=== PATIENT | female | born 1940 | race Asian ===

== ENCOUNTER → 2018-01-30 02:56 | Outpatient (CLI) | payer MEDICARE, MEDICAID, SELFPAY ==
[2018-01-30 12:10] LABS: BUN 19 mg/dL (7-18); CREATININE 0.82 mg/dL (0.55-1.02); Calcium 8.1 mg/dL (8.5-10.1); Chloride 108 mmol/L (98-107); Cholesterol 121 mg/dL (50-200); Glucose 110 mg/dL (70-100); HDL Cholesterol 46 mg/dL (40-60); LDL CHOLESTEROL 50 mg/dL (<100); Potassium 3.7 mmol/L (3.5-5.1); Sodium 142 mmol/L (136-145); Triglyceride 146 mg/dL (30-150)
== END ==
PROVIDERS: PCP Nurse Practitioner Family; Visit Provider Nurse Practitioner Family
DX: I10 Essential (primary) hypertension (principal); E78.5 Hyperlipidemia, unspecified; R73.01 Impaired fasting glucose
CPT/HCPCS: 80048; 80061; 83721; 83036

== ENCOUNTER 2018-03-28 11:25 | Outpatient (CLI) | payer MEDICARE, MEDICAID, SELFPAY ==
[2018-03-28 12:56] LABS: Albumin 3.5 g/dL (3.4-5.0); Calcium 8.2 mg/dL (8.5-10.1)
== END 2018-03-28 11:45 ==
PROVIDERS: PCP Nurse Practitioner Family; Visit Provider Nurse Practitioner Family
DX: E83.51 Hypocalcemia (principal)
CPT/HCPCS: 36415; 82040; 82310

== ENCOUNTER → 2018-10-24 10:05 | Outpatient (BNVA) | payer MEDICARE, MEDICAID, SELFPAY | PROVIDERS: PCP Nurse Practitioner Family; Referring Provider Nurse Practitioner Family; Visit Provider Physical Therapy Assistant | DX: K22.70 Barrett's esophagus without dysplasia (principal); I10 Essential (primary) hypertension; Z79.82 Long term (current) use of aspirin | CPT/HCPCS: 99212; 99214 ==

== ENCOUNTER 2019-01-07 01:22 | Outpatient (CLI) | payer MEDICARE, MEDICAID, SELFPAY ==
--- NOTE | 2019-01-07 16:11 | DI.US_ITS ---
SYMPTOM/DIAGNOSIS: RT SIDED NECK PAIN, GOITER ON EXAM, E04.9 THYROID ULTRASOUND: The right thyroid lobe measures 4.4 by 1.8 by 1.9 cm. and in the upper pole contains a 2.4 by 1.4 by 1.8 cm., complex, mostly cystic mass containing septations. There is a 1.6 by 1.6 by 1.6 cm. heterogeneous solid nodule in the lower pole. The isthmus measures 2 mm. The left thyroid lobe measures 4 by 1.2 by 1.4 cm. and contains a 1.7 by 1.1 by 1.1 cm. complex, mid pole nodule. In the lower pole, there is a cyst measuring 1 by 0.4 by 0.7 cm. There are multiple small nodules seen bilaterally. SUMMARY: A multi nodular thyroid gland is demonstrated as described above.
== END 2019-01-07 01:42 ==
PROVIDERS: PCP Nurse Practitioner Family; Visit Provider Nurse Practitioner Family
DX: M54.2 Cervicalgia (principal); E04.2 Nontoxic multinodular goiter
CPT/HCPCS: 76536

== ENCOUNTER 2019-01-15 12:32 | Outpatient (CLI) | payer MEDICARE, SELFPAY ==
[2019-01-15 15:58] LABS: TSH (W/Ref FT4) 5.21 uIU/mL (0.36-3.74)
[2019-01-15 16:29] LABS: FREE T4 0.85 ng/dL (0.76-1.46)
[2019-01-16 11:17] LABS: Thyroglobulin Antibody <15 U/mL (<61); Thyroperoxidase Antibody <28 U/mL (<61)
== END 2019-01-15 12:52 ==
PROVIDERS: PCP Nurse Practitioner Family; Visit Provider Nurse Practitioner Family
DX: E04.9 Nontoxic goiter, unspecified (principal)
CPT/HCPCS: 36415; 86376; 84439; 84443

== ENCOUNTER 2019-03-27 14:46 | Outpatient (CLI) | payer MEDICARE, MEDICAID, SELFPAY ==
--- NOTE | 2019-03-27 14:00 | DI.RAD_ITS ---
EXAM: XR WRIST RT COMPLETE INDICATION: r/o fx or other bony abnormality, M25.531 PAIN RT WRIST. COMPARISON: No exams were available for comparison TECHNIQUE: 2D digital imaging was performed. FINDINGS: Three views were obtained. There are degenerative changes of the joints of the carpus. There is an ulnar plus variance. There is no evidence of acute fracture or dislocation. 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
== END 2019-03-27 15:06 ==
PROVIDERS: PCP Nurse Practitioner Family; Visit Provider Nurse Practitioner Family
DX: M25.531 Pain in right wrist (principal); M19.031 Primary osteoarthritis, right wrist; M18.11 Unilateral primary osteoarthritis of first carpometacarpal joint, right hand
CPT/HCPCS: 73110

== ENCOUNTER 2019-11-06 14:38 | Outpatient (REF) | payer MEDICARE, MEDICAID, SELFPAY ==
[2019-11-06 18:51] LABS: Abs Immature Grans 0.01 k/cumm (0.0-0.09); Absolute Basophil Count 0.05 k/cumm (0.0-0.2); Absolute Eosinophil Count 0.14 k/cumm (0.0-0.7); Absolute Lymphocyte Count 1.12 k/cumm (1.2-3.4); Absolute Monocyte Count 0.58 k/cumm (0.11-0.7); Absolute Neutrophil Count 3.47 k/cumm (1.2-6.7); Basophils % 0.9; Eosinophils % 2.6; HCT 33.7 % (36.0-46.0); HGB 11.2 g/dL (12.0-15.5); Immature Grans % 0.2 %; Lymphocytes % 20.9; Mean Corp. HGB Concentration 33.2 g/dL (32.0-36.0); Mean Corpuscular Hemoglobin 30.9 pg (27.0-33.0); Mean Corpuscular Volume 92.8 fL (80-95); Mean Platelet Volume 11.1 fL (8.0-11.0); Monocytes % 10.8; Neutrophils % 64.6; Platelet Count 270 x1000/uL (130-400); RBC 3.63 m/cumm (4.00-5.20); RBC Distribution Width 12.8 % (11.7-14.6); White Blood Cell Count 5.37 k/cumm (4.4-10.8)
[2019-11-06 19:20] LABS: ALT 49 U/L (14-59); AST 32 U/L (15-37); Albumin 3.7 g/dL (3.4-5.0); Alkaline Phosphatase 93 U/L (46-116); Anion Gap 8.4 mmol/L (3-11); BUN 23 mg/dL (7-18); Bilirubin, Total 0.7 mg/dL (0.2-1.0); CO2 25.6 mmol/L (21.0-32.0); CREATININE 1.28 mg/dL (0.55-1.02); Chloride 104 mmol/L (98-107); Estimated GFR 40.44 (mL/min/1.73m2); Glucose 194 mg/dL (74-106); Potassium 3.8 mmol/L (3.5-5.1); Sodium 138 mmol/L (136-145); TSH (W/Ref FT4) 1.59 uIU/mL (0.36-3.74); Total Protein 7.6 g/dL (6.4-8.2)
[2019-11-06 19:52] LABS: Hemoglobin A1C 6.6 % (3.8-5.6)
== END 2019-11-06 14:58 ==
LOC: LBN 14:38
PROVIDERS: PCP Nurse Practitioner Family; Visit Provider Nurse Practitioner Family
DX: R73.01 Impaired fasting glucose (principal); E03.9 Hypothyroidism, unspecified; D64.9 Anemia, unspecified; I10 Essential (primary) hypertension
CPT/HCPCS: 80053; 83036; 84443; 85025

== ENCOUNTER → 2019-11-26 14:35 | Outpatient (BNVA) | payer MEDICARE, MEDICAID, SELFPAY | PROVIDERS: PCP Nurse Practitioner Family; Referring Provider Nurse Practitioner Family; Visit Provider Surgery | DX: K22.70 Barrett's esophagus without dysplasia (principal); D64.9 Anemia, unspecified; N28.9 Disorder of kidney and ureter, unspecified; E11.9 Type 2 diabetes mellitus without complications; Z28.21 Immunization not carried out because of patient refusal; G47.33 Obstructive sleep apnea (adult) (pediatric); E78.5 Hyperlipidemia, unspecified; H40.9 Unspecified glaucoma; I10 Essential (primary) hypertension; D12.6 Benign neoplasm of colon, unspecified | CPT/HCPCS: 99212; 99214 ==

== ENCOUNTER 2019-12-01 08:33 | Outpatient (CLI) | payer MEDICARE, SELFPAY ==
[2019-12-02 03:02] LABS: COVID-19 RT-PCR UVMMC Result Negative (Negative)
== END 2019-12-01 08:53 ==
PROVIDERS: PCP Nurse Practitioner Family; Visit Provider Surgery
DX: Z11.59 Encounter for screening for other viral diseases (principal); Z01.818 Encounter for other preprocedural examination
CPT/HCPCS: U0003

== ENCOUNTER 2019-12-04 12:04 | Day surgery (SDC) | payer MEDICARE, MEDICAID, SELFPAY ==
[2019-12-04 12:39] VITALS: BP 135/80; PULSE 60; RESP 16; TEMP 36.9; O2SAT 97
[2019-12-04] MEDS: Lactated Ringers 1,000 ML 100 ML IV (13:06)
--- NOTE | 2019-12-04 13:22 | STOM_PTH ---
PATIENT: Mildred Ash LOC: [facility] U#:[id number] AGE/SX: 79/F ROOM: RE12/04/[address]: Beatrice Joe : 1940 BED: DIS: 12/04/2019 SPEC #: [id number] RECD: 12/04/19 14:48 STATUS: TERRELL REWade #: [id number] SANCHO: 12/04/19 13:[address]: Beatrice Joe DEPT: Surgical Specimen RECD BY: Iqra Flores ENTERED: 12/04/19 14:49 SP TYPE: STOMACH OTHR DR: Sultana Woodward APRN Tissues: 1 - BIOPSY BOWEL 2 - STOMACH BIOPSY 3 - STOMACH BIOPSY 4 - STOMACH BIOPSY 5 - ESOPHAGUS BIOPSY 6 - ESOPHAGUS BIOPSY Procedures: GROSS AND MICRO LEVEL 4 Comments: [id number]
--- NOTE | 2019-12-04 13:45 | W.PM.ENDDOP ---
Date of service: 12/04/19 Time of Service: 13:45 Endoscopy Report DATE OF PROCEDURE: 12/04/19 PRE-OP DIAGNOSIS: hx of loomis's POST-OP DIAGNOSIS: other (hiatal hernia/ polyp in cardia/ duodenitis ) PROCEDURE: egd w/ bx SURGEON: Beatrice Joe ANESTHESIA: MAC ESTIMATED BLOOD LOSS: 1 PATHOLOGY: other COMPLICATIONS: None DISPOSITION: same day PROCEDURE DESCRIPTION: After informed consent was obtained the patient was take to the procedure room and placed in a supine position. Monitors were applied and a time out was done. The patients name, date of , procedure type, allergies to medications and metal in their body was reviewed. A bite block was placed and the patient was sedated. Once sedated and comfortable the gastroscope was advanced through the oropharynx which was grossly normal into the esophagus. The proximal and mid-esophagus were nl. In the distal esophagus there was sm hiatal hernia noted. The scope was advanced into the stomach and through the pylorus into the 3rd portion of the duodenum. The duodenum was noted to be mild erthyma in the bulb. Biopsies were done. The scope was retracted back into the stomach and biopsies were done to rule out H. pylori. There were no ulcers. The scope was retroflexed. The cardia and fundus were noted to be normal. There sm a hiatal hernia noted. There is small polyp in the cardia- bx was taken. The scope was retracted back into the esophagus and biopsies were done of the GE junction to rule out Loomis's. The Z line was mild irregular. The scope was removed and the patient was woken up and taken back to [facility] in stable condition. This scope was basically nl. Pt is not on any medications. Does not require any further egd or ce.
--- NOTE | 2019-12-04 13:51 | W.PM.DSUDISC ---
Discharge Plan Disposition Patient Disposition: HOME Condition: Good Discharge Details Reason For Visit: EGD Attending Provider: Beatrice Joe Primary Care Provider: Sultana Woodward Home Meds and New Rx's Prescriptions: No Action betamethasone dipropionate 0.05 % cream 1 applic TP BID PRN (Reason: skin irritation) Qty: 15 RF: 2 bumetanide 1 mg tablet 1 mg PO DAILY Qty: 90 RF: 3 losartan 100 mg tablet 100 mg PO DAILY Qty: 90 RF: 3 atorvastatin 40 mg tablet 40 mg PO HS Qty: 90 RF: 3 amlodipine 10 mg tablet 10 mg PO DAILY Qty: 90 RF: 3 diclofenac sodium [Voltaren] 1 % gel 2 - 4 gm TP QID PRN (Reason: pain) Qty: 100 RF: 0 [facility] 750 mg-100 mg- 1.65 mg-108 mg tablet 1 tab PO DAILY RF: 0 dorzolamide-timolol 10 ML drops 1 drp Ophthalmic BID Qty: 1 RF: 1 fish oil-dha-epa 1 EACH capsule 1,200 mg PO BID Qty: 1 RF: 11 riboflavin (vitamin B2) [Vitamin B-2] 100 MG tablet 100 mg PO DAILY RF: 0 atenolol 50 mg tablet 50 mg PO DAILY Qty: 90 RF: 3 ibuprofen 600 mg tablet 600 mg PO Q8H PRN (Reason: pain) Qty: 90 RF: 0 multivitamin Tablet 1 tab PO DAILY RF: 0 [employer] [facility] Health 750 mg-100 mg- 1.65 mg-108 mg Tablet 1 tab PO DAILY RF: 0 Discharge Instructions Additional Instructions: Findings:essentially normal does not require any further stomach or colon scopes Follow up: will send a letter w/ Bx results in 2-3 wks Please call if you develop: fevers >101.5 Nausea or Vomiting Abdominal pain that is not transient DAY SURGERY UNIT POST COLONOSCOPY INSTRUCTIONS 1. Because there will be medication in your system for the next 24 hours, you may feel a little sleepy. Your coordination will be affected. Therefore: a. Do not drive or operate dangerous equipment for 24 hours. b. Do not drink alcohol beverages for 24 hours (not even beer). c. Plan to go home and rest for the day. 2. Generally there are no restrictions on your activity after a day or so has gone by, but you may feel a bit fatigued for a few days. 3 After you arrive home you may have a light meal and return to a normal diet as you can tolerate it without feeling sick to your stomach. 4. After surgery, you may feel pain or discomfort. This should be only transient, but if it persists please contact your doctor. 5. If there are any questions regarding the findings of your procedure, please feel free to contact your doctor. 6. If you are unable to contact your doctor with a problem, contact the hospital at [phone]. 7. Continue all your regular medications unless directed otherwise. I understand the above instructions and have no questions. Signature of Patient or Responsible Adult Escort Date/Time Name of Responsible Adult Escort Signature of Nurse Date/Time Activity:: No lifting over 20 pounds or strenuous activity x24 hours Diet:: Carb Counting Discharge Orders Discharge Orders: Discharge Order (Routine); Ordered 12/04/19 Ordered By: Beatrice Joe
[2019-12-04 14:01] VITALS: BP 137/82; PULSE 55; RESP 16; TEMP 36.2; O2SAT 99
[2019-12-04 14:25] VITALS: BP 104/60; PULSE 65; RESP 16; TEMP 36.5; O2SAT 100
== END 2019-12-04 14:30 | disposition home or self-care (01) ==
PROVIDERS: PCP Nurse Practitioner Family; Visit Provider Surgery
PROC: 0DJ68ZZ Inspection of Stomach, Via Natural or Artificial Opening Endoscopic (ICD-10-PCS; CPT 43235; principal; 2019-12-04 13:15)
DX: K29.80 Duodenitis without bleeding (principal); K29.00 Acute gastritis without bleeding; K31.7 Polyp of stomach and duodenum; K44.9 Diaphragmatic hernia without obstruction or gangrene
CPT/HCPCS: 43239; 88305; J2001; J2704

== ENCOUNTER 2019-12-30 13:53 | Emergency (ER) | payer MEDICARE, MEDICAID, SELFPAY ==
[2019-12-30 14:01] VITALS: BP 143/80; PULSE 58; RESP 16; TEMP 37; O2SAT 97
--- NOTE | 2019-12-30 14:15 | RT.EKG_ITS ---
APPROVED REPORT Exam: Resting ECG Patient Location: E HR:55 bpm ECG Measurements Heart Rate 55 AXIS [place] 180 P 35 QRSd 99 QRS -9 QT 426 T 67 QTc 408 <Conclusion> Sinus bradycardia...rate< 60 Left ventricular hypertrophy...multiple voltage criteria No acute ST ischemic changes.
--- NOTE | 2019-12-30 14:16 | ED.GENADUL_ITS ---
Discharge Plan Disposition Patient Disposition: HOME Condition: Improving Discharge Details Chief Complaint: GenMedical Clinical Impression: Headache, Abdominal bloating, Dehydration Primary Care Provider: Sultana Woodward ED Provider: Gracy Chaudhary Home Meds and New Rx's Prescriptions: New ondansetron 4 mg tablet,disintegrating 4 mg PO TID PRN (Reason: nausea and vomiting) Qty: 6 RF: 0 Continued betamethasone dipropionate 0.05 % cream 1 applic TP BID PRN (Reason: skin irritation) Qty: 15 RF: 2 atorvastatin 40 mg tablet 40 mg PO HS Qty: 90 RF: 3 amlodipine 10 mg tablet 10 mg PO DAILY Qty: 90 RF: 3 diclofenac sodium [Voltaren] 1 % gel 2 - 4 gm TP QID PRN (Reason: pain) Qty: 100 RF: 0 [facility] 750 mg-100 mg- 1.65 mg-108 mg tablet 1 tab PO DAILY RF: 0 dorzolamide-timolol 10 ML drops 1 drp Ophthalmic BID Qty: 1 RF: 1 fish oil-dha-epa 1 EACH capsule 1,200 mg PO BID Qty: 1 RF: 11 riboflavin (vitamin B2) [Vitamin B-2] 100 MG tablet 100 mg PO DAILY RF: 0 atenolol 50 mg tablet 50 mg PO DAILY Qty: 90 RF: 3 ibuprofen 600 mg tablet 600 mg PO Q8H PRN (Reason: pain) Qty: 90 RF: 0 fluticasone propionate 50 mcg/actuation spray,suspension 1 - 2 spray NS DAILY PRN (Reason: nasal congestion) Qty: 47.4 RF: 3 bumetanide 1 mg tablet 1 mg PO DAILY Qty: 90 RF: 3 losartan 100 mg tablet 100 mg PO DAILY Qty: 90 RF: 3 multivitamin Tablet 1 tab PO DAILY RF: 0 [facility] 750 mg-100 mg- 1.65 mg-108 mg Tablet 1 tab PO DAILY RF: 0 Discharge Instructions Instructions: Dehydration (ED), General Headache (ED) Additional Instructions: Drink plenty of fluids and get plenty of rest. Alternate tylenol and motrin as needed and directed for pain. Take the Zofran as needed and directed for nausea and vomiting. You will receive a call from radiology regarding an appointment for an outpatient gallbladder ultrasound. You will receive a call from care management regarding a follow-up appointment with your primary care doctor for reevaluation and for recheck of your lipase. Return to the emergency department if you develop any worsening or new concerning symptoms. Discharge Data Discharge Date/Time-TO BE ENTERED AT DEPARTURE: 12/30/19 17:40 Discharge Physician: Gracy Chaudhary Medical Decision Making 2755 -- 79-year-old female with history of obesity, Urbina's esophagus, hypertension, hyperlipidemia, diabetes, migraine presents for dizziness, headache, nasal congestion, abdominal bloating, constipation, decreased appetite and general fatigue over the past 6 weeks. Of note, patient had an EGD last month for her history of Urbina's esophagus and was noted to have hiatal hernia, polyp in cardia, duodenitis. She is afebrile and appears nontoxic. Normal oropharynx. Lungs clear. Abdomen soft and nontender. No focal deficits. Differential diagnosis includes dehydration, electrolyte abnormality, arrhythmia, UTI, pneumonia, sinusitis, acute intracranial process. Will place an IV, bolus IV fluids, migraine cocktail, screening labs, urinalysis as well as CT head and chest x-ray. 1510 --labs reviewed. Normal white blood cell count. Potassium 3.1. Troponin negative. Lipase elevated at 520. Urinalysis negative. Will switch to CT chest and abdomen and pelvis without contrast due to history of IV and oral contrast allergy. 1715 --CT imaging reviewed and negative. Patient was able to eat and ambulate and felt much better and is requesting to go home. Elevated lipase reviewed with surgery on-call and advised an outpatient gallbladder ultrasound and recheck lipase with PCP. There were no gallstones noted on CT abdomen and pelvis and patient denies any history of alcohol. An outpatient gallbladder ultrasound was ordered. Patient was placed on care management list to arrange for follow-up appointment with the primary care doctor in the next 1 to 2 weeks. Medical Records Medical records reviewed: Yes I reviewed the patient's medical records. Imaging Data Radiologic Study: Radiologist's impression: CT HEAD WO CLINICAL HISTORY: headache, dizziness, r/o acute disease. TECHNIQUE: Imaging Protocol: Axial computed tomography images with coronal and sagittal reformatted images were created and reviewed COMPARISON: No exams were available for comparison FINDINGS: Ventricles and Extra axial spaces: Normal in size and morphology for the patient's age. Hemorrhage: None. Cerebral parenchyma: Mild atrophy. No infarct or mass. Midline shift: None. Brainstem/Cerebellum: Normal. Calvarium: Right posterior fossa craniotomy and skull base metallic density. Right parietal veronica hole. Visualized Paranasal sinuses/Mastoids: Clear. Soft Tissues: Unremarkable. IMPRESSION: Postsurgical changes in the skull. No acute intracranial process. CT CHEST/ABD/PEL WO CLINICAL HISTORY: DIZZINESS, VOMITING, ABD BLOATING. TECHNIQUE: Imaging Protocol: Axial computed tomography images with coronal and sagittal reformatted images were created and reviewed CONTRAST MATERIAL: Intravenous: Omnipaque 350 Contrast volume:structured data in ml Oral: No COMPARISON: None FINDINGS: CHEST: Heart and great vessels: Dilated left atrium and left ventricle. Mild calcification of the coronary arteries and aorta. There are no pleural or pericardial effusions. Adenopathy: None. Lungs: Limited evaluation due to respiratory motion. No pulmonary nodules, mass or infiltrate. Bones: Degenerative disc changes. There is no evidence of spine or rib fracture. ABDOMEN/PELVIS: Liver: Normal density. No measurable mass. Gallbladder: No calcified stones, no wall thickening, no abnormal distention.No pericholecystic fluid. Biliary tract: No radiodense calculus, no dilation. Pancreas: Normal density, no abnormal calcifications or inflammatory process. Spleen: Normal. Kidneys: Normal size, contour and axis. No radiodense stones. No hydronephrosis. No masses seen. No perinephric collection. Adrenal glands: No masses seen. Abdominal Aorta: Non-dilated. Moderate atherosclerotic changes. Bowel: No obstruction or bowel wall thickening. No evidence of appendicitis or diverticulitis. Bladder: No gross wall thickening, focal mass or stones. Peritoneal cavity: No ascites, focal collection or mesenteric inflammatory response. No free air. Bones: No suspicious lesions or fractures. Degenerative disc changes. Reproductive organs: Within normal limits. Lymph nodes: No pathologically enlarged lymph nodes. Impression: Unremarkable CT scan of the chest, abdomen and pelvis. Lab Data Lab results reviewed: Yes I reviewed the patient's lab results. Labs: Laboratory Tests Range/Units 12/30/19 12/30/19 12/30/19 14:40 14:40 14:40 WBC (4.4-10.8) k/cumm 5.17 RBC (4.00-5.20) m/cumm 3.78 L Hgb (12.0-15.5) g/dL 11.8 L Hct (36.0-46.0) % 33.9 L MCV (80-95) fL 89.7 MCH (27.0-33.0) pg 31.2 MCHC (32.0-36.0) g/dL 34.8 RDW (11.7-14.6) % 12.3 Plt Count (130-400) x1000/uL 295 MPV (8.0-11.0) fL 9.7 Immature Gran % % 0.0 Neutrophils % 62.1 Lymphocytes % 23.4 Monocytes % 11.8 Eosinophils % 1.9 Basophils % 0.8 Absolute Neutrophils (1.2-6.7) k/cumm 3.21 Absolute Lymphocytes (1.2-3.4) k/cumm 1.21 Absolute Monocytes (0.11-0.7) k/cumm 0.61 Absolute Eosinophils (0.0-0.7) k/cumm 0.10 Absolute Basophils (0.0-0.2) k/cumm 0.04 Sodium (136-145) mmol/L 135 L Potassium (3.5-5.1) mmol/L 3.1 L Chloride (98-107) mmol/L 99 Carbon Dioxide (21.0-32.0) mmol/L 24.4 Anion Gap (3-11) mmol/L 11.6 H BUN (7-18) mg/dL 17 Creatinine (0.55-1.02) mg/dL 0.98 Estimated GFR/1.73 m2 (mL/min/1.73m2) 55.03 Glucose (74-106) mg/dL 144 H Calcium (8.5-10.1) mg/dL 8.6 Magnesium (1.8-2.4) mg/dL 1.8 Total Bilirubin (0.2-1.0) mg/dL 0.7 AST (15-37) U/L 28 ALT (14-59) U/L 34 Alkaline Phosphatase (46-116) U/L 91 Troponin I (<0.06) ng/mL < 0.05 Total Protein (6.4-8.2) g/dL 8.0 Albumin (3.4-5.0) g/dL 3.6 Lipase (73-393) U/L 520 H Urine Color (Yellow) Urine Clarity (Clear) Urine pH (5-8) Ur Specific [place] (1.005-1.025) Urine Protein (Negative) mg/dL Urine Ketones (Negative) mg/dL Urine Blood (Negative) Urine Nitrite (Negative) Urine Bilirubin (Negative) Urine Urobilinogen (Up TO 0.2) EU/dL Ur Leukocyte Esterase (Negative) Urine Glucose (Negative) mg/dL Range/Units 12/30/19 15:20 WBC (4.4-10.8) k/cumm RBC (4.00-5.20) m/cumm Hgb (12.0-15.5) g/dL Hct (36.0-46.0) % MCV (80-95) fL MCH (27.0-33.0) pg MCHC (32.0-36.0) g/dL RDW (11.7-14.6) % Plt Count (130-400) x1000/uL MPV (8.0-11.0) fL Immature Gran % % Neutrophils % Lymphocytes % Monocytes % Eosinophils % Basophils % Absolute Neutrophils (1.2-6.7) k/cumm Absolute Lymphocytes (1.2-3.4) k/cumm Absolute Monocytes (0.11-0.7) k/cumm Absolute Eosinophils (0.0-0.7) k/cumm Absolute Basophils (0.0-0.2) k/cumm Sodium (136-145) mmol/L Potassium (3.5-5.1) mmol/L Chloride (98-107) mmol/L Carbon Dioxide (21.0-32.0) mmol/L Anion Gap (3-11) mmol/L BUN (7-18) mg/dL Creatinine (0.55-1.02) mg/dL Estimated GFR/1.73 m2 (mL/min/1.73m2) Glucose (74-106) mg/dL Calcium (8.5-10.1) mg/dL Magnesium (1.8-2.4) mg/dL Total Bilirubin (0.2-1.0) mg/dL AST (15-37) U/L ALT (14-59) U/L Alkaline Phosphatase (46-116) U/L Troponin I (<0.06) ng/mL Total Protein (6.4-8.2) g/dL Albumin (3.4-5.0) g/dL Lipase (73-393) U/L Urine Color (Yellow) Yellow Urine Clarity (Clear) Clear Urine pH (5-8) 6.0 Ur Specific [place] (1.005-1.025) 1.010 Urine Protein (Negative) mg/dL Negative Urine Ketones (Negative) mg/dL Negative Urine Blood (Negative) Negative Urine Nitrite (Negative) Negative Urine Bilirubin (Negative) Negative Urine Urobilinogen (Up TO 0.2) EU/dL 0.2 Ur Leukocyte Esterase (Negative) Negative Urine Glucose (Negative) mg/dL Negative ECG Data Attestation: I personally reviewed and interpreted this ECG (s) as follows: Interpretation: Rate of 55, sinus, no acute ST elevation or depression. [place] 180. QRS 99. QTcB 408. HPI General Mode of arrival: ambulatory . Date/Time Provider Initiated Documentation: 12/30/19 14:06 . Limitations to Documentation: no limitations . Information obtained by: patient and family . HPI Narrative: Pt is a 79yo F w/ a h/o hypertension, diabetes, migraines, sleep apnea, Urbina's esophagus who presents with multiple complaints over the last 6 weeks. Patient admits to aching headache pain and [id number] on the top of her head for the past several weeks, currently now 5/10. She also admits to intermittent nasal congestion, postnasal drip, fatigue, dizziness, abdominal bloating, constipation and decreased appetite. Daughter states that patient does not drink much water. She has tried her own French remedies for her headache including a topical tiger balm like cream with occasional relief. Denies any fever, sore throat, chest pain, shortness of breath, abdominal pain, diarrhea, urinary symptoms, recent travel, recent known sick contacts, recent change in medications or recent antibiotics. Related Data Home Medications Medication Instructions Recorded Confirmed dorzolamide-timolol 1 drp OPHTHALMIC BID #1 drp 07/02/13 12/30/19 fish oil-dha-epa 1,200 mg PO BID #1 tab-cap 08/07/13 12/30/19 riboflavin (vitamin B2) [Vitamin 100 mg PO DAILY 06/03/15 12/30/19 B-2] betamethasone dipropionate 0.05 % 1 applic TP BID PRN #15 gm 07/04/18 12/30/19 topical cream atorvastatin 40 mg tablet 40 mg PO HS #90 tab 01/02/19 12/30/19 amlodipine 10 mg tablet 10 mg PO DAILY #90 tab-cap 04/10/19 12/30/19 atenolol 50 mg tablet 50 mg PO DAILY #90 tab-cap 04/30/19 12/30/19 diclofenac sodium 1 % topical gel 2 - 4 gm TP QID PRN #100 gm 05/08/19 12/30/19 ibuprofen 600 mg tablet 600 mg PO Q8H PRN #90 tab 06/19/19 12/30/19 glucosam 750 mg-chondroi 100 1 tab PO DAILY tab 11/06/19 12/30/19 mg-hyalur 1.65 mg-CF borate 108 mg tablet [facility] 1 tab PO DAILY 12/03/19 12/30/19 multivitamin 1 tab PO DAILY 12/03/19 12/30/19 fluticasone propionate 50 1 - 2 spray NS DAILY PRN #47.4 gm 12/18/19 12/30/19 mcg/actuation nasal spray,suspension bumetanide 1 mg tablet 1 mg PO DAILY #90 tab-cap 12/25/19 12/30/19 losartan 100 mg tablet 100 mg PO DAILY #90 tab-cap 12/25/19 12/30/19 ondansetron 4 mg PO TID PRN #6 tab 12/30/19 Previous Rx's Medication Instructions Recorded betamethasone dipropionate 0.05 % 1 applic TP BID PRN #15 gm 07/04/18 topical cream atorvastatin 40 mg tablet 40 mg PO HS #90 tab 01/02/19 amlodipine 10 mg tablet 10 mg PO DAILY #90 tab-cap 04/10/19 atenolol 50 mg tablet 50 mg PO DAILY #90 tab-cap 04/30/19 diclofenac sodium 1 % topical gel 2 - 4 gm TP QID PRN #100 gm 05/08/19 ibuprofen 600 mg tablet 600 mg PO Q8H PRN #90 tab 06/19/19 fluticasone propionate 50 1 - 2 spray NS DAILY PRN #47.4 gm 12/18/19 mcg/actuation nasal spray,suspension bumetanide 1 mg tablet 1 mg PO DAILY #90 tab-cap 12/25/19 losartan 100 mg tablet 100 mg PO DAILY #90 tab-cap 12/25/19 ondansetron 4 mg PO TID PRN #6 tab 12/30/19 Allergies Allergy/AdvReac Type Severity Reaction Status Date / Time Iodinated Contrast Media Allergy Intermediate RASH Verified 12/30/19 16:05 [Iodinated Contrast- Oral and IV Dye] shellfish derived Allergy Intermediate HIVES-RETIR Verified 12/30/19 16:05 ED hydrochlorothiazide Allergy Unknown Hives Verified 12/30/19 16:05 pantoprazole Allergy Unknown Hives Verified 12/30/19 16:05 diltiazem AdvReac Intermediate ITCHY RASH Verified 12/30/19 16:05 verapamil AdvReac Mild ITCHY RASH Verified 12/30/19 16:05 capsule Allergy Severe rash all Uncoded 12/30/19 16:05 over body General Stated Complaint: GenMedical SKIP: 3 Review of Systems All systems reviewed & are unremarkable except as noted in HPI and below Constitutional Constitutional: Reports as per HPI, Denies chills, Denies fever(s) and Reports headache(s) Eyes Eyes: Denies blurry vision ENT Ears, Nose, Mouth, and Throat: Reports dizziness, Reports headache(s), Denies sore throat and Denies throat swelling Cardiovascular Cardiovascular: Denies chest pain and Denies dyspnea Respiratory Respiratory: Denies cough and Denies dyspnea Gastrointestinal Gastrointestinal: Denies abdominal pain, Reports bloating, Denies diarrhea and Reports vomiting Genitourinary Genitourinary: Denies hematuria and Denies dysuria Musculoskeletal Musculoskeletal: Denies back pain and Denies numbness Integumentary/Breasts Skin/Breast: Denies lesions and Denies rash Neurologic Neurologic: Reports dizziness, Reports headache(s), Denies localized weakness and Denies numbness Allergic/Immunologic Allergic/Immunologic: Denies throat swelling [facility] Medical History (Updated 12/30/19 @ 17:14 by Gracy Chaudhary DO) Adenoma of large intestine (Inactive 01/15/13) tubular adenoma 07/18/[address] Hadley Anemia (Acute 07/05/11) chronic Urbina's esophagus (Acute) Dr Lim: EGD 07/12/09 frq q5y Chronic rhinitis (Acute 02/05/14) Glaucoma Gout HLD (hyperlipidemia) HTN (hypertension) IFG (impaired fasting glucose) (Resolved) Migraine without aura (Chronic 05/10/11) Obstructive sleep apnea (Chronic 12/02/15) [facility] Sleep Medicine Other and unspecified hyperlipidemia (Chronic 01/09/13) 01/2017 labwork: 10-year ASCVD risk = ~22.7% --> pt declines statins Psoriasis (Chronic) Type 2 diabetes mellitus (Acute) Surgical History (Updated 12/04/19 @ 12:29 by Eliel Hurtado) Colonoscopy - MAC (Resolved 07/18/17) egd (Resolved 07/19/09) and 01/23/08 H/O lithotripsy (Acute) History of ear surgery (Acute) Per pt. daughter pt. had a metal plate put on the side of her head r/t to inner ear issue. Pt. daughter states this was done 40 years ago. Social History Smoking/Tobacco Use Status: Never Alcohol Intake: never Drug use: Never Substance use type: does not use Caregiver/Support person: No Number of Children: 4 Communication Needs: Language Barriers current occupation: retired Pets and animals: No Current gender identity: female What is your relationship status?: Panel score (0-1 are the most socially isolated patients): 0 What type of physical activity do you participate in: other Details: ski machine Duration: 15-30 minutes/day Frequency: 3-4 times per week Seatbelt use: always Additional Social history: pt. daughter salvatore answering for pt. Language line utelized. Exam Const General: cooperative and no acute distress Orientation: alert, awake and oriented x3 HENMT Head: normal to inspection Ears: hearing grossly normal bilaterally, external ears normal and TM's normal bilaterally General nose exam: external nose normal Face and sinus: normal facial exam Mouth: oral mucosae normal Teeth and gingiva: dentition normal Throat: posterior oropharynx normal Eyes General: appearance normal, both eyes and all related structures Eyelids: eyelids normal Pupils: PERRL EOM: EOM intact bilaterally Neck Neck: normal visual inspection Lymphatic: no lymphadenopathy noted Chest Chest: normal inspection of the chest Resp Effort & Inspection: normal respiratory effort and able to speak in complete sentences Auscultation: clear to auscultation bilaterally Cardio Rate: regular rate Rhythm: regular rhythm GI Inspection: normal to inspection and obesity Palpation: soft, not firm, no guarding, no hepatosplenomegaly, no masses and nontender Auscultation: normal bowel sounds Back/Spine/Pelvis Back: no CVA tenderness Skin General skin exam: no rashes or lesions noted Neuro General: patient alert, patient awake and CN's II-XI intact bilaterally Cognition: normal cognition Speech: speech normal Gait: normal gait Motor: muscle tone normal throughout and strength 5/5 throughout Sensory Exam: no sensory deficits noted Extrem General: normal to inspection, full ROM and capillary refill normal Psych Appearance: grossly normal Mental Status: mental status grossly normal Speech and Movement: speech and movement normal Affect: normal affect Thought Process: normal Course Vital Signs Vital signs: Vital Signs Temperature 98.6 F 12/30/19 14:01 Pulse 58 L 12/30/19 14:01 Respiratory Rate 16 12/30/19 14:01 Blood Pressure 143/80 H 12/30/19 14:01 Pulse Oximetry 97 12/30/19 14:01 Temperature 98.6 F 12/30/19 14:01 Temperature Source Skin 12/30/19 14:01 Pulse 58 L 12/30/19 14:01 Respiratory Rate 16 12/30/19 14:01 Respiratory Effort Non-Labored 12/30/19 14:01 Blood Pressure 143/80 H 12/30/19 14:01 Blood Pressure Position Sitting 12/30/19 14:01 Pulse Oximetry 97 12/30/19 14:01 Oxygen Delivery Method Room Air 12/30/19 14:01 Oxygen Flow Rate 0 12/30/19 14:01 Pain Level 6 12/30/19 14:01
--- NOTE | 2019-12-30 14:45 | DI.CT_ITS ---
EXAM: CT HEAD WO CLINICAL HISTORY: headache, dizziness, r/o acute disease. TECHNIQUE: Imaging Protocol: Axial computed tomography images with coronal and sagittal reformatted images were created and reviewed COMPARISON: No exams were available for comparison FINDINGS: Ventricles and Extra axial spaces: Normal in size and morphology for the patient's age. Hemorrhage: None. Cerebral parenchyma: Mild atrophy. No infarct or mass. Midline shift: None. Brainstem/Cerebellum: Normal. Calvarium: Right posterior fossa craniotomy and skull base metallic density. Right parietal veronica hol e. Visualized Paranasal sinuses/Mastoids: Clear. Soft Tissues: Unremarkable. IMPRESSION: Postsurgical changes in the skull. No acute intracranial process. RADIATION DOSE DELIVERED: Total DLP DATA REPOSITORY: All CT scans at this facility are submitted to the National Radiology Data Registry (NRDR) Dose Index Registry (DIR) with the [employer] (ACR). RADIATION OPTIMIZATION: All CT scans at this facility use at least one of these dose optimization te chniques: automated exposure control; mA and/or kV adjustment per patient size (includes targeted exa ms where dose is matched to clinical indication); or iterative reconstruction.
[2019-12-30 14:53] LABS: Absolute Basophil Count 0.04 k/cumm (0.0-0.2); Absolute Lymphocyte Count 1.21 k/cumm (1.2-3.4); Absolute Monocyte Count 0.61 k/cumm (0.11-0.7); Absolute Neutrophil Count 3.21 k/cumm (1.2-6.7); Basophils % 0.8; Eosinophils % 1.9; HCT 33.9 % (36.0-46.0); HGB 11.8 g/dL (12.0-15.5); Lymphocytes % 23.4; Mean Corp. HGB Concentration 34.8 g/dL (32.0-36.0); Mean Corpuscular Hemoglobin 31.2 pg (27.0-33.0); Mean Corpuscular Volume 89.7 fL (80-95); Mean Platelet Volume 9.7 fL (8.0-11.0); Monocytes % 11.8; Neutrophils % 62.1; Platelet Count 295 x1000/uL (130-400); RBC 3.78 m/cumm (4.00-5.20); RBC Distribution Width 12.3 % (11.7-14.6); White Blood Cell Count 5.17 k/cumm (4.4-10.8)
[2019-12-30 15:10] LABS: Lipase 520 U/L (73-393)
[2019-12-30 15:12] LABS: ALT 34 U/L (14-59); AST 28 U/L (15-37); Albumin 3.6 g/dL (3.4-5.0); Alkaline Phosphatase 91 U/L (46-116); Anion Gap 11.6 mmol/L (3-11); BUN 17 mg/dL (7-18); Bilirubin, Total 0.7 mg/dL (0.2-1.0); CO2 24.4 mmol/L (21.0-32.0); CREATININE 0.98 mg/dL (0.55-1.02); Calcium 8.6 mg/dL (8.5-10.1); Chloride 99 mmol/L (98-107); Estimated GFR 55.03 (mL/min/1.73m2); Glucose 144 mg/dL (74-106); Magnesium 1.8 mg/dL (1.8-2.4); Potassium 3.1 mmol/L (3.5-5.1); Sodium 135 mmol/L (136-145)
[2019-12-30 15:13] LABS: Troponin I < 0.05 ng/mL (<0.06)
--- NOTE | 2019-12-30 15:19 | DI.CT_ITS ---
EXAM: CT CHEST/ABD/PEL WO CLINICAL HISTORY: DIZZINESS, VOMITING, ABD BLOATING. TECHNIQUE: Imaging Protocol: Axial computed tomography images with coronal and sagittal reformatted images were created and reviewed CONTRAST MATERIAL: Intravenous: Omnipaque 350 Contrast volume:structured data in ml Oral: No COMPARISON: None FINDINGS: CHEST: Heart and great vessels: Dilated left atrium and left ventricle. Mild calcification of the coronary arteries and aorta. There are no pleural or pericardial effusions. Adenopathy: None. Lungs: Limited evaluation due to respiratory motion. No pulmonary nodules, mass or infiltrate. Bones: Degenerative disc changes. There is no evidence of spine or rib fracture. ABDOMEN/PELVIS: Liver: Normal density. No measurable mass. Gallbladder: No calcified stones, no wall thickening, no abnormal distention.No pericholecystic fluid . Biliary tract: No radiodense calculus, no dilation. Pancreas: Normal density, no abnormal calcifications or inflammatory process. Spleen: Normal. Kidneys: Normal size, contour and axis. No radiodense stones. No hydronephrosis. No masses seen. No perinephric collection. Adrenal glands: No masses seen. Abdominal Aorta: Non-dilated. Moderate atherosclerotic changes. Bowel: No obstruction or bowel wall thickening. No evidence of appendicitis or diverticulitis. Bladder: No gross wall thickening, focal mass or stones. Peritoneal cavity: No ascites, focal collection or mesenteric inflammatory response. No free air. Bones: No suspicious lesions or fractures. Degenerative disc changes. Reproductive organs: Within normal limits. Lymph nodes: No pathologically enlarged lymph nodes. Impression: Unremarkable CT scan of the chest, abdomen and pelvis. RADIATION DOSE DELIVERED: Total DLP Total DLP DATA REPOSITORY: All CT scans at this facility are submitted to the National Radiology Data Registry (NRDR) Dose Index Registry (DIR) with the [employer] (ACR). RADIATION OPTIMIZATION: All CT scans at this facility use at least one of these dose optimization te chniques: automated exposure control; mA and/or kV adjustment per patient size (includes targeted exa ms where dose is matched to clinical indication); or iterative reconstruction.
[2019-12-30 15:30] LABS: Bilirubin Negative (Negative); Blood Negative (Negative); Clarity Clear (Clear); Glucose Negative (Negative); Ketones Negative (Negative); Leukocyte Esterase Negative (Negative); Nitrite Negative (Negative); Urobilinogen 0.2 EU/dL (Up TO 0.2)
[2019-12-30] MEDS: ACETAMINOPHEN 1,000 MG/100 ML BTL 400 MG IVPB (15:33)
[2019-12-30] MEDS: Normal Saline 1,000 ML 1000 ML IV (15:33)
[2019-12-30] MEDS: Dexamethasone 10 MG/ML VIAL IVP (15:48)
[2019-12-30] MEDS: Prochlorperazine 10 MG/2 ML VIAL IVP (15:49)
[2019-12-30] MEDS: diphenhydrAMINE 50 MG/ML VIAL 25 MG IVP (15:51)
[2019-12-30 16:43] VITALS: BP 148/71; PULSE 55; RESP 16; TEMP 36.5; O2SAT 98
[2019-12-30] MEDS: Potassium Chloride 20 MEQ TABCR 40 MEQ PO (16:47)
== END 2019-12-30 17:40 | disposition home or self-care (01) ==
PROVIDERS: Emergency Provider Physician Assistant; PCP Nurse Practitioner Family
DX: R51 Headache (principal); E86.0 Dehydration; R14.0 Abdominal distension (gaseous); R79.89 Other specified abnormal findings of blood chemistry; I10 Essential (primary) hypertension; E11.9 Type 2 diabetes mellitus without complications
CPT/HCPCS: 71250; 80053; 83690; 93005; 96361; 96374; 96375; 99285; 70450; 74176; 81003; 83735; 84484; 85025; 93010; 99284; J0131; J0780; J1100; J1200

== ENCOUNTER 2019-12-31 10:42 | Outpatient (CLI) | payer MEDICARE, MEDICAID, SELFPAY ==
--- NOTE | 2019-12-31 | DI.US_ITS ---
EXAM: US ABDOMEN CLINICAL HISTORY: ABDOMINAL BLOATING, ELEVATED LIPASE TECHNIQUE: Ultrasound abdomen performed using standard protocol. COMPARISON: CT CT CHEST/ABD/PEL WO from 12/30/2019 FINDINGS: LIVER: Normal size. Mildly increased echogenicity. No focal liver lesions are seen.. GALLBLADDER: No evidence of cholelithiasis. No evidence of wall thickening. No pericholecystic fluid identified. WEBER'S SIGN: Negative. BILIARY SYSTEM: No intrahepatic or extrahepatic biliary ductal dilation. KIDNEYS: Kidneys are symmetric in size. No evidence of renal calculi. No evidence of hydronephrosis. No renal mass identified. Small cyst left kidney. PANCREAS: Normal where visualized. SPLEEN: Not enlarged. ABDOMINAL AORTA AND IVC: Visualized portions normal caliber. ASCITES: None seen. IMPRESSION: Fatty liver. No evidence of gallstones or biliary dilatation. DATA REPOSITORY:
== END 2019-12-31 11:02 ==
PROVIDERS: PCP Nurse Practitioner Family; Visit Provider Physician Assistant
DX: R14.0 Abdominal distension (gaseous) (principal); R74.8 Abnormal levels of other serum enzymes; K76.0 Fatty (change of) liver, not elsewhere classified
CPT/HCPCS: 76700

== ENCOUNTER 2020-01-08 02:39 | Outpatient (CLI) | payer MEDICARE, SELFPAY ==
[2020-01-08 16:47] LABS: Anion Gap 10.1 mmol/L (3-11); BUN 13 mg/dL (7-18); CO2 24.9 mmol/L (21.0-32.0); CREATININE 0.94 mg/dL (0.55-1.02); Calcium 8.8 mg/dL (8.5-10.1); Chloride 98 mmol/L (98-107); Estimated GFR 57.74 (mL/min/1.73m2); Glucose 133 mg/dL (74-106); Lipase 427 U/L (73-393); Potassium 3.9 mmol/L (3.5-5.1); Sodium 133 mmol/L (136-145)
== END 2020-01-08 02:59 ==
PROVIDERS: PCP Nurse Practitioner Family; Visit Provider Internal Medicine
DX: I10 Essential (primary) hypertension (principal); E86.0 Dehydration
CPT/HCPCS: 36415; 80048; 83690

== ENCOUNTER 2020-01-23 12:23 | Outpatient (REF) | payer MEDICARE, SELFPAY ==
[2020-01-23 19:45] LABS: Sodium, Urine 22 mmol/L
[2020-01-25 17:09] LABS: Osmolality, Urine 185 mOsm/kg (150-1,150)
== END 2020-01-23 12:43 ==
LOC: LBN 12:23
PROVIDERS: PCP Nurse Practitioner Family; Visit Provider Nurse Practitioner Family
DX: E87.1 Hypo-osmolality and hyponatremia (principal)
CPT/HCPCS: 83935; 84300

== ENCOUNTER 2020-02-05 19:57 | Outpatient (REF) | payer MEDICARE, SELFPAY ==
[2020-02-05 20:45] LABS: Sodium, Urine 32 mmol/L
[2020-02-06 17:23] LABS: Osmolality, Urine 173 mOsm/kg (150-1,150)
== END 2020-02-05 20:17 ==
LOC: LBN 19:57
PROVIDERS: PCP Nurse Practitioner Family; Visit Provider Nurse Practitioner Family
DX: E87.1 Hypo-osmolality and hyponatremia (principal)
CPT/HCPCS: 83935; 84300

== ENCOUNTER 2020-02-16 03:09 | Outpatient (CLI) | payer MEDICARE, MEDICAID, SELFPAY | END 2020-02-16 03:29 | PROVIDERS: PCP Nurse Practitioner Family; Visit Provider Nurse Practitioner Family | DX: R42 Dizziness and giddiness (principal) | CPT/HCPCS: 93225 ==

== ENCOUNTER 2020-02-19 02:30 | Outpatient (CLI) | payer MEDICARE, MEDICAID, SELFPAY ==
--- NOTE | 2020-02-19 15:45 | DI.MRI_ITS ---
EXAM: MR BRAIN WO CLINICAL HISTORY: 2 mo hx intractable headaches, hx ear surg,R51,ABNL GAIT AND MOBILITY,R26.9. TECHNIQUE: Multiplanar multisequence MRI was performed. COMPARISON: MR MRI - BRAIN WO CONTRAST from 02/01/[address] HEAD WO from 12/30/2019 FINDINGS: MR examination of brain was performed according to the usual protocol. 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 There is moderate generalized cerebral atrophy. There are multiple focal areas of abnormal signal in periventricular white matter sparing the corpus callosum consistent with mild microvascular ischemic changes. Diffusion-weighted imaging shows no evidence intracranial infarction. Susceptibility weighted imaging shows no evidence of acute hemorrhage. The orbital structures appear intact. The pituitary appears intact. There is normal flow void in th e [id number] vasculature. IMPRESSION: No evidence of acute intracranial process. 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 No change in appearance from January 2015. DATA REPOSITORY:
== END 2020-02-19 02:50 ==
PROVIDERS: PCP Nurse Practitioner Family; Visit Provider Nurse Practitioner Family
DX: R51 Headache (principal); R26.89 Other abnormalities of gait and mobility
CPT/HCPCS: 70551

== ENCOUNTER 2020-02-20 09:10 | Outpatient (CLI) | payer MEDICARE, MEDICAID, SELFPAY ==
--- NOTE | 2020-02-20 09:35 | W.HOLTRPT ---
Date of service: 02/20/20 Time of Service: 09:35 Holter Monitor Report Referring Provider:: Sultana Woodward Indications:: dizziness Holter Monitor Note: This is a 48-hour Holter monitor performed for indications of dizziness. The rhythm throughout was sinus. Average heart rate was 61. Minimum heart rate was 47 and maximum 89 There were very rare atrial and ventricular ectopic beats There was no atrial fibrillation. There were no pauses Patient symptoms corresponded to sinus rhythm, rate 65 to 75 bpm
== END 2020-02-20 09:30 ==
PROVIDERS: PCP Nurse Practitioner Family; Visit Provider Nurse Practitioner Family
DX: R42 Dizziness and giddiness (principal); I49.1 Atrial premature depolarization; I49.3 Ventricular premature depolarization
CPT/HCPCS: 93227; 93226

== ENCOUNTER 2020-03-12 09:56 | Day surgery (SDC) | payer MEDICARE, MEDICAID, SELFPAY ==
[2020-03-12 09:55] VITALS: BP 144/100; PULSE 61; RESP 18; TEMP 36.1; O2SAT 97
[2020-03-12] MEDS: Tropicam./Phenyleph. (1/2.5%) 5 ML BTL OS ×3 (10:21→10:26)
[2020-03-12] MEDS: Tetracaine 0.5% 4 ML BTL OS (11:45)
[2020-03-12] MEDS: Balanced Salt Soln.-PLUS 500 ML BAG (11:46)
[2020-03-12] MEDS: Lidocaine 1% Pres-Free 5 ML VIAL (11:47)
[2020-03-12] MEDS: Lidocaine 2% Jelly 6 ML SYR (11:48)
[2020-03-12] MEDS: Moxifloxacin-PF 1 MG/ML VIAL (11:48)
[2020-03-12] MEDS: Povidone-Iodine Ophth 30 ML BTL (11:50)
[2020-03-12] MEDS: Trypan Blue 0.06% 0.5 ML SYR (11:59)
--- NOTE | 2020-03-12 12:16 | W.PM.DSUDISC ---
Discharge Plan Disposition Patient Disposition: HOME Condition: Good Discharge Details Attending Provider: Huber Muller Primary Care Provider: Sultana Woodward Home Meds and New Rx's Prescriptions: No Action betamethasone dipropionate 0.05 % cream 1 applic TP BID PRN (Reason: skin irritation) Qty: 15 RF: 2 amlodipine 10 mg tablet 10 mg PO DAILY Qty: 90 RF: 3 diclofenac sodium [Voltaren] 1 % gel 2 - 4 gm TP QID PRN (Reason: pain) Qty: 100 RF: 0 (DME) blood-glucose meter Misc See Rx Instructions .ROUTE .MEDSUPPLY Qty: 1 RF: 0 (DME) Blood Glucose Test Strip See Rx Instructions .ROUTE .MEDSUPPLY Qty: 100 RF: 3 (DME) lancets Misc See Rx Instructions .ROUTE .MEDSUPPLY Qty: 100 RF: 3 trazodone 50 mg tablet 75 mg PO HS Qty: 45 RF: 0 atorvastatin 40 mg tablet 40 mg PO HS Qty: 90 RF: 3 dorzolamide-timolol 10 ML drops 1 drp Ophthalmic BID Qty: 1 RF: 1 fish oil-dha-epa 1 EACH capsule 1,200 mg PO BID Qty: 1 RF: 11 riboflavin (vitamin B2) [Vitamin B-2] 100 MG tablet 100 mg PO DAILY RF: 0 atenolol 50 mg tablet 50 mg PO DAILY Qty: 90 RF: 3 ibuprofen 600 mg tablet 600 mg PO Q8H PRN (Reason: pain) Qty: 90 RF: 0 fluticasone propionate 50 mcg/actuation spray,suspension 1 - 2 spray NS DAILY PRN (Reason: nasal congestion) Qty: 47.4 RF: 3 losartan 100 mg tablet 100 mg PO DAILY Qty: 90 RF: 3 Discharge Instructions Stand Alone Forms: Post-op Topical Cataract, Jesús Arreguin (DSU) Discharge Orders Discharge Orders: Discharge Order (Routine); Ordered 03/12/20 Ordered By: Huber Muller DS: Diagnosis Discharge Diagnosis (1) Posterior subcapsular age-related cataract of left eye: Status: Resolved (2) Nuclear sclerotic cataract of left eye: Status: Resolved (3) Cortical cataract of left eye: Status: Resolved
--- NOTE | 2020-03-12 12:20 | ROE_ITS ---
Date of service: 03/12/20 Time of Service: 12:21 Operative Note Operative Note DATE OF PROCEDURE: 03/12/20 PRE-OP DIAGNOSIS: Nuclear/cortical/posterior subcapsular cataract, left eye Primary open-angle glaucoma, left eye, indeterminate stage POST-OP DIAGNOSIS: same PROCEDURE: Cataract extraction using phacoemulsification with intraocular lens implant, left eye, using capsular staining with Vision Blue SURGEON: Huber Muller ANESTHESIA: MAC (with local sub-tenon's anesthetic injection) COMPLICATIONS: None Patient was transported to: same day Patient's condition: stable Implants: Eb and Eb / [employer] Opt[employer] Tecnis [id number] Indications: Progressive decreased vision due to cataract, left eye, with poor red reflex Procedure Description: CATARACT SURGERY OPERATIVE REPORT PREOPERATIVE DIAGNOSIS: 1. Nuclear/cortical/posterior subcapsular cataract, left eye 2. Poor red reflex secondary to #1 3. Primary open-angle glaucoma, left eye, indeterminate stage 4. High myopia POSTOPERATIVE DIAGNOSIS: Same OPERATION: 1. Cataract extraction using phacoemulsification with posterior chamber intraocular lens implant, left eye. 2. Capsular staining with Vision Blue IOL: IOL Fitting Room Operator/Model: Eb & Eb / STEPHIE Tecnis ZCB00 IOL Power: + 6.0 diopters IOL Serial Number: [id number] Optic Diameter: 6.0 mm Haptic/Overall Diameter: 13.0 mm PHACO INFO: Rudolph mentionurion Vision System with OZil and Active Fluidics Cumulative Dispersed Energy (CDE): 8.72 seconds SURGEON: Huber Muller MD, DIANA ANESTHESIA: Monitored [facility] ([facility]), with local sub-tenon's anesthetic infiltration COMPLICATIONS: None SPECIMENS: None INDICATIONS FOR PROCEDURE: The patient is a 79-year-old lady with long history of high myopia with open angle glaucoma and advanced disc cupping of the left eye. 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 She is essentially monocular. She has developed a significant nuclear/cortical/posterior subcapsular cataract in the left eye. The option of cataract surgery was offered to the patient and she wished to proceed. In addition, consideration to a glaucoma stent procedure at the time of cataract surgery was also considered. PROCEDURE: The correct surgical eye was identified and marked as the left eye and the pupil was dilated in the preoperative area using mydriatics and cycloplegics. The dilated pupil size was 7.0 mm. Oral sedation was administered in the form of an Imprimis MKO Melt (midazolam 3mg/ketamine 25mg/ondansetron 2mg). The patient was brought to the operating room where cardiopulmonary monitoring was instituted and surgical time-out was performed, confirming the correct operative eye and IOL power. Topical anesthesia was administered and ophthalmic povidone-iodine 5% was instilled into the conjunctival fornices. Lidocaine gel was applied to the cornea and the annie-ocular area was prepped with Betadine 10% solution and draped in the usual sterile fashion for intraocular surgery, including an aperture drape. A Tegaderm transparent film dressing was cut in half and used to cover the lashes and lid margins. Care was taken to sequester the lashes and lid margins under the Tegaderm dressing. A lid speculum was placed between the lids of the operative eye and the Garrett-Fernanda operating microscope was maneuvered into position. Bethany scissors were then used to make a conjunctival buttonhole approximately 6mm posterior to the limbus in the inferonasal quadrant. Blunt dissection was carried out to expose bare sclera, and a blunt-tipped sub-tenon?s anesthesia cannula was introduced and passed posteriorly along the globe where non- preserved plain lidocaine was injected into posterior sub-Tenon?s space. A sideport knife was used to make a paracentesis port superiorly/superiortemporally. Intraocular phenylephrine/lidocaine was injected int the anterior chamber.. Air was then injected into the anterior chamber, followed by Vision Blue, which was painted over the anterior capsule and then irrigated out using BSS. The anterior chamber was filled with Healon Pro. A 2.4mm keratome knife was used to create a half-thickness groove at the limbus and then to construct a three-plane near-clear corneal tunnel extending 2.0mm into clear cornea at the 3:00 position. A flap was raised on the anterior capsule and capsulorhexis forceps were used to complete a continuous curvilinear capsulorhexis of 5.0 mm. The capsule was noted to be extremely thin with loose zonules. The anterior chamber was very deep. Low scleral rigidity was noted. Balanced salt solution was then used to perform cortical cleaving hydrodissection and nuclear hydrodelineation until the lens could be freely rotated within the capsular bag. The lens nucleus was then disassembled and removed within the capsular bag and iris plane using phacoemulsification. Residual cortical material was removed using the 45-degree angled silicone I/A tip with 0.3mm port. The posterior capsule was carefully polished to remove as much residual lens epithelial cells as safely possible. The capsular bag was then inflated and the anterior chamber deepened with viscoelastic. The lens implant described above was inserted into the capsular bag using the STEPHIE [place] Injector. A Kuglen hook was used to dial the IOL into position. Additional viscoelastic was injected into the anterior chamber and the patient's head was tilted to the right, and the microscope was angled for viewing of the anterior chamber structures. Viscoelastic was then placed on the cornea followed by a surgical goniolens. Due to the deep anterior chamber and high myopia a clear view of the trabecular meshwork was not possible. Additional viscoelastic was injected into the anterior chamber, but the trabecular meshwork could not be easily identified, in addition, corneal folds made visualization difficult despite extra viscoelastic and the anterior chamber. The decision was made not to inject the stent. The patient's head and microscope were then returned to the normal coaxial position. Residual viscoelastic was then removed first from posterior to the IOL, then from the anterior chamber using the I/A handpiece. The lens implant was noted to center nicely within the capsular bag. The incisions were stromally hydrated, and the anterior chamber was reformed using BSS. Then 0.5cc of moxifloxacin 1.0mg/ml were injected into the capsular bag and anterior chamber. The incisions were checked with a Weck spear and found to be secure. Several drops of ophthalmic povidone-iodine 5% were then applied to the eye followed by two drops of Imprimis combination prednisolone/moxifloxacin/nepafenac solution. The drapes were removed and a clear plastic protective eye shield was placed over the eye. The patient was then returned to Same Day Surgery in stable condition.
[2020-03-12 12:38] VITALS: BP 134/71; PULSE 63; RESP 16; TEMP 36.5; O2SAT 97
== END 2020-03-12 12:50 | disposition home or self-care (01) ==
PROVIDERS: PCP Nurse Practitioner Family; Visit Provider Ophthalmology
PROC: (CPT 0191T; principal; 2020-03-12 12:30)
DX: H25.042 Posterior subcapsular polar age-related cataract, left eye (principal); H40.1124 Primary open-angle glaucoma, left eye, indeterminate stage
CPT/HCPCS: 0191T; 66984; C1783; V2632

== ENCOUNTER → 2020-04-22 12:35 | Outpatient (BNVA) | payer MEDICARE, MEDICAID, SELFPAY | PROVIDERS: PCP Nurse Practitioner Family; Referring Provider Nurse Practitioner Family; Visit Provider Nurse Practitioner Adult Health | DX: R51.9 Headache, unspecified (principal); I10 Essential (primary) hypertension; E11.9 Type 2 diabetes mellitus without complications | CPT/HCPCS: 99204; 99215 ==

== ENCOUNTER 2020-04-22 16:12 | Outpatient (REF) | payer MEDICARE, SELFPAY ==
[2020-04-22 20:48] LABS: COMMENT (LAB VIEW ONLY) < 13.00 mg/dL
== END 2020-04-22 16:32 ==
LOC: LBN 16:12
PROVIDERS: PCP Nurse Practitioner Family; Visit Provider Nurse Practitioner Family
DX: E11.9 Type 2 diabetes mellitus without complications (principal)
CPT/HCPCS: 82043; 82570

== ENCOUNTER 2020-04-30 10:01 | Day surgery (SDC) | payer MEDICARE, MEDICAID, SELFPAY ==
--- NOTE | 2020-04-29 21:59 | HPE_ITS ---
Date of service: 04/30/20 Assessment and Plan Assessment and plan (1) Cortical cataract of right eye: Status: Acute Assessment and plan: Visually significant cataract of the right eye. Plan is for cataract extraction with lens implantation of the right eye. (2) Nuclear sclerotic cataract of right eye: Status: Acute Assessment and plan: Visually significant cataract of the right eye. Plan is for cataract extraction with lens implantation, right eye (3) Primary open-angle glaucoma, right eye, indeterminate stage: Status: Chronic Assessment and plan: Stable. Continue current topical glaucoma medicatio ns. (4) Posterior subcapsular age-related cataract, right eye: Status: Acute Assessment and plan: Visually significant cataract of the right eye. Plan is for cataract extraction with lens implantation, right eye. (5) Anisometropia and aniseikonia: Status: Acute Assessment and plan: Anisometropia. Patient has high myopia and has recently undergone cataract surgery of the left eye and is no longer significantly myopic. She now has anisometropia symptoms. She has poor central visual acuity in the right eye secondary to macular scarring, but desires cataract surgery to balance out her prescription between the 2 eyes. History of Present Illness History of Present Illness Chief Complaint: Decreased vision right eye, anisometropia symptoms Narrative: The patient is a 79-year-old lady with a long history of high myopia and open-angle glaucoma with advanced disc cupping of the left eye. 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 She recently developed a significant nuclear/cortical/posterior subcapsular cataract in the left eye and underwent cataract surgery on 03/12/2020. She is doing well postoperatively. But now has symptoms of anisometropia due to the significant imbalance between the 2 eyes. She requested cataract surgery in the right eye to balance out her refractive error, although she knows her macular scarring will prevent good central visual acuity right eye. REPLACED BY [facility] Medical History Adenoma of large intestine (01/15/13) tubular adenoma 07/18/[address] Hadley Anemia (07/05/11) chronic Urbina's esophagus Dr Lim: EGD 07/12/09 frq q5y Chronic rhinitis (02/05/14) Frequent headaches Gastroesophageal reflux disease Glaucoma Gout HLD (hyperlipidemia) HTN (hypertension) IFG (impaired fasting glucose) Migraine without aura (05/10/11) Obstructive sleep apnea (12/02/15) [facility] Other and unspecified hyperlipidemia (01/09/13) 01/2017 labwork: 10-year ASCVD risk = ~22.7% --> pt declines statins Psoriasis Type 2 diabetes mellitus controlled by diet, does not test BS daily Surgical History Colonoscopy - MAC (07/18/17) egd (07/19/09) and 01/23/08 H/O lithotripsy History of cataract surgery History of ear surgery Per pt. daughter pt. had a metal plate put on the side of her head r/t to inner ear issue. Pt. daughter states this was done 40 years ago. Family History Mother , kidney disease at age 59. No problems noted. Father , Complications of HTN at age 77. No problems noted. Social History Smoking/Tobacco Use Status: Never Smoking risk assessment performed?: Yes Alcohol Intake: never Drug use: Never Substance use type: does not use Caregiver/Support person: No Number of Children: 4 Communication Needs: Language Barriers current occupation: retired Pets and animals: No Current gender identity: female What is your relationship status?: Panel score (0-1 are the most socially isolated patients): 0 What type of physical activity do you participate in: other Details: ski machine Duration: 15-30 minutes/day Frequency: 3-4 times per week Seatbelt use: always Additional Social history: pt. daughter salvatore answering for pt. Meds Home Medications and Allergies Home Medications Medication Instructions Recorded Confirmed Type dorzolamide-timolol 1 drp OPHTHALMIC BID #1 drp 07/02/13 04/30/20 History fish oil-dha-epa 1,200 mg PO BID #1 tab-cap 08/07/13 04/30/20 History riboflavin (vitamin B2) [Vitamin 100 mg PO DAILY 06/03/15 04/30/20 History B-2] betamethasone dipropionate 0.05 % 1 applic TP BID PRN #15 gm 01/10/19 11/04/20 Rx topical cream diclofenac sodium 1 % topical gel 2 - 4 gm TP QID PRN #100 gm 05/08/19 04/28/20 Rx ibuprofen 600 mg tablet 600 mg PO Q8H PRN #90 tab 06/19/19 04/28/20 Rx fluticasone propionate 50 1 - 2 spray NS DAILY PRN #47.4 gm 12/18/19 04/28/20 Rx mcg/actuation nasal spray,suspension losartan 100 mg tablet 100 mg PO DAILY #90 tab-cap 12/25/19 04/30/20 Rx atorvastatin 40 mg tablet 40 mg PO HS #90 tab 01/07/20 04/30/20 Rx blood sugar diagnostic #100 each 02/05/20 04/28/20 Rx blood-glucose meter #1 each 02/05/20 04/28/20 Rx lancets #100 each 02/05/20 04/28/20 Rx amlodipine 10 mg tablet 10 mg PO DAILY #90 tab-cap 04/10/20 04/30/20 Rx smemoclu-xmd-xgrpw ac 400 1 tab PO DAILY tab 04/22/20 04/30/20 History mcg-calcium carb 500 mg-vit K1 20 mcg tablet trazodone 50 mg tablet 50 mg PO HS PRN #90 tab-cap 04/22/20 04/30/20 Rx atenolol 50 mg tablet 50 mg PO DAILY #90 tab-cap 04/29/20 04/30/20 Rx Allergies Allergy/AdvReac Type Severity Reaction Status Date / Time Iodinated Contrast Media Allergy Intermediate RASH Verified 04/30/20 10:01 [Iodinated Contrast- Oral and IV Dye] shellfish derived Allergy Intermediate HIVES-RETIR Verified 04/30/20 10:01 ED hydrochlorothiazide Allergy Unknown Hives Verified 04/30/20 10:01 pantoprazole Allergy Unknown Hives Verified 04/30/20 10:01 diltiazem AdvReac Intermediate ITCHY RASH Verified 04/30/20 10:01 verapamil AdvReac Mild ITCHY RASH Verified 04/30/20 10:01 capsule Allergy Severe rash all Uncoded 04/30/20 10:01 over body Exam Const General: cooperative, healthy appearing and no acute distress [facility] Head: normal to inspection Eyes Periorbital: periorbital findings normal Eyelids: eyelids normal Conjunctivae: conjunctivae normal Sclera: sclerae normal Cornea: corneas normal EOM: EOM intact bilaterally Direct ophthalmoscopy: anterior chamber normal Other: Nuclear/cortical/posterior subcapsular cataract, right eye. Well- positioned PCIOL, left eye disc cupping of 0.4 OD with peripapillary atrophy. Disc cupping of 0.8 OS with peripapillary atrophy. In the right macula there is diffuse scarring. The left macula shows some pigmentary changes. Neck Neck: normal visual inspection Resp Effort & Inspection: normal respiratory effort Auscultation: clear to auscultation bilaterally Cardio Rate: regular rate Rhythm: regular rhythm Psych Mental Status: mental status grossly normal
[2020-04-30 10:15] VITALS: BP 151/77; PULSE 58; RESP 16; TEMP 36; O2SAT 98
[2020-04-30] MEDS: Tropicam./Phenyleph. (1/2.5%) 5 ML BTL OD ×3 (10:15→10:29)
[2020-04-30] MEDS: Tetracaine 0.5% 4 ML BTL OD (11:02)
[2020-04-30] MEDS: Balanced Salt Soln.-PLUS 500 ML BAG (11:03)
[2020-04-30] MEDS: Lidocaine 1% Pres-Free 5 ML VIAL (11:04)
[2020-04-30] MEDS: Lidocaine 2% Jelly 6 ML SYR (11:04)
[2020-04-30] MEDS: Moxifloxacin-PF 1 MG/ML VIAL (11:05)
[2020-04-30] MEDS: Povidone-Iodine Ophth 30 ML BTL (11:06)
--- NOTE | 2020-04-30 11:33 | W.PM.DSUDISC ---
Discharge Plan Disposition Patient Disposition: HOME Condition: Good Discharge Details Attending Provider: Huber Muller Primary Care Provider: Sultana Woodward Home Meds and New Rx's Prescriptions: No Action betamethasone dipropionate 0.05 % cream 1 applic TP BID PRN (Reason: skin irritation) Qty: 15 RF: 2 diclofenac sodium [Voltaren] 1 % gel 2 - 4 gm TP QID PRN (Reason: pain) Qty: 100 RF: 0 (DME) blood-glucose meter Misc See Rx Instructions .ROUTE .MEDSUPPLY Qty: 1 RF: 0 (DME) Blood Glucose Test Strip See Rx Instructions .ROUTE .MEDSUPPLY Qty: 100 RF: 3 (DME) lancets Misc See Rx Instructions .ROUTE .MEDSUPPLY Qty: 100 RF: 3 Women's 50 Plus Multivitamin 400 mcg-500 mg calcium-20 mcg tablet 1 tab PO DAILY RF: 0 atorvastatin 40 mg tablet 40 mg PO HS Qty: 90 RF: 3 trazodone 50 mg tablet 50 mg PO HS PRN (Reason: insomnia) Qty: 90 RF: 0 dorzolamide-timolol 10 ML drops 1 drp Ophthalmic BID Qty: 1 RF: 1 fish oil-dha-epa 1 EACH capsule 1,200 mg PO BID Qty: 1 RF: 11 riboflavin (vitamin B2) [Vitamin B-2] 100 MG tablet 100 mg PO DAILY RF: 0 ibuprofen 600 mg tablet 600 mg PO Q8H PRN (Reason: pain) Qty: 90 RF: 0 fluticasone propionate 50 mcg/actuation spray,suspension 1 - 2 spray NS DAILY PRN (Reason: nasal congestion) Qty: 47.4 RF: 3 losartan 100 mg tablet 100 mg PO DAILY Qty: 90 RF: 3 amlodipine 10 mg tablet 10 mg PO DAILY Qty: 90 RF: 3 atenolol 50 mg tablet 50 mg PO DAILY Qty: 90 RF: 3 Discharge Instructions Stand Alone Forms: Post-op Topical Cataract, Jesús Arreguin (DSU) Discharge Orders Discharge Orders: Discharge Order (Routine); Ordered 04/30/20 Ordered By: Huber Muller DS: Diagnosis Discharge Diagnosis (1) Cortical cataract of right eye: Status: Resolved (2) Nuclear sclerotic cataract of right eye: Status: Resolved (3) Primary open-angle glaucoma, right eye, indeterminate stage: Status: Chronic (4) Posterior subcapsular age-related cataract, right eye: Status: Resolved (5) Anisometropia and aniseikonia: Status: Acute
--- NOTE | 2020-04-30 11:34 | ROE_ITS ---
Date of service: 04/30/20 Time of Service: 11:35 Operative Note Operative Note DATE OF PROCEDURE: 04/30/20 PRE-OP DIAGNOSIS: Nuclear/cortical/posterior subcapsular cataract, right eye High myopia Primary open-angle glaucoma POST-OP DIAGNOSIS: same PROCEDURE: Cataract extraction using phacoemulsification with intraocular lens implant, right eye SURGEON: Huber Muller ANESTHESIA: MAC and local (sub-tenon's anesthetic infiltration) ESTIMATED BLOOD LOSS: 0 PATHOLOGY: none sent COMPLICATIONS: None Patient was transported to: same day Patient's condition: stable Implants: Eb and Eb Vision / [employer] Opt[employer] Tecnis ZCB00 intraocular lens Indications: Progressive decreased vision due to cataract, right eye Procedure Description: CATARACT SURGERY OPERATIVE REPORT PREOPERATIVE DIAGNOSIS: Nuclear/cortical/posterior subcapsular cataract, right eye High myopia Primary open-angle glaucoma, right eye Macular scar, right eye POSTOPERATIVE DIAGNOSIS: Same OPERATION: Cataract extraction using phacoemulsification with posterior chamber intraocular lens implant, right eye. IOL: IOL Ocean Lifeguard/Model: J&RightScale / STEPHIE Tecnis ZCB00 IOL Power: + 5.0 diopters IOL Serial Number: [id number] Optic Diameter: 6.0mm Haptic/Overall Diameter: 13.0mm PHACO INFO: Rudolph Fazlandurion Vision System with OZil and Active Fluidics Cumulative Dispersed Energy (CDE): 18.20 seconds SURGEON: Huber Muller MD, DIANA ANESTHESIA: Monitored Anesthesia Care (MAC), with local sub-tenon's anesthetic infiltration COMPLICATIONS: None SPECIMENS: None INDICATIONS FOR PROCEDURE: The patient is a 79-year-old lady with history of high myopia with open angle glaucoma and macular scar of the right eye. She has developed significant bilateral nuclear/cortical/posterior subcapsular cataract OU. She has already undergone cataract surgery in the left eye. Postoperative. She now presents for cataract surgery in the right eye. She understands her postoperative acuity will be limited by the presence of her pre-existing glaucoma and macular scarring. PROCEDURE: The correct surgical eye was identified and marked as the right eye and the pupil was dilated in the preoperative area using mydriatics and cycloplegics. The dilated pupil size was 8.0 mm. Oral sedation was administered in the form of an Imprimis MKO Melt (midazolam 3mg/ketamine 25mg/ondansetron 2mg). The patient was brought to the operating room where cardiopulmonary monitoring was instituted and surgical time-out was performed, confirming the correct operative eye and IOL power. Topical anesthesia was administered and ophthalmic povidone-iodine 5% was in stilled into the conjunctival fornices. Lidocaine gel was applied to the cornea and the annie-ocular area was prepped with Betadine 10% solution and draped in the usual sterile fashion for intraocular surgery, including an aperture drape. A Tegaderm transparent film dressing was cut in half and used to cover the lashes and lid margins. Care was taken to sequester the lashes and lid margins under the Tegaderm dressing. A lid speculum was placed between the lids of the operative eye and the Garrett-Fernanda operating microscope was maneuvered into position. Bethany scissors were then used to make a conjunctival buttonhole approximately 6mm posterior to the limbus in the inferonasal quadrant. Blunt dissection was carried out to expose bare sclera, and a blunt-tipped sub-tenon?s anesthesia ca nnula was introduced and passed posteriorly along the globe where non-preserved plain lidocaine was injected into posterior sub-Tenon?s space. A sideport knife was used to make a paracentesis port inferiortemporally. Intraocular phenylephrine/lidocaine was injected into the anterior chamber. The anterior chamber was then filled with Healon Pro. A 2.4mm keratome knife was used to create a half-thickness groove at the limbus and then to construct a three-plane near-clear corneal tunnel extending 2.0mm into clear cornea in the superiortemporal position. . A flap was raised on the anterior capsule and capsulorhexis forceps were used to complete a continuous curvilinear capsulorhexis of 4.5 mm. B., With very thin anterior capsule. Constipation eye movement made capsulorhexis challenging in the capsulorrhexis was smaller than normal. Balanced salt solution was then used to perform cortical cleaving hydrodissection and nuclear hydrodelineation until the lens could be freely rotated within the capsular bag. The lens nucleus was then disassembled and removed within the capsular bag and iris plane using phacoemulsification. Residual cortical material was removed using the I/A handpiece. The posterior capsule was carefully polished to remove as much residual lens epithelial cells as safely possible. The capsular bag was then inflated and the anterior chamber deepened with viscoelastic. The lens implant described above was inserted into the capsular bag using the STEPHIE [place] Injector. A Kuglen hook was used to dial the IOL into position. Residual viscoelastic was then removed first from posterior to the IOL, then from the anterior chamber using the I/A handpiece. The lens implant was noted to center nicely within the capsular bag. The incisions were stromally hydrated, and the anterior chamber was reformed using BSS. Then 0.5cc of moxifloxacin 1.0mg/ml were injected into the capsular bag and anterior chamber. The incisions were checked with a Weck spear and found to be secure. Several drops of ophthalmic povidone-iodine 5% were then applied to the eye followed by two drops of Imprimis combination prednisolone/moxifloxacin/nepafenac solution. The drapes were removed and a clear plastic protective eye shield was placed over the eye. The patient was then returned to Same Day Surgery in stable condition.
[2020-04-30 11:53] VITALS: BP 125/67; PULSE 53; RESP 16; TEMP 36.5; O2SAT 99
== END 2020-04-30 11:56 | disposition home or self-care (01) ==
PROVIDERS: PCP Nurse Practitioner Family; Visit Provider Ophthalmology
PROC: (CPT 66984; principal; 2020-04-30 13:30)
DX: H25.11 Age-related nuclear cataract, right eye (principal); H40.1114 Primary open-angle glaucoma, right eye, indeterminate stage; H52.31 Anisometropia; H44.21 Degenerative myopia, right eye; I10 Essential (primary) hypertension; E78.5 Hyperlipidemia, unspecified; G47.33 Obstructive sleep apnea (adult) (pediatric); E11.9 Type 2 diabetes mellitus without complications
CPT/HCPCS: 66984; NC

== ENCOUNTER 2020-07-15 14:46 | Outpatient (REF) | payer MEDICARE, MEDICAID, SELFPAY ==
[2020-07-15 19:37] LABS: COMMENT (LAB VIEW ONLY) 18.22 mg/dL
[2020-07-15 19:45] LABS: Microalb ug/mg Crea 1011.5 ug/mg Cr
== END 2020-07-15 15:06 ==
LOC: LBN 14:46
PROVIDERS: PCP Nurse Practitioner Family; Visit Provider Nurse Practitioner Family
DX: E11.9 Type 2 diabetes mellitus without complications (principal); R80.9 Proteinuria, unspecified
CPT/HCPCS: 82043; 82570

== ENCOUNTER → 2020-07-21 13:54 | Outpatient (BNVA) | payer MEDICARE, MEDICAID, SELFPAY | PROVIDERS: PCP Nurse Practitioner Family; Referring Provider Nurse Practitioner Family; Visit Provider Nurse Practitioner Adult Health | DX: G43.009 Migraine without aura, not intractable, without status migrainosus (principal); G47.33 Obstructive sleep apnea (adult) (pediatric) | CPT/HCPCS: 99213; 99214 ==

== ENCOUNTER 2020-10-06 02:26 | Outpatient (CLI) | payer MEDICARE, MEDICAID, SELFPAY ==
--- NOTE | 2020-10-06 | DI.US_ITS ---
EXAM: US RENAL CLINICAL HISTORY: CHRONIC KIDNEY DISEASE,N18.30 TECHNIQUE: Ultrasound of both kidneys performed using standard protocol. COMPARISON: CT CT CHEST/ABD/PEL WO from 12/30/2019 US US ABDOMEN from 12/31/[address] scan performed December 2019 was reviewed. FINDINGS: RIGHT KIDNEY: Measures 11.6 cm in length. No cysts evident. Normal cortical thickness and corticomedullary differen tiation .No solid masses No intrarenal calculi nor hydronephrosis. LEFT KIDNEY: Measures 11.2 cm in length. No cysts evident. Normal cortical thickness and corticomedullary differe ntiaion. No solids masses. No intrarenal calculi nor hydonephrosis. Again noted is a small exophyti c cyst off the superior pole area measuring approximately 1.4 x 1.1 cm, previously present. URINARY BLADDER: Prevoid volume is 154 cc Postvoid volume is not assessed. Patient declined needing to void. Cc Both ureterovesical jets were identified. No obvious bladder wall mass is seen on these images. Ureterovesical jets: Both identified and appear symmetrical IMPRESSION: 1. No new significant ultrasound findings in the kidneys. Again noted is a solitary benign-appearin g cyst towards the superior pole of the left kidney, unchanged. There are no solid renal masses. No hydronephrosis. 2. No obvious mass in the somewhat less than optimally visualized urinary bladder. DATA REPOSITORY: There are no new solid lesions. No calculi nor hydronephrosis.
== END 2020-10-06 02:46 ==
PROVIDERS: PCP Nurse Practitioner Family; Visit Provider Internal Medicine Nephrology
DX: N18.30 Chronic kidney disease, stage 3 unspecified (principal)
CPT/HCPCS: 76770

== ENCOUNTER → 2020-10-20 13:08 | Outpatient (BNVA) | payer MEDICARE, MEDICAID, SELFPAY | PROVIDERS: PCP Nurse Practitioner Family; Referring Provider Nurse Practitioner Family; Visit Provider Nurse Practitioner Adult Health | DX: G43.009 Migraine without aura, not intractable, without status migrainosus (principal); G47.30 Sleep apnea, unspecified | CPT/HCPCS: 99212; 99213 ==

== ENCOUNTER 2021-02-16 01:50 | Outpatient (CLI) | payer MEDICARE, MEDICAID, SELFPAY ==
--- NOTE | 2021-02-16 09:30 | DI.DEXA_ITS ---
Exam(s) XR DEXA BONE DENSITY W/WO SYLWIA EXAM: XR DEXA BONE DENSITY W/WO SYLWIA CLINICAL HISTORY: screening for osteoporosis, POSTMENOPAUSAL, Z78.0, Z13.820 TECHNIQUE: Routine DEXA evaluation of the lumbar spine, hip, or forearm. COMPARISON: No exams were available for comparison FINDINGS: Performed on a Hologic unit. Lateral image: No compression fracture evident. Lumbar Spine total T-score: 0.0 Hip total T-score:-0.9 Independent reading at femoral neck yields a T-score of -1 3 Forearm total T-score: -0.5 IMPRESSION: Bone mineral density measures in the osteopenia range. Fracture risk is moderate. Note: Any spine fracture indicates 5x risk for subsequent spine fracture and 2x risk for subsequent h ip fracture. World Health Organization criteria for BMD interpretation classify patients: Normal...... T- Score at or above -1.0 Osteopenic... T- Score between -1.0 and -2.5 Osteoporosis... T-Score at or below -2.5
== END 2021-02-16 02:10 ==
PROVIDERS: PCP Nurse Practitioner Family; Visit Provider Nurse Practitioner Family
DX: Z13.820 Encounter for screening for osteoporosis (principal); Z78.0 Asymptomatic menopausal state; M85.859 Other specified disorders of bone density and structure, unspecified thigh
CPT/HCPCS: 77080

== ENCOUNTER 2021-07-14 15:45 | Outpatient (REF) | payer MEDICARE, MEDICAID, SELFPAY ==
[2021-07-14 18:56] LABS: COMMENT (LAB VIEW ONLY) 16.75 mg/dL
== END 2021-07-14 15:46 | disposition home or self-care (01) ==
LOC: LBN 15:45
PROVIDERS: PCP Nurse Practitioner Family; Visit Provider Nurse Practitioner Family
DX: E11.9 Type 2 diabetes mellitus without complications (principal)
CPT/HCPCS: 82043; 82570

== ENCOUNTER 2021-07-27 03:21 | Outpatient (CLI) | payer MEDICARE, MEDICAID, SELFPAY ==
[2021-07-27 13:37] LABS: Abs Immature Grans 0.01 10^3/uL (0.0-0.06); Absolute Basophil Count 0.07 10^3/uL (0.0-0.2); Absolute Eosinophil Count 0.16 10^3/uL (0.0-0.7); Absolute Lymphocyte Count 1.39 10^3/uL (1.2-3.4); Absolute Monocyte Count 0.45 10^3/uL (0.1-0.8); Absolute Neutrophil Count 3.35 10^3/uL (1.2-6.7); Basophils % 1.3; Eosinophils % 2.9; HGB 11.7 g/dL (11.2-15.7); Immature Grans % 0.2; Lymphocytes % 25.6; MCH 30.8 pg (27.0-33.0); MCHC 33.4 % (32.0-36.0); MCV 92.1 fL (80-95); MPV 10.3 fL (8.0-11.0); Monocytes % 8.3; Neutrophils % 61.7; Nucleated RBC 0 %; Platelet Count 228 10^3/uL (130-400); RDW 12.4 % (11.7-14.6); RDW-SD 42.1 fL; WBC 5.43 10^3/uL (4.4-10.8)
[2021-07-27 15:23] LABS: ALT 55 U/L (14-59); AST 41 U/L (15-37); Albumin 3.6 g/dL (3.4-5.0); Alkaline Phosphatase 80 U/L (46-116); BUN 24 mg/dL (7-18); Bilirubin, Total 0.7 mg/dL (0.2-1.0); Calcium 8.6 mg/dL (8.5-10.1); Calculated LDL 51 mg/dL (<100); Chloride 103 mmol/L (98-107); Cholesterol 144 mg/dL (<200); Estimated GFR 53.62 (mL/min/1.73m2); Glucose 107 mg/dL (74-106); HDL Cholesterol 50 mg/dL (40-60); Sodium 137 mmol/L (136-145); Total Protein 7.8 g/dL (6.4-8.2); Triglyceride 218 mg/dL (<150)
== END 2021-07-27 03:22 | disposition home or self-care (01) ==
LOC: LBO 03:21
PROVIDERS: PCP Nurse Practitioner Family; Visit Provider Nurse Practitioner Family
DX: E11.9 Type 2 diabetes mellitus without complications (principal); D64.9 Anemia, unspecified; E78.5 Hyperlipidemia, unspecified
CPT/HCPCS: 36415; 80053; 80061; 85025

== ENCOUNTER 2022-03-08 01:41 | Outpatient (CLI) | payer MEDICARE, MEDICAID, SELFPAY ==
[2022-03-08 16:19] LABS: ALT 59 U/L (14-59); AST 43 U/L (15-37); Albumin 3.4 g/dL (3.4-5.0); Alkaline Phosphatase 83 U/L (46-116); Bilirubin, Direct 0.1 mg/dL (0.0-0.2); Bilirubin, Total 0.7 mg/dL (0.2-1.0); Total Protein 8.2 g/dL (6.4-8.2)
== END 2022-03-08 01:42 | disposition home or self-care (01) ==
LOC: LBO 01:41
PROVIDERS: PCP Nurse Practitioner Family; Visit Provider Nurse Practitioner Family
DX: R79.89 Other specified abnormal findings of blood chemistry
CPT/HCPCS: 36415; 80053; 80076; 82043; 82570; 83036; 85025

== ENCOUNTER 2022-04-13 14:53 | Outpatient (CLI) | payer MEDICARE, MEDICAID, SELFPAY ==
[2022-04-13 14:35] LABS: Abs Immature Grans 0.03 10^3/uL (0.0-0.06); Absolute Basophil Count 0.08 10^3/uL (0.0-0.2); Absolute Eosinophil Count 0.17 10^3/uL (0.0-0.7); Absolute Lymphocyte Count 1.79 10^3/uL (1.2-3.4); Absolute Neutrophil Count 2.67 10^3/uL (1.2-6.7); Basophils % 1.5; Eosinophils % 3.2; HCT 33.2 % (36.0-46.0); HGB 11.3 g/dL (11.2-15.7); Immature Grans % 0.6; Lymphocytes % 34.2; MCH 31.4 pg (27.0-33.0); MCV 92 fL (80-95); MPV 10.6 fL (8.0-11.0); Monocytes % 9.5; Platelet Count 222 10^3/uL (130-400); RDW-SD 40.4 fL; WBC 5.24 10^3/uL (4.4-10.8)
[2022-04-13 15:28] LABS: ALT 49 U/L (14-59); AST 37 U/L (15-37); Albumin 3.4 g/dL (3.4-5.0); Alkaline Phosphatase 98 U/L (46-116); Anion Gap 8.4 mmol/L (3-11); BUN 29 mg/dL (7-18); Bilirubin, Total 0.6 mg/dL (0.2-1.0); CO2 26.6 mmol/L (21.0-32.0); CREATININE 1.1 mg/dL (0.55-1.02); Calcium 9.1 mg/dL (8.5-10.1); Chloride 105 mmol/L (98-107); Estimated GFR 51.11 (mL/min/1.73m2); Glucose 123 mg/dL (74-106); Potassium 4.1 mmol/L (3.5-5.1); Sodium 140 mmol/L (136-145); Total Protein 8.2 g/dL (6.4-8.2)
[2022-04-13 15:40] LABS: COMMENT (LAB VIEW ONLY) < 13.00 mg/dL
== END 2022-04-13 14:54 | disposition home or self-care (01) ==
LOC: LBO 14:54
PROVIDERS: PCP Nurse Practitioner Family; Visit Provider Nurse Practitioner Family
DX: D64.9 Anemia, unspecified (principal); E11.9 Type 2 diabetes mellitus without complications; I10 Essential (primary) hypertension
CPT/HCPCS: 36415; 80053; 82043; 82570; 85025

== ENCOUNTER 2022-08-09 01:59 | Outpatient (CLI) | payer MEDICARE, MEDICAID, SELFPAY ==
[2022-08-09 13:39] LABS: Hemoglobin A1C 6.6 % (<5.7)
[2022-08-09 14:24] LABS: COMMENT (LAB VIEW ONLY) 22.27 mg/dL
== END 2022-08-09 02:00 | disposition home or self-care (01) ==
LOC: LBO 01:59
PROVIDERS: PCP Nurse Practitioner Family; Visit Provider Nurse Practitioner Family
DX: E11.9 Type 2 diabetes mellitus without complications (principal)
CPT/HCPCS: 36415; 82043; 82570; 83036

== ENCOUNTER 2023-02-21 02:00 | Outpatient (CLI) | payer MEDICARE, MEDICAID, SELFPAY ==
[2023-02-21 13:29] LABS: Abs Immature Grans 0.01 10^3/uL (0.0-0.06); Absolute Basophil Count 0.08 10^3/uL (0.0-0.2); Absolute Eosinophil Count 0.16 10^3/uL (0.0-0.7); Absolute Lymphocyte Count 1.71 10^3/uL (1.2-3.4); Absolute Monocyte Count 0.57 10^3/uL (0.1-0.8); Absolute Neutrophil Count 3.71 10^3/uL (1.2-6.7); Basophils % 1.3; Eosinophils % 2.6; HCT 32.7 % (36.0-46.0); HGB 11.3 g/dL (11.2-15.7); Immature Grans % 0.2; Lymphocytes % 27.4; MCH 31.2 pg (27.0-33.0); MCHC 34.6 % (32.0-36.0); MCV 90 fL (80-95); MPV 10.4 fL (8.0-11.0); Monocytes % 9.1; Neutrophils % 59.4; Platelet Count 243 10^3/uL (130-400); RBC 3.62 10^6/uL (3.93-5.22); RDW 12.3 % (11.7-14.6); RDW-SD 40.5 fL; WBC 6.24 10^3/uL (4.4-10.8)
[2023-02-21 13:33] LABS: Hemoglobin A1C 6.4 % (<5.7)
[2023-02-21 13:45] LABS: ALT 44 U/L (14-59); AST 34 U/L (15-37); Albumin 3.3 g/dL (3.4-5.0); Alkaline Phosphatase 93 U/L (46-116); Anion Gap 8.6 mmol/L (3-11); BUN 23 mg/dL (7-18); Bilirubin, Total 0.8 mg/dL (0.2-1.0); CO2 25.4 mmol/L (21.0-32.0); CREATININE 1.3 mg/dL (0.55-1.02); Calcium 8.9 mg/dL (8.5-10.1); Calculated LDL 52 mg/dL (<100); Chloride 104 mmol/L (98-107); Cholesterol 162 mg/dL (<200); Estimated GFR 41.57 (mL/min/1.73m2); Glucose 112 mg/dL (74-106); HDL Cholesterol 50 mg/dL (40-60); Potassium 4.4 mmol/L (3.5-5.1); Sodium 138 mmol/L (136-145); Total Protein 8.1 g/dL (6.4-8.2); Triglyceride 303 mg/dL (<150)
== END 2023-02-21 02:01 | disposition home or self-care (01) ==
LOC: LBO 02:00
PROVIDERS: PCP Nurse Practitioner Family; Referring Provider Nurse Practitioner Family; Visit Provider Nurse Practitioner Family
DX: I10 Essential (primary) hypertension (principal); E11.9 Type 2 diabetes mellitus without complications; E78.5 Hyperlipidemia, unspecified; N18.30 Chronic kidney disease, stage 3 unspecified
CPT/HCPCS: 36415; 80053; 80061; 82043; 82570; 83036; 85025

== ENCOUNTER 2024-08-04 02:49 | Outpatient (CLI) | payer MEDICARE, MEDICAID, SELFPAY ==
[2024-08-04 14:18] LABS: Anion Gap 6.9 mmol/L (3-11); BUN 32 mg/dL (7-18); CO2 26.1 mmol/L (21.0-32.0); CREATININE 2.2 mg/dL (0.55-1.02); Calcium 8.7 mg/dL (8.5-10.1); Chloride 109 mmol/L (98-107); Estimated GFR 21.97 (mL/min/1.73m2); Glucose 94 mg/dL (74-106); Potassium 3.9 mmol/L (3.5-5.1); Sodium 142 mmol/L (136-145)
[2024-08-04 14:25] LABS: Hemoglobin A1C 6.1 % (<5.7)
[2024-08-05 10:09] LABS: Lyme Ab w Rflx to Lyme Confirm Negative (Negative)
[2024-08-07 16:57] LABS: Anaplasma phagocytophilum Negative (Negative); B. miyamotoi PCR Negative (Negative); Babesia divergens/MO-1 Negative (Negative); Babesia duncani Negative (Negative); Babesia microti Negative (Negative); Ehrlichia chaffeensis Negative (Negative); Ehrlichia ewingii/canis Negative (Negative); Ehrlichia muris eauclairensis Negative (Negative)
== END 2024-08-04 02:50 | disposition home or self-care (01) ==
PROVIDERS: PCP Family Medicine; Referring Provider Family Medicine; Visit Provider Family Medicine
DX: E11.9 Type 2 diabetes mellitus without complications (principal); M13.0 Polyarthritis, unspecified; I10 Essential (primary) hypertension
CPT/HCPCS: 36415; 80048; 87798; 83036; 86618

== ENCOUNTER 2025-03-16 19:36 | Outpatient (CLI) | payer MEDICARE, MEDICAID, SELFPAY ==
--- NOTE | 2025-03-16 15:54 | DI.RAD_ITS ---
Exam(s) XR CHEST 2V PA LATERAL EXAM: XR CHEST 2V PA LATERAL CLINICAL HISTORY: Evaluate for an infiltrate, COUGH R05.9 TECHNIQUE: 2D digital imaging was performed of the chest. Two images were obtained. PA and lateral views were obtained. COMPARISON: CT CT CHEST/ABD/PEL WO from 12/30/2019 FINDINGS: MEDIASTINUM: Normal. HEART: The heart is enlarged. PULMONARY VASCULATURE: Normal. LUNGS: There are bilateral pulmonary opacities. The findings are most marked on the left. PLEURAL SPACE: There is a small right pleural effusion. No left pleural effusion. There is no pneumothorax. BONE:Within normal limits for the patient's age. OTHER FINDINGS:Normal. IMPRESSION: 1. Bilateral pulmonary opacities. Pneumonia should be considered. The opacities have a somewhat nodular appearance and infectious/inflammatory nodules or metastatic disease should also be considered in this patient. A CT scan of the chest should be considered for further characterization. 2. Cardiomegaly. 3. Small right pleural effusion. Unexpected findings DATA REPOSITORY: RADIATION DOSE DELIVERED:
== END 2025-03-16 19:56 ==
LOC: DI 19:36
PROVIDERS: PCP Family Medicine; Visit Provider Family Medicine
DX: I51.7 Cardiomegaly (principal); R91.8 Other nonspecific abnormal finding of lung field; R05.9 Cough, unspecified
CPT/HCPCS: 71046

== ENCOUNTER 2025-03-16 20:10 | Outpatient (CLI) | payer MEDICARE, MEDICAID, SELFPAY ==
[2025-03-16 16:25] LABS: Abs Immature Grans 0.03 10^3/uL (0.0-0.06); HCT 24.7 % (36.0-46.0); HGB 8.2 g/dL (11.2-15.7); Immature Grans % 0.4 %; MCH 31.4 pg (27.0-33.0); MCHC 33.2 % (32.0-36.0); MCV 95 fL (80-95); MPV 11.3 fL (8.0-11.0); Platelet Count 203 10^3/uL (130-400); RBC 2.61 10^6/uL (3.93-5.22); RDW 13.2 % (11.7-14.6); RDW-SD 46.1 fL; WBC 8.05 10^3/uL (4.4-10.8)
[2025-03-16 16:49] LABS: D-Dimer 1404 ng/mlFEU (<500)
== END 2025-03-16 20:11 | disposition home or self-care (01) ==
LOC: LBO 20:10
PROVIDERS: PCP Family Medicine; Visit Provider Family Medicine
DX: R05.9 Cough, unspecified (principal)
CPT/HCPCS: 36415; 71046; 85025; 85379

== ENCOUNTER 2025-04-03 03:19 | Outpatient (CLI) | payer MEDICARE, MEDICAID, SELFPAY ==
--- NOTE | 2025-04-03 06:45 | DI.CT_ITS ---
Exam(s) CT CHEST WO EXAM: CT CHEST WO CLINICAL HISTORY: Atypical pneumonia on CXR, contrast allergy,j18.9. TECHNIQUE: Multi planar reconstructions were performed. CONTRAST MATERIAL: None COMPARISON: CT CT CHEST/ABD/PEL WO from 12/30/2019 CR XR CHEST 2V PA LATERAL from 03/16/2025 FINDINGS: CHEST: LUNGS: There are patchy infiltrates in both lungs, most prominent in the upper lobes but also involving other lobes. There is a moderate size right pleural effusion and there is a small left pleural effusion. No focal findings in trachea and mainstem bronchi. MEDIASTINUM: There is no obvious hilar nor mediastinal adenopathy. The partially visualized thyroid gland is abnormal.Right lobe is enlarged and contains nodules. Left lobe exhibits normal size. CARDIAC: There is cardiomegaly. No significant pericardial effusion. Mild coronary artery calcification noted.The diameter of the ascending thoracic aorta is upper normal. Diameter of the aortic arch and descending thoracic aorta are also upper normal. VISUALIZED UPPER ABDOMEN:There is abnormal thickening of both limbs of the left adrenal gland, unchanged from 2020.. There is a small hypodense nodule in the lateral limb of the right adrenal gland, this nodule measuring 8 x 9 mm. It appears unchanged from 2020. Visualized spleen size normal. Partially included kidneys reveal cyst off the anterior cortex of the upper pole left kidney and a nonobstructive 3 mm calculus in left kidney. Please note only a small part of the kidneys are included in the field of view of this chest study OSSEOUS: No significant osseous lesions.No fractures.. IMPRESSION: 1. Patchy infiltrates in both lung garcia, most prominent in both upper lobes. 2. Moderate size right pleural effusion. Smaller left pleural effusion. 3. Cardiomegaly. RADIATION DOSE DELIVERED: 474.06mGy.cm Total DLP DATA REPOSITORY: All CT scans at this facility are submitted to the National Radiology Data Registry (NRDR) Dose Index Registry (DIR) with the [employer] (ACR). RADIATION OPTIMIZATION: All CT scans at this facility use at least one of these dose optimization techniques: automated exposure control; mA and/or kV adjustment per patient size (includes targeted exams where dose is matched to clinical indication); or iterative reconstruction.
== END 2025-04-03 03:39 ==
LOC: DI 03:20
PROVIDERS: PCP Family Medicine; Visit Provider Family Medicine
DX: J18.9 Pneumonia, unspecified organism (principal)
CPT/HCPCS: 71250

== ENCOUNTER 2025-05-07 14:32 | Inpatient (IN) | payer MEDICARE, MEDICAID, SELFPAY ==
[2025-05-07] VITALS (55 sets, daily range): BP systolic 164–195; BP diastolic 55–85; PULSE 50–68; RESP 16–32; TEMP 35.7–36.6; O2SAT 90–98
--- NOTE | 2025-05-07 14:30 | RT.EKG_ITS ---
APPROVED REPORT Exam: Resting ECG Reason for Exam: dyspnea Patient Location: E HR:57 bpm ECG Measurements Heart Rate 57 AXIS WV 188 P 24 QRSd 99 QRS 2 QT 487 T 35 QTc 474 Conclusion Sinus bradycardia...rate< 60
--- NOTE | 2025-05-07 15:01 | ED.GENADUL_ITS ---
Discharge Plan Disposition Patient Disposition: [facility] to [facility] Condition: Stable Discharge Details Clinical Impression: Acute kidney injury, Pulmonary infiltrate, Pleural effusion Primary Care Provider: Trevor Matute ED Provider: Alli Roman Home Meds and New Rx's Prescriptions: No Action betamethasone dipropionate 0.05 % cream 1 applic TP BID PRN (Reason: skin irritation) Qty: 15 2RF Rx Instructions: Affected area: ankles diclofenac sodium [Voltaren] 1 % gel 2 - 4 gm TP QID PRN (Reason: pain) Qty: 100 0RF Rx Instructions: 2G for upper extremity joints; 4G for lower extremity joints Women's 50 Plus Multivitamin 400 mcg-500 mg calcium-20 mcg tablet 1 tab PO DAILY atenolol 100 mg tablet 100 mg PO DAILY Qty: 90 3RF losartan 100 mg tablet 150 mg PO DAILY Qty: 135 3RF albuterol sulfate [Ventolin HFA] 90 mcg/actuation HFA aerosol inhaler 2 puff inhalation Q6H PRN (Reason: shortness of breath or wheezing) Qty: 8.5 1RF furosemide 20 mg tablet 20 mg PO BID Qty: 180 3RF dorzolamide-timolol 10 ML drops 1 drp Ophthalmic BID Qty: 1 riboflavin (vitamin B2) [Vitamin B-2] 100 MG tablet 100 mg PO DAILY ibuprofen 600 mg tablet 600 mg PO Q8H PRN (Reason: pain) Qty: 90 0RF fluticasone propionate 50 mcg/actuation spray,suspension 1 - 2 spray NS DAILY PRN (Reason: nasal congestion) Qty: 47.4 3RF Rx Instructions: fish oil-dha-epa 1,200-144-216 mg capsule 1 cap PO .QD Qty: 1 Rx Instructions: OTC atorvastatin 40 mg tablet 40 mg PO DAILY Qty: 90 3RF amlodipine 10 mg tablet See Rx Instructions .ROUTE .COMPLEX Qty: 90 3RF Dose Instruction: TAKE ONE TABLET BY MOUTH EVERY DAY Rx Instructions: TAKE ONE TABLET BY MOUTH EVERY DAY HPI General Mode of arrival: ambulatory . Date/Time Provider Initiated Documentation: 05/07/25 14:34 . Information obtained by: patient and family . History of Present Illness 84 year old F presents to the emergency department with the chief complaint of dyspne, legs swelling, described as moderate, Patient started experiencing this week(s) (2) and it has been constant. Rest improves symptom(s), Movement worsens symptoms . Patient notes shortness of breath; denies fever/chills. Related Data Home Medications Medication Instructions Recorded Confirmed dorzolamide 22.3 mg-timolol 6.8 1 drp ophthalmic (eye) BID #1 drp 07/02/13 05/07/25 mg/mL eye drops riboflavin (vitamin B2) 100 mg 100 mg PO DAILY 5 05/07/25 tablet (Vitamin B-2) betamethasone dipropionate 0.05 % 1 applic topical BID PRN skin 07/04/18 05/07/25 topical cream irritation #15 grams diclofenac sodium 1 % topical gel 2 - 4 gm topical QID PRN pain #100 05/08/19 05/07/25 (Voltaren) grams ibuprofen 600 mg tablet 600 mg PO Q8H PRN pain #90 t abs 06/19/19 05/07/25 fluticasone propionate 50 1 - 2 spray NS DAILY PRN jose al 12/18/19 05/07/25 mcg/actuation nasal congestion #47.4 grams spray,suspension dhzcdgqi-jju-lwnfb ac 400 1 tab PO DAILY 04/22/2004/25 mcg-calcium carb 500 mg-vit K1 20 mcg tablet (Women's 50 Plus Multivitamin) fish oil-dha-epa 1,200 mg-144 1 cap PO .QD #1 tab-cap 02/22/22 05/07/25 mg-216 mg capsule atorvastatin 40 mg tablet 40 mg PO DAILY #90 tabs 02/0 12/1705/07/25 atenolol 100 mg tablet 100 mg PO DAILY #90 tabs 12/1705/07/25 losartan 100 mg tablet 150 mg (1.5 x 100 mg) PO ALEKS LY 08/28/24 05/07/25 #135 tabs amlodipine 10 mg tablet See Rx Instructions .Route 0 09/22/24 05/07/25 .COMPLEX #90 tabs albuterol sulfate 90 mcg/actuation 2 puff inhalation Q 6H PRN 04/30/25 05/07/25 aerosol inhaler (Ventolin HFA) shortness of breath or wheezing #8.5 grams furosemide 20 mg tablet 20 mg PO BID Reduce swelling in 05/07/25 05/07/25 legs #180 tabs Previous Rx's Medication Instructions Recorded betamethasone dipropionate 0.05 % 1 applic topical BID PRN skin 07/04/18 topical cream irritation #15 grams diclofenac sodium 1 % topical gel 2 - 4 gm topical QID PRN pain #100 05/08/19 (Voltaren) grams ibuprofen 600 mg tablet 600 mg PO Q8H PRN pain #90 t abs 06/19/19 fluticasone propionate 50 1 - 2 spray NS DAILY PRN jose al 12/17/20 mcg/actuation nasal congestion #47.4 grams spray,suspension atorvastatin 40 mg tablet 40 mg PO DAILY #90 tabs 12/17 atenolol 100 mg tablet 100 mg PO DAILY #90 tabs 12/17 losartan 100 mg tablet 150 mg (1.5 x 100 mg) PO ALEKS LY 08/28/24 #135 tabs amlodipine 10 mg tablet See Rx Instructions .Route 0 09/22/24 .COMPLEX #90 tabs albuterol sulfate 90 mcg/actuation 2 puff inhalation Q 6H PRN 04/30/25 aerosol inhaler (Ventolin HFA) shortness of breath or wheezing #8.5 grams furosemide 20 mg tablet 20 mg PO BID Reduce swelling in 05/07/25 legs #180 tabs Allergies Allergy/AdvReac Type Severity Reaction Status Date / Time Iodinated Contrast Media Allergy Intermediate RASH Verified 05/07/25 17:32 (Iodinated Contrast- Oral and IV Dye) shellfish derived Allergy Intermediate HIVES-RETIR Verified 05/07/25 17:32 ED hydrochlorothiazide Allergy Unknown Hives Verified 05/07/25 17:32 pantoprazole Allergy Unknown Hives Verified 05/07/25 17:32 diltiazem AdvReac Intermediate ITCHY RASH Verified 05/07/25 17:32 verapamil AdvReac Mild ITCHY RASH Verified 05/07/25 17:32 capsule Allergy Severe rash all Uncoded 05/07/25 17:32 over body General Stated Complaint: SOB SKIP: 3 Review of Systems All systems reviewed & are unremarkable except as noted in HPI and below Constitutional Constitutional: Denies chills, Denies fever(s) and Denies weakness Cardiovascular Cardiovascular: Denies chest pain and Reports dyspnea Respiratory Respiratory: Denies cough and Reports dyspnea Gastrointestinal Gastrointestinal: Denies nausea and Denies vomiting Neurologic Neurologic: Denies weakness Exam Const General: no acute distress Orientation: alert [facility] Head: normal to inspection Ears: external ears normal General nose exam: external nose normal Mouth: moist mucous membranes Eyes General: appearance normal, both eyes and all related structures Neck Neck: normal visual inspection Resp Auscultation: diminished lung sounds Cardio Rate: bradycardic GI Palpation: soft, not firm and no guarding Skin General skin exam: no rashes or lesions noted Neuro General: patient alert and patient oriented x3 Extrem General: edema Psych Mental Status: mental status grossly normal Course Vital Signs Vital signs: Vital Signs Temperature 35.7 C L 05/07/25 14:35 Pulse 57 L 05/07/25 14:35 Respiratory Rate 22 05/07/25 14:35 Blood Pressure 185/75 H 05/07/25 14:35 Pulse Oximetry 98 05/07/25 14:35 Temperature 35.7 C L 05/07/25 14:35 Temperature Source Oral 05/07/25 14:35 Pulse 57 L 05/07/25 14:35 Respiratory Rate 22 05/07/25 14:35 Blood Pressure 185/75 H 05/07/25 14:35 Pulse Oximetry 98 05/07/25 14:35 Oxygen Delivery Method Room Air 05/07/25 14:35 Oxygen Flow Rate 0 05/07/25 14:35 Pain Level 4 05/07/25 14:35 Medical Decision Making 84-year-old female with a history of migraines, hyperlipidemia, hypertension, no prior known heart disease comes in from PCPs office with shortness of breath and leg swelling for 2 weeks. He was treated with antibiotics and also Lasix without significant improvement. PCP was concerned for possible PE so was sent here to potentially get a VQ scan since her last renal function was decreased. She denies any chest pressure, vomiting, fevers. Is stable on arrival but does become dyspneic when she moves minimally in the bed but when she is at rest she seems comfortable. She has pitting edema up to both knees, no calf tenderness, diminished breath sounds at the bases bilaterally. Abdomen is soft with minimal tenderness with deep palpation of the left upper and left lower quadrants. I suspect chf or anasarca as the cause for her symptoms, Will check CBC, CMP, proBNP, troponins and a chest x-ray and give a dose of IV Lasix and reassess. 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 Patient with a hemoglobin of 7.3 when it was last checked it was 8 and looks like it has been slowly dropping which could be from her chronic kidney disease or anemia of chronic disease. Her creatinine is over 4 which indicates acute on chronic renal failure. I had nursing place a Perez and she had over 600 cc of urine, so suspect she could have been having some urinary retention contributing to her kidney injury. Will obtain a noncontrast CT chest abdomen pelvis to evaluate for pulmonary edema, pleural effusions, pneumonia, other evidence of urinary obstruction. CT shows pleural effusions and infiltrates in the lungs, no acute findings in the abdomen, I ordered ceftriaxone and azithromycin. She is still making urine. I will discuss with hospitalist about admission for diuresis and monitoring her renal function. Differential Diagnosis Differential Diagnosis: chf, anemia, nstemi Medical Records Medical records reviewed: Yes I reviewed the patient's medical records. Lab Data Lab results reviewed: Yes I reviewed the patient's lab results. 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 - [place] - Toxoplasmosis retinopathy of right eye Diabetic nephropathy (Chronic 04/20/22) Osteoarthritis of hands, bilateral (Chronic) COVID-19 vaccination refused (Acute) Osteopenia (Chronic) 02/16/21 DEXA: femoral neck T-score = -1.3; WHO FRAX: major osteoporotic fx 6.6% & hip fx 1.3% --> Ca & vit D supplementation Proteinuria, unspecified (Acute) Chronic kidney disease, stage 3 unspecified (Acute) Anisometropia and aniseikonia (Acute) Essential hypertension (Chronic 01/09/13) Immunization not carried out because of patient refusal (Chronic) Thyroid nodule (Chronic 01/29/19) [facility] Endo Anxiety (Chronic) Insomnia (Acute) Dizziness (Acute) Primary open-angle glaucoma, right eye, indeterminate stage (Chronic) Primary open-angle glaucoma, left eye, indeterminate stage (Chronic) Gastroesophageal reflux disease (Chronic) Urbina's esophagus (Acute) Dr Lim: EGD 07/12/09 frq q5y Type 2 diabetes mellitus (Chronic) controlled by diet, does not test BS daily Chronic rhinitis (Acute 02/05/14) Anemia (Acute 07/05/11) chronic Migraine without aura (Chronic 05/10/11) Psoriasis (Chronic) Other and unspecified hyperlipidemia (Chronic 01/09/13) 01/2017 labwork: 10-year ASCVD risk = ~22.7% --> pt declines statins Obstructive sleep apnea (Chronic 12/02/15) [facility] Sleep Medicine cpap. Medical History (Updated 05/07/25 @ 18:59 by Alli Roman MD) Enlarged lymph node in neck (09/09/20) [facility] Endo: benign bx Posterior subcapsular age-related cataract, right eye Nuclear sclerotic cataract of right eye Posterior subcapsular age-related cataract of left eye Complicated bereavement Adenoma of large intestine (01/15/13) tubular adenoma 07/18/[address] Leonie Frank Surgical History (Updated 11/10/22 @ 12:05 by Sultana Woodward NP) History of cataract surgery Nuclear sclerotic cataract of left eye Cortical cataract of left eye H/O lithotripsy History of ear surgery Per pt. daughter pt. had a metal plate put on the side of her head r/t to inner ear issue. Pt. daughter states this was done 40 years ago. egd (07/19/09) and 01/23/08 Colonoscopy - MAC (07/18/17) Family History Mother , kidney disease at age 59. No problems noted. Father , Complications of HTN at age 77. No problems noted. Social History (Updated 05/25/23 @ 13:53 by Hillary Tidwell CMA) Smoking/Tobacco Use Status: Never Second Hand Exposure: No Smoking risk assessment performed?: Yes Alcohol Intake: never Drug use: Never Substance use type: does not use Adopted: No Caregiver/Support person: No Foster care: No Household members: none Housing: house Number of Children: 4 number of grandchildren: 6 Communication Needs: None and Language Barriers Education Level: middle school Do you need help understanding health information?: Always current occupation: retired Pets and animals: No Sexually active: No Do you think of yourself as: straight/heterosexual Current gender identity: female What is your relationship status?: How often do you talk on the phone with friends or family?: three or more times per week How often do you get together with friends or relatives?: three or more times per week Do you belong to any clubs or organized social groups?: no Panel score (0-1 are the most socially isolated patients): 1 What type of physical activity do you participate in: other Details: ski machine Duration: 15-30 minutes/day Frequency: 5-6 times per week Yesi/Alevism: Tenriism Special yesi needs: No Seatbelt use: always Helmet use: No (N/A) Drive intox or ride w/intox lifter driver: No Additional Social history: pt. daughter salvatore answering for pt.
[2025-05-07] MEDS: Furosemide 100 MG/10 ML VIAL 80 MG IVP (15:30)
[2025-05-07 15:32] LABS: BE (Venous) -10 mmol/L (-2-3); HCO3 (Venous) 16 mmol/L (23-28); O2 Sat (Venous) 95 %; TCO2 (Venous) 16 mmol/L (24-29); pCO2 (Venous) 32 mmHg (41-51); pO2 (Venous) 69 mmHg
[2025-05-07 15:35] LABS: Abs Immature Grans 0.02 10^3/uL (0.0-0.06); HCT 22.5 % (36.0-46.0); HGB 7.3 g/dL (11.2-15.7); Immature Grans % 0.3 %; MCH 30.2 pg (27.0-33.0); MCHC 32.4 % (32.0-36.0); MCV 93 fL (80-95); MPV 10.1 fL (8.0-11.0); Platelet Count 211 10^3/uL (130-400); RBC 2.42 10^6/uL (3.93-5.22); RDW 13.6 % (11.7-14.6); RDW-SD 46.4 fL; WBC 6.58 10^3/uL (4.4-10.8)
[2025-05-07 15:49] LABS: INR 1.0 (0.9-1.1); PTT Activated 25.9 sec (20.6-30.2); Prothrombin Time 9.9 sec (9.1-11.1)
[2025-05-07 15:56] LABS: Magnesium 2.0 mg/dL (1.6-2.6)
[2025-05-07 15:57] LABS: Troponin I 15 ng/L (<35)
[2025-05-07 16:01] LABS: TSH (W/Ref FT4) 6.78 uIU/mL (0.55-4.78)
[2025-05-07 16:46] LABS: ALT 14 U/L (10-49); AST 35 U/L (<34); Albumin 3.3 g/dL (3.4-5.0); Alkaline Phosphatase 96 U/L (46-116); Anion Gap 12 mmol/L (3-11); BUN 62 mg/dL (9-23); Bilirubin, Total 0.20 mg/dL (0.2-1.2); CO2 16.0 mmol/L (20.0-31.0); Calcium 8.0 mg/dL (8.3-10.6); Chloride 113 mmol/L (98-107); Glucose 79 mg/dL (74-106); Potassium 4.6 mmol/L (3.5-5.1); Sodium 141 mmol/L (136-145); Total Protein 6.8 g/dL (5.7-8.2)
[2025-05-07 16:47] LABS: Troponin I 15 ng/L (<35)
--- NOTE | 2025-05-07 16:47 | DI.CT_ITS ---
Exam(s) CT CHEST/ABD/PEL WO EXAM: CT CHEST/ABD/PEL WO CLINICAL HISTORY: acute renal failure, shortness of breath. TECHNIQUE: Imaging Protocol: Axial computed tomography images with coronal and sagittal reformatted images were created and reviewed. Computer aided detection (CAD) was utilized. CONTRAST MATERIAL: Noncontrast COMPARISON: CR XR CHEST 2V PA LATERAL from 03/16/[address] CHEST WO from 04/03/2025 FINDINGS: CHEST: Exam is limited by respiratory motion. Pulmonary parenchyma: There has been interval worsening of previously noted upper lobe infiltrates with increasing size and density. There is increased atelectasis versus infiltrate at the left lower lobe. Tracheobronchial tree: No bronchiectasis. No mucous plugging.No bronchial wall thickening. Pleura: There are stable bilateral pleural effusions, moderate right and small left. No pneumothorax. Mediastinum: Within normal limits. Pulmonary arteries: No visible emboli. Cardiovascular: The heart is moderately to severely enlarged. Coronary artery calcifications are present. No pericardial effusion. Thoracic aorta non- dilated. Bones: Unremarkable for age. No lytic or blastic lesions. No compression fractures. Soft tissues: Unremarkable. ABDOMEN and PELVIS: Liver: Normal density. No suspicious mass. Gallbladder and biliary tract: No evidence of stones or wall thickening. No biliary dilatation. Pancreas: Normal density, no abnormal calcifications or inflammatory process. Spleen: Normal. Kidneys: Normal size, contour and axis. No radiodense stones. No obstructive uropathy. Stable cyst upper pole left kidney. No suspicious masses seen. Adrenal glands: Stable appearance of bilateral adrenal thickening. Aorta: Abdominal portion non-dilated. Atherosclerotic calcifications. Lymph nodes: Within normal limits. Soft tissues: Body wall edema. Edema Bladder: Decompressed by Perez catheter. Bowel: No obstruction or bowel wall thickening. Large quantity of stool in the rectum. Otherwise the colon shows a small quantity of fecal material. The appendix is normal. Peritoneal cavity: No ascites. No focal collection. No mesenteric inflammatory response. No free air. Bones: Unremarkable for age. Reproductive organs: Unremarkable for age. IMPRESSION: Interval worsening of bilateral upper lobe infiltrates. Stable appearance of bilateral pleural effusions. No evidence hydronephrosis. No visible urinary tract calculi. Body wall edema noted in the abdomen and pelvic region. No ascites. Large quantity of stool in the rectum. Findings called to ER provider. DATA REPOSITORY: All CT scans at this facility are submitted to the National Radiology Data Registry (NRDR) Dose Index Registry (DIR) with the [employer] (ACR). RADIATION OPTIMIZATION: All CT scans at this facility use at least one of these dose optimization techniques: automated exposure control; mA and/or kV adjustment per patient size (includes targeted exams where dose is matched to clinical indication); or iterative reconstruction.
[2025-05-07 17:29] LABS: Glucose Negative (Negative)
[2025-05-07 17:38] LABS: C & S Indicated? No; RBC 0-2 HPF (0-2); WBC Negative HPF (0-5)
[2025-05-07 18:09] LABS: COVID-19 PCR Negative (Negative); RSV PCR Negative (Negative)
[2025-05-07 19:20] LABS: Troponin I 17 ng/L (<35)
--- NOTE | 2025-05-07 19:44 | W.PM.HP.N ---
Date of service: 05/07/25 Time of Service: 19:44 Assessment and Plan Assessment and plan (1) Pleural effusion: Start date: 05/07/25 Status: Acute Assessment and plan: This is an 84-year-old lady with a sudden onset of edema and shortness of breath and appears to have progressive renal failure. She does have a history of CKD with some chronic sequela such as anemia and is also worsening. She did receive 80 mg Lasix in the ED and is making urine but has low output. Her labs reveal at least doubling of her creatinine over the last weeks and worsening of sequela of renal failure. Echocardiogram will be performed in the morning and if needed nephrology consultation by telephone at least. If she is not responding to diuresis and appears to need hydration, with concerns of urine output and her edema she may require transfer to an institution that can get renal replacement. She is a full code. (2) Pneumonia: Start date: 05/07/25 Status: Acute Assessment and plan: Patient will be treated for community acquired pneumonia with Rocephin and Zithromax IV. This appears to be in the upper lobe bilaterally. She has no elevated WBC or fever. She does have some respiratory symptoms with this. Be mostly from her pleural effusion. (3) Acute kidney injury: Start date: 05/07/25 Status: Acute Assessment and plan: Patient has a history of CKD stage III but now has DENISE which appears to be worsening. She appears to need to be diuresed but also may be intravascularly dry with low albumin. Patient will be diuresed for pleural effusion and if renal function does not improve her renal output is not adequate, consider nephrology consultation to adjust treatment in this institution versus discussion of transfer for renal replacement. Trend labs. (4) Chronic kidney disease, stage 3 unspecified: Status: Chronic Assessment and plan: This is associated with diabetes and now exacerbated by acute process. (5) Type 2 diabetes mellitus: Status: Chronic Assessment and plan: Not on outpatient medical therapy we will monitor while hospitalized with parameters before meals and at bedtime and sensitive sliding scale coverage if needed. Presently she is not hypoglycemic. With DENISE she may not need insulin coverage. (6) Atrial fibrillation and flutter: Start date: 05/07/25 Status: Acute Assessment and plan: This appears to be a paroxysmal dysrhythmia the patient on rate control medicine but not anticoagulation. She will be on Lovenox 30 mg subcu daily with her renal failure. Cardiac monitoring the patient made a full code. (7) Essential hypertension: Status: Chronic Assessment and plan: Continue outpatient medical therapy and adjust as needed. (8) Obstructive sleep apnea: Status: Chronic Assessment and plan: Continue home CPAP with home settings. History of Present Illness History of Present Illness Chief Complaint: Gradual onset of peripheral edema and dyspnea upon exertion over 3 weeks. Narrative: This is a 84-year-old female patient who has had a progressive course of peripheral edema with at 1 point was treated for possible cellulitis and dyspnea upon exertion but no PND and less dyspnea at rest. We treated as outpatient with Lasix and a course of oral antibiotics but is not improving. She is attended by her daughter who helps interpret her Cantonese dialogue. In the ED the daughter was present but I did not have the luxury of her interpretation. The patient was given IV Lasix 80 mg in the ED and had some response having already had 600 cc in her bladder and some urine output after that dose. She has a Perez catheter in place to measure her urine output. She offers no other complaints with inability to do a full review of systems with her daughter not present. Did not have fever, cough and does state that there has been some slight chest pressure with her shortness of breath. In the ED her troponins were negative and her BNP was elevated at 14,000, rest of her labs were consistent with acute renal failure with a history of CKD stage III now with creatinine closer to 2 mg/dL. He had metabolic acidosis with increased phosphorus and anemia which appear to be with chronic disease. He is not diabetic. CT scan imaging did not reveal any obstruction of her urinary tract. She did not appear to have a UTI. She did have possible pneumonia with pleural effusions on CT of the chest. The patient appeared much more comfortable than her lab and imaging revealed. She will be admitted for diuresis but may require transfer for acute renal failure with a picture of an uncomplicated pneumonia with pleural effusions and peripheral edema and progressive renal failure. She may need renal replacement therapy not available at this institution. If worsening with diuresis and not having adequate urine output transfer would be appropriate but at least nephrology consultation by phone would be the first step. This can be done in the morning. Patient is a full code. Review of Systems Narrative: 13 point review of systems otherwise unrevealing or stable per daughter. 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 - [place] - Toxoplasmosis retinopathy of right eye Diabetic nephropathy (Chronic 04/20/22) Osteoarthritis of hands, bilateral (Chronic) COVID-19 vaccination refused (Acute) Osteopenia (Chronic) 02/16/21 DEXA: femoral neck T-score = -1.3; WHO FRAX: major osteoporotic fx 6.6% & hip fx 1.3% --> Ca & vit D supplementation Proteinuria, unspecified (Acute) Chronic kidney disease, stage 3 unspecified (Chronic) Anisometropia and aniseikonia (Acute) Essential hypertension (Chronic 01/09/13) Immunization not carried out because of patient refusal (Chronic) Thyroid nodule (Chronic 01/29/19) [facility] [place] Anxiety (Chronic) Insomnia (Acute) Dizziness (Acute) Primary open-angle glaucoma, right eye, indeterminate stage (Chronic) Primary open-angle glaucoma, left eye, indeterminate stage (Chronic) Gastroesophageal reflux disease (Chronic) U[place]ina's esophagus (Acute) Dr Lim: EGD 07/12/09 frq q5y Type 2 diabetes mellitus (Chronic) controlled by diet, does not test BS daily Chronic rhinitis (Acute 02/05/14) Anemia (Acute 07/05/11) chronic Migraine without aura (Chronic 05/10/11) Psoriasis (Chronic) Other and unspecified hyperlipidemia (Chronic 01/09/13) 01/2017 labwork: 10-year ASCVD risk = ~22.7% --> pt declines statins Obstructive sleep apnea (Chronic 12/02/15) [facility] Sleep Medicine cpap. Medical History (Updated 05/08/25 @ 08:45 by Hans Bhandari) Enlarged lymph node in neck (09/09/20) [facility] [place] Endo: benign bx Posterior subcapsular age-related cataract, right eye Nuclear sclerotic cataract of right eye Posterior subcapsular age-related cataract of left eye Complicated bereavement Adenoma of large intestine (01/15/13) tubular adenoma 07/18/[address] Hadley Gout Surgical History History of cataract surgery Nuclear sclerotic cataract of left eye Cortical cataract of left eye H/O lithotripsy History of ear surgery Per pt. daughter pt. had a metal plate put on the side of her head r/t to inner ear issue. Pt. daughter states this was done 40 years ago. egd (07/19/09) and 01/23/08 Colonoscopy - MAC (07/18/17) Family History Mother , kidney disease at age 59. No problems noted. Father , Complications of HTN at age 77. No problems noted. Social History Smoking/Tobacco Use Status: Never Second Hand Exposure: No Smoking risk assessment performed?: Yes Alcohol Intake: never Drug use: Never Substance use type: does not use Adopted: No Caregiver/Support person: No Foster care: No Household members: none Housing: house Number of Children: 4 number of grandchildren: 6 Communication Needs: None and Language Barriers Education Level: middle school Do you need help understanding health information?: Always current occupation: retired Pets and animals: No Sexually active: No Do you think of yourself as: straight/heterosexual Current gender identity: female What is your relationship status?: How often do you talk on the phone with friends or family?: three or more times per week How often do you get together with friends or relatives?: three or more times per week Do you belong to any clubs or organized social groups?: no Panel score (0-1 are the most socially isolated patients): 1 What type of physical activity do you participate in: other Details: ski machine Duration: 15-30 minutes/day Frequency: 5-6 times per week Yesi/Hinduism: Denominational Special yesi needs: No Seatbelt use: always Helmet use: No (N/A) Drive intox or ride w/intox trailer tank truck driver: No Additional Social history: pt. daughter salvatore answering for pt. Meds Allergies and Home Medications Allergies Allergy/AdvReac Type Severity Reaction Status Date / Time Iodinated Contrast Media Allergy Intermediate RASH Verified 11/13/25 17:32 (Iodinated Contrast- Oral and IV Dye) shellfish derived Allergy Intermediate HIVES-RETIR Verified 05/07/25 17:32 ED hydrochlorothiazide Allergy Unknown Hives Verified 05/07/25 17:32 pantoprazole Allergy Unknown Hives Verified 05/07/25 17:32 diltiazem AdvReac Intermediate ITCHY RASH Verified 05/07/25 17:32 verapamil AdvReac Mild ITCHY RASH Verified 05/07/25 17:32 capsule Allergy Severe rash all Uncoded 05/07/25 17:32 over body Home Medications Medication Instructions Recorded Confirmed Type dorzolamide 22.3 mg-timolol 6.8 1 drp ophthalmic (eye) BID #1 drp 07/02/13 05/07/25 History mg/mL eye drops riboflavin (vitamin B2) 100 mg 100 mg PO DAILY 06/03/15 05/07/25 History tablet (Vitamin B-2) betamethasone dipropionate 0.05 % 1 applic topical BID PRN skin 07/04/18 05/07/25 Rx topical cream irritation #15 grams diclofenac sodium 1 % topical gel 2 - 4 gm topical QID PRN pain #100 05/08/19 05/07/25 Rx (Voltaren) grams ibuprofen 600 mg tablet 600 mg PO Q8H PRN pain #90 tabs 06/19/19 05/07/25 Rx fluticasone propionate 50 1 - 2 spray NS DAILY PRN nasal 12/18/19 05/07/25 Rx mcg/actuation nasal congestion #47.4 grams spray,suspension wkdijlps-[id number] ac 400 1 tab PO DAILY 04/22/20 05/07/25 History mcg-calcium carb 500 mg-vit K1 20 mcg tablet (Women's 50 Plus Multivitamin) fish oil-dha-epa 1,200 mg-144 1 cap PO .QD #1 tab-cap 02/22/22 05/07/25 History mg-216 mg capsule atorvastatin 40 mg tablet 40 mg PO DAILY #90 tabs 07/31/24 05/07/25 Rx atenolol 100 mg tablet 100 mg PO DAILY #90 tabs 08/28/24 05/07/25 Rx losartan 100 mg tablet 150 mg (1.5 x 100 mg) PO DAILY 08/28/24 05/07/25 Rx #135 tabs amlodipine 10 mg tablet See Rx Instructions .Route 09/22/24 05/07/25 Rx .COMPLEX #90 tabs albuterol sulfate 90 mcg/actuation 2 puff inhalation Q6H PRN 04/30/25 05/07/25 Rx aerosol inhaler (Ventolin HFA) shortness of breath or wheezing #8.5 grams furosemide 20 mg tablet 20 mg PO BID Reduce swelling in 05/07/25 05/07/25 Rx legs #180 tabs Exam Narrative Exam Narrative: General: Patient appears younger than stated age, moderately obese, alert and oriented x 3 and in no acute distress. There is limited conversation because of language barrier but she preferred to speak Trinid[place] and has better understanding than ability to communicate back. HEENT: Normocephalic, eyes with pupils equal and electrolyte symmetrically, extraocular movement intact and sclera anicteric. Oropharynx with moist mucosa and fair dentition. Neck: Supple without JVD. Back: Stooped posture without CVA tenderness. Lungs: Decreased aeration of both the bases, no focalizing rales or rhonchi. Normal aeration over upper lung garcia. No expiratory wheeze. Breast: Exam deferred. Heart: Rate rate and rhythm with no appreciable murmur. Intermittent gallop. No rubs Abdomen: Obese contour, soft and nontender to palpation with palpable hepatosplenomegaly. No focalizing guarding or rebound. Bowel sounds positive all quadrants. Genitalia/rectal: Exam deferred. Patient does have Perez catheter in place draining clear urine. Extremities: 3+ pitting edema both lower extremities with sequential stockings in place. No clubbing or cyanosis. Good range of motion all joints. Skin: Pale, warm and dry. Neuro: Cranial nerves II through XII intact, no focal motor deficits or tremor. Psych: Normal affect and mood. No abnormal thought processes manifested. Remote and recent memory appear to be intact. There is a language barrier. Results Imaging Imaging Studies: EXAM: CT CHEST/ABD/PEL WO Data of exam: 05/07/2025 CLINICAL HISTORY: acute renal failure, shortness of breath. TECHNIQUE: Imaging Protocol: Axial computed tomography images with coronal and sagittal reformatted images were created and reviewed. Computer aided detection (CAD) was utilized. CONTRAST MATERIAL: Noncontrast COMPARISON: CR XR CHEST 2V PA LATERAL from 03/16/[address] CHEST WO from 04/03/2025 FINDINGS: CHEST: Exam is limited by respiratory motion. Pulmonary parenchyma: There has been interval worsening of previously noted upper lobe infiltrates with increasing size and density. There is increased atelectasis versus infiltrate at the left lower lobe. Tracheobronchial tree: No bronchiectasis. No mucous plugging.No bronchial wall thickening. Pleura: There are stable bilateral pleural effusions, moderate right and small left. No pneumothorax. Mediastinum: Within normal limits. Pulmonary arteries: No visible emboli. Cardiovascular: The heart is moderately to severely enlarged. Coronary artery calcifications are present. No pericardial effusion. Thoracic aorta non-dilated. Bones: Unremarkable for age. No lytic or blastic lesions. No compression fractures. Soft tissues: Unremarkable. ABDOMEN and PELVIS: Liver: Normal density. No suspicious mass. Gallbladder and biliary tract: No evidence of stones or wall thickening. No biliary dilatation. Pancreas: Normal density, no abnormal calcifications or inflammatory process. Spleen: Normal. Kidneys: Normal size, contour and axis. No radiodense stones. No obstructive uropathy. Stable cyst upper pole left kidney. No suspicious masses seen. Adrenal glands: Stable appearance of bilateral adrenal thickening. Aorta: Abdominal portion non-dilated. Atherosclerotic calcifications. Lymph nodes: Within normal limits. Soft tissues: Body wall edema. Edema Bladder: Decompressed by Perez catheter. Bowel: No obstruction or bowel wall thickening. Large quantity of stool in the rectum. Otherwise the colon shows a small quantity of fecal material. The appendix is normal. Peritoneal cavity: No ascites. No focal collection. No mesenteric inflammatory response. No free air. Bones: Unremarkable for age. Reproductive organs: Unremarkable for age. IMPRESSION: Interval worsening of bilateral upper lobe infiltrates. Stable appearance of bilateral pleural effusions. No evidence hydronephrosis. No visible urinary tract calculi. Body wall edema noted in the abdomen and pelvic region. No ascites. Large quantity of stool in the rectum. Labs 05/08/25 04:45 05/08/25 04:45 Labs: Laboratory Results - last 24 hr 05/07/25 05/07/25 05/07/25 15:20 16:12 16:18 WBC 6.58 RBC 2.42 L Hgb 7.3 L Hct 22.5 L MCV 93 MCH 30.2 MCHC 32.4 RDW 13.6 Plt Count 211 MPV 10.1 Immature Gran % 0.3 Neutrophils % 62.0 Lymphocytes % 24.3 Monocytes % 7.8 Eosinophils % 4.7 Basophils % 0.9 Nucleated RBC % 0.0 Absolute Neutrophils 4.08 Absolute Lymphocytes 1.60 Absolute Monocytes 0.51 Absolute Eosinophils 0.31 Absolute Basophils 0.06 PT 9.9 INR 1.0 APTT 25.9 VBG pH 7.32 VBG pCO2 32 L VBG pO2 69 VBG HCO3 16 L VBG Total CO2 16 L VBG O2 Saturation 95 VBG Base Excess -10 L Sodium 141 Potassium 4.6 Chloride 113 H Carbon Dioxide 16.0 L Anion Gap 12 H BUN 62 H Creatinine 4.8 H* Est GFR (CKD-EPI 2020) 8.78 Glucose 79 Calcium 8.0 L Magnesium 2.0 Total Bilirubin 0.20 AST 35 ALT 14 Alkaline Phosphatase 96 Troponin I 15 15 NT-Pro-B Natriuret Pep 48897 H Total Protein 6.8 Albumin 3.3 L TSH 6.78 H Free T4 0.99 Urine Color Urine Clarity Urine pH Ur Specific [place] Urine Protein Urine Ketones Urine Blood Urine Nitrite Urine Bilirubin Urine Urobilinogen Ur Leukocyte Esterase Urine RBC Urine WBC Ur Epithelial Cells Urine Crystals Urine Bacteria Urine Mucus Ur Culture Indicated? Urine Glucose COVID-19 Source SARS-CoV-2 (PCR) Influenza Type A (PCR) Influenza Type B (PCR) RSV (PCR) ABO/Rh B Positive Antibody Screen NEGATIVE 05/07/25 05/07/25 05/07/25 17:18 17:28 18:45 WBC RBC Hgb Hct MCV MCH MCHC RDW Plt Count MPV Immature Gran % Neutrophils % Lymphocytes % Monocytes % Eosinophils % Basophils % Nucleated RBC % Absolute Neutrophils Absolute Lymphocytes Absolute Monocytes Absolute Eosinophils Absolute Basophils PT INR APTT VBG pH VBG pCO2 VBG pO2 VBG HCO3 VBG Total CO2 VBG O2 Saturation VBG Base Excess Sodium Potassium Chloride Carbon Dioxide Anion Gap BUN Creatinine Est GFR (CKD-EPI 2020) Glucose Calcium Magnesium Total Bilirubin AST ALT Alkaline Phosphatase Troponin I 17 NT-Pro-B Natriuret Pep Total Protein Albumin TSH Free T4 Urine Color Yellow Urine Clarity Clear Urine pH 6.0 Ur Specific [place] 1.015 Urine Protein >=300 H Urine Ketones Negative Urine Blood Trace-intact H Urine Nitrite Negative Urine Bilirubin Negative Urine Urobilinogen 0.2 Ur Leukocyte Esterase Negative Urine RBC 0-2 Urine WBC Negative Ur Epithelial Cells Rare Urine Crystals Negative Urine Bacteria Negative Urine Mucus Trace Ur Culture Indicated? No Urine Glucose Negative COVID-19 Source Nasopharynx SARS-CoV-2 (PCR) Negative Influenza Type A (PCR) Negative Influenza Type B (PCR) Negative RSV (PCR) Negative ABO/Rh Antibody Screen Last Vital Signs Temp 35.7 C L 05/07/25 15:27 Pulse 54 L 05/07/25 19:20 Resp 22 05/07/25 19:10 BP 180/61 H 05/07/25 17:01 Pulse Ox 94 05/07/25 19:20 Time Spent Time spent with Patient: >75 minutes Time was spent: preparing to see the patient(eg.review tests), obtaining and/or reviewing separately otained hiistory, ordering medications,tests, procedures, indepentently interpreting results and care coordination
[2025-05-07] MEDS: cefTRIAXone 2 GM/50 ML BAG IVPB (20:27)
[2025-05-07] MEDS: AZITHROMYCIN 500 MG in Normal Saline 250 ML 250 MG IVPB (21:06)
--- NOTE | 2025-05-07 22:40 | W.PC.ACHO ---
Registration Status: ADM IN Primary Language: Preferred Language: Luxembourgish ED Information & Data Chief Complaint SOB 05/07/25 15:37 Chief Complaint SOB 05/07/25 15:07 Triage Note SOB and chest pain x2 weeks. 05/07/25 14:35 sent by pcp office. has not taken any otc meds for relief. denies fever. hx pneumonia 2 weeks ago. bilateral leg swelling - furosemide increased. may have fluid in her abdomen. echo scheduled for tomorrow. Medical / Surgical History (Last Reviewed 05/07/25 @ 19:44 by Hans Bhandari) Enlarged lymph node in neck (09/09/20) Posterior subcapsular age-related cataract, right eye Nuclear sclerotic cataract of right eye Posterior subcapsular age-related cataract of left eye Complicated bereavement Adenoma of large intestine (01/15/13) Gout (Last Reviewed 05/07/25 @ 19:44 by Hans Bhandari) History of cataract surgery Nuclear sclerotic cataract of left eye Cortical cataract of left eye H/O lithotripsy History of ear surgery egd (07/19/09) Colonoscopy - MAC (07/18/17) Most Recent Vital Signs Temperature 36.2 C L 05/07/25 22:16 Temperature Source Temporal Artery Scan 05/07/25 22:14 Pulse 54 L 05/07/25 22:16 Pulse Rhythm Regular 05/07/25 22:16 Pulse 52 L 05/07/25 20:20 Respiratory Rate 18 05/07/25 22:16 Respiratory Effort Labored 05/07/25 22:16 Respiratory Depth Normal 05/07/25 22:16 Respiratory Pattern Normal 05/07/25 22:16 Blood Pressure 164/85 H 05/07/25 22:16 Blood Pressure Mean 111 05/07/25 22:14 Pulse Oximetry 94 05/07/25 22:16 Oxygen Delivery Method Nasal Cannula 05/07/25 22:16 Oxygen Flow Rate 2 05/07/25 22:16 Pain Level 1 05/07/25 22:16 Allergies Iodinated Contrast Media (Iodinated Contrast- Oral and IV Dye) Allergy (Intermediate, Verified 05/07/25 17:32) RASH shellfish derived Allergy (Intermediate, Verified 05/07/25 17:32) HIVES-RETIRED hydrochlorothiazide Allergy (Unknown, Verified 05/07/25 17:32) Hives pantoprazole Allergy (Unknown, Verified 05/07/25 17:32) Hives FROM PROTONIX diltiazem Adverse Reaction (Intermediate, Verified 05/07/25 17:32) ITCHY RASH verapamil Adverse Reaction (Mild, Verified 05/07/25 17:32) ITCHY RASH capsule Allergy (Severe, Uncoded 05/07/25 17:32) rash all over body any medication in a capsule. per pt. daughter IV IV Catheter Type [Right Saline Lock Antecubital] IV Catheter Gauge [Right 18 Antecubital] Diet Orders Category Date Time Status Diabetes Consistent CHO/Heart Healthy [DIET] Nutrition 05/08/25 Breakfast Ordered Diagnostics 05/07/25 05/07/25 05/07/25 Range/Units 18:45 17:28 17:18 WBC (4.4-10.8) 10^3/uL RBC (3.93-5.22) 10^6/uL Hgb (11.2-15.7) g/dL Hct (36.0-46.0) % MCV (80-95) fL MCH (27.0-33.0) pg MCHC (32.0-36.0) % RDW (11.7-14.6) % Plt Count (130-400) 10^3/uL MPV (8.0-11.0) fL Immature Gran % % Neutrophils % % Lymphocytes % % Monocytes % % Eosinophils % % Basophils % % Nucleated RBC % (0.0-0.3) % Absolute Neutrophils (1.2-6.7) 10^3/uL Absolute Lymphocytes (1.2-3.4) 10^3/uL Absolute Monocytes (0.1-0.8) 10^3/uL Absolute Eosinophils (0.0-0.7) 10^3/uL Absolute Basophils (0.0-0.2) 10^3/uL PT (9.1-11.1) sec INR (0.9-1.1) APTT (20.6-30.2) sec VBG pH (7.31-7.41) VBG pCO2 (41-51) mmHg VBG pO2 mmHg VBG HCO3 (23-28) mmol/L VBG Total CO2 (24-29) mmol/L VBG O2 Saturation % VBG Base Excess (-2-3) mmol/L Sodium (136-145) mmol/L Potassium (3.5-5.1) mmol/L Chloride (98-107) mmol/L Carbon Dioxide (20.0-31.0) mmol/L Anion Gap (3-11) mmol/L BUN (9-23) mg/dL Creatinine (0.55-1.02) mg/dL Est GFR (CKD-EPI 2020) (mL/min/1.73m2) Glucose (74-106) mg/dL Calcium (8.3-10.6) mg/dL Magnesium (1.6-2.6) mg/dL Total Bilirubin (0.2-1.2) mg/dL AST (<34) U/L ALT (10-49) U/L Alkaline Phosphatase (46-116) U/L Troponin I 17 (<35) ng/L NT-Pro-B Natriuret Pep (<300) pg/mL Total Protein (5.7-8.2) g/dL Albumin (3.4-5.0) g/dL TSH (0.55-4.78) uIU/mL Free T4 (0.89-1.76) ng/mL Urine Color Yellow (Yellow) Urine Clarity Clear (Clear) Urine pH 6.0 (5-8) Ur Specific [place] 1.015 (1.005-1.025) Urine Protein >=300 H (Neg-Trace) mg/dL Urine Ketones Negative (Negative) mg/dL Urine Blood Trace-intact H (Negative) Urine Nitrite Negative (Negative) Urine Bilirubin Negative (Negative) Urine Urobilinogen 0.2 (Up to 0.2) mg/dL Ur Leukocyte Esterase Negative (Negative) Urine RBC 0-2 (0-2) HPF Urine WBC Negative (0-5) HPF Ur Epithelial Cells Rare (Negative) HPF Urine Crystals Negative (Negative) HPF Urine Bacteria Negative (Negative) HPF Urine Mucus Trace (Negative) Ur Culture Indicated? No Urine Glucose Negative (Negative) mg/dL COVID-19 Source Nasopharynx SARS-CoV-2 (PCR) Negative (Negative) Influenza Type A (PCR) Negative (Negative) Influenza Type B (PCR) Negative (Negative) RSV (PCR) Negative (Negative) ABO/Rh Antibody Screen 05/07/25 05/07/25 05/07/25 Range/Units 16:18 16:12 15:20 WBC 6.58 (4.4-10.8) 10^3/uL RBC 2.42 L (3.93-5.22) 10^6/uL Hgb 7.3 L (11.2-15.7) g/dL Hct 22.5 L (36.0-46.0) % MCV 93 (80-95) fL MCH 30.2 (27.0-33.0) pg MCHC 32.4 (32.0-36.0) % RDW 13.6 (11.7-14.6) % Plt Count 211 (130-400) 10^3/uL MPV 10.1 (8.0-11.0) fL Immature Gran % 0.3 % Neutrophils % 62.0 % Lymphocytes % 24.3 % Monocytes % 7.8 % Eosinophils % 4.7 % Basophils % 0.9 % Nucleated RBC % 0.0 (0.0-0.3) % Absolute Neutrophils 4.08 (1.2-6.7) 10^3/uL Absolute Lymphocytes 1.60 (1.2-3.4) 10^3/uL Absolute Monocytes 0.51 (0.1-0.8) 10^3/uL Absolute Eosinophils 0.31 (0.0-0.7) 10^3/uL Absolute Basophils 0.06 (0.0-0.2) 10^3/uL PT 9.9 (9.1-11.1) sec INR 1.0 (0.9-1.1) APTT 25.9 (20.6-30.2) sec VBG pH 7.32 (7.31-7.41) VBG pCO2 32 L (41-51) mmHg VBG pO2 69 mmHg VBG HCO3 16 L (23-28) mmol/L VBG Total CO2 16 L (24-29) mmol/L VBG O2 Saturation 95 % VBG Base Excess -10 L (-2-3) mmol/L Sodium 141 (136-145) mmol/L Potassium 4.6 (3.5-5.1) mmol/L Chloride 113 H (98-107) mmol/L Carbon Dioxide 16.0 L (20.0-31.0) mmol/L Anion Gap 12 H (3-11) mmol/L BUN 62 H (9-23) mg/dL Creatinine 4.8 H* (0.55-1.02) mg/dL Est GFR (CKD-EPI 2020) 8.78 (mL/min/1.73m2) Glucose 79 (74-106) mg/dL Calcium 8.0 L (8.3-10.6) mg/dL Magnesium 2.0 (1.6-2.6) mg/dL Total Bilirubin 0.20 (0.2-1.2) mg/dL AST 35 (<34) U/L ALT 14 (10-49) U/L Alkaline Phosphatase 96 (46-116) U/L Troponin I 15 15 (<35) ng/L NT-Pro-B Natriuret Pep 95114 H (<300) pg/mL Total Protein 6.8 (5.7-8.2) g/dL Albumin 3.3 L (3.4-5.0) g/dL TSH 6.78 H (0.55-4.78) uIU/mL Free T4 0.99 (0.89-1.76) ng/mL Urine Color (Yellow) Urine Clarity (Clear) Urine pH (5-8) Ur Specific [place] (1.005-1.025) Urine Protein (Neg-Trace) mg/dL Urine Ketones (Negative) mg/dL Urine Blood (Negative) Urine Nitrite (Negative) Urine Bilirubin (Negative) Urine Urobilinogen (Up to 0.2) mg/dL Ur Leukocyte Esterase (Negative) Urine RBC (0-2) HPF Urine WBC (0-5) HPF Ur Epithelial Cells (Negative) HPF Urine Crystals (Negative) HPF Urine Bacteria (Negative) HPF Urine Mucus (Negative) Ur Culture Indicated? Urine Glucose (Negative) mg/dL COVID-19 Source SARS-CoV-2 (PCR) (Negative) Influenza Type A (PCR) (Negative) Influenza Type B (PCR) (Negative) RSV (PCR) (Negative) ABO/Rh B Positive Antibody Screen NEGATIVE 05/07/25 19:47 Blood Culture - Pending Blood 05/07/25 19:40 Blood Culture - Pending Blood Intake and Output - 24 Hour Total 05/07/25 14:32 thru 05/07/25 22:16 Intake Total 70 Output Total 675 Balance -605 Weight 86.29 kg Intake: IV 70 Output: Urine 675 Other: Urine Color Yellow Urine Appearance Clear Urinary Catheter Urinary Catheter Date of 05/07/25 Insertion [Urethral (Dukes)] Time of insertion [Urethral ( 17:25 Dukes)] Falls Risk Assessment History of Falls No History 05/07/25 22:16 Contributing Factors No Factors 05/07/25 22:16 Ambulatory Aids Independent 05/07/25 22:16 Tubes/Lines None 05/07/25 22:16 Gait Evaluation No gait disturbance 05/07/25 22:16 Cognition No cognitive impairment 05/07/25 22:16 Fall Total Score 0 05/07/25 22:16 Level of Risk Standard/Low Risk 05/07/25 22:16 Problems (Last Reviewed 05/07/25 @ 19:44 by Hans Bhandari) Pneumonia (Acute) Atrial fibrillation and flutter (Acute) Pleural effusion (Acute) Pulmonary infiltrate (Acute) Acute kidney injury (Acute) Chronic kidney disease, stage 3 unspecified (Chronic) Essential hypertension (Chronic 01/09/13) Type 2 diabetes mellitus (Chronic) Obstructive sleep apnea (Chronic 12/02/15) Attestation Statement: By documenting the first initial, last name, and credentials of the reporting nurse below, both parties acknowledge that all relevant information regarding the patient handoff has been communicated, and that all questions have been addressed to ensure continuity and safety of care. Additional Patient Information/Comments: Received pt per ed bed around 2200 accompanied by rodrigue braden ed nurse.Pt ambulated to her med [facility] bed upon arrival.Has an IV line on her right AC 18 gauge with abx running.Assisted pt to bsc and defecated.situated pt. back to bed comfortably. carried out doctor's order.vs taken and recorded.pt has dukes,patent and draining well.labored breathing during and after exertion,o2 supplement hooked at 2lpm. Report Received From: RODRIGUE ED RN around 2126
[2025-05-07] MEDS: Normal Saline Flush 10 ML SYR IVP (22:54)
--- NOTE | 2025-05-07 23:00 | RESPIRATORY ---
Pt's has brought own CPAP machine called [employer]Med. It's appeares to be in good condition. It has auto CPAP 11-16, no O2 bleed in at baseline. DME is [facility].
[2025-05-07 23:39] LABS: BE (Venous) -11 mmol/L (-2-3); HCO3 (Venous) 16 mmol/L (23-28); TCO2 (Venous) 16 mmol/L (24-29); pCO2 (Venous) 35 mmHg (41-51); pO2 (Venous) 155 mmHg
[2025-05-08] VITALS (73 sets, daily range): BP systolic 158–188; BP diastolic 58–96; PULSE 51–65; RESP 16–35; TEMP 36.4–37.2; O2SAT 90–97
--- NOTE | 2025-05-08 | DI.NM_ITS ---
Exam(s) NM LUNG SCAN VENT PERF AEROS EXAM: NM LUNG SCAN VENT PERF AEROS CLINICAL HISTORY: query PE, renal failure. TECHNIQUE: Injected Dose: Ventilation: 30 mCi Tc-99m DTPA via inhalation Perfusion: 4 mCi Tc-99m MAA via IV COMPARISON: CT CT CHEST/ABD/PEL WO from 05/07/2025 CR XR CHEST 2V PA LATERAL from 05/08/2025 FINDINGS: Chest X-Ray: Suboptimal quality chest x-ray with limited inspiration. Small bilateral pleural effusions and cardiomegaly as well as bilateral pulmonary infiltrates are noted. Perfusion: No mismatched defects. Perfusion images are more homogeneous than the ventilation images. This is consistent with low probability for pulmonary embolism. Ventilation:Normal Mild clumping of the radiopharmaceutical in the trachea and jackie. Patchy ventilation roughly corresponding to chest x-ray defects. IMPRESSION: 1. Low probability VQ examination. . . . Modified PIOPED II criteria Probability Criteria High Two or more segments of V/Q mismatch Low Normal Perfusion, Non segmental perfusion abnormalities, pleural effusion in at least 1/3 of pleural cavity with no other defect Radiograph/perfusion matched defect in mid to upper lung confined to segment, one to three small segmental perfusion defects (<25% of segment) Perfusion defect smaller than corresponding radiographic lesion. Intermediate All other findings DATA REPOSITORY:
[2025-05-08 00:18] LABS: Albumin 3.2 g/dL (3.4-5.0); Anion Gap 13.1 mmol/L (3-11); BUN 63 mg/dL (9-23); CO2 16.9 mmol/L (20.0-31.0); Calcium 8.1 mg/dL (8.3-10.6); Chloride 113 mmol/L (98-107); Glucose 106 mg/dL (74-106); Potassium 3.8 mmol/L (3.5-5.1); Sodium 143 mmol/L (136-145)
[2025-05-08 06:01] LABS: MCH 30.9 pg (27.0-33.0); MCHC 33.5 % (32.0-36.0); MCV 92 fL (80-95); MPV 10.5 fL (8.0-11.0); Platelet Count 210 10^3/uL (130-400); RBC 2.23 10^6/uL (3.93-5.22); RDW 13.3 % (11.7-14.6); RDW-SD 44.9 fL; WBC 5.66 10^3/uL (4.4-10.8)
[2025-05-08 06:03] LABS: Magnesium 2.0 mg/dL (1.6-2.6)
[2025-05-08 06:05] LABS: HCT 20.6 % (36.0-46.0)
[2025-05-08 06:17] LABS: ALT 13 U/L (10-49); AST 22 U/L (<34); Albumin 2.9 g/dL (3.4-5.0); Alkaline Phosphatase 88 U/L (46-116); Anion Gap 16.3 mmol/L (3-11); BUN 63 mg/dL (9-23); Bilirubin, Total 0.20 mg/dL (0.2-1.2); CO2 15.7 mmol/L (20.0-31.0); Calcium 8.3 mg/dL (8.3-10.6); Chloride 114 mmol/L (98-107); Glucose 77 mg/dL (74-106); Potassium 3.7 mmol/L (3.5-5.1); Sodium 146 mmol/L (136-145); Total Protein 6.0 g/dL (5.7-8.2)
[2025-05-08 06:21] LABS: HGB 6.9 g/dL (11.2-15.7)
--- NOTE | 2025-05-08 08:50 | PDOC.CMIN ---
Date of service: 05/08/25 Time of Service: 08:50 Care Management Initial Assmt Initial Assessment Reason for Hospitalization: pneumonia Functional Status/Living Situation Patient Presentation: Mildred was sitting up in bed when CM met with her. She was pleasant in interaction and agreeable to conversation. While [place] is her second language, Mildred is able to communicate very well in [place]. Mildred lives in a single family home in [facility]. She has 4 children who all live in [place]. Her daughter Ange lives in [place], [place] with her brother Yaya and her other 2 sons live close by (one is next door). Mildred is independent with ADLs and IADLs except she no longer drives. She uses a can for ambulation and does not receive any community services. Mildred was admitted with pneumonia, heart failure and DENISE on CKD. Her baseline creatinine is 2.2 and it was 4.8 on admission. Since then it has risen to 4.9 , 5.0 and now 5.1. Mildred is very concerned about her kidney disease. She informed CM that her mother of kidney disease as did her older sister at the age of 60. Both had been on dialysis and Mildred said it was very difficult for them having to travel to the dialysis center several times a week. Her younger sister also has CKD and has been on dialysis for about 10 years. In addition, Mildred is anemic (Hgb 6.9) and she was given a unit of blood. Mildred reported that she has been gaining weight for the past couple of weeks. She has visible edema in all of her extremities and she stated that she feels full in her abdomen as well. Mildred was transferred to the ICU this afternoon where she can be more closely monitored. 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 [facility] and [place].) Instrumental Activities of Daily Living (ADLs): Independent Medications Medication Management: No Issues/Barriers identified Physical Functioning/Mobility Assistive Device: cane Advance Directives Advance Directives: Do you have an Advance Directive: N 01/09/13, 10:42 AD On File at [facility]: N 01/09/13, 10:42 Date Asked 05/07/25 05/07/25, 14:56 AD Date Reviewed COLST On File at [facility] COLST Date Scanned Code Status Resuscitation Status Full Code Portal Pt does not currently have a portal and education provided: Yes Insurance Coverage/Financial Issues Insurance: Medicare Medicaid Care Team Visit Care Team Role Provider Type Trevor Matute DO Primary Care Provider OSTEOPATHIC DOCTOR Miriam Mcmillan RDN, CDCES Other Providers PROFESSOR OF PHYSICS Jose Garcia RDN Other Providers PROFESSOR OF PHYSICS Alli Roman MD Emergency Provider [facility] STAFF PHYSICIAN Hans Bhanadri Admit Provider NON-[facility] STAFF PHYSICIAN Attending Provider Discharge Potential Discharge Needs: PCP F/U Appt Anticipated Barriers to Discharge: None Identified Patient/Family Education Needs: Review discharge instructions, discuss Ask Me Three Transportation: Private vehicle Plan: Anticipate Mildred will be discharged home, possibly with new home health services, when medically cleared. As she has been transferred to the ICU, it is possible she may need to transfer to a tertiary care facility if her renal function declines to the point where she needs dialysis. Transportation will be determined by disposition. CM will follow and continue to support discharge planning concerns. Social Determinants of Health Screening Will the Patient Participate in the Screening?: Unable to obtain Do you worry about having a steady place to live?: choose not to answer In the past 12 months, have you had to go without electric, gas, oil or water in your home?: no Has lack of transportation kept you from medical appointments or from doing things needed for daily living?: no Has anyone in your life made you feel unsafe or unsupported?: no How hard is it for you to pay for the very basics like food, housing, medical care, and heating? Would you say it is:: Not hard at all If for any reason you need help with day-to-day activities such as bathing, preparing meals, shopping, managing finances, etc., do you get the help you need?: I could use a little more help How often do you feel lonely or isolated from those around you?: Never Do you speak a language other than [place] at home?: Yes Does the patient want assistance with any of the above?: Yes Health Related Social Needs Health related social needs: problems with daily activities (Z73.9) and education (Z55.6) Health related social needs details: sob on exertion and need more health teachings PFSH All Active Problems (Updated 11/14/25 @ 08:45 by Hans Bhandari) Pneumonia (Acute) Atrial fibrillation and flutter (Acute) Pleural effusion (Acute) Acute kidney injury (Acute) Pulmonary edema (Acute) Polyarthritis (Acute) Myopic macular degeneration of left eye (Chronic) 11/23/2022 - [place] - 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 - [place] - Toxoplasmosis retinopathy of right eye Diabetic nephropathy (Chronic 04/20/22) Osteoarthritis of hands, bilateral (Chronic) COVID-19 vaccination refused (Acute) Osteopenia (Chronic) 02/16/21 DEXA: femoral neck T-score = -1.3; WHO FRAX: major osteoporotic fx 6.6% & hip fx 1.3% --> Ca & vit D supplementation Proteinuria, unspecified (Acute) Chronic kidney disease, stage 3 unspecified (Chronic) Anisometropia and aniseikonia (Acute) Essential hypertension (Chronic 01/09/13) Immunization not carried out because of patient refusal (Chronic) Thyroid nodule (Chronic 01/29/19) [facility] Endo Anxiety (Chronic) Insomnia (Acute) Dizziness (Acute) Primary open-angle glaucoma, right eye, indeterminate stage (Chronic) Primary open-angle glaucoma, left eye, indeterminate stage (Chronic) Gastroesophageal reflux disease (Chronic) U[place]ina's esophagus (Acute) Dr Lim: EGD 07/12/09 frq q5y Type 2 diabetes mellitus (Chronic) controlled by diet, does not test BS daily Chronic rhinitis (Acute 02/05/14) Anemia (Acute 07/05/11) chronic Migraine without aura (Chronic 05/10/11) Psoriasis (Chronic) Other and unspecified hyperlipidemia (Chronic 01/09/13) 01/2017 labwork: 10-year ASCVD risk = ~22.7% --> pt declines statins Obstructive sleep apnea (Chronic 12/02/15) [facility] Sleep Medicine cpap. Medical History (Updated 05/08/25 @ 08:45 by Hans Bhandari) Enlarged lymph node in neck (09/09/20) [facility] Endo: benign bx Posterior subcapsular age-related cataract, right eye Nuclear sclerotic cataract of right eye Posterior subcapsular age-related cataract of left eye Complicated bereavement Adenoma of large intestine (01/15/13) tubular adenoma 07/18/[address] Hadley Gout Surgical History History of cataract surgery Nuclear sclerotic cataract of left eye Cortical cataract of left eye H/O lithotripsy History of ear surgery Per pt. daughter pt. had a metal plate put on the side of her head r/t to inner ear issue. Pt. daughter states this was done 40 years ago. egd (07/19/09) and 01/23/08 Colonoscopy - MAC (07/18/17) Family History Mother , kidney disease at age 59. No problems noted. Father , Complications of HTN at age 77. No problems noted. Social History Smoking/Tobacco Use Status: Never Second Hand Exposure: No Smoking risk assessment performed?: Yes Alcohol Intake: never Drug use: Never Substance use type: does not use Adopted: No Caregiver/Support person: No Foster care: No Household members: none Housing: house Number of Children: 4 number of grandchildren: 6 Communication Needs: None and Language Barriers Education Level: middle school Do you need help understanding health information?: Always current occupation: retired Pets and animals: No Sexually active: No Do you think of yourself as: straight/heterosexual Current gender identity: female What is your relationship status?: How often do you talk on the phone with friends or family?: three or more times per week How often do you get together with friends or relatives?: three or more times per week Do you belong to any clubs or organized social groups?: no Panel score (0-1 are the most socially isolated patients): 1 What type of physical activity do you participate in: other Details: ski machine Duration: 15-30 minutes/day Frequency: 5-6 times per week Yesi/Taoism: Episcopalian Special yesi needs: No Seatbelt use: always Helmet use: No (N/A) Drive intox or ride w/intox tractor sweeper driver: No Additional Social history: pt. daughter salvatore answering for pt.
[2025-05-08] MEDS: Losartan 50 MG TAB 150 MG PO (10:04)
[2025-05-08] MEDS: Atorvastatin 40 MG TAB PO (10:04)
[2025-05-08] MEDS: amLODIPine 10 MG TAB PO (10:04)
[2025-05-08] MEDS: Furosemide 40 MG/4 ML VIAL IVP ×2 (10:05→19:43)
[2025-05-08] MEDS: Atenolol 50 MG TAB 100 MG PO (10:05)
[2025-05-08] MEDS: Normal Saline Flush 10 ML SYR IVP ×4 (10:07→19:44)
[2025-05-08] MEDS: Dorzolamide 2% 10 ML BTL OP ×2 (10:07→19:45)
[2025-05-08] MEDS: Timolol 0.5% 5 ML BTL 1 ML OP ×2 (10:37→19:44)
--- NOTE | 2025-05-08 12:05 | NUR.NOTE ---
nursing Note: upon am rounds pt using bypap pt taken off bypap to eat pt is alert and oriented x 3 pt offered no compliants pt remains on RA 96% no complaints of SOB fine crackles lt base otherwise diminished pt tolerated 50% of breakfast tolerated meds with water pt has 3-4+ pitting edama bilateral UE and LE aware of all findings pt to be to transfered to ICU report to be given
--- NOTE | 2025-05-08 12:42 | W.PC.ACHO ---
Registration Status: ADM IN Primary Language: Preferred Language: Persian ED Information & Data Chief Complaint SOB 05/07/25 15:37 Chief Complaint SOB 05/07/25 15:07 Triage Note SOB and chest pain x2 weeks. 05/07/25 14:35 sent by pcp office. has not taken any otc meds for relief. denies fever. hx pneumonia 2 weeks ago. bilateral leg swelling - furosemide increased. may have fluid in her abdomen. echo scheduled for tomorrow. 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) Gout (Last Reviewed 05/07/25 @ 19:44 by Hans Bhandari) History of cataract surgery Nuclear sclerotic cataract of left eye Cortical cataract of left eye H/O lithotripsy History of ear surgery egd (07/19/09) Colonoscopy - MAC (07/18/17) Most Recent Vital Signs Temperature 36.9 C 05/08/25 11:25 Temperature Source Temporal Artery Scan 05/08/25 11:25 Pulse 58 L 05/08/25 11:25 Pulse Rhythm Regular 05/07/25 22:16 Pulse 52 L 05/07/25 20:20 Respiratory Rate 16 05/08/25 11:25 Respiratory Effort Labored 05/07/25 22:16 Respiratory Depth Normal 05/07/25 22:16 Respiratory Pattern Normal 05/07/25 22:16 Blood Pressure 174/96 H 05/08/25 11:25 Blood Pressure Mean 122 05/08/25 11:25 Pulse Oximetry 96 05/08/25 11:25 Oxygen Delivery Method Room Air 05/08/25 11:25 Oxygen Flow Rate 0 05/08/25 11:25 Fraction of Inspired Oxygen (FIO2) 21 05/07/25 23:15 Pain Level 0 05/07/25 23:56 Allergies Iodinated Contrast Media (Iodinated Contrast- Oral and IV Dye) Allergy (Intermediate, Verified 05/07/25 17:32) RASH shellfish derived Allergy (Intermediate, Verified 05/07/25 17:32) HIVES-RETIRED hydrochlorothiazide Allergy (Unknown, Verified 05/07/25 17:32) Hives pantoprazole Allergy (Unknown, Verified 05/07/25 17:32) Hives FROM PROTONIX diltiazem Adverse Reaction (Intermediate, Verified 05/07/25 17:32) ITCHY RASH verapamil Adverse Reaction (Mild, Verified 05/07/25 17:32) ITCHY RASH capsule Allergy (Severe, Uncoded 05/07/25 17:32) rash all over body any medication in a capsule. per pt. daughter Active Medications Generic Name Dose Route Start Last Admin Trade Name Freq PRN Reason Stop Dose Admin Amlodipine Besylate 10 mg 05/08/25 08:30 05/08/25 10:04 Amlodipine 10 Mg Tab PO 10 mg DAILY RACH Administration Atenolol 100 mg 05/08/25 08:30 05/08/25 10:05 Atenolol 50 Mg Tab PO 100 mg DAILY RACH Administration Atorvastatin Calcium 40 mg 05/08/25 08:30 05/08/25 10:04 Atorvastatin 40 Mg Tab PO 40 mg DAILY RACH Administration Dorzolamide HCl 1 ml 05/08/25 08:30 05/08/25 10:07 Dorzolamide 2% 10 Ml Btl OP 10 ophth ins BID RACH Administration Furosemide 40 mg 05/08/25 08:00 05/08/25 10:05 Furosemide 40 Mg/4 Ml Vial IVP 40 mg BID@0800,1600 RACH Administration Insulin Aspart 0 units 05/07/25 22:00 05/08/25 11:52 Insulin Aspart 300 Units/3 Ml Pen SC Not Given AC & HS RACH Protocol Losartan Potassium 150 mg 05/08/25 08:30 05/08/25 10:04 Losartan 50 Mg Tab PO 150 mg DAILY RACH Administration Sodium Chloride 0 ml 05/07/25 14:37 05/08/25 10:07 Normal Saline Flush 10 Ml Syr IVP 10 ml PRN PRN Administration Sodium Chloride 0 ml 05/07/25 20:00 05/08/25 10:07 Normal Saline Flush 10 Ml Syr IVP 10 ml BID RACH Administration Timolol Maleate 1 ml 05/08/25 08:30 05/08/25 10:37 Timolol 0.5% 5 Ml Btl OP 1 drp BID RACH Administration IV IV Catheter Type [Right Saline Lock Antecubital] IV Catheter Gauge [Right 18 Antecubital] Diet Orders Category Date Time Status Diabetes Consistent CHO/Heart Healthy [DIET] Nutrition 05/08/25 Breakfast Active Diagnostics 05/08/25 05/07/25 05/07/25 Range/Units 04:45 23:29 18:45 WBC 5.66 (4.4-10.8) 10^3/uL RBC 2.23 L (3.93-5.22) 10^6/uL Hgb 6.9 L* (11.2-15.7) g/dL Hct 20.6 L* (36.0-46.0) % MCV 92 (80-95) fL MCH 30.9 (27.0-33.0) pg MCHC 33.5 (32.0-36.0) % RDW 13.3 (11.7-14.6) % Plt Count 210 (130-400) 10^3/uL MPV 10.5 (8.0-11.0) fL Immature Gran % % Neutrophils % % Lymphocytes % % Monocytes % % Eosinophils % % Basophils % % Nucleated RBC % (0.0-0.3) % Absolute Neutrophils (1.2-6.7) 10^3/uL Absolute Lymphocytes (1.2-3.4) 10^3/uL Absolute Monocytes (0.1-0.8) 10^3/uL Absolute Eosinophils (0.0-0.7) 10^3/uL Absolute Basophils (0.0-0.2) 10^3/uL PT (9.1-11.1) sec INR (0.9-1.1) APTT (20.6-30.2) sec VBG pH 7.27 L (7.31-7.41) VBG pCO2 35 L (41-51) mmHg VBG pO2 155 mmHg VBG HCO3 16 L (23-28) mmol/L VBG Total CO2 16 L (24-29) mmol/L VBG O2 Saturation % VBG Base Excess -11 L (-2-3) mmol/L VBG Lactate 0.5 (<or=2.0) mmol/L Sodium 146 H 143 (136-145) mmol/L Potassium 3.7 3.8 (3.5-5.1) mmol/L Chloride 114 H 113 H (98-107) mmol/L Carbon Dioxide 15.7 L 16.9 L (20.0-31.0) mmol/L Anion Gap 16.3 H 13.1 H (3-11) mmol/L BUN 63 H 63 H (9-23) mg/dL Creatinine 5.0 H* 4.9 H* (0.55-1.02) mg/dL Est GFR (CKD-EPI 2020) 8.37 8.53 (mL/min/1.73m2) Glucose 77 106 (74-106) mg/dL Calcium 8.3 8.1 L (8.3-10.6) mg/dL Phosphorus 6.5 H (2.4-5.1) mg/dL Magnesium 2.0 (1.6-2.6) mg/dL Total Bilirubin 0.20 (0.2-1.2) mg/dL AST 22 (<34) U/L ALT 13 (10-49) U/L Alkaline Phosphatase 88 (46-116) U/L Troponin I 17 (<35) ng/L NT-Pro-B Natriuret Pep (<300) pg/mL Total Protein 6.0 (5.7-8.2) g/dL Albumin 2.9 L 3.2 L (3.4-5.0) g/dL TSH (0.55-4.78) uIU/mL Free T4 (0.89-1.76) ng/mL Urine Color (Yellow) Urine Clarity (Clear) Urine pH (5-8) Ur Specific [place] (1.005-1.025) Urine Protein (Neg-Trace) mg/dL Urine Ketones (Negative) mg/dL Urine Blood (Negative) Urine Nitrite (Negative) Urine Bilirubin (Negative) Urine Urobilinogen (Up to 0.2) mg/dL Ur Leukocyte Esterase (Negative) Urine RBC (0-2) HPF Urine WBC (0-5) HPF Ur Epithelial Cells (Negative) HPF Urine Crystals (Negative) HPF Urine Bacteria (Negative) HPF Urine Mucus (Negative) Ur Culture Indicated? Urine Glucose (Negative) mg/dL COVID-19 Source SARS-CoV-2 (PCR) (Negative) Influenza Type A (PCR) (Negative) Influenza Type B (PCR) (Negative) RSV (PCR) (Negative) ABO/Rh Antibody Screen Crossmatch 05/07/25 05/07/25 05/07/25 Range/Units 17:28 17:18 16:18 WBC (4.4-10.8) 10^3/uL RBC (3.93-5.22) 10^6/uL Hgb (11.2-15.7) g/dL Hct (36.0-46.0) % MCV (80-95) fL MCH (27.0-33.0) pg MCHC (32.0-36.0) % RDW (11.7-14.6) % Plt Count (130-400) 10^3/uL MPV (8.0-11.0) fL Immature Gran % % Neutrophils % % Lymphocytes % % Monocytes % % Eosinophils % % Basophils % % Nucleated RBC % (0.0-0.3) % Absolute Neutrophils (1.2-6.7) 10^3/uL Absolute Lymphocytes (1.2-3.4) 10^3/uL Absolute Monocytes (0.1-0.8) 10^3/uL Absolute Eosinophils (0.0-0.7) 10^3/uL Absolute Basophils (0.0-0.2) 10^3/uL PT (9.1-11.1) sec INR (0.9-1.1) APTT (20.6-30.2) sec VBG pH (7.31-7.41) VBG pCO2 (41-51) mmHg VBG pO2 mmHg VBG HCO3 (23-28) mmol/L VBG Total CO2 (24-29) mmol/L VBG O2 Saturation % VBG Base Excess (-2-3) mmol/L VBG Lactate (<or=2.0) mmol/L Sodium (136-145) mmol/L Potassium (3.5-5.1) mmol/L Chloride (98-107) mmol/L Carbon Dioxide (20.0-31.0) mmol/L Anion Gap (3-11) mmol/L BUN (9-23) mg/dL Creatinine (0.55-1.02) mg/dL Est GFR (CKD-EPI 2020) (mL/min/1.73m2) Glucose (74-106) mg/dL Calcium (8.3-10.6) mg/dL Phosphorus (2.4-5.1) mg/dL Magnesium (1.6-2.6) mg/dL Total Bilirubin (0.2-1.2) mg/dL AST (<34) U/L ALT (10-49) U/L Alkaline Phosphatase (46-116) U/L Troponin I 15 (<35) ng/L NT-Pro-B Natriuret Pep (<300) pg/mL Total Protein (5.7-8.2) g/dL Albumin (3.4-5.0) g/dL TSH (0.55-4.78) uIU/mL Free T4 (0.89-1.76) ng/mL Urine Color Yellow (Yellow) Urine Clarity Clear (Clear) Urine pH 6.0 (5-8) Ur Specific [place] 1.015 (1.005-1.025) Urine Protein >=300 H (Neg-Trace) mg/dL Urine Ketones Negative (Negative) mg/dL Urine Blood Trace-intact H (Negative) Urine Nitrite Negative (Negative) Urine Bilirubin Negative (Negative) Urine Urobilinogen 0.2 (Up to 0.2) mg/dL Ur Leukocyte Esterase Negative (Negative) Urine RBC 0-2 (0-2) HPF Urine WBC Negative (0-5) HPF Ur Epithelial Cells Rare (Negative) HPF Urine Crystals Negative (Negative) HPF Urine Bacteria Negative (Negative) HPF Urine Mucus Trace (Negative) Ur Culture Indicated? No Urine Glucose Negative (Negative) mg/dL COVID-19 Source Nasopharynx SARS-CoV-2 (PCR) Negative (Negative) Influenza Type A (PCR) Negative (Negative) Influenza Type B (PCR) Negative (Negative) RSV (PCR) Negative (Negative) ABO/Rh Antibody Screen Crossmatch 05/07/25 05/07/25 Range/Units 16:12 15:20 WBC 6.58 (4.4-10.8) 10^3/uL RBC 2.42 L (3.93-5.22) 10^6/uL Hgb 7.3 L (11.2-15.7) g/dL Hct 22.5 L (36.0-46.0) % MCV 93 (80-95) fL MCH 30.2 (27.0-33.0) pg MCHC 32.4 (32.0-36.0) % RDW 13.6 (11.7-14.6) % Plt Count 211 (130-400) 10^3/uL MPV 10.1 (8.0-11.0) fL Immature Gran % 0.3 % Neutrophils % 62.0 % Lymphocytes % 24.3 % Monocytes % 7.8 % Eosinophils % 4.7 % Basophils % 0.9 % Nucleated RBC % 0.0 (0.0-0.3) % Absolute Neutrophils 4.08 (1.2-6.7) 10^3/uL Absolute Lymphocytes 1.60 (1.2-3.4) 10^3/uL Absolute Monocytes 0.51 (0.1-0.8) 10^3/uL Absolute Eosinophils 0.31 (0.0-0.7) 10^3/uL Absolute Basophils 0.06 (0.0-0.2) 10^3/uL PT 9.9 (9.1-11.1) sec INR 1.0 (0.9-1.1) APTT 25.9 (20.6-30.2) sec VBG pH 7.32 (7.31-7.41) VBG pCO2 32 L (41-51) mmHg VBG pO2 69 mmHg VBG HCO3 16 L (23-28) mmol/L VBG Total CO2 16 L (24-29) mmol/L VBG O2 Saturation 95 % VBG Base Excess -10 L (-2-3) mmol/L VBG Lactate (<or=2.0) mmol/L Sodium 141 (136-145) mmol/L Potassium 4.6 (3.5-5.1) mmol/L Chloride 113 H (98-107) mmol/L Carbon Dioxide 16.0 L (20.0-31.0) mmol/L Anion Gap 12 H (3-11) mmol/L BUN 62 H (9-23) mg/dL Creatinine 4.8 H* (0.55-1.02) mg/dL Est GFR (CKD-EPI 2020) 8.78 (mL/min/1.73m2) Glucose 79 (74-106) mg/dL Calcium 8.0 L (8.3-10.6) mg/dL Phosphorus (2.4-5.1) mg/dL Magnesium 2.0 (1.6-2.6) mg/dL Total Bilirubin 0.20 (0.2-1.2) mg/dL AST 35 (<34) U/L ALT 14 (10-49) U/L Alkaline Phosphatase 96 (46-116) U/L Troponin I 15 (<35) ng/L NT-Pro-B Natriuret Pep 19159 H (<300) pg/mL Total Protein 6.8 (5.7-8.2) g/dL Albumin 3.3 L (3.4-5.0) g/dL TSH 6.78 H (0.55-4.78) uIU/mL Free T4 0.99 (0.89-1.76) ng/mL Urine Color (Yellow) Urine Clarity (Clear) Urine pH (5-8) Ur Specific [place] (1.005-1.025) Urine Protein (Neg-Trace) mg/dL Urine Ketones (Negative) mg/dL Urine Blood (Negative) Urine Nitrite (Negative) Urine Bilirubin (Negative) Urine Urobilinogen (Up to 0.2) mg/dL Ur Leukocyte Esterase (Negative) Urine RBC (0-2) HPF Urine WBC (0-5) HPF Ur Epithelial Cells (Negative) HPF Urine Crystals (Negative) HPF Urine Bacteria (Negative) HPF Urine Mucus (Negative) Ur Culture Indicated? Urine Glucose (Negative) mg/dL COVID-19 Source SARS-CoV-2 (PCR) (Negative) Influenza Type A (PCR) (Negative) Influenza Type B (PCR) (Negative) RSV (PCR) (Negative) ABO/Rh B Positive Antibody Screen NEGATIVE Crossmatch See Detail 05/07/25 19:47 Blood Culture - Pending Blood 05/07/25 19:40 Blood Culture - Pending Blood [id number] Documentation Fingerstick Glucose Start: 05/07/25 21:59 Freq: AC & HS Status: Active Protocol: Activity Type Activity Date Activity User E-sign Co-sign Detail Recorded Client Recorded Date Recorded By Document 05/08/25 11:34 BKG DAEMON [id number] 05/08/25 11:36 BKG DAEMON(2) Intake and Output - 24 Hour Total 05/07/25 14:32 thru 05/08/25 10:47 Intake Total 710 Output Total 2790 Balance -2079 Weight 81.7 kg Intake: IV 320 Oral 390 Output: Urine 2790 Other: Urine Color Pale Yellow Urine Appearance Clear Stool Size Large Stool Characteristics Soft Formed Brown Urinary Catheter Urinary Catheter Date of 05/07/25 Insertion [Urethral (Perez)] Time of insertion [Urethral ( 17:25 Perez)] Falls Risk Assessment History of Falls No History 05/07/25 22:16 Contributing Factors No Factors 05/07/25 22:16 Ambulatory Aids Independent 05/07/25 22:16 Tubes/Lines None 05/07/25 22:16 Gait Evaluation No gait disturbance 05/07/25 22:16 Cognition No cognitive impairment 05/07/25 22:16 Fall Total Score 0 05/07/25 22:16 Level of Risk Standard/Low Risk 05/07/25 22:16 Problems (Last Updated 05/08/25 @ 08:45 by Hans Bhandari) Pneumonia (Acute) Atrial fibrillation and flutter (Acute) Pleural effusion (Acute) Acute kidney injury (Acute) Chronic kidney disease, stage 3 unspecified (Chronic) Essential hypertension (Chronic 01/09/13) Type 2 diabetes mellitus (Chronic) Obstructive sleep apnea (Chronic 12/02/15) Notes 05/08/25 12:05 Nursing Notes by Syeda Escobedo nursing Note: upon am rounds pt using bypap pt taken off bypap to eat pt is alert and oriented x 3 pt offered no compliants pt remains on RA 96% no complaints of SOB fine crackles lt base otherwise diminished pt tolerated 50% of breakfast tolerated meds with water pt has 3-4+ pitting edama bilateral UE and KENYATTA DING aware of all findings pt to be to transfered to ICU report given to Dorothy CERVANTES Initialized on 05/08/25 12:05 - END OF NOTE 05/07/25 23:00 Respiratory by Arvind Alfredo Pt's has brought own CPAP machine called [employer]. It's appeares to be in good condition. It has auto CPAP 11-, no O2 bleed in at baseline. DME is [employer]. Initialized on 05/07/25 23:00 - END OF NOTE Attestation Statement: By documenting the first initial, last name, and credentials of the reporting nurse below, both parties acknowledge that all relevant information regarding the patient handoff has been communicated, and that all questions have been addressed to ensure continuity and safety of care. Additional Patient Information/Comments: Report Received From:
[2025-05-08] MEDS: SODIUM CHLORIDE 0.45% 500 ML 75 ML IV (14:29)
--- NOTE | 2025-05-08 14:30 | DI.RAD_ITS ---
Exam(s) XR CHEST 2V PA LATERAL EXAM: XR CHEST 2V PA LATERAL CLINICAL HISTORY: Prep for VQ scan TECHNIQUE: 2D digital imaging was performed. Two views. AP and lateral views performed in a stretcher COMPARISON: CR XR CHEST 2V PA LATERAL from 03/16/[address] CHEST/ABD/PEL WO from 05/07/2025 FINDINGS: The exam is limited by being performed in a stretcher as well as suboptimal pulmonary inflation. HEART: Enlarged, unchanged Aorta: Not dilated. PULMONARY VASCULATURE: Normal. MEDIASTINUM: Unremarkable. LUNGS: There are bilateral patchy upper lobe infiltrates, roughly unchanged compared with yesterday's CT examination. PLEURAL SPACE: There is small right pleural effusion. There is minimal blunting at the left costophrenic angle. No pneumothorax. BONE:Unremarkable for age. SOFT TISSUES: Unremarkable. IMPRESSION: Roughly stable appearance of bilateral pleural effusions and bilateral pulmonary infiltrates. DATA REPOSITORY: RADIATION DOSE DELIVERED:
--- NOTE | 2025-05-08 16:06 | PGE_ITS ---
Date of Service Date of service: 05/08/25 Time of Service: 08:00 Assessment and Plan Assessment and plan (1) Cardiorenal syndrome with renal failure: Status: Acute Assessment and plan: Presumptive diagnosis pending echo Discussed with [facility] nephrology; combination of HTN with acute Cr elevation to the 5's and acidosis with response to diuresis Awaiting echocardiogram read; recommend [facility] cardiology consult to coordinate response Discontinuing abx started out of concern for CAP Midline in place She had previously been seen at [facility] nephrology for CKD stage 3, baseline crea tinine 1.7 (2) New onset of congestive heart failure: Status: Acute Assessment and plan: Presumptive diagnosis, awaiting echocardiogram Continue diuresis, furosemide 40 IV BID Continue home amlodipine, atenolol (3) Acute on chronic anemia: Status: Acute Assessment and plan: Morning hemoglobin 6.9, repeat hemoglobin 7.7, normocytic Anemia worsening since February 2025 Likely secondary to renal disease Likely will see improvement if renal function stabilizes Restarting VTE chemoprophylaxis, enoxaparin 40 daily (4) Chronic dyspnea: Status: Acute Assessment and plan: PCP concerned about PE given persistent dyspnea BL upper lobe infiltrates on CT VQ scan performed afternoon of hospital day 2, negative for PE She was on bipap overnight, on room air in the morning (5) Anasarca associated with disorder of kidney: Status: Acute Assessment and plan: Extensive anasarca with active renal failure and possible new heart failure Monitor for improvement with treatment Subjective Subjective Interval history since last seen: Ms. Ash is comfortable in bed. She is able to communicate some basics in Latvian. She denies pain. Exam Narrative Exam Narrative: General: This is a pleasant, elderly woman in no distress, Cantonese-speaking HEENT: Normocephalic, atraumatic CV: RRR. Anasarca to upper chest. BLE 3+ pitting edema. Resp: CTAB Abd: soft, NTND MSK: voluntary motion x4 Neuro: awake, alert, no focal deficits Objective Last Vital Signs Temp 36.9 C 05/08/25 13:33 Pulse 55 L 05/08/25 14:01 Resp 24 05/08/25 14:50 BP 164/59 H 05/08/25 14:01 Pulse Ox 96 05/08/25 14:40 Laboratory Results - last 24 hr 05/07/25 05/07/25 05/07/25 15:20 16:12 16:18 WBC RBC Hgb Hct MCV MCH MCHC RDW Plt Count MPV VBG pH VBG pCO2 VBG pO2 VBG HCO3 VBG Total CO2 VBG O2 Saturation VBG Base Excess VBG Lactate Sodium 141 Potassium 4.6 Chloride 113 H Carbon Dioxide 16.0 L Anion Gap 12 H BUN 62 H Creatinine 4.8 H* Est GFR (CKD-EPI 2020) 8.78 Glucose 79 Calcium 8.0 L Phosphorus Magnesium Total Bilirubin 0.20 AST 35 ALT 14 Alkaline Phosphatase 96 Troponin I 15 Total Protein 6.8 Albumin 3.3 L Free T4 0.99 Urine Color Urine Clarity Urine pH Ur Specific [place] Urine Protein Urine Ketones Urine Blood Urine Nitrite Urine Bilirubin Urine Urobilinogen Ur Leukocyte Esterase Urine RBC Urine WBC Ur Epithelial Cells Urine Crystals Urine Bacteria Urine Mucus Ur Culture Indicated? Urine Glucose COVID-19 Source SARS-CoV-2 (PCR) Influenza Type A (PCR) Influenza Type B (PCR) RSV (PCR) ABO/Rh B Positive Antibody Screen NEGATIVE Crossmatch See Detail 05/07/25 05/07/25 05/07/25 17:18 17:28 18:45 WBC RBC Hgb Hct MCV MCH MCHC RDW Plt Count MPV VBG pH VBG pCO2 VBG pO2 VBG HCO3 VBG Total CO2 VBG O2 Saturation VBG Base Excess VBG Lactate Sodium Potassium Chloride Carbon Dioxide Anion Gap BUN Creatinine Est GFR (CKD-EPI 2020) Glucose Calcium Phosphorus Magnesium Total Bilirubin AST ALT Alkaline Phosphatase Troponin I 17 Total Protein Albumin Free T4 Urine Color Yellow Urine Clarity Clear Urine pH 6.0 Ur Specific [place] 1.015 Urine Protein >=300 H Urine Ketones Negative Urine Blood Trace-intact H Urine Nitrite Negative Urine Bilirubin Negative Urine Urobilinogen 0.2 Ur Leukocyte Esterase Negative Urine RBC 0-2 Urine WBC Negative Ur Epithelial Cells Rare Urine Crystals Negative Urine Bacteria Negative Urine Mucus Trace Ur Culture Indicated? No Urine Glucose Negative COVID-19 Source Nasopharynx SARS-CoV-2 (PCR) Negative Influenza Type A (PCR) Negative Influenza Type B (PCR) Negative RSV (PCR) Negative ABO/Rh Antibody Screen Crossmatch 05/07/25 05/08/25 23:29 04:45 WBC 5.66 RBC 2.23 L Hgb 6.9 L* Hct 20.6 L* MCV 92 MCH 30.9 MCHC 33.5 RDW 13.3 Plt Count 210 MPV 10.5 VBG pH 7.27 L VBG pCO2 35 L VBG pO2 155 VBG HCO3 16 L VBG Total CO2 16 L VBG O2 Saturation VBG Base Excess -11 L VBG Lactate 0.5 Sodium 143 146 H Potassium 3.8 3.7 Chloride 113 H 114 H Carbon Dioxide 16.9 L 15.7 L Anion Gap 13.1 H 16.3 H BUN 63 H 63 H Creatinine 4.9 H* 5.0 H* Est GFR (CKD-EPI 2020) 8.53 8.37 Glucose 106 77 Calcium 8.1 L 8.3 Phosphorus 6.5 H Magnesium 2.0 Total Bilirubin 0.20 AST 22 ALT 13 Alkaline Phosphatase 88 Troponin I Total Protein 6.0 Albumin 3.2 L 2.9 L Free T4 Urine Color Urine Clarity Urine pH Ur Specific [place] Urine Protein Urine Ketones Urine Blood Urine Nitrite Urine Bilirubin Urine Urobilinogen Ur Leukocyte Esterase Urine RBC Urine WBC Ur Epithelial Cells Urine Crystals Urine Bacteria Urine Mucus Ur Culture Indicated? Urine Glucose COVID-19 Source SARS-CoV-2 (PCR) Influenza Type A (PCR) Influenza Type B (PCR) RSV (PCR) ABO/Rh Antibody Screen Crossmatch Time Spent with Patient Time Spent with Patient: >50 minutes Time was spent: preparing to see the patient(eg.review tests), obtaining and/or reviewing separately otained hiistory, ordering medications,tests, procedures, referring, communicating with other health wound care technician, indepentently interpreting results, counseling the patient and care coordination
[2025-05-08 16:23] LABS: HCT 23.1 % (36.0-46.0); HGB 7.7 g/dL (11.2-15.7)
[2025-05-08 16:44] LABS: Anion Gap 14.5 mmol/L (3-11); BUN 63 mg/dL (9-23); CO2 17.5 mmol/L (20.0-31.0); Calcium 8.2 mg/dL (8.3-10.6); Chloride 112 mmol/L (98-107); Glucose 107 mg/dL (74-106); Potassium 3.8 mmol/L (3.5-5.1); Sodium 144 mmol/L (136-145)
[2025-05-08] MEDS: Enoxaparin 30 MG/0.3 ML SYR SC (20:26)
[2025-05-08] MEDS: Insulin Aspart 300 UNITS/3 ML PEN SC (22:40)
[2025-05-09] VITALS (87 sets, daily range): BP systolic 142–190; BP diastolic 62–95; PULSE 50–67; RESP 17–33; TEMP 36.8–37.7; O2SAT 86–97
[2025-05-09] MEDS: Normal Saline Flush 10 ML SYR IVP ×3 (00:59→21:06)
[2025-05-09 06:55] LABS: HCT 21.4 % (36.0-46.0); HGB 7.2 g/dL (11.2-15.7); MCH 31.0 pg (27.0-33.0); MCHC 33.6 % (32.0-36.0); MCV 92 fL (80-95); MPV 10.5 fL (8.0-11.0); Platelet Count 220 10^3/uL (130-400); RBC 2.32 10^6/uL (3.93-5.22); RDW 13.5 % (11.7-14.6); RDW-SD 45.1 fL; WBC 7.36 10^3/uL (4.4-10.8)
[2025-05-09 07:22] LABS: Lab Add On Test DONE
[2025-05-09 07:23] LABS: Magnesium 2.0 mg/dL (1.6-2.6)
[2025-05-09 07:36] LABS: ALT 11 U/L (10-49); AST 22 U/L (<34); Albumin 2.8 g/dL (3.4-5.0); Alkaline Phosphatase 86 U/L (46-116); Anion Gap 13.3 mmol/L (3-11); BUN 59 mg/dL (9-23); Bilirubin, Total 0.30 mg/dL (0.2-1.2); CO2 16.7 mmol/L (20.0-31.0); Calcium 8.2 mg/dL (8.3-10.6); Chloride 114 mmol/L (98-107); Glucose 84 mg/dL (74-106); Potassium 3.6 mmol/L (3.5-5.1); Sodium 144 mmol/L (136-145); Total Protein 6.0 g/dL (5.7-8.2)
[2025-05-09 07:52] LABS: Iron 27 ug/dL (50-170); Total Iron Binding Capacity 189 ug/dL (250-425); Transferrin Sat 14 % (15-50)
[2025-05-09] MEDS: amLODIPine 10 MG TAB PO (08:57)
[2025-05-09] MEDS: Atorvastatin 40 MG TAB PO (08:57)
[2025-05-09] MEDS: Losartan 50 MG TAB 150 MG PO (08:57)
[2025-05-09] MEDS: Furosemide 40 MG/4 ML VIAL IVP ×2 (09:05→09:28)
[2025-05-09 09:19] LABS: BE (Venous) -8 mmol/L (-2-3); HCO3 (Venous) 18 mmol/L (23-28); O2 Sat (Venous) 82 %; TCO2 (Venous) 17 mmol/L (24-29); pCO2 (Venous) 31 mmHg (41-51); pO2 (Venous) 45 mmHg
[2025-05-09] MEDS: Enoxaparin 30 MG/0.3 ML SYR SC (09:28)
[2025-05-09] MEDS: Timolol 0.5% 5 ML BTL 1 ML OP ×2 (09:29→20:21)
[2025-05-09] MEDS: FERRIC DERISOMALTOSE 1,000 MG in Normal Saline 250 ML 500 MG IVPB (10:03)
[2025-05-09] MEDS: Calcium Carbonate *TUMS* 500 MG CHEW PO ×2 (12:54→17:16)
--- NOTE | 2025-05-09 14:49 | PGE_ITS ---
Date of Service Date of service: 05/09/25 Time of Service: 14:49 Assessment and Plan Assessment and plan (1) Cardiorenal syndrome with renal failure: Status: Acute Assessment and plan: Presumptive diagnosis. Echo still officially pending but ventricles do appear dilated and with low LVEF. She had previously been seen [place] [facility] for CKD stage 3, baseline creatinine 1.[address] [facility] 05/08, combination of HTN with acute Cr elevation to the 5's and acidosis with response to diuresis Importantly, she continues to make urine, pH normalized on VBG 05/09. Still waiting echocardiogram read, see below; Discontinued antiobiotics on 05/08. Discontinued ibuprofen 05/[address] Given Ca low, starting calcium carbonate as phosphate binder. Get PTH and Vitamin D with labs. (2) New onset of congestive heart failure: Status: Acute Assessment and plan: Presumptive diagnosis, awaiting echocardiogram as above, looks like HFrEF Continue diuresis, increase to furosemide 80 IV BID Continue home amlodipine but consider cutting dose if we can get her on more GDMT and BP coming down. For now, BP high, transition atenolol to carvedilol. GFR too low for SGLT2i. She is on ARB full dose. Consider MRA after discussing with renal. (3) Acute on chronic anemia: Status: Acute Assessment and plan: Morning hemoglobin 6.9, repeat hemoglobin 7.7, normocytic Anemia worsening since February 2025 Likely secondary to renal disease Iron low 05/09, given IV repletion. She may benefit from EPO after this. VTE chemoprophylaxis appropriate, enoxaparin 30 daily (4) Chronic dyspnea: Status: Acute Assessment and plan: BL upper lobe infiltrates on CT - unclear significance. She isn't coughing or having symptoms of TB reactivation. Review with pulmonology when available. VQ scan performed afternoon of hospital day 2, negative for PE I think hypoxia secondary to heart failure. She was on bipap overnight the first night, on room air since but O2 sat drops after sitting up on my exam. (5) Anasarca associated with disorder of kidney: Status: Acute Assessment and plan: Extensive anasarca with active renal failure and possible new heart failure Monitor for improvement with treatment Has had severe proteinuria for years, quantify if nephrotic range with prot/cr (6) Type 2 diabetes mellitus: Status: Chronic Assessment and plan: Recent A1c 5.3% c/w remission, though anemia may make this less reliable. FS glucose is okay. Subjective Subjective Patient reports: bowel movement; denies diarrhea, vomiting or fever Interval history since last seen: Events: V/Q done, low probability for PE Echocardiogram done but not read Patient seen with her son. She still feels swollen in her whole body. Eating very little, only part of a shake. She is tired but not dizzy when sitting up. No chest pain or palpitations. Exam Narrative Exam Narrative: General: This is a pleasant, elderly woman in no distress, lying in bed. Cantonese-speaking CV: RRR. Anasarca to upper chest. BLE 2-3+ pitting edema more in arms. Resp: slight wheeze bilaterally, left basilar rales clear with deep inspiration. RR in 20s Abd: soft, NTND, no masses/HSM. Neuro: awake, alert, no focal deficits, no tremor Objective Last Vital Signs Temp 37.2 C 05/09/25 12:20 Pulse 63 05/09/25 13:02 Resp 31 H 05/09/25 13:02 BP 162/72 H 05/09/25 13:02 Pulse Ox 88 L 05/09/25 13:49 Laboratory Results - last 24 hr 05/08/25 05/09/25 05/09/25 16:00 05:55 09:10 WBC 7.36 RBC 2.32 L Hgb 7.7 L 7.2 L Hct 23.1 L 21.4 L MCV 92 MCH 31.0 MCHC 33.6 RDW 13.5 Plt Count 220 MPV 10.5 VBG pH 7.37 VBG pCO2 31 L VBG pO2 45 VBG HCO3 18 L VBG Total CO2 17 L VBG O2 Saturation 82 VBG Base Excess -8 L Sodium 144 144 Potassium 3.8 3.6 Chloride 112 H 114 H Carbon Dioxide 17.5 L 16.7 L Anion Gap 14.5 H 13.3 H BUN 63 H 59 H Creatinine 5.1 H* 5.1 H* Est GFR (CKD-EPI 2020) 8.05 8.12 Glucose 107 H 84 Calcium 8.2 L 8.2 L Magnesium 2.0 Iron 27 L TIBC 189 L Transferrin % Sat 14 L Total Bilirubin 0.30 AST 22 ALT 11 Alkaline Phosphatase 86 Total Protein 6.0 Albumin 2.8 L Add-On Test Request DONE Time Spent with Patient Time Spent with Patient: >50 minutes Time was spent: preparing to see the patient(eg.review tests), obtaining and/or reviewing separately otained hiistory, ordering medications,tests, procedures, referring, communicating with other health wound care specialist, indepentently interpreting results, counseling the patient and care coordination
--- NOTE | 2025-05-09 15:52 | NUR.NOTE ---
Day RN reports daughter waiting for call w/update. Daughter calls during report, told we would call back. Day RN reports she had been very busy and hadn't been able to speak w/daughter today. Daughter called at 1550, voicemail left asking her to call w/# left for her. Nursing Note:
[2025-05-09 16:45] LABS: Prot/Crea Ur Ratio 16.69 mg/mg Cr
[2025-05-09] MEDS: Furosemide 40 MG/4 ML VIAL 80 MG IVP (17:16)
[2025-05-09] MEDS: Dorzolamide 2% 10 ML BTL OP (20:21)
[2025-05-09 20:36] LABS: Magnesium 1.9 mg/dL (1.6-2.6)
[2025-05-09 20:55] LABS: ALT 11 U/L (10-49); AST 24 U/L (<34); Albumin 2.9 g/dL (3.4-5.0); Alkaline Phosphatase 89 U/L (46-116); Anion Gap 12.4 mmol/L (3-11); BUN 59 mg/dL (9-23); Bilirubin, Total 0.40 mg/dL (0.2-1.2); CO2 18.6 mmol/L (20.0-31.0); Calcium 8.4 mg/dL (8.3-10.6); Chloride 113 mmol/L (98-107); Glucose 105 mg/dL (74-106); Potassium 3.7 mmol/L (3.5-5.1); Sodium 144 mmol/L (136-145); Total Protein 6.1 g/dL (5.7-8.2)
--- NOTE | 2025-05-09 21:04 | NUR.NOTE ---
Language line ipad brought to ICU, pt doesn't need this time but it was placed on a blade boner:
[2025-05-10] VITALS (52 sets, daily range): BP systolic 114–181; BP diastolic 52–100; PULSE 48–143; RESP 13–38; TEMP 36.7–37.5; O2SAT 91–98
[2025-05-10 06:30] LABS: HCT 21.8 % (36.0-46.0); HGB 7.1 g/dL (11.2-15.7); MCH 30.1 pg (27.0-33.0); MCHC 32.6 % (32.0-36.0); MCV 92 fL (80-95); MPV 10.4 fL (8.0-11.0); Platelet Count 217 10^3/uL (130-400); RBC 2.36 10^6/uL (3.93-5.22); RDW 13.5 % (11.7-14.6); RDW-SD 45.2 fL; WBC 7.15 10^3/uL (4.4-10.8)
--- NOTE | 2025-05-10 06:30 | RT.EKG_ITS ---
APPROVED REPORT Exam: Resting ECG Reason for Exam: Rhythm change Patient Location: I HR:104 bpm ECG Measurements Heart Rate 104 AXIS TN 78 P 27 QRSd 132 QRS 43 QT 403 T 47 QTc 531 Conclusion Sinus rhythm Ventricular bigeminy...bigeminy string>4 w/ V complexes Excessive artifact Late transition
[2025-05-10 07:00] LABS: Magnesium 1.8 mg/dL (1.6-2.6)
[2025-05-10 07:02] LABS: Vitamin D 25 Total 14 ng/mL (30-100)
[2025-05-10 07:14] LABS: ALT 9 U/L (10-49); AST 21 U/L (<34); Albumin 2.8 g/dL (3.4-5.0); Alkaline Phosphatase 84 U/L (46-116); Anion Gap 13.8 mmol/L (3-11); BUN 57 mg/dL (9-23); Bilirubin, Total 0.40 mg/dL (0.2-1.2); CO2 18.2 mmol/L (20.0-31.0); Calcium 8.3 mg/dL (8.3-10.6); Chloride 113 mmol/L (98-107); Glucose 83 mg/dL (74-106); Potassium 3.4 mmol/L (3.5-5.1); Sodium 145 mmol/L (136-145); Total Protein 5.8 g/dL (5.7-8.2)
[2025-05-10 07:19] LABS: Lab Add On Test DONE
[2025-05-10] MEDS: Normal Saline Flush 10 ML SYR IVP ×2 (08:34→16:09)
[2025-05-10] MEDS: Furosemide 40 MG/4 ML VIAL 80 MG IVP ×2 (08:34→16:08)
[2025-05-10] MEDS: Potassium Chloride Liquid 20 MEQ PKT 10 MEQ PO (08:37)
[2025-05-10] MEDS: Calcium Carbonate *TUMS* 500 MG CHEW PO ×3 (08:37→16:09)
[2025-05-10] MEDS: Carvedilol 25 MG TAB PO (08:37)
[2025-05-10] MEDS: Losartan 50 MG TAB 150 MG PO (08:38)
[2025-05-10] MEDS: Enoxaparin 30 MG/0.3 ML SYR SC (08:38)
[2025-05-10] MEDS: amLODIPine 10 MG TAB PO (08:38)
[2025-05-10] MEDS: Atorvastatin 40 MG TAB PO (08:38)
[2025-05-10] MEDS: POTASSIUM CHLORIDE 20 MEQ/100 ML BAG 50 MEQ IV_INF (08:47)
[2025-05-10] MEDS: Timolol 0.5% 5 ML BTL OP ×2 (08:48→22:08)
--- NOTE | 2025-05-10 13:30 | PGE_ITS ---
Date of Service Date of service: 05/10/25 Time of Service: 13:30 Assessment and Plan Assessment and plan (1) Cardiorenal syndrome with renal failure: Status: Acute Assessment and plan: Presumptive diagnosis. Echo still officially pending but ventricles do appear dilated and with low LVEF. She had previously been seen at [facility] nephrology for CKD stage 3, baseline creatinine 1.7 Discussed with [facility] nephrology 05/08, combination of HTN with acute Cr elevation to the 5's and acidosis with response to diuresis No anatomical abnormality or hydronephrosis on CT Importantly, she continues to make urine, pH normalized on VBG 05/09. Still waiting echocardiogram read, see below; Discontinued antiobiotics on 05/08. Discontinued ibuprofen 05/[address] Given Ca low, starting calcium carbonate as phosphate binder. PTH pending, vitamin D low, supplement. Nephrotic level proteinuria with prot/Cr 16.6 Case reviewed 05/[address] Daniels from nephrology, agreed with current management, recommended sending Hep B/C panel, SPEP/UPEP, mebrenous nephropathy panel. Once fluid status reasonable, plan d/c and follow up at nephrology (2) New onset of congestive heart failure: Status: Acute Assessment and plan: Presumptive diagnosis, awaiting echocardiogram as above, looks like HFrEF Diuresing well on furosemide 80 IV BID Continue home amlodipine but consider cutting dose if we can get her on more GDMT and BP coming down. Changed atenolol to carvedilol, but BP and pulse lower, so will back down on dose to 12.5mg BID. GFR too low for SGLT2i. She is on ARB full dose. Consider MRA once stable but not if BP running low per neprhology. (3) Acute on chronic anemia: Status: Acute Assessment and plan: Morning hemoglobin 6.9, repeat hemoglobin 7.7, normocytic Anemia worsening since February 2025 Likely secondary to renal disease Iron low 05/09, given IV repletion. Reasonable to start EPO per nephrology, brodie today VTE chemoprophylaxis appropriate, enoxaparin 30 daily (4) Chronic dyspnea: Status: Acute Assessment and plan: BL upper lobe infiltrates on CT - unclear significance. She isn't coughing or having symptoms of TB reactivation. Review with pulmonology when available. VQ scan performed afternoon of hospital day 2, negative for PE I think hypoxia secondary to heart failure, has resolved today. (5) Type 2 diabetes mellitus: Status: Chronic Assessment and plan: Recent A1c 5.3% c/w remission, though anemia may make this less reliable. FS glucose is okay. continue ISS if needed. (6) Nephrotic syndrome: Status: Acute Assessment and plan: As above, protein in nephrotic range, albumin low but not severe. Labs as above to evaluate. Also add lipids (7) Hypokalemia: Status: Acute Assessment and plan: replace cautiously. Follow (8) Atrial fibrillation and flutter: Status: Acute Assessment and plan: Has been in Afib before. Hemodynamically stable, rate not high. Monitor Mg/K Subjective Subjective Patient reports: no new complaints; denies nausea, vomiting or fever Interval history since last seen: Events: Furosemide to 80mg IV BID, diuresed ~100ml/hr overnight Back into afib this morning with PVCs Seen with senior corporate recruiter. She is feeling a little less SOB. Still feels swollen. Appetite not good, but no abdominal pain. no chest pain or dizziness. Some low back pain when sitting up. 2 loose stools yesterday with incontinence, does not appear infectious. Exam Narrative Exam Narrative: General: This is a pleasant, elderly woman in no distress, lying in bed. Cantonese-speaking CV: RRR. BLE 1-2+ pitting edema arms/legs. Resp: Clear bilaterally. RR around 20 Abd: soft, NTND, no masses/HSM. Neuro: awake, alert, no focal deficits, no tremor Objective Last Vital Signs Temp 37.5 C 05/10/25 08:30 Pulse 48 L 05/10/25 11:01 Resp 26 H 05/10/25 11:01 BP 114/52 L 05/10/25 11:01 Pulse Ox 94 05/10/25 11:01 Laboratory Results - last 24 hr 05/09/25 05/09/25 05/10/25 16:00 20:05 05:20 WBC 7.15 RBC 2.36 L Hgb 7.1 L Hct 21.8 L MCV 92 MCH 30.1 MCHC 32.6 RDW 13.5 Plt Count 217 MPV 10.4 Sodium 144 145 Potassium 3.7 3.4 L Chloride 113 H 113 H Carbon Dioxide 18.6 L 18.2 L Anion Gap 12.4 H 13.8 H BUN 59 H 57 H Creatinine 4.9 H* 5.0 H* Est GFR (CKD-EPI 2020) 8.47 8.31 Glucose 105 83 Calcium 8.4 8.3 Phosphorus 6.1 H Magnesium 1.9 1.8 Total Bilirubin 0.40 0.40 AST 24 21 ALT 11 9 L Alkaline Phosphatase 89 84 Total Protein 6.1 5.8 Albumin 2.9 L 2.8 L 25-OH Vitamin D Total 14 L Ur Random Creatinine 26.70 U Random Total Protein 445.8 H U [place] Prot/Creat Ratio 16.69 Add-On Test Request DONE Time Spent with Patient Time Spent with Patient: >50 minutes Time was spent: preparing to see the patient(eg.review tests), obtaining and/or reviewing separately otained hiistory, ordering medications,tests, procedures, referring, communicating with other health pediatric critical care nurse, indepentently interpreting results, counseling the patient and care coordination
[2025-05-10] MEDS: Ergocalciferol 50000 UNITS CAP PO (14:36)
[2025-05-10] MEDS: Darbepoetin 40 MCG SYR SC (14:36)
[2025-05-10] MEDS: Benzocaine/Menthol LOZG 15/BOX 1 EACH SUC (22:07)
[2025-05-10] MEDS: Acetaminophen 325 MG TAB 650 MG PO (22:07)
[2025-05-10] MEDS: Dorzolamide 2% 10 ML BTL OP (22:08)
[2025-05-10] MEDS: Carvedilol 25 MG TAB 12.5 MG PO (22:24)
[2025-05-11] VITALS (49 sets, daily range): BP systolic 149–184; BP diastolic 54–72; PULSE 53–82; RESP 17–34; TEMP 36.9–37.2; O2SAT 92–98
[2025-05-11] MEDS: Normal Saline Flush 10 ML SYR IVP ×3 (05:48→19:53)
[2025-05-11 07:02] LABS: MCH 30.7 pg (27.0-33.0); MCHC 33.3 % (32.0-36.0); MCV 92 fL (80-95); MPV 10.7 fL (8.0-11.0); Platelet Count 182 10^3/uL (130-400); RBC 2.28 10^6/uL (3.93-5.22); RDW 13.2 % (11.7-14.6); RDW-SD 43.9 fL; WBC 6.33 10^3/uL (4.4-10.8)
[2025-05-11 07:05] LABS: HGB 7.0 g/dL (11.2-15.7)
[2025-05-11 07:06] LABS: HCT 21.0 % (36.0-46.0)
[2025-05-11 07:15] LABS: BUN 65 mg/dL (9-23); Calcium 8.2 mg/dL (8.3-10.6); Glucose 75 mg/dL (74-106); Potassium 3.6 mmol/L (3.5-5.1)
--- NOTE | 2025-05-11 08:05 | PDOC.CMPRO ---
Date of service: 05/11/25 Time of Service: 08:05 Care Management Progress Note Progress Note Text Progress Note Text: Mildred was lying in bed when CM met with her. She stated that she is still not feeling well. Her Hgb was 7.0 today and another unit of blood has been ordered. Her provider reached out to [facility] to discuss Mildred's case and no new recommendations were made. Mildred continues to be diuresed and has lost about 8 kg according to documrentation in her chart. Discharge Potential Discharge Needs: PCP F/U Appt Anticipated Barriers to Discharge: None Identified Patient/Family Education Needs: Review discharge instructions, discuss Ask Me Three and Other Transportation: Private vehicle Plan: Anticipate Mildred will be discharged home, possibly with new home health services, when medically cleared. As she has been transferred to the ICU, it is possible she may need to transfer to a tertiary care facility if her renal function declines to the point where she needs dialysis. Transportation will be determined by disposition. CM will follow and continue to support discharge planning concerns. Social Determinants of Health Screening Will the Patient Participate in the Screening?: Unable to obtain Do you worry about having a steady place to live?: choose not to answer In the past 12 months, have you had to go without electric, gas, oil or water in your home?: no Has lack of transportation kept you from medical appointments or from doing things needed for daily living?: no Has anyone in your life made you feel unsafe or unsupported?: no How hard is it for you to pay for the very basics like food, housing, medical care, and heating? Would you say it is:: Not hard at all If for any reason you need help with day-to-day activities such as bathing, preparing meals, shopping, managing finances, etc., do you get the help you need?: I could use a little more help How often do you feel lonely or isolated from those around you?: Never Do you speak a language other than Hebrew at home?: Yes Does the patient want assistance with any of the above?: Yes Health Related Social Needs Health related social needs: problems with daily activities (Z73.9) and education (Z55.6) Health related social needs details: sob on exertion and need more health teachings
[2025-05-11] MEDS: Timolol 0.5% 5 ML BTL OP ×2 (08:47→19:51)
[2025-05-11] MEDS: Furosemide 40 MG/4 ML VIAL 80 MG IVP ×2 (08:48→16:53)
[2025-05-11] MEDS: Losartan 50 MG TAB 150 MG PO (08:49)
[2025-05-11] MEDS: Calcium Carbonate *TUMS* 500 MG CHEW PO ×3 (08:49→16:53)
[2025-05-11] MEDS: Enoxaparin 30 MG/0.3 ML SYR SC (08:49)
[2025-05-11] MEDS: Carvedilol 25 MG TAB 12.5 MG PO ×2 (08:49→19:51)
[2025-05-11] MEDS: Benzocaine/Menthol LOZG 15/BOX 1 EACH SUC (08:50)
[2025-05-11] MEDS: amLODIPine 10 MG TAB PO (08:50)
[2025-05-11] MEDS: Atorvastatin 40 MG TAB PO (08:50)
--- NOTE | 2025-05-11 09:03 | W.NUTRFU ---
Date of service: 05/11/25 Time of Service: 09:24 Nutrition Note NOTE: Received request for nutrition consult re: diabetes mgt/education. Mildred is 84yo female with new onset CHF and cardiorenal syndrome with renal failure. She had hypokalemia which looks good today at 3.6 after repletion. Hx of diabetes with recent A1c of 5.3% - historically in the low to mid 6's and highest was 7.0 back in 2018 after revieweing chart. Hgb low which can influence. Can consider fructosamine for better accuracy. Fingersticks 76-144 the last few days. GFR <10 Was started on Ergocalciferol with low vitamin d lab yesterday - may want to consider calcitriol with low GFR. Calcium 8.2 and phos 6.1 today - calcium carb ordered Sensitive sliding scale at meals and HS for glucose corrections. Patient presents with language barrier - did offer card to daughter and outpatient nutrition education if desired. will monitor intake, weight, nutrition-related labs. Time Spent in Nutritional Counseling and Treatment: 10 min
[2025-05-11 09:57] LABS: Anion Gap 13.3 mmol/L (3-11); CO2 17.7 mmol/L (20.0-31.0); Chloride 113 mmol/L (98-107); Cholesterol 102 mg/dL (<200); HDL Cholesterol 39 mg/dL (>40); Sodium 144 mmol/L (136-145)
--- NOTE | 2025-05-11 15:20 | IN_ITS ---
PT Notes Visit Reasons: PAF, CHF Exacerbation, Pneumonia Physical Therapy Inpatient Initial Evaluation Date: 05/11/2025 Referring Doctor: Timothy Brewer MD PT Orders: PT CONSULT: renal failure/CHF, anemia, weakness Precautions: Fall. Standard. Activity as tolerated. Primary language is Cantonese but able to speak and understand Kinyarwanda. Patient Profile/Admitting Diagnosis: Mildred is an 84-year-old female who presented to the ED on 05/11/2025 from her primary care physician's office due to worsening shortness of breath with leg swelling of 2 weeks duration. Patient is admitted for further monitoring and management of presumptive cardiorenal syndrome with renal failure and new onset CHF, pleural effusion, pneumonia, acute on chronic anemia with most recent hemoglobin at 7.7 mg/dL, nephrotic syndrome, hypokalemia, CKD stage III, and HTN atrial fibrillation and flutter. 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 - [place] - Toxoplasmosis retinopathy of right eye Diabetic nephropathy (Chronic 04/20/22) Osteoarthritis of hands, bilateral (Chronic) COVID-19 vaccination refused (Acute) Osteopenia (Chronic) 02/16/21 DEXA: femoral neck T-score = -1.3; WHO FRAX: major osteoporotic fx 6.6% & hip fx 1.3% --> Ca & vit D supplementation Proteinuria, unspecified (Acute) Chronic kidney disease, stage 3 unspecified (Chronic) Anisometropia and aniseikonia (Acute) Essential hypertension (Chronic 01/09/13) Immunization not carried out because of patient refusal (Chronic) Thyroid nodule (Chronic 01/29/19) [facility] Endo Anxiety (Chronic) Insomnia (Acute) Dizziness (Acute) Primary open-angle glaucoma, right eye, indeterminate stage (Chronic) Primary open-angle glaucoma, left eye, indeterminate stage (Chronic) Gastroesophageal reflux disease (Chronic) Urbina's esophagus (Acute) Dr Lim: EGD 07/12/09 frq [id number] 2 diabetes mellitus (Chronic) controlled by diet, does not test BS daily Chronic rhinitis (Acute 02/05/14) Anemia (Acute 07/05/11) chronic Migraine without aura (Chronic 05/10/11) Psoriasis (Chronic) Other and unspecified hyperlipidemia (Chronic 01/09/13) 01/2017 labwork: 10-year ASCVD risk = ~22.7% --> pt declines statins Obstructive sleep apnea (Chronic 12/02/15) [facility] Sleep Medicine cpap. Medical History (Updated 05/08/25 @ 08:45 by Hans Bhandari) Enlarged lymph node in neck (09/09/20) [facility] Endo: benign bx Posterior subcapsular age-related cataract, right eye Nuclear sclerotic cataract of right eye Posterior subcapsular age-related cataract of left eye Complicated bereavement Adenoma of large intestine (01/15/13) tubular adenoma 07/18/[address] Leonie Frank Surgical History History of cataract surgery Nuclear sclerotic cataract of left eye Cortical cataract of left eye H/O lithotripsy History of ear surgery Per pt. daughter pt. had a metal plate put on the side of her head r/t to inner ear issue. Pt. daughter states this was done 40 years ago.egd (07/19/09) and 01/23/08 Colonoscopy - MAC (07/18/17) Social History/Home Situation: Lives alone in a private home with 3 steps to enter and a rail on one side. Son and his family lives within half an hour from patient and have been able to check on patient occasionally. Brenda dn daughter in law works during the day. Patient had been independent with all mobility ADLs using her SPC. Equipment Owned/DME: SPC, FWW Subjective: Fatigued but willing to work with PT. Needed to be transferred to the commode due to an episode of soft bowel movement that may have started immediately before PT session. Complained of mild lightheadedness with upright positioning needing support from PT. Objective: General Observation: Resting in bed. telemetry monitoring in place. Swelling to B legs and R hadn as well as forearm. Mental Status: Alert and oriented as to person, place, time, and purpose. Able to pay attention, focus, and respond appropriately. Able to understand and speak Kinyarwanda. Pain: None reported Vital Signs: VS WNlL via tele trhoughout session ROM: Right Upper Extremity: Shoulder Flexion limited to about 80 degrees actively. Shoulder abduction imited to about 80 degrees actively. Elbow flexion WFL. Wrist flexion WFL. Functional opening and closing of hand WFL. Left Upper Extremity: Shoulder Flexion limited to about 80 degrees actively. Shoulder abduction imited to about 80 degrees actively. Elbow flexion WFL. Wrist flexion WFL. Functional opening and closing of hand WFL. Right Lower Extremity: Hip flexion WFL. Hip abduction WFL. Knee flexion WFL. Ankle dorsiflexion to neutral only. Ankle plantarflexion WFL. Left Lower Extremity: Hip flexion WFL. Hip abduction WFL. Knee flexion WFL. Ankle dorsiflexion to neutral only. Ankle plantarflexion WFL. Strength: Right Upper Extremity: Shoulder flexors 3-/5. Shoulder abductors 3-/5. Elbow flexors 4-/5. Elbow extensors 4-/5. Customer Assistance Associate strong. Left Upper Extremity: Shoulder flexors 3-/5. Shoulder abductors 3-/5. Elbow flexors 4-/5. Elbow extensors 4-/5. Customer Assistance Associate strong. Right Lower Extremity: Hip flexors 3+/5. Hip abductors 3+/5. Knee flexors 3+/5. Knee extensors 3+/5. Ankle dorsiflexors 3-/5. Ankle plantarflexors 4-/5. Left Lower Extremity: Hip flexors 3+/5. Hip abductors 3+/5. Knee flexors 3+/5. Knee extensors 3+/5. Ankle dorsiflexors 3-/5. Ankle plantarflexors 4-/5. Bed Mobility/Transfers: Minimal cueing provided for use of B hands as needed for support, movement sequence, AD management, and posture to reduce fall risk and minimize pain report. Supine to sit minimal assist with HOB at 30 degrees Sit to stand minimal assist with FWW Stand to sit minimal assist with FWW Bed to bedside commode minimal assist with FWW Bedside commode to bed minimal assist with FWW Bed to reclining chair minimal assist with FWW Gait: 5 steps from bed to bedside commode with FWW 6 steps from bedside commode to bedside chair with FWW. Minimally short of breath but resolved with rest. Denied headache and chest pain but did report mild lightheadedness that resolved with rest. Complained of fatigue. Vital signs on tele remained WNL throughout session. Balance: Static Sitting: Good Dynamic Sitting: Good Static Standing: Fair Dynamic Standing: Fair Special Tests: Mobility Limitations Standardized Measure [facility] AM-PAC 6 clicks Basic Mobility Inpatient Short Form: Raw Score: 18 CMS Score: 47% deficit THERA EX: Guided patient with safe and correct performance of seated level exercises as follows-- B shoulder flexion up to 90 degrees x 5 with deep breathing exercises Seated marches x 10 Deep breathing x 5 Unilateral LAQs x 10 Deep breathing x 5 Informed Consent/Education: Patient was instructed in purpose of PT consult and plan of care. Agreeable to proceed with established PT POC to achieve personal goals. Assessment: Patient limited by report of dizziness with sitting up and standing up but was able to get OOB, transfer and walk from edge of bed to bedsid commode and from commode to bedside chair using a front-wheeled walker with minimal assist of PT. She was provided with pericare assistance, along with help of ROBERT Levy as we ll. Patient presented with clinical signs and symptoms consistent with current/admitting diagnoses that have resulted to mobility limitations, gait instability, generalized weakness, and overall ADL decline as demonstrated by the following impairment level findings: 1. Decreased strength to B LE major muscle groups 2. Impaired sitting/standing balance 3. Impaired activity tolerance 4. Limitation of joint range of motion in B shoulders (chronic) 5. Shortness of breath 6. Swelling in R forearm and hand as well as B legs (B leg swelling significantly diminished per Nurse Danyell) Impairments are contributing to the following functional limitations: 1. Decline in bed mobility skills 2. Decline in transfer skills 3. Difficulty with ambulation without assistive device and physical assistance 4. Increased completion time for mobility ADL performance 5. Increased risk for falls 6. Difficulty with managing steps alone safely Patient is assessed as a [id number] moderate complexity based on the following: History: 84-year-old female with past medical history as indicated above Examination: Demonstrable impairment in strength, balance, and mobility level with underlying impairments and functional limitations as exhibited above as well as deficit score of 47% utilizing the [facility] Mobility Inpatient Short Form Presentation: Evolving Decision Makin moderate complexity Goals: Goals X1 week 1. Supine-Sit independent 2. Sit-Supine independent 3. Sit-Stand independent 4. Stand-Sit independent with SPC 5. Bed-Chair independent with SPC 6. Chair-Bed independent with SPC 7. Independent gait on level surface with use of SPC for at least 150 feet without report of pain nor dyspnea 8. Independent stair negotiation while holding onto 1 rail for at least 3 steps without report of pain nor dyspnea 9. Independent with home exercise program 10. Good static and dynamic standing balance/tolerance Plan of Care/Treatment Plan: 1-2x/day, 7 days/week x 1 week. Plan of care has been reviewed with the GAMMA OPERATOR providing the service under Physical Therapy direction. Initiate Physical Therapy intervention for pain management as needed, strengthening, bed mobility, transfers, gait, stairs, balance training, and use of assistive device. DISCHARGE RECOMMENDATIONS: PT TREATMENT CODE/TIME: 23481 x 20 minutes for 1 unit, 39475 x 25 minutes for 1 unit (14:35-15:20). Thank you for the opportunity to participate in the care of this patient. Soraya Muhammad PT, DPT, CLT [facility] [place], [place]
--- NOTE | 2025-05-11 16:40 | PGE_ITS ---
Date of Service Date of service: 05/11/25 Time of Service: 16:40 Assessment and Plan Assessment and plan (1) Cardiorenal syndrome with renal failure: Status: Acute Assessment and plan: Presumptive diagnosis. Echo still officially pending but ventricles do appear dilated and with low LVEF. She had previously been seen at [facility] nephrology for CKD stage 3, baseline creatinine 1.7 Discussed with [facility] nephrology 05/08, combination of HTN with acute Cr elevation to the 5's and acidosis with response to diuresis No anatomical abnormality or hydronephrosis on CT Importantly, she continues to make urine, pH normalized on VBG 05/09. Still waiting echocardiogram read, see below; Discontinued antiobiotics on 05/08. Discontinued ibuprofen 05/[address] Given Ca low, starting calcium carbonate as phosphate binder. PTH pending, vitamin D low, supplement. Nephrotic level proteinuria with prot/Cr 16.6 Case reviewed 05/[address] Daniels from nephrology, agreed with current management, recommended sending Hep B/C panel, SPEP/UPEP, mebrenous nephropathy panel. Once fluid status reasonable, plan d/c and follow up at nephrology No change in IV furosemide today, transition to oral torsemide 05/12 80mg (2) New onset of congestive heart failure: Status: Acute Assessment and plan: Presumptive diagnosis, concern for HFrEF, but echo read finally on 05/11 shows normal LVEF May have been HFpEF, IVC still dilated but does collapse >50% Changed atenolol to carvedilol, but BP and pulse lower, so 05/10 lowered dosel back down to 12.5mg BID. GFR too low for SGLT2i. (3) Acute on chronic anemia: Status: Acute Assessment and plan: 05/07 hemoglobin 6.9, repeat hemoglobin 7.7 s/p 1 unit RBC. normocytic Anemia worsening since February 2025 Likely secondary to renal disease Iron low 05/09, given IV repletion. Aranesp 40mg 05/10. Trend still down to 7.0 05/11, given second unit RBC. VTE chemoprophylaxis appropriate, enoxaparin 30 daily (4) Chronic dyspnea: Status: Acute Assessment and plan: BL upper lobe infiltrates on CT - unclear significance. She isn't coughing or having symptoms of TB reactivation. Plan to review with pulmonology when available. VQ scan performed afternoon of hospital day 2, negative for PE I think hypoxia secondary to heart failure, has been off oxygen (5) Type 2 diabetes mellitus: Status: Chronic Assessment and plan: Recent A1c 5.3% c/w remission, though anemia may make this less reliable. FS glucose is okay. continue ISS if needed. (6) Nephrotic syndrome: Status: Acute Assessment and plan: As above, protein in nephrotic range, albumin low but not severe. Labs per Nephrology 05/10 to evaluate. Lipids not high (7) Hypokalemia: Status: Acute Assessment and plan: replaced cautiously 05/10. Follow (8) Atrial fibrillation and flutter: Status: Acute Assessment and plan: Has been in Afib before. Converted back 05/10. Consider anticoagulation prior to discharge if anemia stable. Subjective Subjective Patient reports: denies diarrhea (stool still soft), nausea, vomiting or fever Interval history since last seen: Events: case reviewed with nephrology, additional evaluation for nephrotic syndrome sent. Seen with tele-neurology manager. She feels like breathing and swelling getting nawaf r. No pain. Not eating much because she can't chew well with bad teeth. Exam Narrative Exam Narrative: General: This is a pleasant, elderly woman in no distress, lying in bed. Cantonese-speaking CV: RRR. BLE 1+ pitting edema arms/legs. Resp: Clear bilaterally. normal effort, RR now in teens Abd: soft, NTND, no masses/HSM. Neuro: awake, alert, no focal deficits, no tremor Objective Last Vital Signs Temp 37.2 C 05/11/25 14:12 Pulse 58 L 05/11/25 14:12 Resp 23 05/11/25 14:12 BP 160/64 H 05/11/25 14:12 Pulse Ox 96 05/11/25 14:12 Laboratory Results - last 24 hr 05/07/25 05/10/25 05/11/25 16:12 05:20 06:10 WBC 6.33 RBC 2.28 L Hgb 7.0 L* Hct 21.0 L MCV 92 MCH 30.7 MCHC 33.3 RDW 13.2 Plt Count 182 MPV 10.7 Sodium 144 Potassium 3.6 Chloride 113 H Carbon Dioxide 17.7 L Anion Gap 13.3 H BUN 65 H Creatinine 5.1 H* Est GFR (CKD-EPI 2020) 8.14 Glucose 75 Calcium 8.2 L Triglycerides 131 Total Cholesterol 102 LDL Cholesterol, Calc 36.9 HDL Cholesterol 39 L PTH Intact 227 H ABO/Rh Antibody Screen Crossmatch See Detail 05/11/25 09:16 WBC RBC Hgb Hct MCV MCH MCHC RDW Plt Count MPV Sodium Potassium Chloride Carbon Dioxide Anion Gap BUN Creatinine Est GFR (CKD-EPI 2020) Glucose Calcium Triglycerides Total Cholesterol LDL Cholesterol, Calc HDL Cholesterol PTH Intact ABO/Rh B Positive Antibody Screen NEGATIVE Crossmatch See Detail Time Spent with Patient Time Spent with Patient: >50 minutes Time was spent: preparing to see the patient(eg.review tests), obtaining and/or reviewing separately otained hiistory, ordering medications,tests, procedures, referring, communicating with other health medical care evaluation specialist, indepentently interpreting results, counseling the patient and care coordination
[2025-05-11] MEDS: Spironolactone 25 MG TAB 12.5 MG PO (16:53)
[2025-05-11] MEDS: Insulin Aspart 300 UNITS/3 ML PEN SC ×2 (17:54→19:49)
[2025-05-11 19:43] LABS: Hepatitis C Ab w Rflx HCV PCR Negative (Negative)
[2025-05-11 19:44] LABS: HBs Antibody, Quant 34.8 mIU/mL (See Note); Hepatitis B Surface Antigen Negative (Negative)
[2025-05-11] MEDS: Dorzolamide 2% 10 ML BTL OP (19:50)
[2025-05-12] VITALS (24 sets, daily range): BP systolic 137–176; BP diastolic 59–90; PULSE 54–74; RESP 10–35; TEMP 36.6–36.7; O2SAT 90–97
[2025-05-12] MEDS: Normal Saline Flush 10 ML SYR IVP ×3 (05:22→20:58)
[2025-05-12 06:04] LABS: HCT 23.4 % (36.0-46.0); HGB 7.8 g/dL (11.2-15.7)
[2025-05-12 06:52] LABS: Anion Gap 12 mmol/L (3-11); BUN 76 mg/dL (9-23); CO2 21.0 mmol/L (20.0-31.0); Calcium 7.9 mg/dL (8.3-10.6); Chloride 111 mmol/L (98-107); Glucose 89 mg/dL (74-106); Potassium 3.9 mmol/L (3.5-5.1); Sodium 144 mmol/L (136-145)
--- NOTE | 2025-05-12 09:00 | PT.INTREAT ---
PT Notes Visit Reasons: PAF, CHF Exacerbation, Pneumonia Physical Therapy Inpatient Treatment Note Date: 05/12/2025 Precautions: Fall. Standard. Activity as tolerated. Primary language is Cantonese but able to speak and understand Nigerian. Subjective: Just woke up when PT came in. Has not had breakfast yet. Agreeable to moving out of bed for breakfast. Objective: General Observation: Resting in bed. Telemetry monitoring in place. Swelling to B legs and R hand as well as forearm. CPA machine in place. Mental Status: Alert and oriented as to person, place, time, and purpose. Able to pay attention, focus, and respond appropriately. Able to understand and speak Nigerian. Pain: None reported Vital Signs: VS WNL via tele trhoughout session Bed Mobility/Transfers: Minimal cueing provided for use of B hands as needed for support, movement sequence, AD management, and posture to reduce fall risk and minimize pain report. Supine to sit minimal assist with HOB at 30 degrees Sit to stand minimal assist with FWW Stand to sit minimal assist with FWW Bed to bedside commode minimal assist with FWW Bedside commode to bed minimal assist with FWW Bed to reclining chair minimal assist with FWW Gait: 5 steps from bed to bedside commode with FWW Minimally short of breath but resolved with rest. Denied headache and chest pain but did report mild lightheadedness that resolved with rest. Complained of fatigue. Vital signs on tele remained WNL throughout session. Balance: Static Sitting: Good Dynamic Sitting: Good Static Standing: Fair Dynamic Standing: Fair THERA EX: Guided patient with safe and correct performance of seated level exercises as follows-- B shoulder flexion up to 90 degrees x 5 with deep breathing exercises Seated marches x 10 Assessment: Patient was seen for a short time early today as she has not had breakfast yet. She will be seen later today for her second visit as planned. Plan of Care/Treatment Plan: 1-2x/day, 7 days/week x 1 week. Plan of care has been reviewed with the OFFICE SERVICES ASSOCIATE providing the service under Physical Therapy direction. Initiate Physical Therapy intervention for pain management as needed, strengthening, bed mobility, transfers, gait, stairs, balance training, and use of assistive device. DISCHARGE RECOMMENDATIONS: PT TREATMENT CODE/TIME: 26132 x 20 minutes for 1 unit (9:00-09:20).
[2025-05-12] MEDS: Carvedilol 25 MG TAB 12.5 MG PO ×2 (09:22→20:56)
[2025-05-12] MEDS: Losartan 50 MG TAB 150 MG PO (09:22)
[2025-05-12] MEDS: Torsemide 20 MG TAB 60 MG PO (09:22)
[2025-05-12] MEDS: Atorvastatin 40 MG TAB PO (09:22)
[2025-05-12] MEDS: Enoxaparin 30 MG/0.3 ML SYR SC (09:23)
[2025-05-12] MEDS: amLODIPine 10 MG TAB PO (09:23)
[2025-05-12] MEDS: Timolol 0.5% 5 ML BTL OP ×2 (09:27→22:16)
[2025-05-12] MEDS: Spironolactone 25 MG TAB 12.5 MG PO (09:27)
--- NOTE | 2025-05-12 09:30 | PDOC.CMPRO ---
Date of service: 05/12/25 Time of Service: 09:30 Care Management Progress Note Progress Note Text Progress Note Text: Mildred was transferred out of the ICU onto Med-Surg today. She continues to show slow improvement and admitted that she is feeling a little bit better. Mildred was placed on airborne precautions by Dr. Gómez today until TB can be ruled out. She has been found to have bilateral upper lobe infiltrates in her lungs that have gotten worse over time. 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 Mildred's son was visiting when CM met with her and has a good command of [place]ian. He was able to help explain the need for the isolation to her in a way that she understands. CM will follow. Discharge Potential Discharge Needs: PCP F/U Appt and Other (nephrology) Anticipated Barriers to Discharge: Medical Status Patient/Family Education Needs: Review discharge instructions, discuss Ask Me Three Transportation: Private vehicle Plan: Anticipate Mildred will be discharged home, possibly with new home health services, when medically cleared. As she has been transferred to the ICU, it is possible she may need to transfer to a tertiary care facility if her renal function declines to the point where she needs dialysis. Transportation will be determined by disposition. CM will continue to support discharge planning concerns. Social Determinants of Health Screening Will the Patient Participate in the Screening?: Unable to obtain Do you worry about having a steady place to live?: choose not to answer In the past 12 months, have you had to go without electric, gas, oil or water in your home?: no Has lack of transportation kept you from medical appointments or from doing things needed for daily living?: no Has anyone in your life made you feel unsafe or unsupported?: no How hard is it for you to pay for the very basics like food, housing, medical care, and heating? Would you say it is:: Not hard at all If for any reason you need help with day-to-day activities such as bathing, preparing meals, shopping, managing finances, etc., do you get the help you need?: I could use a little more help How often do you feel lonely or isolated from those around you?: Never Do you speak a language other than Gambian at home?: Yes Does the patient want assistance with any of the above?: Yes Health Related Social Needs Health related social needs: problems with daily activities (Z73.9) and education (Z55.6) Health related social needs details: sob on exertion and need more health teachings
[2025-05-12] MEDS: Calcium Carbonate *TUMS* 500 MG CHEW PO ×2 (10:19→18:18)
[2025-05-12 10:39] LABS: Kappa Free Light Chain 16.96 mg/dL (0.33-1.94); Lambda Free Light Chain 15.14 mg/dL (0.57-2.63)
--- NOTE | 2025-05-12 12:09 | W.PM.PROGNOT ---
Date of Service Date of service: 05/12/25 Time of Service: 09:19 Assessment and Plan Assessment and plan (1) Cardiorenal syndrome with renal failure: Status: Acute Assessment and plan: Presumptive diagnosis. Echo still officially pending but ventricles do appear dilated and with low LVEF. She had previously been seen at [facility] nephrology for CKD stage 3, baseline creatinine 1.7 Discussed with [facility] nephrology 05/08, combination of HTN with acute Cr elevation to the 5's and acidosis with response to diuresis No anatomical abnormality or hydronephrosis on CT Importantly, she continues to make urine, pH normalized on VBG 05/09. Still waiting echocardiogram read, see below; Discontinued antiobiotics on 05/08. Discontinued ibuprofen 05/[address] Given Ca low, starting calcium carbonate as phosphate binder. PTH pending, vitamin D low, supplement. Nephrotic level proteinuria with prot/Cr 16.6 Case reviewed 05/[address] Daniels from nephrology, agreed with current management, recommended sending Hep B/C panel, SPEP/UPEP, mebrenous nephropathy panel. No change in IV furosemide today, transitioned to oral torsemide 05/12 60mg just once daily Okay to pull dukes, downgrade to floor status If stable, plan d/c and follow up at nephrology (2) New onset of congestive heart failure: Status: Acute Assessment and plan: Presumptive diagnosis, concern for HFrEF, but echo read finally on 05/11 shows normal LVEF. May have been HFpEF, IVC still dilated but does collapse >50% Changed atenolol to carvedilol, dose at 12.5mg BID with pulses in 50s-60s GFR too low for SGLT2i. (3) Acute on chronic anemia: Status: Acute Assessment and plan: 05/07 hemoglobin 6.9, repeat hemoglobin 7.7 s/p 1 unit RBC. normocytic Anemia worsening since February 2025 Likely secondary to renal disease Iron low 05/09, given IV repletion. Aranesp 40mg 05/10. Trend still down to 7.0 05/11, given second unit RBC, 7.8 05/12. Continue to follow. VTE chemoprophylaxis appropriate, enoxaparin 30 daily (4) Type 2 diabetes mellitus: Status: Chronic Assessment and plan: Recent A1c 5.3% c/w remission, though anemia may make this less reliable. FS glucose is okay. continue ISS if needed. (5) Nephrotic syndrome: Status: Acute Assessment and plan: As above, protein in nephrotic range, albumin low but not severe. Labs per Nephrology 05/10 to evaluate. Lipids not high (6) Atrial fibrillation and flutter: Status: Acute Assessment and plan: Has been in Afib before. Converted back 05/10. Consider anticoagulation prior to discharge if anemia stable. (7) Essential hypertension: Status: Chronic Assessment and plan: BPs remain high on amlodipine, losartan, and carvedilol at full doses. Started spironolactone, monitor K/Cr closely (8) Pulmonary infiltrates: Status: Acute Assessment and plan: BL upper lobe infiltrates on CT, were present in March. A/w effusions. Unclear diagnosis. She isn't coughing or having symptoms of TB reactivation, but she is at risk coming from [place]. D/w pulmonology, consult for evaluation. VQ scan performed afternoon of hospital day 2, negative for PE She did have some hypoxia secondary to fluid overload that has resovled. Subjective Subjective Patient reports: no new complaints, feels better and tolerating a regular diet; denies diarrhea, nausea, vomiting or fever Interval history since last seen: Events: Walking with PT. Started 12.5mg spironolactone, loop diuretic to oral this morning. She feels better. Swelling is much better. On her feet. Right ankle hurts. Exam Narrative Exam Narrative: General: This is a pleasant, elderly woman in no distress, lying in bed. Cantonese-speaking CV: RRR. BLE trace to 1+ pitting edema arms/legs. Resp: Clear bilaterally. normal effort Abd: soft, NTND, no masses/HSM. Neuro: awake, alert, no focal deficits, no tremor Objective Last Vital Signs Temp 36.7 C 05/12/25 04:00 Pulse 55 L 05/12/25 12:01 Resp 21 05/12/25 12:01 BP 137/60 05/12/25 12:01 Pulse Ox 97 05/12/25 12:01 Laboratory Results - last 24 hr 05/10/25 05/11/25 05/11/25 05:20 06:10 09:16 Hgb Hct Sodium Potassium Chloride Carbon Dioxide Anion Gap BUN Creatinine Est GFR (CKD-EPI 2020) Glucose Calcium PTH Intact 227 H Hep Bs Antigen Negative Hep Bs Antibody Positive Hep Bs Antibody, Quant 34.8 Hep B Core Total Ab Positive A Hepatitis C Antibody Negative Crossmatch See Detail 05/12/25 05:30 Hgb 7.8 L Hct 23.4 L Sodium 144 Potassium 3.9 Chloride 111 H Carbon Dioxide 21.0 Anion Gap 12 H BUN 76 H Creatinine 5.1 H* Est GFR (CKD-EPI 2020) 8.03 Glucose 89 Calcium 7.9 L PTH Intact Hep Bs Antigen Hep Bs Antibody Hep Bs Antibody, Quant Hep B Core Total Ab Hepatitis C Antibody Crossmatch Time Spent with Patient Time Spent with Patient: >50 minutes Time was spent: preparing to see the patient(eg.review tests), obtaining and/or reviewing separately otained hiistory, ordering medications,tests, procedures, referring, communicating with other health care information associate, indepentently interpreting results, counseling the patient and care coordination
[2025-05-12] MEDS: Lidocaine 5% Patch 1 PATCH TP ×2 (12:25→18:30)
--- NOTE | 2025-05-12 14:11 | PT.INTREAT ---
PT Notes Visit Reasons: PAF, CHF Exacerbation, Pneumonia Date: 05/12/2025 PRECAUTIONS: Fall, standard, Activity as tolerated. SUBJECTIVE: pt in recliner when approached for therapy this afternoon, pt reports her ankle is very painful, agreed to participate with seated activity. OBJECTIVE: Perez catheter PAIN: 8/10 right ankle pain VITALS: Closely monitored by nursing Manual therapy 52567: Hands-on techniques to Modulate pain Increase joint range of motion Reduce or eliminate soft tissue swelling, inflammation, or restriction Facilitate relaxation and improve contractile and non-contractile tissue extensibility. Treatment: STM on right ankle, effleurage on gastroc soleous, Seated A-P talocrural mobilization Therapeutic Exercises 96322: Direct one-on-one instruction in therapeutic exercises to develop strength, endurance, range of motion and flexibility. Exercises: Seated SLR [id number] Seated knee to chest [id number] Seated hip abduction [id number] Seated heel slide [id number] Seated march [id number] Hooklying trunk rotation [id number] Seated heel raises [id number] Seated toe raises [id number] Provided skilled instruction in proper exercise performance Provided skilled manual cues to facilitate proper muscle recruitment and/or form: Therapeutic Activities 97386: Direct one-on-one instruction in dynamic activities to improve functional performance. Sit-stand: CGA Stand-sit: CGA Bed-Chair: CGA Chair-bed: CGA Provided skilled cues and instruction on performance and technique throughout. Gait Training 36406: Direct one-on-one instruction and skilled instruction in: Employing an assistive device Modified weight-bearing status Movement sequencing Turning and movement with proper form Provided verbal cues for equipment management and technique Provided instruction in gait pattern Patient education regarding pacing and breathing techniques to maximize activity tolerance GAIT Assistive Device: FWW Weight bearing: FWB Assist: CGA Distance: 30'x2 Deviation: Antalgic gait, slow melchor, heavy reliance on BUE ASSESSMENT: Pt reports her ankle pain has improved post manual therapy and was able to participate with standing activity after doing seated exercises. PLAN: Continue with balance training, global strengthening and general conditioning for improved safety, mobility and activity tolerance until pt is ready for DC. TREATMENT CODE/TIME: [id number], [id number] 30mins (1:50-2:20pm)
[2025-05-12 15:24] LABS: Albumin, Urine % 48.5 %; Albumin, Urine mg/dL 152 mg/dL; Globulins, Urine % 51.5 %; Globulins, Urine mg/dL 161 mg/dL; Monoclonal Spike, Urine 3.5 %; Monoclonal Spike, Urine mg/dL 11 mg/dL
[2025-05-12 15:37] LABS: Albumin 35.0 % (55.8-66.1); Albumin g/dL 1.9 g/dL (3.6-5.2); Alpha 1 g/dL 0.50 g/dL (0.15-0.40); Alpha 2 g/dL 1.10 g/dL (0.50-1.00); Beta g/dL 0.80 g/dL (0.60-1.20); Gamma g/dL 1.10 g/dL (0.60-1.60); Total Protein 5.3 g/dL (6.3-8.2)
--- NOTE | 2025-05-12 15:45 | PUCON_ITS ---
General Date Of Service Date of service: 05/12/25 Time of Service: 14:00 Requesting physician: Timothy Brewer Reason for Consult: Pulmonary infiltrates, pleural effusions Recommendations: Assessment: 1. Pulmonary infiltrates - suspect infectious etiology. She immigrated from [place] in the . Speaking with her son, she came from a region that had a high prevalence of tuberculosis. TB seems less likely, however, given her infiltrates, cannot rule out. 2. Pleural effusions - moderate bilateral pleural effusion on POCUS exam today 3. Acute on chronic renal failure - Cr 5.1 and unchanged for 3 days 4. Anemia - no obvious bleeding. Hb 7.8 today Recommendations: - place in negative pressure isolation until active Tb is ruled out - obtain 3 sputum AFB samples - obtain bacterial sputum culture - plan for thoracentesis in the AM to evaluate her pleural effusion - given infiltrates and productive cough, I am in favor of continuing antibiotics at this time. Can continue with ceftriaxone and azithromycin Discussed with Dr. Brewer Assessment and Plan Assessment and plan (1) Pleural effusion: Status: Acute (2) Pneumonia: Status: Acute (3) Pulmonary infiltrates: Status: Acute (4) Obstructive sleep apnea: Status: Chronic History of Present Illness Narrative: Patient is an 84 yo with a history of CKD and DM II who was admitted on 05/07 for pulmonary infiltrates, acute on chronic renal failure and LE swelling. CT chest on admission showed bilateral infiltrates and bilateral pleural effusions. She had significant hypervolemia, so has been diuresed and had a good response. Her Cr has remained unchanged. She has had a productive cough with yellowish sputum. Denies any hemotpysis. Denied chest pain. Denied fevers. She denies any known Tb contacts. She has some dyspnea with exertion that is overall improved. She immigrated to the from [place] in the . Family history reviewed Social history reviewed. Denied smoking history ROS: 10 pt ROS negative except as in HPI PFSH All Active Problems (Updated 05/12/25 @ 13:17 by Timothy Brewer) Pulmonary infiltrates (Acute) Hypokalemia (Acute) Nephrotic syndrome (Acute) Anasarca associated with disorder of kidney (Acute) Chronic dyspnea (Acute) Acute on chronic anemia (Acute) New onset of congestive heart failure (Acute) Cardiorenal syndrome with renal failure (Acute) Pneumonia (Acute) Atrial fibrillation and flutter (Acute) Pleural effusion (Acute) Acute kidney injury (Acute) Pulmonary edema (Acute) Polyarthritis (Acute) Myopic macular degeneration of left eye (Chronic) 11/23/2022 - [place] - 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 - [place] - Toxoplasmosis retinopathy of right eye Diabetic nephropathy (Chronic 04/20/22) Osteoarthritis of hands, bilateral (Chronic) COVID-19 vaccination refused (Acute) Osteopenia (Chronic) 02/16/21 DEXA: femoral neck T-score = -1.3; WHO FRAX: major osteoporotic fx 6.6% & hip fx 1.3% --> Ca & vit D supplementation Proteinuria, unspecified (Acute) Chronic kidney disease, stage 3 unspecified (Chronic) Anisometropia and aniseikonia (Acute) Essential hypertension (Chronic 01/09/13) Immunization not carried out because of patient refusal (Chronic) Thyroid nodule (Chronic 01/29/19) [facility] Endo Anxiety (Chronic) Insomnia (Acute) Dizziness (Acute) Primary open-angle glaucoma, right eye, indeterminate stage (Chronic) Primary open-angle glaucoma, left eye, indeterminate stage (Chronic) Gastroesophageal reflux disease (Chronic) [place]'s esophagus (Acute) Dr Lim: EGD 07/12/09 frq q5y Type 2 diabetes mellitus (Chronic) controlled by diet, does not test BS daily Chronic rhinitis (Acute 02/05/14) Anemia (Acute 07/05/11) chronic Migraine without aura (Chronic 05/10/11) Psoriasis (Chronic) Other and unspecified hyperlipidemia (Chronic 01/09/13) 01/2017 labwork: 10-year ASCVD risk = ~22.7% --> pt declines statins Obstructive sleep apnea (Chronic 12/02/15) [facility] Sleep Medicine cpap. Medical History (Updated 05/12/25 @ 13:17 by Timothy Brewer) Enlarged lymph node in neck (09/09/20) [facility] Endo: benign bx Posterior subcapsular age-related cataract, right eye Nuclear sclerotic cataract of right eye Posterior subcapsular age-related cataract of left eye Complicated bereavement Adenoma of large intestine (01/15/13) tubular adenoma 07/18/[address] Leonie Frank Surgical History History of cataract surgery Nuclear sclerotic cataract of left eye Cortical cataract of left eye H/O lithotripsy History of ear surgery Per pt. daughter pt. had a metal plate put on the side of her head r/t to inner ear issue. Pt. daughter states this was done 40 years ago. egd (07/19/09) and 01/23/08 Colonoscopy - MAC (07/18/17) Family History Mother , kidney disease at age 59. No problems noted. Father , Complications of HTN at age 77. No problems noted. Social History Smoking/Tobacco Use Status: Never Second Hand Exposure: No Smoking risk assessment performed?: Yes Alcohol Intake: never Drug use: Never Substance use type: does not use Adopted: No Caregiver/Support person: No Foster care: No Household members: none Housing: house Number of Children: 4 number of grandchildren: 6 Communication Needs: None and Language Barriers Education Level: middle school Do you need help understanding health information?: Always current occupation: retired Pets and animals: No Sexually active: No Do you think of yourself as: straight/heterosexual Current gender identity: female What is your relationship status?: How often do you talk on the phone with friends or family?: three or more times per week How often do you get together with friends or relatives?: three or more times per week Do you belong to any clubs or organized social groups?: no Panel score (0-1 are the most socially isolated patients): 1 What type of physical activity do you participate in: other Details: ski machine Duration: 15-30 minutes/day Frequency: 5-6 times per week Yesi/Religious: Anabaptist Special yesi needs: No Seatbelt use: always Helmet use: No (N/A) Drive intox or ride w/intox cdl flatbed truck driver: No Additional Social history: pt. daughter salvatore answering for pt. Visit Medication and Allergies Active Medications Generic Name Dose Route Start Last Admin Trade Name Freq PRN Reason Stop Dose Admin Acetaminophen 650 mg 05/07/25 21:59 05/10/25 22:07 Acetaminophen 325 Mg Tab PO 650 mg Q4H PRN PRN Administration Al Hydrox/Mg Hydrox/Simethicone 30 ml 05/07/25 21:59 Mylanta Suspension 30 Ml Cup PO Q2H PRN PRN Albuterol Sulfate 2 puff 05/08/25 07:32 Albuterol Hfa 8 Gm 60 Puff Inh IH Q6H PRN PRN shortness of breath or wheezing Amlodipine Besylate 10 mg 05/08/25 08:30 05/12/25 09:23 Amlodipine 10 Mg Tab PO 10 mg DAILY RACH Administration Atorvastatin Calcium 40 mg 05/08/25 08:30 05/12/25 09:22 Atorvastatin 40 Mg Tab PO 40 mg DAILY RACH Administration Benzocaine/Menthol 1 each 05/10/25 21:18 05/11/25 08:50 Benzocaine/Menthol Lozg 15/Box SUC 1 each Q6H PRN PRN Administration Betamethasone Dipropionate 0 gm 05/08/25 07:29 Betamethasone Dip. 0.05% Cr 15 Gm Tube TP BID PRN PRN skin irritation Calcium Carbonate 500 mg 05/09/25 11:30 05/12/25 10:19 Calcium Carbonate *Tums* 500 Mg Chew PO 500 mg AC RACH Administration Carvedilol 12.5 mg 05/10/25 20:00 05/12/25 09:22 Carvedilol 25 Mg Tab PO 12.5 mg BID RACH Administration Dextrose 0 gm 05/07/25 21:59 Glucose Oral Gel 15 Gm/37.5 Gm Tube PO DIRECTED PRN Dextrose/Water 0 gm 05/07/25 21:59 Dextrose 50%-Water 25 Gm/50 Ml Syr IVP DIRECTED PRN Diclofenac Sodium 2 - 4 gm 05/08/25 07:31 Diclofenac 1% Gel 100 Gm Tube TP QID PRN PRN pain Docusate Sodium 100 mg 05/07/25 21:59 Docusate Sodium 100 Mg Cap PO TID PRN PRN Dorzolamide HCl 0 ml 05/10/25 08:30 05/12/25 09:38 Dorzolamide 2% 10 Ml Btl OP Not Given BID [facility] Enoxaparin Sodium 30 mg 05/09/25 08:30 05/12/25 09:23 Enoxaparin 30 Mg/0.3 Ml Syr SC 30 mg DAILY RACH Administration Ergocalciferol 50,000 units 05/10/25 14:00 05/10/25 14:36 Ergocalciferol 02503 Units Cap PO 50,000 units Frankel RACH Administration IV Miscellaneous Supplies 1 each 05/07/25 14:45 Iv Access IV DIRECTED [facility] Insulin Aspart 0 units 05/07/25 22:00 05/12/25 11:57 Insulin Aspart 300 Units/3 Ml Pen SC Not Given AC & HS RACH Protocol Lidocaine 1 patch 05/12/25 12:00 05/12/25 12:25 Lidocaine 5% Patch TP 1 patch Q24H RACH Administration Losartan Potassium 150 mg 05/08/25 08:30 05/12/25 09:22 Losartan 50 Mg Tab PO 150 mg DAILY RACH Administration Magnesium Hydroxide 30 ml 05/07/25 21:59 Milk Of Magnesia 30 Ml Cup PO DAILY PRN PRN Miscellaneous 1 each 05/13/25 00:00 Patch Removal TP Q24H RACH Polyethylene Glycol 17 gm 05/07/25 21:59 Polyethylene Glycol 3350 17 Gm Packet PO DAILY PRN PRN Constipation Sodium Chloride 0 ml 05/07/25 14:37 05/12/25 05:22 Normal Saline Flush 10 Ml Syr IVP 30 ml PRN PRN Administration Sodium Chloride 0 ml 05/07/25 20:00 05/12/25 09:28 Normal Saline Flush 10 Ml Syr IVP 40 ml BID RACH Administration Sodium Chloride 0 ml 05/07/25 14:37 Normal Saline 10 Ml Vial IJ DIRECTED PRN Spironolactone 25 mg 05/13/25 08:30 Spironolactone 25 Mg Tab PO DAILY [facility] Timolol Maleate 0 ml 05/10/25 08:30 05/12/25 09:27 Timolol 0.5% 5 Ml Btl OP 1 drp BID RACH Administration Torsemide 60 mg 05/12/25 08:30 05/12/25 09:22 Torsemide 20 Mg Tab PO 60 mg DAILY RACH Administration Allergies Iodinated Contrast Media (Iodinated Contrast- Oral and IV Dye) Allergy (Intermediate, Verified 05/07/25 17:32) RASH shellfish derived Allergy (Intermediate, Verified 05/07/25 17:32) HIVES-RETIRED hydrochlorothiazide Allergy (Unknown, Verified 05/07/25 17:32) Hives pantoprazole Allergy (Unknown, Verified 05/07/25 17:32) Hives diltiazem Adverse Reaction (Intermediate, Verified 05/07/25 17:32) ITCHY RASH verapamil Adverse Reaction (Mild, Verified 05/07/25 17:32) ITCHY RASH capsule Allergy (Severe, Uncoded 05/07/25 17:32) rash all over body Exam Narrative Exam Narrative: General: alert, no acute distress Head: normocephalic ENT: no stridor, trachea midline CV: normal rate, regular rhythm Respiratory: no wheezing, no crackles, no rhonchi, no prolonged expiration GI: abd soft, non-tender, non-distended Skin: no rashes Extremities:+1 edema, no digital clubbing Psych: normal affect Results Last Vital Signs Temp 36.7 C 05/12/25 04:00 Pulse 55 L 05/12/25 12:01 Resp 21 05/12/25 12:01 BP 137/60 05/12/25 12:01 Pulse Ox 97 05/12/25 12:01 Labs 05/12/25 05:30 05/12/25 05:30 Labs: Laboratory Results - last 24 hr 05/11/25 05/12/25 06:10 05:30 Hgb 7.8 L Hct 23.4 L Sodium 144 Potassium 3.9 Chloride 111 H Carbon Dioxide 21.0 Anion Gap 12 H BUN 76 H Creatinine 5.1 H* Est GFR (CKD-EPI 2020) 8.03 Glucose 89 Calcium 7.9 L Free [place] LC, Quant 16.96 H Free Lambda LC, Quant 15.14 H Free [place]/Lambda Ratio 1.12 Hep Bs Antigen Negative Hep Bs Antibody Positive Hep Bs Antibody, Quant 34.8 Hep B Core Total Ab Positive A Hepatitis C Antibody Negative Imaging CT scan - chest: report reviewed and image reviewed POCUS Pulmonology Limited thoracic lung Exam DATE OF EXAM: 05/12/25 TIME OF EXAM: 14:00 PROVIDER THAT PERFORMED THE STUDY: mari IS THIS A REPEAT STUDY: No REASON FOR EXAM: Pleural Effusion Visualized structures: right lateral, left lateral, right posterior and left posterior PERTINENT FINDINGS/IMPRESSION: Present Left pleural effusion and Right pleural effusion Exam complete
[2025-05-12] MEDS: cefTRIAXone 2 GM/50 ML BAG IVPB (20:57)
[2025-05-12] MEDS: Dorzolamide 2% 10 ML BTL OP (22:17)
[2025-05-12] MEDS: Insulin Aspart 300 UNITS/3 ML PEN SC (22:38)
[2025-05-12] MEDS: AZITHROMYCIN 500 MG in Normal Saline 500 ML 166.6 MG IVPB (22:39)
[2025-05-12] MEDS: Acetaminophen 325 MG TAB 650 MG PO (23:00)
[2025-05-13 04:55] VITALS: BP 183/67; PULSE 63; RESP 15; TEMP 36.4; O2SAT 98
--- NOTE | 2025-05-13 06:02 | W.PULMPROG ---
Assessment and Plan Assessment and plan (1) Pleural effusion: Status: Acute (2) Pneumonia: Status: Acute Qualifiers: Laterality: bilateral Lung location: upper lobe of lung Pneumonia type: due to unspecified organism Qualified Code(s): J18.9 - Pneumonia, unspecified organism (3) Pulmonary infiltrates: Status: Acute General Date Of Service Date of service: 05/13/25 Time of Service: 07:30 Requesting physician: Timothy Brewer Reason for Consult: Pulmonary infiltrates, pleural effusions Recommendations: Assessment: 1. Pulmonary infiltrates - suspect infectious etiology. She immigrated from [place] in the . Speaking with her son, she came from a region that had a high prevalence of tuberculosis. TB seems less likely, however, given her infiltrates, cannot rule out. 2. Pleural effusions - moderate bilateral pleural effusion on POCUS exam. S/P thoracentesis on 05/13 3. Acute on chronic renal failure - Cr 5.1 and stable 4. Anemia - no obvious bleeding. Recommendations: - follow up on sputum AFB smears/cultures. If smears are negative, can d/c isolation (requires 3) - follow up on pleural fluid analysis - continue ceftriaxone and azithromycin, pending culture results from sputum and pleural fluid Discussed with Dr. Brewer Subjective Note Note: Patient is an 84 yo with a history of CKD and DM II who was admitted on 05/07 for pulmonary infiltrates, acute on chronic renal failure and LE swelling. CT chest on admission showed bilateral infiltrates and bilateral pleural effusions. She had significant hypervolemia, so has been diuresed and had a good response. Her Cr has remained unchanged. She has had a productive cough with yellowish sputum. Denies any hemotpysis. Denied chest pain. Denied fevers. She denies any known Tb contacts. She has some dyspnea with exertion that is overall improved. She immigrated to the from [place] in the . She is currently on room air. She denies signifcant dyspnea at rest. Denies chest pain. Has had intermittent mucous production. Social history reviewed. Denied smoking history ROS: 6 pt ROS negative except as in HPI Exam Narrative Exam Narrative: General: alert, no acute distress Head: normocephalic ENT: no stridor, trachea midline CV: normal rate, regular rhythm Respiratory: no wheezing, no crackles, no rhonchi, no prolonged expiration GI: abd soft, non-tender, non-distended Skin: no rashes Extremities: +1 edema, no digital clubbing Psych: normal affect Objective Last Vital Signs Temp 36.4 C L 05/13/25 04:55 Pulse 63 05/13/25 04:55 Resp 15 05/13/25 04:55 BP 183/67 H 05/13/25 04:55 Pulse Ox 98 05/13/25 04:55 Laboratory Results - last 24 hr 05/11/25 05/12/25 06:10 05:30 Hgb 7.8 L Hct 23.4 L Sodium 144 Potassium 3.9 Chloride 111 H Carbon Dioxide 21.0 Anion Gap 12 H BUN 76 H Creatinine 5.1 H* Est GFR (CKD-EPI 2020) 8.03 Glucose 89 Calcium 7.9 L Free [place] LC, Quant 16.96 H Free [place]ambda LC, Quant 15.14 H Free [place]/Lambda Ratio 1.12 Hep Bs Antigen Negative Hep Bs Antibody Positive Hep Bs Antibody, Quant 34.8 Hep B Core Total Ab Positive A Hepatitis C Antibody Negative Results Medications Medications: Active Medications Generic Name Dose Route Start Last Admin Trade Name Freq PRN Reason Stop Dose Admin Acetaminophen 650 mg 05/07/25 21:59 05/12/25 23:00 Acetaminophen 325 Mg Tab PO 650 mg Q4H PRN PRN Administration Al Hydrox/Mg Hydrox/Simethicone 30 ml 05/07/25 21:59 Mylanta Suspension 30 Ml Cup PO Q2H PRN PRN Albuterol Sulfate 2 puff 05/08/25 07:32 Albuterol Hfa 8 Gm 60 Puff Inh IH Q6H PRN PRN shortness of breath or wheezing Amlodipine Besylate 10 mg 05/08/25 08:30 05/12/25 09:23 Amlodipine 10 Mg Tab PO 10 mg DAILY RACH Administration Atorvastatin Calcium 40 mg 05/08/25 08:30 05/12/25 09:22 Atorvastatin 40 Mg Tab PO 40 mg DAILY RACH Administration Benzocaine/Menthol 1 each 05/10/25 21:18 05/11/25 08:50 Benzocaine/Menthol Lozg 15/Box SUC 1 each Q6H PRN PRN Administration Betamethasone Dipropionate 0 gm 05/08/25 07:29 Betamethasone Dip. 0.05% Cr 15 Gm Tube TP BID PRN PRN skin irritation Calcium Carbonate 500 mg 05/09/25 11:30 05/12/25 18:18 Calcium Carbonate *Tums* 500 Mg Chew PO 500 mg AC [facility] Administration Carvedilol 12.5 mg 05/10/25 20:00 05/12/25 20:56 Carvedilol 25 Mg Tab PO 12.5 mg BID RACH Administration Dextrose 0 gm 05/07/25 21:59 Glucose Oral Gel 15 Gm/37.5 Gm Tube PO DIRECTED PRN Dextrose/Water 0 gm 05/07/25 21:59 Dextrose 50%-Water 25 Gm/50 Ml Syr IVP DIRECTED PRN Diclofenac Sodium 2 - 4 gm 05/08/25 07:31 Diclofenac 1% Gel 100 Gm Tube TP QID PRN PRN pain Docusate Sodium 100 mg 05/07/25 21:59 Docusate Sodium 100 Mg Cap PO TID PRN PRN Dorzolamide HCl 0 ml 05/10/25 08:30 05/12/25 22:17 Dorzolamide 2% 10 Ml Btl OP 1 ml BID [facility] Administration Enoxaparin Sodium 30 mg 05/09/25 08:30 05/12/25 09:23 Enoxaparin 30 Mg/0.3 Ml Syr SC 30 mg DAILY [facility] Administration Ergocalciferol 50,000 units 05/10/25 14:00 05/10/25 14:36 Ergocalciferol 43309 Units Cap PO 50,000 units [place] [facility] Administration Ceftriaxone Sodium/Dextrose 2 gm in 50 mls @ 100 mls/hr 05/12/25 20:00 05/13/25 00:20 Rocephin IVPB Infused Q24H [facility] Infusion Azithromycin 500 mg/ Sodium 500 mls @ 166.6 mls/hr 05/12/25 22:00 05/12/25 22:39 Chloride IVPB 166.6 mls/hr Q24H [facility] Administration IV Miscellaneous Supplies 1 each 05/07/25 14:45 Iv Access IV DIRECTED [facility] Insulin Aspart 0 units 05/07/25 22:00 05/12/25 22:38 Insulin Aspart 300 Units/3 Ml Pen SC 1 unit AC & HS RACH Administration Protocol Lidocaine 1 patch 05/12/25 12:00 05/12/25 18:30 Lidocaine 5% Patch TP 1 patch Q24H [facility] Administration Losartan Potassium 150 mg 05/08/25 08:30 05/12/25 09:22 Losartan 50 Mg Tab PO 150 mg DAILY RACH Administration Magnesium Hydroxide 30 ml 05/07/25 21:59 Milk Of Magnesia 30 Ml Cup PO DAILY PRN PRN Miscellaneous 1 each 05/13/25 00:00 05/13/25 01:08 Patch Removal TP Not Given Q24H RACH Polyethylene Glycol 17 gm 05/07/25 21:59 Polyethylene Glycol 3350 17 Gm Packet PO DAILY PRN PRN Constipation Sodium Chloride 0 ml 05/07/25 14:37 05/12/25 05:22 Normal Saline Flush 10 Ml Syr IVP 30 ml PRN PRN Administration Sodium Chloride 0 ml 05/07/25 20:00 05/12/25 20:58 Normal Saline Flush 10 Ml Syr IVP 10 ml BID RACH Administration Sodium Chloride 0 ml 05/07/25 14:37 Normal Saline 10 Ml Vial IJ DIRECTED PRN Spironolactone 25 mg 05/13/25 08:30 Spironolactone 25 Mg Tab PO DAILY RACH Timolol Maleate 0 ml 05/10/25 08:30 05/12/25 22:16 Timolol 0.5% 5 Ml Btl OP 1 drp BID RACH Administration Torsemide 60 mg 05/12/25 08:30 05/12/25 09:22 Torsemide 20 Mg Tab PO 60 mg DAILY RACH Administration Allergies Iodinated Contrast Media (Iodinated Contrast- Oral and IV Dye) Allergy (Intermediate, Verified 05/07/25 17:32) RASH shellfish derived Allergy (Intermediate, Verified 05/07/25 17:32) HIVES-RETIRED hydrochlorothiazide Allergy (Unknown, Verified 05/07/25 17:32) Hives pantoprazole Allergy (Unknown, Verified 05/07/25 17:32) Hives diltiazem Adverse Reaction (Intermediate, Verified 05/07/25 17:32) ITCHY RASH verapamil Adverse Reaction (Mild, Verified 05/07/25 17:32) ITCHY RASH capsule Allergy (Severe, Uncoded 05/07/25 17:32) rash all over body Labs 05/12/25 05:30 05/12/25 05:30 Labs: 05/07/25 19:47 Blood Blood Culture - Final NO GROWTH 120 HOURS 05/07/25 19:40 Blood Blood Culture - Final NO GROWTH 120 HOURS 05/10/25 16:00 Sputum Sputum Culture - Pending 05/10/25 16:00 Sputum Gram Stain - Final Laboratory Tests Range/Units 05/07/25 05/07/25 05/07/25 15:20 16:12 16:18 WBC (4.4-10.8) 10^3/uL 6.58 RBC (3.93-5.22) 10^6/uL 2.42 L Hgb (11.2-15.7) g/dL 7.3 L Hct (36.0-46.0) % 22.5 L MCV (80-95) fL 93 MCH (27.0-33.0) pg 30.2 MCHC (32.0-36.0) % 32.4 RDW (11.7-14.6) % 13.6 Plt Count (130-400) 10^3/uL 211 MPV (8.0-11.0) fL 10.1 Immature Gran % % 0.3 Neutrophils % % 62.0 Lymphocytes % % 24.3 Monocytes % % 7.8 Eosinophils % % 4.7 Basophils % % 0.9 Nucleated RBC % (0.0-0.3) % 0.0 Absolute Neutrophils (1.2-6.7) 10^3/uL 4.08 Absolute Lymphocytes (1.2-3.4) 10^3/uL 1.60 Absolute Monocytes (0.1-0.8) 10^3/uL 0.51 Absolute Eosinophils (0.0-0.7) 10^3/uL 0.31 Absolute Basophils (0.0-0.2) 10^3/uL 0.06 PT (9.1-11.1) sec 9.9 INR (0.9-1.1) 1.0 APTT (20.6-30.2) sec 25.9 VBG pH (7.31-7.41) 7.32 VBG pCO2 (41-51) mmHg 32 L VBG pO2 mmHg 69 VBG HCO3 (23-28) mmol/L 16 L VBG Total CO2 (24-29) mmol/L 16 L VBG O2 Saturation % 95 VBG Base Excess (-2-3) mmol/L -10 L VBG Lactate (<or=2.0) mmol/L Sodium (136-145) mmol/L 141 Potassium (3.5-5.1) mmol/L 4.6 Chloride (98-107) mmol/L 113 H Carbon Dioxide (20.0-31.0) mmol/L 16.0 L Anion Gap (3-11) mmol/L 12 H BUN (9-23) mg/dL 62 H Creatinine (0.55-1.02) mg/dL 4.8 H* Est GFR (CKD-EPI 2020) (mL/min/1.73m2) 8.78 Glucose (74-106) mg/dL 79 Calcium (8.3-10.6) mg/dL 8.0 L Phosphorus (2.4-5.1) mg/dL Magnesium (1.6-2.6) mg/dL 2.0 Iron (50-170) ug/dL TIBC (250-425) ug/dL Transferrin % Sat (15-50) % Total Bilirubin (0.2-1.2) mg/dL 0.20 AST (<34) U/L 35 ALT (10-49) U/L 14 Alkaline Phosphatase (46-116) U/L 96 Troponin I (<35) ng/L 15 15 NT-Pro-B Natriuret Pep (<300) pg/mL 37684 H Total Protein (5.7-8.2) g/dL 6.8 Albumin (3.4-5.0) g/dL 3.3 L Triglycerides (<150) mg/dL Total Cholesterol (<200) mg/dL LDL Cholesterol, Calc (<100) mg/dL HDL Cholesterol (>40) mg/dL 25-OH Vitamin D Total (30-100) ng/mL TSH (0.55-4.78) uIU/mL 6.78 H Free T4 (0.89-1.76) ng/mL 0.99 PTH Intact (19-88) pg/mL Urine Color (Yellow) Urine Clarity (Clear) Urine pH (5-8) Ur Specific [place] (1.005-1.025) Urine Protein (Neg-Trace) mg/dL Urine Ketones (Negative) mg/dL Urine Blood (Negative) Urine Nitrite (Negative) Urine Bilirubin (Negative) Urine Urobilinogen (Up to 0.2) mg/dL Ur Leukocyte Esterase (Negative) Urine RBC (0-2) HPF Urine WBC (0-5) HPF Ur Epithelial Cells (Negative) HPF Urine Crystals (Negative) HPF Urine Bacteria (Negative) HPF Urine Mucus (Negative) Ur Culture Indicated? Ur Random Creatinine mg/dL U Random Total Protein (1.0-14.0) mg/dL U [place] Prot/Creat Ratio mg/mg Cr Urine Glucose (Negative) mg/dL Free [place] LC, Quant (0.33-1.94) mg/dL Free Lambda LC, Quant (0.57-2.63) mg/dL Free [place]/Lambda Ratio (0.26-1.65) COVID-19 Source SARS-CoV-2 (PCR) (Negative) Hep Bs Antigen (Negative) Hep Bs Antibody (See Note) Hep Bs Antibody, Quant (See Note) mIU/mL Hep B Core Total Ab (Negative) Hepatitis C Antibody (Negative) Influenza Type A (PCR) (Negative) Influenza Type B (PCR) (Negative) RSV (PCR) (Negative) Add-On Test Request ABO/Rh B Positive Antibody Screen NEGATIVE Crossmatch See Detail Range/Units 05/07/25 05/07/25 05/07/25 17:18 17:28 18:45 WBC (4.4-10.8) 10^3/uL RBC (3.93-5.22) 10^6/uL Hgb (11.2-15.7) g/dL Hct (36.0-46.0) % MCV (80-95) fL MCH (27.0-33.0) pg MCHC (32.0-36.0) % RDW (11.7-14.6) % Plt Count (130-400) 10^3/uL MPV (8.0-11.0) fL Immature Gran % % Neutrophils % % Lymphocytes % % Monocytes % % Eosinophils % % Basophils % % Nucleated RBC % (0.0-0.3) % Absolute Neutrophils (1.2-6.7) 10^3/uL Absolute Lymphocytes (1.2-3.4) 10^3/uL Absolute Monocytes (0.1-0.8) 10^3/uL Absolute Eosinophils (0.0-0.7) 10^3/uL Absolute Basophils (0.0-0.2) 10^3/uL PT (9.1-11.1) sec INR (0.9-1.1) APTT (20.6-30.2) sec VBG pH (7.31-7.41) VBG pCO2 (41-51) mmHg VBG pO2 mmHg VBG HCO3 (23-28) mmol/L VBG Total CO2 (24-29) mmol/L VBG O2 Saturation % VBG Base Excess (-2-3) mmol/L VBG Lactate (<or=2.0) mmol/L Sodium (136-145) mmol/L Potassium (3.5-5.1) mmol/L Chloride (98-107) mmol/L Carbon Dioxide (20.0-31.0) mmol/L Anion Gap (3-11) mmol/L BUN (9-23) mg/dL Creatinine (0.55-1.02) mg/dL Est GFR (CKD-EPI 2020) (mL/min/1.73m2) Glucose (74-106) mg/dL Calcium (8.3-10.6) mg/dL Phosphorus (2.4-5.1) mg/dL Magnesium (1.6-2.6) mg/dL Iron (50-170) ug/dL TIBC (250-425) ug/dL Transferrin % Sat (15-50) % Total Bilirubin (0.2-1.2) mg/dL AST (<34) U/L ALT (10-49) U/L Alkaline Phosphatase (46-116) U/L Troponin I (<35) ng/L 17 NT-Pro-B Natriuret Pep (<300) pg/mL Total Protein (5.7-8.2) g/dL Albumin (3.4-5.0) g/dL Triglycerides (<150) mg/dL Total Cholesterol (<200) mg/dL LDL Cholesterol, Calc (<100) mg/dL HDL Cholesterol (>40) mg/dL 25-OH Vitamin D Total (30-100) ng/mL TSH (0.55-4.78) uIU/mL Free T4 (0.89-1.76) ng/mL PTH Intact (19-88) pg/mL Urine Color (Yellow) Yellow Urine Clarity (Clear) Clear Urine pH (5-8) 6.0 Ur Specific [place] (1.005-1.025) 1.015 Urine Protein (Neg-Trace) mg/dL >=300 H Urine Ketones (Negative) mg/dL Negative Urine Blood (Negative) Trace-intact H Urine Nitrite (Negative) Negative Urine Bilirubin (Negative) Negative Urine Urobilinogen (Up to 0.2) mg/dL 0.2 Ur Leukocyte Esterase (Negative) Negative Urine RBC (0-2) HPF 0-2 Urine WBC (0-5) HPF Negative Ur Epithelial Cells (Negative) HPF Rare Urine Crystals (Negative) HPF Negative Urine Bacteria (Negative) HPF Negative Urine Mucus (Negative) Trace Ur Culture Indicated? No Ur Random Creatinine mg/dL U Random Total Protein (1.0-14.0) mg/dL U [place] Prot/Creat Ratio mg/mg Cr Urine Glucose (Negative) mg/dL Negative Free [place] LC, Quant (0.33-1.94) mg/dL Free Lambda LC, Quant (0.57-2.63) mg/dL Free [place]/Lambda Ratio (0.26-1.65) COVID-19 Source Nasopharynx SARS-CoV-2 (PCR) (Negative) Negative Hep Bs Antigen (Negative) Hep Bs Antibody (See Note) Hep Bs Antibody, Quant (See Note) mIU/mL Hep B Core Total Ab (Negative) Hepatitis C Antibody (Negative) Influenza Type A (PCR) (Negative) Negative Influenza Type B (PCR) (Negative) Negative RSV (PCR) (Negative) Negative Add-On Test Request ABO/Rh Antibody Screen Crossmatch Range/Units 05/07/25 05/08/25 05/08/25 23:29 04:45 16:00 WBC (4.4-10.8) 10^3/uL 5.66 RBC (3.93-5.22) 10^6/uL 2.23 L Hgb (11.2-15.7) g/dL 6.9 L* 7.7 L Hct (36.0-46.0) % 20.6 L* 23.1 L MCV (80-95) fL 92 MCH (27.0-33.0) pg 30.9 MCHC (32.0-36.0) % 33.5 RDW (11.7-14.6) % 13.3 Plt Count (130-400) 10^3/uL 210 MPV (8.0-11.0) fL 10.5 Immature Gran % % Neutrophils % % Lymphocytes % % Monocytes % % Eosinophils % % Basophils % % Nucleated RBC % (0.0-0.3) % Absolute Neutrophils (1.2-6.7) 10^3/uL Absolute Lymphocytes (1.2-3.4) 10^3/uL Absolute Monocytes (0.1-0.8) 10^3/uL Absolute Eosinophils (0.0-0.7) 10^3/uL Absolute Basophils (0.0-0.2) 10^3/uL PT (9.1-11.1) sec INR (0.9-1.1) APTT (20.6-30.2) sec VBG pH (7.31-7.41) 7.27 L VBG pCO2 (41-51) mmHg 35 L VBG pO2 mmHg 155 VBG HCO3 (23-28) mmol/L 16 L VBG Total CO2 (24-29) mmol/L 16 L VBG O2 Saturation % VBG Base Excess (-2-3) mmol/L -11 L VBG Lactate (<or=2.0) mmol/L 0.5 Sodium (136-145) mmol/L 143 146 H 144 Potassium (3.5-5.1) mmol/L 3.8 3.7 3.8 Chloride (98-107) mmol/L 113 H 114 H 112 H Carbon Dioxide (20.0-31.0) mmol/L 16.9 L 15.7 L 17.5 L Anion Gap (3-11) mmol/L 13.1 H 16.3 H 14.5 H BUN (9-23) mg/dL 63 H 63 H 63 H Creatinine (0.55-1.02) mg/dL 4.9 H* 5.0 H* 5.1 H* Est GFR (CKD-EPI 2020) (mL/min/1.73m2) 8.53 8.37 8.05 Glucose (74-106) mg/dL 106 77 107 H Calcium (8.3-10.6) mg/dL 8.1 L 8.3 8.2 L Phosphorus (2.4-5.1) mg/dL 6.5 H Magnesium (1.6-2.6) mg/dL 2.0 Iron (50-170) ug/dL TIBC (250-425) ug/dL Transferrin % Sat (15-50) % Total Bilirubin (0.2-1.2) mg/dL 0.20 AST (<34) U/L 22 ALT (10-49) U/L 13 Alkaline Phosphatase (46-116) U/L 88 Troponin I (<35) ng/L NT-Pro-B Natriuret Pep (<300) pg/mL Total Protein (5.7-8.2) g/dL 6.0 Albumin (3.4-5.0) g/dL 3.2 L 2.9 L Triglycerides (<150) mg/dL Total Cholesterol (<200) mg/dL LDL Cholesterol, Calc (<100) mg/dL HDL Cholesterol (>40) mg/dL 25-OH Vitamin D Total (30-100) ng/mL TSH (0.55-4.78) uIU/mL Free T4 (0.89-1.76) ng/mL PTH Intact (19-88) pg/mL Urine Color (Yellow) Urine Clarity (Clear) Urine pH (5-8) Ur Specific [place] (1.005-1.025) Urine Protein (Neg-Trace) mg/dL Urine Ketones (Negative) mg/dL Urine Blood (Negative) Urine Nitrite (Negative) Urine Bilirubin (Negative) Urine Urobilinogen (Up to 0.2) mg/dL Ur Leukocyte Esterase (Negative) Urine RBC (0-2) HPF Urine WBC (0-5) HPF Ur Epithelial Cells (Negative) HPF Urine Crystals (Negative) HPF Urine Bacteria (Negative) HPF Urine Mucus (Negative) Ur Culture Indicated? Ur Random Creatinine mg/dL U Random Total Protein (1.0-14.0) mg/dL U [place] Prot/Creat Ratio mg/mg Cr Urine Glucose (Negative) mg/dL Free [place] LC, Quant (0.33-1.94) mg/dL Free Lambda LC, Quant (0.57-2.63) mg/dL Free [place]/Lambda Ratio (0.26-1.65) COVID-19 Source SARS-CoV-2 (PCR) (Negative) Hep Bs Antigen (Negative) Hep Bs Antibody (See Note) Hep Bs Antibody, Quant (See Note) mIU/mL Hep B Core Total Ab (Negative) Hepatitis C Antibody (Negative) Influenza Type A (PCR) (Negative) Influenza Type B (PCR) (Negative) RSV (PCR) (Negative) Add-On Test Request ABO/Rh Antibody Screen Crossmatch Range/Units 05/09/25 05/09/25 05/09/25 05:55 09:10 16:00 WBC (4.4-10.8) 10^3/uL 7.36 RBC (3.93-5.22) 10^6/uL 2.32 L Hgb (11.2-15.7) g/dL 7.2 L Hct (36.0-46.0) % 21.4 L MCV (80-95) fL 92 MCH (27.0-33.0) pg 31.0 MCHC (32.0-36.0) % 33.6 RDW (11.7-14.6) % 13.5 Plt Count (130-400) 10^3/uL 220 MPV (8.0-11.0) fL 10.5 Immature Gran % % Neutrophils % % Lymphocytes % % Monocytes % % Eosinophils % % Basophils % % Nucleated RBC % (0.0-0.3) % Absolute Neutrophils (1.2-6.7) 10^3/uL Absolute Lymphocytes (1.2-3.4) 10^3/uL Absolute Monocytes (0.1-0.8) 10^3/uL Absolute Eosinophils (0.0-0.7) 10^3/uL Absolute Basophils (0.0-0.2) 10^3/uL PT (9.1-11.1) sec INR (0.9-1.1) APTT (20.6-30.2) sec VBG pH (7.31-7.41) 7.37 VBG pCO2 (41-51) mmHg 31 L VBG pO2 mmHg 45 VBG HCO3 (23-28) mmol/L 18 L VBG Total CO2 (24-29) mmol/L 17 L VBG O2 Saturation % 82 VBG Base Excess (-2-3) mmol/L -8 L VBG Lactate (<or=2.0) mmol/L Sodium (136-145) mmol/L 144 Potassium (3.5-5.1) mmol/L 3.6 Chloride (98-107) mmol/L 114 H Carbon Dioxide (20.0-31.0) mmol/L 16.7 L Anion Gap (3-11) mmol/L 13.3 H BUN (9-23) mg/dL 59 H Creatinine (0.55-1.02) mg/dL 5.1 H* Est GFR (CKD-EPI 2020) (mL/min/1.73m2) 8.12 Glucose (74-106) mg/dL 84 Calcium (8.3-10.6) mg/dL 8.2 L Phosphorus (2.4-5.1) mg/dL Magnesium (1.6-2.6) mg/dL 2.0 Iron (50-170) ug/dL 27 L TIBC (250-425) ug/dL 189 L Transferrin % Sat (15-50) % 14 L Total Bilirubin (0.2-1.2) mg/dL 0.30 AST (<34) U/L 22 ALT (10-49) U/L 11 Alkaline Phosphatase (46-116) U/L 86 Troponin I (<35) ng/L NT-Pro-B Natriuret Pep (<300) pg/mL Total Protein (5.7-8.2) g/dL 6.0 Albumin (3.4-5.0) g/dL 2.8 L Triglycerides (<150) mg/dL Total Cholesterol (<200) mg/dL LDL Cholesterol, Calc (<100) mg/dL HDL Cholesterol (>40) mg/dL 25-OH Vitamin D Total (30-100) ng/mL TSH (0.55-4.78) uIU/mL Free T4 (0.89-1.76) ng/mL PTH Intact (19-88) pg/mL Urine Color (Yellow) Urine Clarity (Clear) Urine pH (5-8) Ur Specific [place] (1.005-1.025) Urine Protein (Neg-Trace) mg/dL Urine Ketones (Negative) mg/dL Urine Blood (Negative) Urine Nitrite (Negative) Urine Bilirubin (Negative) Urine Urobilinogen (Up to 0.2) mg/dL Ur Leukocyte Esterase (Negative) Urine RBC (0-2) HPF Urine WBC (0-5) HPF Ur Epithelial Cells (Negative) HPF Urine Crystals (Negative) HPF Urine Bacteria (Negative) HPF Urine Mucus (Negative) Ur Culture Indicated? Ur Random Creatinine mg/dL 26.70 U Random Total Protein (1.0-14.0) mg/dL 445.8 H U [place] Prot/Creat Ratio mg/mg Cr 16.69 Urine Glucose (Negative) mg/dL Free [place] LC, Quant (0.33-1.94) mg/dL Free [place]ambda LC, Quant (0.57-2.63) mg/dL Free [place]/Lambda Ratio (0.26-1.65) COVID-19 Source SARS-CoV-2 (PCR) (Negative) Hep Bs Antigen (Negative) Hep Bs Antibody (See Note) Hep Bs Antibody, Quant (See Note) mIU/mL Hep B Core Total Ab (Negative) Hepatitis C Antibody (Negative) Influenza Type A (PCR) (Negative) Influenza Type B (PCR) (Negative) RSV (PCR) (Negative) Add-On Test Request DONE ABO/Rh Antibody Screen Crossmatch Range/Units 05/09/25 05/10/25 05/11/25 20:05 05:20 06:10 WBC (4.4-10.8) 10^3/uL 7.15 6.33 RBC (3.93-5.22) 10^6/uL 2.36 L 2.28 L Hgb (11.2-15.7) g/dL 7.1 L 7.0 L* Hct (36.0-46.0) % 21.8 L 21.0 L MCV (80-95) fL 92 92 MCH (27.0-33.0) pg 30.1 30.7 MCHC (32.0-36.0) % 32.6 33.3 RDW (11.7-14.6) % 13.5 13.2 Plt Count (130-400) 10^3/uL 217 182 MPV (8.0-11.0) fL 10.4 10.7 Immature Gran % % Neutrophils % % Lymphocytes % % Monocytes % % Eosinophils % % Basophils % % Nucleated RBC % (0.0-0.3) % Absolute Neutrophils (1.2-6.7) 10^3/uL Absolute Lymphocytes (1.2-3.4) 10^3/uL Absolute Monocytes (0.1-0.8) 10^3/uL Absolute Eosinophils (0.0-0.7) 10^3/uL Absolute Basophils (0.0-0.2) 10^3/uL PT (9.1-11.1) sec INR (0.9-1.1) APTT (20.6-30.2) sec VBG pH (7.31-7.41) VBG pCO2 (41-51) mmHg VBG pO2 mmHg VBG HCO3 (23-28) mmol/L VBG Total CO2 (24-29) mmol/L VBG O2 Saturation % VBG Base Excess (-2-3) mmol/L VBG Lactate (<or=2.0) mmol/L Sodium (136-145) mmol/L 144 145 144 Potassium (3.5-5.1) mmol/L 3.7 3.4 L 3.6 Chloride (98-107) mmol/L 113 H 113 H 113 H Carbon Dioxide (20.0-31.0) mmol/L 18.6 L 18.2 L 17.7 L Anion Gap (3-11) mmol/L 12.4 H 13.8 H 13.3 H BUN (9-23) mg/dL 59 H 57 H 65 H Creatinine (0.55-1.02) mg/dL 4.9 H* 5.0 H* 5.1 H* Est GFR (CKD-EPI 2020) (mL/min/1.73m2) 8.47 8.31 8.14 Glucose (74-106) mg/dL 105 83 75 Calcium (8.3-10.6) mg/dL 8.4 8.3 8.2 L Phosphorus (2.4-5.1) mg/dL 6.1 H Magnesium (1.6-2.6) mg/dL 1.9 1.8 Iron (50-170) ug/dL TIBC (250-425) ug/dL Transferrin % Sat (15-50) % Total Bilirubin (0.2-1.2) mg/dL 0.40 0.40 AST (<34) U/L 24 21 ALT (10-49) U/L 11 9 L Alkaline Phosphatase (46-116) U/L 89 84 Troponin I (<35) ng/L NT-Pro-B Natriuret Pep (<300) pg/mL Total Protein (5.7-8.2) g/dL 6.1 5.8 Albumin (3.4-5.0) g/dL 2.9 L 2.8 L Triglycerides (<150) mg/dL 131 Total Cholesterol (<200) mg/dL 102 LDL Cholesterol, Calc (<100) mg/dL 36.9 HDL Cholesterol (>40) mg/dL 39 L 25-OH Vitamin D Total (30-100) ng/mL 14 L TSH (0.55-4.78) uIU/mL Free T4 (0.89-1.76) ng/mL PTH Intact (19-88) pg/mL 227 H Urine Color (Yellow) Urine Clarity (Clear) Urine pH (5-8) Ur Specific [place] (1.005-1.025) Urine Protein (Neg-Trace) mg/dL Urine Ketones (Negative) mg/dL Urine Blood (Negative) Urine Nitrite (Negative) Urine Bilirubin (Negative) Urine Urobilinogen (Up to 0.2) mg/dL Ur Leukocyte Esterase (Negative) Urine RBC (0-2) HPF Urine WBC (0-5) HPF Ur Epithelial Cells (Negative) HPF Urine Crystals (Negative) HPF Urine Bacteria (Negative) HPF Urine Mucus (Negative) Ur Culture Indicated? Ur Random Creatinine mg/dL U Random Total Protein (1.0-14.0) mg/dL U [place] Prot/Creat Ratio mg/mg Cr Urine Glucose (Negative) mg/dL Free [place] LC, Quant (0.33-1.94) mg/dL 16.96 H Free [place] LC, Quant (0.57-2.63) mg/dL 15.14 H Free [place]/Lambda Ratio (0.26-1.65) 1.12 COVID-19 Source SARS-CoV-2 (PCR) (Negative) Hep Bs Antigen (Negative) Negative Hep Bs Antibody (See Note) Positive Hep Bs Antibody, Quant (See Note) mIU/mL 34.8 Hep B Core Total Ab (Negative) Positive A Hepatitis C Antibody (Negative) Negative Influenza Type A (PCR) (Negative) Influenza Type B (PCR) (Negative) RSV (PCR) (Negative) Add-On Test Request DONE ABO/Rh Antibody Screen Crossmatch Range/Units 05/11/25 05/12/25 09:16 05:30 WBC (4.4-10.8) 10^3/uL RBC (3.93-5.22) 10^6/uL Hgb (11.2-15.7) g/dL 7.8 L Hct (36.0-46.0) % 23.4 L MCV (80-95) fL MCH (27.0-33.0) pg MCHC (32.0-36.0) % RDW (11.7-14.6) % Plt Count (130-400) 10^3/uL MPV (8.0-11.0) fL Immature Gran % % Neutrophils % % Lymphocytes % % Monocytes % % Eosinophils % % Basophils % % Nucleated RBC % (0.0-0.3) % Absolute Neutrophils (1.2-6.7) 10^3/uL Absolute Lymphocytes (1.2-3.4) 10^3/uL Absolute Monocytes (0.1-0.8) 10^3/uL Absolute Eosinophils (0.0-0.7) 10^3/uL Absolute Basophils (0.0-0.2) 10^3/uL PT (9.1-11.1) sec INR (0.9-1.1) APTT (20.6-30.2) sec VBG pH (7.31-7.41) VBG pCO2 (41-51) mmHg VBG pO2 mmHg VBG HCO3 (23-28) mmol/L VBG Total CO2 (24-29) mmol/L VBG O2 Saturation % VBG Base Excess (-2-3) mmol/L VBG Lactate (<or=2.0) mmol/L Sodium (136-145) mmol/L 144 Potassium (3.5-5.1) mmol/L 3.9 Chloride (98-107) mmol/L 111 H Carbon Dioxide (20.0-31.0) mmol/L 21.0 Anion Gap (3-11) mmol/L 12 H BUN (9-23) mg/dL 76 H Creatinine (0.55-1.02) mg/dL 5.1 H* Est GFR (CKD-EPI 2020) (mL/min/1.73m2) 8.03 Glucose (74-106) mg/dL 89 Calcium (8.3-10.6) mg/dL 7.9 L Phosphorus (2.4-5.1) mg/dL Magnesium (1.6-2.6) mg/dL Iron (50-170) ug/dL TIBC (250-425) ug/dL Transferrin % Sat (15-50) % Total Bilirubin (0.2-1.2) mg/dL AST (<34) U/L ALT (10-49) U/L Alkaline Phosphatase (46-116) U/L Troponin I (<35) ng/L NT-Pro-B Natriuret Pep (<300) pg/mL Total Protein (5.7-8.2) g/dL Albumin (3.4-5.0) g/dL Triglycerides (<150) mg/dL Total Cholesterol (<200) mg/dL LDL Cholesterol, Calc (<100) mg/dL HDL Cholesterol (>40) mg/dL 25-OH Vitamin D Total (30-100) ng/mL TSH (0.55-4.78) uIU/mL Free T4 (0.89-1.76) ng/mL PTH Intact (19-88) pg/mL Urine Color (Yellow) Urine Clarity (Clear) Urine pH (5-8) Ur Specific [place] (1.005-1.025) Urine Protein (Neg-Trace) mg/dL Urine Ketones (Negative) mg/dL Urine Blood (Negative) Urine Nitrite (Negative) Urine Bilirubin (Negative) Urine Urobilinogen (Up to 0.2) mg/dL Ur Leukocyte Esterase (Negative) Urine RBC (0-2) HPF Urine WBC (0-5) HPF Ur Epithelial Cells (Negative) HPF Urine Crystals (Negative) HPF Urine Bacteria (Negative) HPF Urine Mucus (Negative) Ur Culture Indicated? Ur Random Creatinine mg/dL U Random Total Protein (1.0-14.0) mg/dL U [place] Prot/Creat Ratio mg/mg Cr Urine Glucose (Negative) mg/dL Free [place] LC, Quant (0.33-1.94) mg/dL Free Lambda LC, Quant (0.57-2.63) mg/dL Free [place]/Lambda Ratio (0.26-1.65) COVID-19 Source SARS-CoV-2 (PCR) (Negative) Hep Bs Antigen (Negative) Hep Bs Antibody (See Note) Hep Bs Antibody, Quant (See Note) mIU/mL Hep B Core Total Ab (Negative) Hepatitis C Antibody (Negative) Influenza Type A (PCR) (Negative) Influenza Type B (PCR) (Negative) RSV (PCR) (Negative) Add-On Test Request ABO/Rh B Positive Antibody Screen NEGATIVE Crossmatch See Detail Imaging CT scan - chest: report reviewed and image reviewed
[2025-05-13 07:40] VITALS: BP 172/76; PULSE 54; RESP 15; TEMP 36.2; O2SAT 98
[2025-05-13 07:48] VITALS: BP 168/75; PULSE 54; RESP 16; TEMP 36.2; O2SAT 100
--- NOTE | 2025-05-13 07:50 | PAPNONF_PTH ---
PATIENT: Mildred Ash LOC: U#:[id number] AGE/SX: 84/F ROOM: RE05/07/[address]: Hans Bhandari : 1940 BED: A DIS: 05/15/2025 SPEC #: [id number] RECD: 05/13/25 12:59 STATUS: TERRELL REQ #: [id number] SANCHO: 05/13/25 07:[address]: Hans Bhandari DEPT: [facility] Cytology RECD BY: Iqra Flores ENTERED: 05/13/25 13:00 SP TYPE: PAPMITCHELLF DORIS DR: Miriam Mcmillan, Jose Matute, DO [facility] Brandin Garcia Tissues: 1 - BODY FLUID CYTO(NOT S/U/N/EM)[facility] Procedures: BODY FLUID CYTO(NOT SPU/UR/NIP/ENDOM)[facility] Comments: [id number] (TV= 400 cc, SENT FRESH) (REFRIGERATED)
[2025-05-13] MEDS: amLODIPine 10 MG TAB PO (08:15)
[2025-05-13] MEDS: Enoxaparin 30 MG/0.3 ML SYR SC (08:15)
[2025-05-13] MEDS: Carvedilol 25 MG TAB 12.5 MG PO ×2 (08:16→20:58)
[2025-05-13] MEDS: Torsemide 20 MG TAB 60 MG PO (08:16)
[2025-05-13] MEDS: Calcium Carbonate *TUMS* 500 MG CHEW PO ×3 (08:16→17:04)
[2025-05-13] MEDS: Losartan 50 MG TAB 150 MG PO (08:16)
--- NOTE | 2025-05-13 08:17 | W.PM.OP ---
Operative Note Operative Note PRE-OP DIAGNOSIS: Pleural effusions, pneumonia POST-OP DIAGNOSIS: same PROCEDURE: Right thoracentesis SURGEON: Amilcar Gómez ANESTHESIA TYPE: Local By Surgeon ESTIMATED BLOOD LOSS: 1 (ml) Procedure Description: The procedure risks, benefits, and alternatives were discussed with the patient and her son, Adama, who understood and informed consent was obtained. Laboratory studies and radiographs were reviewed. A time-out was performed. Bedside ultrasound was used to identify an appropriate site for thoracentesis. The site was marked on the right posterolateral chest wall. Sterile technique was used throughout the procedure. The site was cleaned and draped in a sterile fashion. Using a 10 cc syringe and 22 Ga needle, the skin and tract to the pleural cavity were anesthetized with 10 mL of 1% lidocaine. Pleural fluid was obtained in the 10 cc syringe without difficulty. A small 2-3 mm skin incision was made at the marked site. An 8 Fr catheter over a needle was advanced until positive fluid return. The catheter was then advanced into the pleural space and the needle was removed. Pleural fluid was drained without difficulty. Post-procedure bedside ultrasound demonstrated good lung sliding. There was minimal residual fluid remaining. 400 mL of clear, yellow pleural fluid were removed. Samples were sent for chemistries, cell count, bacterial/fungal/afb cultures, adenosine deaminase level and cytopathology. Follow-up: A chest radiograph was ordered and is pending Follow-up on pleural fluid analysis Date of Procedure: 05/13/25 POCUS Pulmonology Limited thoracic lung Exam DATE OF EXAM: 05/13/25 TIME OF EXAM: 07:30 PROVIDER THAT PERFORMED THE STUDY: Amilcar Gómez IS THIS A REPEAT STUDY: Yes Same provider REASON FOR EXAM: Pleural Effusion (Guidance for thoracentesis) Visualized structures: right lateral, left lateral, right posterior and left posterior PERTINENT FINDINGS/IMPRESSION: Present Left pleural effusion and Right pleural effusion Exam complete
--- NOTE | 2025-05-13 08:26 | DI.RAD_ITS ---
Exam(s) XR PORTABLE CHEST AP EXAM: XR PORTABLE CHEST AP CLINICAL HISTORY: right throacentesis. TECHNIQUE: 2D digital imaging was performed. COMPARISON: CT CT CHEST/ABD/PEL WO from 05/07/2025 CR XR CHEST 2V PA LATERAL from 05/08/2025 FINDINGS: Single AP portable view. There is cardiomegaly again noted. The mediastinum is not widened. There is a right-sided PICC line with its distal tip in the axillary vein. In the left lung there is infiltrate in the superior lingular segment/left upper lobe region although this appears somewhat improved when compared to CT scan of 05/07/2025. There is a small-moderate sized left pleural effusion. This has appearance of possibly being loculated. There is no infiltrate seen in the opposite-right lung and no obvious right pleural effusion. There is no pneumothorax. IMPRESSION: No evidence of significant pneumothorax in this patient who apparently underwent recent right thoracentesis. There is no obvious right pleural effusion at this time evident on this single portable AP view. The right lung infiltrate which was evident on CT scan of 05/07/2025 appears to have improved, realizing limitations of plain films versus CT scan.. Left lung infiltrate also appears to have somewhat improved when compared to the recent CT scan of 05/07/2025 Distal tip of PICC line is in the right axillary vein DATA REPOSITORY: RADIATION DOSE DELIVERED:
[2025-05-13] MEDS: Spironolactone 25 MG TAB PO (08:36)
[2025-05-13] MEDS: Timolol 0.5% 5 ML BTL OP ×2 (08:36→20:59)
[2025-05-13] MEDS: Dorzolamide 2% 10 ML BTL OP ×2 (08:37→20:59)
[2025-05-13] MEDS: Normal Saline Flush 10 ML SYR IVP ×3 (08:37→21:27)
[2025-05-13 08:58] LABS: HCT 26.2 % (36.0-46.0); HGB 8.7 g/dL (11.2-15.7); MCH 30.1 pg (27.0-33.0); MCHC 33.2 % (32.0-36.0); MCV 91 fL (80-95); MPV 10.3 fL (8.0-11.0); Platelet Count 250 10^3/uL (130-400); RBC 2.89 10^6/uL (3.93-5.22); RDW 14.6 % (11.7-14.6); RDW-SD 47.9 fL; WBC 6.98 10^3/uL (4.4-10.8)
[2025-05-13 09:43] LABS: Anion Gap 11.9 mmol/L (3-11); BUN 75 mg/dL (9-23); CO2 21.1 mmol/L (20.0-31.0); Calcium 8.0 mg/dL (8.3-10.6); Chloride 112 mmol/L (98-107); Glucose 88 mg/dL (74-106); Potassium 4.2 mmol/L (3.5-5.1); Sodium 145 mmol/L (136-145)
[2025-05-13 09:56] LABS: Polynuclear Cells 9 %
--- NOTE | 2025-05-13 10:08 | PDOC.CMPRO ---
Date of service: 05/13/25 Time of Service: 10:08 Care Management Progress Note Progress Note Text Progress Note Text: Mildred was sitting up in a chair talking with her visitor when CM met with her. She stated that she is definitely feeling better. Her Hgb has stabilized and is 8.7 and her creatinine remains at 5.2. Mildred will remain on TB precautions until all 3 sputum AFB specimens have been sent and resulted. She had a thoracentesis this morning and specimens were sent for analysis. CM will follow. Discharge Potential Discharge Needs: PCP F/U Appt Anticipated Barriers to Discharge: Medical Status Patient/Family Education Needs: Review discharge instructions, discuss Ask Me Three Transportation: Private vehicle Plan: Anticipate Mildred will be discharged home, possibly with new home health services, when medically cleared. She will follow up with her PCP and plan of care and transport via private vehicle with family. CM will continue to address discharge planning concerns. Social Determinants of Health Screening Will the Patient Participate in the Screening?: Unable to obtain Do you worry about having a steady place to live?: choose not to answer In the past 12 months, have you had to go without electric, gas, oil or water in your home?: no Has lack of transportation kept you from medical appointments or from doing things needed for daily living?: no Has anyone in your life made you feel unsafe or unsupported?: no How hard is it for you to pay for the very basics like food, housing, medical care, and heating? Would you say it is:: Not hard at all If for any reason you need help with day-to-day activities such as bathing, preparing meals, shopping, managing finances, etc., do you get the help you need?: I could use a little more help How often do you feel lonely or isolated from those around you?: Never Do you speak a language other than Occitan at home?: Yes Does the patient want assistance with any of the above?: Yes Health Related Social Needs Health related social needs: problems with daily activities (Z73.9) and education (Z55.6) Health related social needs details: sob on exertion and need more health teachings
--- NOTE | 2025-05-13 10:43 | PT.INTREAT ---
PT Notes Visit Reasons: PAF, CHF Exacerbation, Pneumonia Physical Therapy Inpatient Treatment Note Date:05/13/2025 Precautions: Fall. Airborne precautions in place for presumptive TB, AFB result pending. Activity as tolerated. Primary language is Cantonese but able to speak and understand Cymro. Subjective: Did not have a good night's sleep but was willing to work with PT for this session. Happy with how much she was able to do without undue fatigue compared to how she did the previous days. Objective: General Observation: Resting in bed, just woke up. Mental Status: Alert and oriented as to person, place, time, and purpose. Able to pay attention, focus, and respond appropriately. Able to understand and speak Cymro. Pain: None reported Vital Signs: Bed Mobility/Transfers: Minimal cueing provided for use of B hands as needed for support, movement sequence, AD management, and posture to reduce fall risk and minimize pain report. Supine to sit stand by assist with HOB flat Sit to stand stand by assist Stand to sit stand by assist with FWW Bed to toilet seat stand by assist with FWW Toilet seat to bed stand by assist with FWW Gait: 60 feet inside room with FWW with stand by assist. No SOB. Denied headache, chest pain, and lightheadedness. Slowed directional change. SaO2 stayed above 90% throughout activity. Balance: Static Sitting: Good Dynamic Sitting: Good Static Standing: Fair Dynamic Standing: Fair THERA EX: Guided patient with safe and correct performance of seated level exercises as follows-- Standing bilateral heel raises x 10 Partial knee bends x 10 Assessment: Mildred demonstrated improved ability, increased independence, and tolerance of today's activities with no shortness of breath nor increased report of fatigue. Oxygen saturation stayed above 90% on room air throughout. She will require PT service to facilitate return to independent ambulation using the single-point cane. She currently requires the use of FWW and will be assessed in the next session with use of SPC in observance of initially established goals. Plan of Care/Treatment Plan: 1-2x/day, 7 days/week x 1 week. Plan of care has been reviewed with the [employer] providing the service under Physical Therapy direction. Initiate Physical Therapy intervention for pain management as needed, strengthening, bed mobility, transfers, gait, stairs, balance training, and use of assistive device. DISCHARGE RECOMMENDATIONS: PT TREATMENT CODE/TIME: 81278 x 20 minutes for 1 unit, 92697 x 14 minutes for 1 unit (10:43-11:07).
[2025-05-13] MEDS: Atorvastatin 40 MG TAB PO (11:02)
[2025-05-13] MEDS: Lidocaine 5% Patch 1 PATCH TP (11:03)
[2025-05-13 12:00] VITALS: BP 140/65; PULSE 56; RESP 16; TEMP 36.1; O2SAT 98
[2025-05-13 16:20] VITALS: BP 155/68; PULSE 58; RESP 15; TEMP 36.2; O2SAT 98
[2025-05-13] MEDS: Acetaminophen 325 MG TAB 650 MG PO ×2 (17:07→20:57)
--- NOTE | 2025-05-13 17:22 | W.PM.PROGNOT ---
Date of Service Date of service: 05/13/25 Time of Service: 17:22 Assessment and Plan Assessment and plan (1) Cardiorenal syndrome with renal failure: Status: Acute Assessment and plan: Presumptive diagnosis. Echo still officially pending but ventricles do appear dilated and with low LVEF. She had previously been seen at [facility] nephrology for CKD stage 3, baseline creatinine 1.7 Discussed with [facility] nephrology 05/08, combination of HTN with acute Cr elevation to the 5's and acidosis with response to diuresis No anatomical abnormality or hydronephrosis on CT Importantly, she continues to make urine, pH normalized on VBG 05/09. Still waiting echocardiogram read, see below; Discontinued antiobiotics on 05/08. Discontinued ibuprofen 05/[address] Given Ca low, starting calcium carbonate as phosphate binder. PTH pending, vitamin D low, supplement. Nephrotic level proteinuria with prot/Cr 16.6 Case reviewed 05/[address] Daniels from nephrology, agreed with current management, recommended sending Hep B/C panel, SPEP/UPEP, mebrenous nephropathy panel. Transitioned to oral torsemide 05/12 60mg just once daily Perez out and floor status 05/12, but we still need accurate urine output. D/w nursing. Her weight is up but her edema has continued to improve. If stable, plan d/c and follow up at nephrology (2) New onset of congestive heart failure: Status: Acute Assessment and plan: Presumptive diagnosis, concern for HFrEF, but echo read finally on 05/11 shows normal LVEF. May have been HFpEF, IVC still dilated but does collapse >50% Changed atenolol to carvedilol, dose at 12.5mg BID with pulses in 50s-60s GFR too low for SGLT2i. (3) Acute on chronic anemia: Status: Acute Assessment and plan: 05/07 hemoglobin 6.9, repeat hemoglobin 7.7 s/p 1 unit RBC. normocytic Anemia worsening since February 2025 Likely secondary to renal disease Iron low 05/09, given IV repletion. Aranesp 40mg 05/10. Trend still down to 7.0 05/11, given second unit RBC, 7.8 05/12. Improved 05/13 to 8.7, which is reassuring. VTE chemoprophylaxis appropriate, enoxaparin 30 daily (4) Type 2 diabetes mellitus: Status: Chronic Assessment and plan: Recent A1c 5.3% c/w remission, though anemia may make this less reliable. FS glucose have been mostly good. continue ISS if needed. (5) Nephrotic syndrome: Status: Acute Assessment and plan: As above, protein in nephrotic range, albumin low but not severe. Labs per Nephrology 05/10 to evaluate. Some abnormal gammopathy labs, plan to f/u renal. Lipids not high (6) Atrial fibrillation and flutter: Status: Acute Assessment and plan: Has been in Afib before. Converted back 05/10. Consider anticoagulation prior to discharge if anemia stable. (7) Essential hypertension: Status: Chronic Assessment and plan: BPs remain high on amlodipine, losartan, and carvedilol at full doses. Started spironolactone, monitor K/Cr closely (8) Pulmonary infiltrates: Status: Acute Assessment and plan: BL upper lobe infiltrates on CT, were present in March. A/w effusions. Unclear diagnosis. She isn't coughing or having symptoms of TB reactivation, but she is at risk coming from [place]. VQ scan performed afternoon of hospital day 2, negative for PE She did have some hypoxia secondary to fluid overload that has resovled. D/w pulmonology, consult for evaluation 05/12. Back on ceftriaxone and azithro 05/12 and plan to rule out acitve TB with AFP x 3 before discharge Pleaural fluid also sampled 05/13, appears transudative, send for analysis Subjective Subjective Patient reports: no new complaints, feels better, tolerating a regular diet and voiding w/o difficulty; denies diarrhea, nausea, vomiting, shortness of breath or fever Interval history since last seen: Events: thoracentesis by Dr. Gómez 05/13 am She is feeling better. walking to toilet on her own. Urinating well still (though not documented since on MS), swelling has improved. Exam Narrative Exam Narrative: General: This is a pleasant, elderly woman in no distress, sitting up in chair CV: RRR. BLE trace to 1+ pitting edema arms/legs (has not worsened off IV furosemide). Resp: Clear bilaterally. normal effort Abd: soft, NTND, no masses/HSM. Neuro: awake, alert, no focal deficits, no tremor Objective Last Vital Signs Temp 36.2 C L 05/13/25 07:48 Pulse 54 L 05/13/25 07:48 Resp 16 05/13/25 07:48 BP 168/75 H 05/13/25 07:48 Pulse Ox 100 05/13/25 07:48 Laboratory Results - last 24 hr 05/10/25 05/11/25 05/12/25 21:33 06:10 22:00 WBC RBC Hgb Hct MCV MCH MCHC RDW Plt Count MPV Sodium Potassium Chloride Carbon Dioxide Anion Gap BUN Creatinine Est GFR (CKD-EPI 2020) Glucose Calcium Total Protein (PEP) 5.3 L Albumin % (PEP) 35.0 L Albumin (PEP) 1.9 L Coque-0-Slqwjthcw 0.50 H Ecpyp-7-Eeierbvnx (%) 8.7 H Vuvmb-2-Tiewcfync 1.10 H Zofff-3-Axdgfmxea (%) 20.3 H Beta Globulins (%) 15.1 H Beta Gamma Globulin 0.80 Gamma Globulins 1.10 Gamma Globulins (%) 20.9 H M-Anthony Not Applicable M-Anthony % Not Applicable PEP Comment (See Note) U Total Protein mg/dL 313 Urine Albumin (PEP) 152 Urine Albumin (%) 48.5 Urine Globulin EP 161 Urine Globulin 51.5 U PEP M-Anthony 11 U PEP M-Anthony % 3.5 Fluid Source Fluid Color Fluid Clarity Fluid WBC Fld Polynuclear WBCs % Fluid Mononuclear Cell Serum Immunofixation (See Note) Urine Immunofixation (See Note) Urine GENARO Comments See Comment AFB Smear Cancelled AFB Culture Final Res Cancelled 05/13/25 05/13/25 07:50 08:00 WBC 6.98 RBC 2.89 L Hgb 8.7 L Hct 26.2 L MCV 91 MCH 30.1 MCHC 33.2 RDW 14.6 Plt Count 250 MPV 10.3 Sodium 145 Potassium 4.2 Chloride 112 H Carbon Dioxide 21.1 Anion Gap 11.9 H BUN 75 H Creatinine 5.2 H* Est GFR (CKD-EPI 2020) 7.98 Glucose 88 Calcium 8.0 L Total Protein (PEP) Albumin % (PEP) Albumin (PEP) Qskrn-0-Grmgghhtd Tfgbr-1-Inivvlzpi (%) Xatsu-3-Eoaohcthd Jsrjh-1-Cxpxlyvxg (%) Beta Globulins (%) Beta Gamma Globulin Gamma Globulins Gamma Globulins (%) M-Anthony M-Anthony % PEP Comment U Total Protein mg/dL Urine Albumin (PEP) Urine Albumin (%) Urine Globulin EP Urine Globulin U PEP M-Anthony U PEP M-Anthony % Fluid Source Pleural Fluid Color Yellow Fluid Clarity Fluid WBC 645 Fld Polynuclear WBCs % 9 Fluid Mononuclear Cell 91 Serum Immunofixation Urine Immunofixation Urine GENARO Comments AFB Smear AFB Culture Final Res Time Spent with Patient Time Spent with Patient: 35-49 minutes Time was spent: preparing to see the patient(eg.review tests), obtaining and/or reviewing separately otained hiistory, ordering medications,tests, procedures, referring, communicating with other health cardiac care unit nurse, indepentently interpreting results, counseling the patient and care coordination
[2025-05-13 19:55] VITALS: BP 166/68; PULSE 56; RESP 18; TEMP 36.6; O2SAT 98
[2025-05-13] MEDS: cefTRIAXone 2 GM/50 ML BAG IVPB (20:57)
[2025-05-13] MEDS: AZITHROMYCIN 500 MG in Normal Saline 250 ML 83.302 MG IVPB (21:26)
[2025-05-13] MEDS: Insulin Aspart 300 UNITS/3 ML PEN SC (21:53)
[2025-05-14] MEDS: Patch Removal 1 EACH TP (01:08)
--- NOTE | 2025-05-14 06:25 | PGE_ITS ---
Assessment and Plan Assessment and plan (1) Pleural effusion: Status: Acute (2) Pulmonary infiltrates: Status: Acute (3) Pneumonia: Status: Acute Qualifiers: Laterality: bilateral Lung location: upper lobe of lung Pneumonia type: due to unspecified organism Qualified Code(s): J18.9 - Pneumonia, unspecified organism General Date Of Service Date of service: 05/14/25 Time of Service: 07:30 Requesting physician: Timothy Brewer Reason for Consult: Pulmonary infiltrates, pleural effusions Recommendations: Assessment: 1. Pulmonary infiltrates - suspect infectious etiology. She immigrated from [place] in the . She came from a region that had a high prevalence of tuberculosis. TB seems less likely, however, given her infiltrates, cannot rule out. Sputum AFB x 3 collected, results are pending 2. Pleural effusions - moderate bilateral pleural effusion on POCUS exam. S/P thoracentesis on 05/13. Pleural fluid analysis pending 3. Acute on chronic renal failure - Cr was 5.2. Todays labs still pending 4. Anemia - no obvious bleeding. 5. BARBARA - on CPAP Recommendations: - follow up on sputum AFB smears/cultures. If smears are negative, can d/c isolation - follow up on pleural fluid analysis. She still has a left pleural effusion. If her right pleural fluid analysis comes back as an exudate / parapneumoic effusion, may require drainage. Otherwise, if transudative can monitor - continue ceftriaxone and azithromycin. Plan for a 7 day course of antibiotics - continue CPAP with sleep - will need a repeat CT chest in 2-3 months to re-evaluate her infiltrates. We will arrange clinic follow up in the next few weeks Discussed with Dr. Harmon Subjective Note Note: Patient is an 84 yo with a history of CKD and DM II who was admitted on 05/07 for pulmonary infiltrates, acute on chronic renal failure and LE swelling. CT chest on admission showed bilateral infiltrates and bilateral pleural effusions. She had significant hypervolemia, so has been diuresed and had a good response. Her Cr has remained unchanged. She has had a productive cough with yellowish sputum. Denies any hemotpysis. Denied chest pain. Denied fevers. She denies any known Tb contacts. She has some dyspnea with exertion that is overall improved. She immigrated to the from [place] in the . She is currently on her CPAP. Denied dyspnea, chest pain, or significant cough this AM. ROS: 6 pt ROS negative except as in HPI Exam Narrative Exam Narrative: General: alert, no acute distress Head: normocephalic ENT: no stridor, trachea midline CV: normal rate, regular rhythm Respiratory: no wheezing, no crackles, no rhonchi, no prolonged expiration GI: abd soft, non-tender, non-distended Skin: no rashes Extremities: trace LE edema, no digital clubbing Psych: normal affect Objective Last Vital Signs Temp 36.6 C 05/13/25 19:55 Pulse 56 L 05/13/25 19:55 Resp 18 05/13/25 19:55 BP 166/68 H 05/13/25 19:55 Pulse Ox 98 05/13/25 19:55 Laboratory Results - last 24 hr 05/10/25 05/11/25 05/12/25 21:33 06:10 22:00 WBC RBC Hgb Hct MCV MCH MCHC RDW Plt Count MPV Sodium Potassium Chloride Carbon Dioxide Anion Gap BUN Creatinine Est GFR (CKD-EPI 2020) Glucose Calcium Total Protein (PEP) 5.3 L Albumin % (PEP) 35.0 L Albumin (PEP) 1.9 L Sgbff-2-Yvnwkxtyb 0.50 H Ffrmo-7-Vethhojkl (%) 8.7 H Csbnv-3-Lrielpkln 1.10 H Frlmn-5-Ekpsxsmnf (%) 20.3 H Beta Globulins (%) 15.1 H Beta Gamma Globulin 0.80 Gamma Globulins 1.10 Gamma Globulins (%) 20.9 H M-Anthony Not Applicable M-Anthony % Not Applicable PEP Comment (See Note) U Total Protein mg/dL 313 Urine Albumin (PEP) 152 Urine Albumin (%) 48.5 Urine Globulin EP 161 Urine Globulin 51.5 U PEP M-Anthony 11 U PEP M-Anthony % 3.5 Fluid Source Fluid Color Fluid Clarity Fluid WBC Fld Polynuclear WBCs % Fluid Mononuclear Cell Serum Immunofixation (See Note) Urine Immunofixation (See Note) Urine GENARO Comments See Comment AFB Smear Cancelled AFB Culture Final Res Cancelled 05/13/25 05/13/25 07:50 08:00 WBC 6.98 RBC 2.89 L Hgb 8.7 L Hct 26.2 L MCV 91 MCH 30.1 MCHC 33.2 RDW 14.6 Plt Count 250 MPV 10.3 Sodium 145 Potassium 4.2 Chloride 112 H Carbon Dioxide 21.1 Anion Gap 11.9 H BUN 75 H Creatinine 5.2 H* Est GFR (CKD-EPI 2020) 7.98 Glucose 88 Calcium 8.0 L Total Protein (PEP) Albumin % (PEP) Albumin (PEP) Baxug-9-Kwpndkqoy Oxfjo-2-Qgzcbsamm (%) Mkolh-9-Clhohosjw Hxcvt-2-Clqoijlal (%) Beta Globulins (%) Beta Gamma Globulin Gamma Globulins Gamma Globulins (%) M-Anthony M-Anthony % PEP Comment U Total Protein mg/dL Urine Albumin (PEP) Urine Albumin (%) Urine Globulin EP Urine Globulin U PEP M-Anthony U PEP M-Anthony % Fluid Source Pleural Fluid Color Yellow Fluid Clarity Fluid WBC 645 Fld Polynuclear WBCs % 9 Fluid Mononuclear Cell 91 Serum Immunofixation Urine Immunofixation Urine GENARO Comments AFB Smear AFB Culture Final Res Results Medications Medications: Active Medications Generic Name Dose Route Start Last Admin Trade Name Freq PRN Reason Stop Dose Admin Acetaminophen 650 mg 05/07/25 21:59 05/13/25 20:57 Acetaminophen 325 Mg Tab PO 650 mg Q4H PRN PRN Administration Al Hydrox/Mg Hydrox/Simethicone 30 ml 05/07/25 21:59 Mylanta Suspension 30 Ml Cup PO Q2H PRN PRN Albuterol Sulfate 2 puff 05/08/25 07:32 Albuterol Hfa 8 Gm 60 Puff Inh IH Q6H PRN PRN shortness of breath or wheezing Amlodipine Besylate 10 mg 05/08/25 08:30 05/13/25 08:15 Amlodipine 10 Mg Tab PO 10 mg DAILY RACH Administration Atorvastatin Calcium 40 mg 05/08/25 08:30 05/13/25 11:02 Atorvastatin 40 Mg Tab PO 40 mg DAILY RACH Administration Benzocaine/Menthol 1 each 05/10/25 21:18 05/11/25 08:50 Benzocaine/Menthol Lozg 15/Box SUC 1 each Q6H PRN PRN Administration Betamethasone Dipropionate 0 gm 05/08/25 07:29 Betamethasone Dip. 0.05% Cr 15 Gm Tube TP BID PRN PRN skin irritation Calcitriol 0.25 mcg 05/14/25 08:30 Calcitriol 0.25 Mcg Cap PO DAILY RACH Calcium Carbonate 500 mg 05/09/25 11:30 05/13/25 17:04 Calcium Carbonate *Tums* 500 Mg Chew PO 500 mg AC RACH Administration Carvedilol 12.5 mg 05/10/25 20:00 05/13/25 20:58 Carvedilol 25 Mg Tab PO 12.5 mg BID RACH Administration Dextrose 0 gm 05/07/25 21:59 Glucose Oral Gel 15 Gm/37.5 Gm Tube PO DIRECTED PRN Dextrose/Water 0 gm 05/07/25 21:59 Dextrose 50%-Water 25 Gm/50 Ml Syr IVP DIRECTED PRN Diclofenac Sodium 2 - 4 gm 05/08/25 07:31 Diclofenac 1% Gel 100 Gm Tube TP QID PRN PRN pain Docusate Sodium 100 mg 05/07/25 21:59 Docusate Sodium 100 Mg Cap PO TID PRN PRN Dorzolamide HCl 0 ml 05/10/25 08:30 05/13/25 20:59 Dorzolamide 2% 10 Ml Btl OP 1 drp BID RACH Administration Enoxaparin Sodium 30 mg 05/09/25 08:30 05/13/25 08:15 Enoxaparin 30 Mg/0.3 Ml Syr SC 30 mg DAILY RACH Administration Ergocalciferol 50,000 units 05/10/25 14:00 05/10/25 14:36 Ergocalciferol 39378 Units Cap PO 50,000 units Frankel RACH Administration Ceftriaxone Sodium/Dextrose 2 gm in 50 mls @ 100 mls/hr 05/12/25 20:00 05/13/25 21:29 Rocephin IVPB Infused Q24H RACH Infusion Azithromycin 500 mg/ Sodium 250 mls @ 83.302 mls/hr 05/13/25 22:00 05/14/25 01:07 Chloride IVPB Infused Q24H [facility] Infusion IV Miscellaneous Supplies 1 each 05/07/25 14:45 Iv Access IV DIRECTED [facility] Insulin Aspart 0 units 05/07/25 22:00 05/13/25 21:53 Insulin Aspart 300 Units/3 Ml Pen SC 1 unit AC & HS RACH Administration Protocol Lidocaine 1 patch 05/12/25 12:00 05/13/25 11:03 Lidocaine 5% Patch TP 1 patch Q24H RACH Administration Losartan Potassium 150 mg 05/08/25 08:30 05/13/25 08:16 Losartan 50 Mg Tab PO 150 mg DAILY RACH Administration Magnesium Hydroxide 30 ml 05/07/25 21:59 Milk Of Magnesia 30 Ml Cup PO DAILY PRN PRN Miscellaneous 1 each 05/13/25 00:00 05/14/25 01:08 Patch Removal TP 1 each Q24H RACH Administration Polyethylene Glycol 17 gm 05/07/25 21:59 Polyethylene Glycol 3350 17 Gm Packet PO DAILY PRN PRN Constipation Sodium Chloride 0 ml 05/07/25 14:37 05/13/25 21:27 Normal Saline Flush 10 Ml Syr IVP 10 ml PRN PRN Administration Sodium Chloride 0 ml 05/07/25 20:00 05/13/25 20:59 Normal Saline Flush 10 Ml Syr IVP 10 ml BID RACH Administration Sodium Chloride 0 ml 05/07/25 14:37 Normal Saline 10 Ml Vial IJ DIRECTED PRN Spironolactone 25 mg 05/13/25 08:30 05/13/25 08:36 Spironolactone 25 Mg Tab PO 25 mg DAILY RACH Administration Timolol Maleate 0 ml 05/10/25 08:30 05/13/25 20:59 Timolol 0.5% 5 Ml Btl OP 1 drp BID RACH Administration Torsemide 60 mg 05/12/25 08:30 05/13/25 08:16 Torsemide 20 Mg Tab PO 60 mg DAILY RACH Administration Allergies Iodinated Contrast Media (Iodinated Contrast- Oral and IV Dye) Allergy (Intermediate, Verified 05/07/25 17:32) RASH shellfish derived Allergy (Intermediate, Verified 05/07/25 17:32) HIVES-RETIRED hydrochlorothiazide Allergy (Unknown, Verified 05/07/25 17:32) Hives pantoprazole Allergy (Unknown, Verified 05/07/25 17:32) Hives diltiazem Adverse Reaction (Intermediate, Verified 05/07/25 17:32) ITCHY RASH verapamil Adverse Reaction (Mild, Verified 05/07/25 17:32) ITCHY RASH capsule Allergy (Severe, Uncoded 05/07/25 17:32) rash all over body Labs 05/13/25 08:00 05/13/25 08:00 Labs: 05/10/25 16:00 Sputum Sputum Culture - Preliminary Normal Danae 05/10/25 16:00 Sputum Gram Stain - Final 05/13/25 07:50 Pleural - Right Body Fluid Culture - Pending 05/13/25 07:50 Pleural - Right Gram Stain - Final 05/13/25 07:50 Pleural - Right Anaerobic Culture - Pending 05/07/25 19:47 Blood Blood Culture - Final NO GROWTH 120 HOURS 05/07/25 19:40 Blood Blood Culture - Final NO GROWTH 120 HOURS Laboratory Tests Range/Units 05/07/25 05/07/25 05/07/25 15:20 16:12 16:18 WBC (4.4-10.8) 10^3/uL 6.58 RBC (3.93-5.22) 10^6/uL 2.42 L Hgb (11.2-15.7) g/dL 7.3 L Hct (36.0-46.0) % 22.5 L MCV (80-95) fL 93 MCH (27.0-33.0) pg 30.2 MCHC (32.0-36.0) % 32.4 RDW (11.7-14.6) % 13.6 Plt Count (130-400) 10^3/uL 211 MPV (8.0-11.0) fL 10.1 Immature Gran % % 0.3 Neutrophils % % 62.0 Lymphocytes % % 24.3 Monocytes % % 7.8 Eosinophils % % 4.7 Basophils % % 0.9 Nucleated RBC % (0.0-0.3) % 0.0 Absolute Neutrophils (1.2-6.7) 10^3/uL 4.08 Absolute Lymphocytes (1.2-3.4) 10^3/uL 1.60 Absolute Monocytes (0.1-0.8) 10^3/uL 0.51 Absolute Eosinophils (0.0-0.7) 10^3/uL 0.31 Absolute Basophils (0.0-0.2) 10^3/uL 0.06 PT (9.1-11.1) sec 9.9 INR (0.9-1.1) 1.0 APTT (20.6-30.2) sec 25.9 VBG pH (7.31-7.41) 7.32 VBG pCO2 (41-51) mmHg 32 L VBG pO2 mmHg 69 VBG HCO3 (23-28) mmol/L 16 L VBG Total CO2 (24-29) mmol/L 16 L VBG O2 Saturation % 95 VBG Base Excess (-2-3) mmol/L -10 L VBG Lactate (<or=2.0) mmol/L Sodium (136-145) mmol/L 141 Potassium (3.5-5.1) mmol/L 4.6 Chloride (98-107) mmol/L 113 H Carbon Dioxide (20.0-31.0) mmol/L 16.0 L Anion Gap (3-11) mmol/L 12 H BUN (9-23) mg/dL 62 H Creatinine (0.55-1.02) mg/dL 4.8 H* Est GFR (CKD-EPI 2020) (mL/min/1.73m2) 8.78 Glucose (74-106) mg/dL 79 Calcium (8.3-10.6) mg/dL 8.0 L Phosphorus (2.4-5.1) mg/dL Magnesium (1.6-2.6) mg/dL 2.0 Iron (50-170) ug/dL TIBC (250-425) ug/dL Transferrin % Sat (15-50) % Total Bilirubin (0.2-1.2) mg/dL 0.20 AST (<34) U/L 35 ALT (10-49) U/L 14 Alkaline Phosphatase (46-116) U/L 96 Troponin I (<35) ng/L 15 15 NT-Pro-B Natriuret Pep (<300) pg/mL 30987 H Total Protein (5.7-8.2) g/dL 6.8 Total Protein (PEP) (6.3-8.2) g/dL Albumin (3.4-5.0) g/dL 3.3 L Albumin % (PEP) (55.8-66.1) % Albumin (PEP) (3.6-5.2) g/dL Aunds-0-Ufeknoqlu (0.15-0.40) g/dL Dsdyt-1-Gvxjyzjky (%) (2.9-4.9) % Tjqtw-7-Zdodkwdze (0.50-1.00) g/dL Jkpaa-0-Geqtpjghx (%) (7.1-11.8) % Beta Globulins (%) (8.4-13.1) % Beta Gamma Globulin (0.60-1.20) g/dL Gamma Globulins (0.60-1.60) g/dL Gamma Globulins (%) (11.1-18.8) % M-Anthony M-Anthony % PEP Comment Triglycerides (<150) mg/dL Total Cholesterol (<200) mg/dL LDL Cholesterol, Calc (<100) mg/dL HDL Cholesterol (>40) mg/dL 25-OH Vitamin D Total (30-100) ng/mL TSH (0.55-4.78) uIU/mL 6.78 H Free T4 (0.89-1.76) ng/mL 0.99 PTH Intact (19-88) pg/mL Urine Color (Yellow) Urine Clarity (Clear) Urine pH (5-8) Ur Specific [place] (1.005-1.025) Urine Protein (Neg-Trace) mg/dL Urine Ketones (Negative) mg/dL Urine Blood (Negative) Urine Nitrite (Negative) Urine Bilirubin (Negative) Urine Urobilinogen (Up to 0.2) mg/dL Ur Leukocyte Esterase (Negative) Urine RBC (0-2) HPF Urine WBC (0-5) HPF Ur Epithelial Cells (Negative) HPF Urine Crystals (Negative) HPF Urine Bacteria (Negative) HPF Urine Mucus (Negative) Ur Culture Indicated? Ur Random Creatinine mg/dL U Random Total Protein (1.0-14.0) mg/dL U [place] Prot/Creat Ratio mg/mg Cr U Total Protein mg/dL (See Note) mg/dL Urine Glucose (Negative) mg/dL Urine Albumin (PEP) mg/dL Urine Albumin (%) (N/A) % Urine Globulin EP mg/dL Urine Globulin (N/A) % U PEP M-Anthony % U PEP M-Anthony % % Fluid Source Fluid Color Fluid Clarity Fluid WBC (0) uL Fld Polynuclear WBCs % % Fluid Mononuclear Cell % Serum Immunofixation Urine Immunofixation Urine GENARO Comments Free [place] LC, Quant (0.33-1.94) mg/dL Free Lambda LC, Quant (0.57-2.63) mg/dL Free [place]/Lambda Ratio (0.26-1.65) COVID-19 Source SARS-CoV-2 (PCR) (Negative) Hep Bs Antigen (Negative) Hep Bs Antibody (See Note) Hep Bs Antibody, Quant (See Note) mIU/mL Hep B Core Total Ab (Negative) Hepatitis C Antibody (Negative) Influenza Type A (PCR) (Negative) Influenza Type B (PCR) (Negative) RSV (PCR) (Negative) AFB Smear AFB Culture Final Res Add-On Test Request ABO/Rh B Positive Antibody Screen NEGATIVE Crossmatch See Detail Range/Units 05/07/25 05/07/25 05/07/25 17:18 17:28 18:45 WBC (4.4-10.8) 10^3/uL RBC (3.93-5.22) 10^6/uL Hgb (11.2-15.7) g/dL Hct (36.0-46.0) % MCV (80-95) fL MCH (27.0-33.0) pg MCHC (32.0-36.0) % RDW (11.7-14.6) % Plt Count (130-400) 10^3/uL MPV (8.0-11.0) fL Immature Gran % % Neutrophils % % Lymphocytes % % Monocytes % % Eosinophils % % Basophils % % Nucleated RBC % (0.0-0.3) % Absolute Neutrophils (1.2-6.7) 10^3/uL Absolute Lymphocytes (1.2-3.4) 10^3/uL Absolute Monocytes (0.1-0.8) 10^3/uL Absolute Eosinophils (0.0-0.7) 10^3/uL Absolute Basophils (0.0-0.2) 10^3/uL PT (9.1-11.1) sec INR (0.9-1.1) APTT (20.6-30.2) sec VBG pH (7.31-7.41) VBG pCO2 (41-51) mmHg VBG pO2 mmHg VBG HCO3 (23-28) mmol/L VBG Total CO2 (24-29) mmol/L VBG O2 Saturation % VBG Base Excess (-2-3) mmol/L VBG Lactate (<or=2.0) mmol/L Sodium (136-145) mmol/L Potassium (3.5-5.1) mmol/L Chloride (98-107) mmol/L Carbon Dioxide (20.0-31.0) mmol/L Anion Gap (3-11) mmol/L BUN (9-23) mg/dL Creatinine (0.55-1.02) mg/dL Est GFR (CKD-EPI 2020) (mL/min/1.73m2) Glucose (74-106) mg/dL Calcium (8.3-10.6) mg/dL Phosphorus (2.4-5.1) mg/dL Magnesium (1.6-2.6) mg/dL Iron (50-170) ug/dL TIBC (250-425) ug/dL Transferrin % Sat (15-50) % Total Bilirubin (0.2-1.2) mg/dL AST (<34) U/L ALT (10-49) U/L Alkaline Phosphatase (46-116) U/L Troponin I (<35) ng/L 17 NT-Pro-B Natriuret Pep (<300) pg/mL Total Protein (5.7-8.2) g/dL Total Protein (PEP) (6.3-8.2) g/dL Albumin (3.4-5.0) g/dL Albumin % (PEP) (55.8-66.1) % Albumin (PEP) (3.6-5.2) g/dL Cpetm-4-Xmitqcavj (0.15-0.40) g/dL Djmsp-8-Yqsqlgxep (%) (2.9-4.9) % Bnqyl-8-Qgqdlaubp (0.50-1.00) g/dL Aepld-2-Sosoujzsb (%) (7.1-11.8) % Beta Globulins (%) (8.4-13.1) % Beta Gamma Globulin (0.60-1.20) g/dL Gamma Globulins (0.60-1.60) g/dL Gamma Globulins (%) (11.1-18.8) % M-Anthony M-Anthony % PEP Comment Triglycerides (<150) mg/dL Total Cholesterol (<200) mg/dL LDL Cholesterol, Calc (<100) mg/dL HDL Cholesterol (>40) mg/dL 25-OH Vitamin D Total (30-100) ng/mL TSH (0.55-4.78) uIU/mL Free T4 (0.89-1.76) ng/mL PTH Intact (19-88) pg/mL Urine Color (Yellow) Yellow Urine Clarity (Clear) Clear Urine pH (5-8) 6.0 Ur Specific [place] (1.005-1.025) 1.015 Urine Protein (Neg-Trace) mg/dL >=300 H Urine Ketones (Negative) mg/dL Negative Urine Blood (Negative) Trace-intact H Urine Nitrite (Negative) Negative Urine Bilirubin (Negative) Negative Urine Urobilinogen (Up to 0.2) mg/dL 0.2 Ur Leukocyte Esterase (Negative) Negative Urine RBC (0-2) HPF 0-2 Urine WBC (0-5) HPF Negative Ur Epithelial Cells (Negative) HPF Rare Urine Crystals (Negative) HPF Negative Urine Bacteria (Negative) HPF Negative Urine Mucus (Negative) Trace Ur Culture Indicated? No Ur Random Creatinine mg/dL U Random Total Protein (1.0-14.0) mg/dL U [place] Prot/Creat Ratio mg/mg Cr U Total Protein mg/dL (See Note) mg/dL Urine Glucose (Negative) mg/dL Negative Urine Albumin (PEP) mg/dL Urine Albumin (%) (N/A) % Urine Globulin EP mg/dL Urine Globulin (N/A) % U PEP M-Anthony % U PEP M-Anthony % % Fluid Source Fluid Color Fluid Clarity Fluid WBC (0) uL Fld Polynuclear WBCs % % Fluid Mononuclear Cell % Serum Immunofixation Urine Immunofixation Urine GENARO Comments Free [place] LC, Quant (0.33-1.94) mg/dL Free Lambda LC, Quant (0.57-2.63) mg/dL Free [place]/Lambda Ratio (0.26-1.65) COVID-19 Source Nasopharynx SARS-CoV-2 (PCR) (Negative) Negative Hep Bs Antigen (Negative) Hep Bs Antibody (See Note) Hep Bs Antibody, Quant (See Note) mIU/mL Hep B Core Total Ab (Negative) Hepatitis C Antibody (Negative) Influenza Type A (PCR) (Negative) Negative Influenza Type B (PCR) (Negative) Negative RSV (PCR) (Negative) Negative AFB Smear AFB Culture Final Res Add-On Test Request ABO/Rh Antibody Screen Crossmatch Range/Units 05/07/25 05/08/25 05/08/25 23:29 04:45 16:00 WBC (4.4-10.8) 10^3/uL 5.66 RBC (3.93-5.22) 10^6/uL 2.23 L Hgb (11.2-15.7) g/dL 6.9 L* 7.7 L Hct (36.0-46.0) % 20.6 L* 23.1 L MCV (80-95) fL 92 MCH (27.0-33.0) pg 30.9 MCHC (32.0-36.0) % 33.5 RDW (11.7-14.6) % 13.3 Plt Count (130-400) 10^3/uL 210 MPV (8.0-11.0) fL 10.5 Immature Gran % % Neutrophils % % Lymphocytes % % Monocytes % % Eosinophils % % Basophils % % Nucleated RBC % (0.0-0.3) % Absolute Neutrophils (1.2-6.7) 10^3/uL Absolute Lymphocytes (1.2-3.4) 10^3/uL Absolute Monocytes (0.1-0.8) 10^3/uL Absolute Eosinophils (0.0-0.7) 10^3/uL Absolute Basophils (0.0-0.2) 10^3/uL PT (9.1-11.1) sec INR (0.9-1.1) APTT (20.6-30.2) sec VBG pH (7.31-7.41) 7.27 L VBG pCO2 (41-51) mmHg 35 L VBG pO2 mmHg 155 VBG HCO3 (23-28) mmol/L 16 L VBG Total CO2 (24-29) mmol/L 16 L VBG O2 Saturation % VBG Base Excess (-2-3) mmol/L -11 L VBG Lactate (<or=2.0) mmol/L 0.5 Sodium (136-145) mmol/L 143 146 H 144 Potassium (3.5-5.1) mmol/L 3.8 3.7 3.8 Chloride (98-107) mmol/L 113 H 114 H 112 H Carbon Dioxide (20.0-31.0) mmol/L 16.9 L 15.7 L 17.5 L Anion Gap (3-11) mmol/L 13.1 H 16.3 H 14.5 H BUN (9-23) mg/dL 63 H 63 H 63 H Creatinine (0.55-1.02) mg/dL 4.9 H* 5.0 H* 5.1 H* Est GFR (CKD-EPI 2020) (mL/min/1.73m2) 8.53 8.37 8.05 Glucose (74-106) mg/dL 106 77 107 H Calcium (8.3-10.6) mg/dL 8.1 L 8.3 8.2 L Phosphorus (2.4-5.1) mg/dL 6.5 H Magnesium (1.6-2.6) mg/dL 2.0 Iron (50-170) ug/dL TIBC (250-425) ug/dL Transferrin % Sat (15-50) % Total Bilirubin (0.2-1.2) mg/dL 0.20 AST (<34) U/L 22 ALT (10-49) U/L 13 Alkaline Phosphatase (46-116) U/L 88 Troponin I (<35) ng/L NT-Pro-B Natriuret Pep (<300) pg/mL Total Protein (5.7-8.2) g/dL 6.0 Total Protein (PEP) (6.3-8.2) g/dL Albumin (3.4-5.0) g/dL 3.2 L 2.9 L Albumin % (PEP) (55.8-66.1) % Albumin (PEP) (3.6-5.2) g/dL Srqck-8-Dxmhpsypp (0.15-0.40) g/dL Xzmgx-3-Ibplmgapx (%) (2.9-4.9) % Oamlj-9-Rorltqdsg (0.50-1.00) g/dL Ssvck-1-Hkgsfpjuh (%) (7.1-11.8) % Beta Globulins (%) (8.4-13.1) % Beta Gamma Globulin (0.60-1.20) g/dL Gamma Globulins (0.60-1.60) g/dL Gamma Globulins (%) (11.1-18.8) % M-Anthony M-Anthony % PEP Comment Triglycerides (<150) mg/dL Total Cholesterol (<200) mg/dL LDL Cholesterol, Calc (<100) mg/dL HDL Cholesterol (>40) mg/dL 25-OH Vitamin D Total (30-100) ng/mL TSH (0.55-4.78) uIU/mL Free T4 (0.89-1.76) ng/mL PTH Intact (19-88) pg/mL Urine Color (Yellow) Urine Clarity (Clear) Urine pH (5-8) Ur Specific [place] (1.005-1.025) Urine Protein (Neg-Trace) mg/dL Urine Ketones (Negative) mg/dL Urine Blood (Negative) Urine Nitrite (Negative) Urine Bilirubin (Negative) Urine Urobilinogen (Up to 0.2) mg/dL Ur Leukocyte Esterase (Negative) Urine RBC (0-2) HPF Urine WBC (0-5) HPF Ur Epithelial Cells (Negative) HPF Urine Crystals (Negative) HPF Urine Bacteria (Negative) HPF Urine Mucus (Negative) Ur Culture Indicated? Ur Random Creatinine mg/dL U Random Total Protein (1.0-14.0) mg/dL U [place] Prot/Creat Ratio mg/mg Cr U Total Protein mg/dL (See Note) mg/dL Urine Glucose (Negative) mg/dL Urine Albumin (PEP) mg/dL Urine Albumin (%) (N/A) % Urine Globulin EP mg/dL Urine Globulin (N/A) % U PEP M-Anthony % U PEP M-Anthony % % Fluid Source Fluid Color Fluid Clarity Fluid WBC (0) uL Fld Polynuclear WBCs % % Fluid Mononuclear Cell % Serum Immunofixation Urine Immunofixation Urine GENARO Comments Free [place] LC, Quant (0.33-1.94) mg/dL Free [place] LC, Quant (0.57-2.63) mg/dL Free [place]/Lambda Ratio (0.26-1.65) COVID-19 Source SARS-CoV-2 (PCR) (Negative) Hep Bs Antigen (Negative) Hep Bs Antibody (See Note) Hep Bs Antibody, Quant (See Note) mIU/mL Hep B Core Total Ab (Negative) Hepatitis C Antibody (Negative) Influenza Type A (PCR) (Negative) Influenza Type B (PCR) (Negative) RSV (PCR) (Negative) AFB Smear AFB Culture Final Res Add-On Test Request ABO/Rh Antibody Screen Crossmatch Range/Units 05/09/25 05/09/25 05/09/25 05:55 09:10 16:00 WBC (4.4-10.8) 10^3/uL 7.36 RBC (3.93-5.22) 10^6/uL 2.32 L Hgb (11.2-15.7) g/dL 7.2 L Hct (36.0-46.0) % 21.4 L MCV (80-95) fL 92 MCH (27.0-33.0) pg 31.0 MCHC (32.0-36.0) % 33.6 RDW (11.7-14.6) % 13.5 Plt Count (130-400) 10^3/uL 220 MPV (8.0-11.0) fL 10.5 Immature Gran % % Neutrophils % % Lymphocytes % % Monocytes % % Eosinophils % % Basophils % % Nucleated RBC % (0.0-0.3) % Absolute Neutrophils (1.2-6.7) 10^3/uL Absolute Lymphocytes (1.2-3.4) 10^3/uL Absolute Monocytes (0.1-0.8) 10^3/uL Absolute Eosinophils (0.0-0.7) 10^3/uL Absolute Basophils (0.0-0.2) 10^3/uL PT (9.1-11.1) sec INR (0.9-1.1) APTT (20.6-30.2) sec VBG pH (7.31-7.41) 7.37 VBG pCO2 (41-51) mmHg 31 L VBG pO2 mmHg 45 VBG HCO3 (23-28) mmol/L 18 L VBG Total CO2 (24-29) mmol/L 17 L VBG O2 Saturation % 82 VBG Base Excess (-2-3) mmol/L -8 L VBG Lactate (<or=2.0) mmol/L Sodium (136-145) mmol/L 144 Potassium (3.5-5.1) mmol/L 3.6 Chloride (98-107) mmol/L 114 H Carbon Dioxide (20.0-31.0) mmol/L 16.7 L Anion Gap (3-11) mmol/L 13.3 H BUN (9-23) mg/dL 59 H Creatinine (0.55-1.02) mg/dL 5.1 H* Est GFR (CKD-EPI 2020) (mL/min/1.73m2) 8.12 Glucose (74-106) mg/dL 84 Calcium (8.3-10.6) mg/dL 8.2 L Phosphorus (2.4-5.1) mg/dL Magnesium (1.6-2.6) mg/dL 2.0 Iron (50-170) ug/dL 27 L TIBC (250-425) ug/dL 189 L Transferrin % Sat (15-50) % 14 L Total Bilirubin (0.2-1.2) mg/dL 0.30 AST (<34) U/L 22 ALT (10-49) U/L 11 Alkaline Phosphatase (46-116) U/L 86 Troponin I (<35) ng/L NT-Pro-B Natriuret Pep (<300) pg/mL Total Protein (5.7-8.2) g/dL 6.0 Total Protein (PEP) (6.3-8.2) g/dL Albumin (3.4-5.0) g/dL 2.8 L Albumin % (PEP) (55.8-66.1) % Albumin (PEP) (3.6-5.2) g/dL Qktrc-3-Wdzjahvuw (0.15-0.40) g/dL Anmlb-0-Qqxqhgrzb (%) (2.9-4.9) % Imuvd-9-Syzznipqn (0.50-1.00) g/dL Qxxsi-0-Hubrtbtoz (%) (7.1-11.8) % Beta Globulins (%) (8.4-13.1) % Beta Gamma Globulin (0.60-1.20) g/dL Gamma Globulins (0.60-1.60) g/dL Gamma Globulins (%) (11.1-18.8) % M-Anthony M-Anthony % PEP Comment Triglycerides (<150) mg/dL Total Cholesterol (<200) mg/dL LDL Cholesterol, Calc (<100) mg/dL HDL Cholesterol (>40) mg/dL 25-OH Vitamin D Total (30-100) ng/mL TSH (0.55-4.78) uIU/mL Free T4 (0.89-1.76) ng/mL PTH Intact (19-88) pg/mL Urine Color (Yellow) Urine Clarity (Clear) Urine pH (5-8) Ur Specific [place] (1.005-1.025) Urine Protein (Neg-Trace) mg/dL Urine Ketones (Negative) mg/dL Urine Blood (Negative) Urine Nitrite (Negative) Urine Bilirubin (Negative) Urine Urobilinogen (Up to 0.2) mg/dL Ur Leukocyte Esterase (Negative) Urine RBC (0-2) HPF Urine WBC (0-5) HPF Ur Epithelial Cells (Negative) HPF Urine Crystals (Negative) HPF Urine Bacteria (Negative) HPF Urine Mucus (Negative) Ur Culture Indicated? Ur Random Creatinine mg/dL 26.70 U Random Total Protein (1.0-14.0) mg/dL 445.8 H U [place] Prot/Creat Ratio mg/mg Cr 16.69 U Total Protein mg/dL (See Note) mg/dL Urine Glucose (Negative) mg/dL Urine Albumin (PEP) mg/dL Urine Albumin (%) (N/A) % Urine Globulin EP mg/dL Urine Globulin (N/A) % U PEP M-Anthony % U PEP M-Anthony % % Fluid Source Fluid Color Fluid Clarity Fluid WBC (0) uL Fld Polynuclear WBCs % % Fluid Mononuclear Cell % Serum Immunofixation Urine Immunofixation Urine GENARO Comments Free [place] LC, Quant (0.33-1.94) mg/dL Free [place] LC, Quant (0.57-2.63) mg/dL Free [place]/Lambda Ratio (0.26-1.65) COVID-19 Source SARS-CoV-2 (PCR) (Negative) Hep Bs Antigen (Negative) Hep Bs Antibody (See Note) Hep Bs Antibody, Quant (See Note) mIU/mL Hep B Core Total Ab (Negative) Hepatitis C Antibody (Negative) Influenza Type A (PCR) (Negative) Influenza Type B (PCR) (Negative) RSV (PCR) (Negative) AFB Smear AFB Culture Final Res Add-On Test Request DONE ABO/Rh Antibody Screen Crossmatch Range/Units 05/09/25 05/10/25 05/10/25 20:05 05:20 21:33 WBC (4.4-10.8) 10^3/uL 7.15 RBC (3.93-5.22) 10^6/uL 2.36 L Hgb (11.2-15.7) g/dL 7.1 L Hct (36.0-46.0) % 21.8 L MCV (80-95) fL 92 MCH (27.0-33.0) pg 30.1 MCHC (32.0-36.0) % 32.6 RDW (11.7-14.6) % 13.5 Plt Count (130-400) 10^3/uL 217 MPV (8.0-11.0) fL 10.4 Immature Gran % % Neutrophils % % Lymphocytes % % Monocytes % % Eosinophils % % Basophils % % Nucleated RBC % (0.0-0.3) % Absolute Neutrophils (1.2-6.7) 10^3/uL Absolute Lymphocytes (1.2-3.4) 10^3/uL Absolute Monocytes (0.1-0.8) 10^3/uL Absolute Eosinophils (0.0-0.7) 10^3/uL Absolute Basophils (0.0-0.2) 10^3/uL PT (9.1-11.1) sec INR (0.9-1.1) APTT (20.6-30.2) sec VBG pH (7.31-7.41) VBG pCO2 (41-51) mmHg VBG pO2 mmHg VBG HCO3 (23-28) mmol/L VBG Total CO2 (24-29) mmol/L VBG O2 Saturation % VBG Base Excess (-2-3) mmol/L VBG Lactate (<or=2.0) mmol/L Sodium (136-145) mmol/L 144 145 Potassium (3.5-5.1) mmol/L 3.7 3.4 L Chloride (98-107) mmol/L 113 H 113 H Carbon Dioxide (20.0-31.0) mmol/L 18.6 L 18.2 L Anion Gap (3-11) mmol/L 12.4 H 13.8 H BUN (9-23) mg/dL 59 H 57 H Creatinine (0.55-1.02) mg/dL 4.9 H* 5.0 H* Est GFR (CKD-EPI 2020) (mL/min/1.73m2) 8.47 8.31 Glucose (74-106) mg/dL 105 83 Calcium (8.3-10.6) mg/dL 8.4 8.3 Phosphorus (2.4-5.1) mg/dL 6.1 H Magnesium (1.6-2.6) mg/dL 1.9 1.8 Iron (50-170) ug/dL TIBC (250-425) ug/dL Transferrin % Sat (15-50) % Total Bilirubin (0.2-1.2) mg/dL 0.40 0.40 AST (<34) U/L 24 21 ALT (10-49) U/L 11 9 L Alkaline Phosphatase (46-116) U/L 89 84 Troponin I (<35) ng/L NT-Pro-B Natriuret Pep (<300) pg/mL Total Protein (5.7-8.2) g/dL 6.1 5.8 Total Protein (PEP) (6.3-8.2) g/dL Albumin (3.4-5.0) g/dL 2.9 L 2.8 L Albumin % (PEP) (55.8-66.1) % Albumin (PEP) (3.6-5.2) g/dL Gqtos-8-Ceminoyph (0.15-0.40) g/dL Eohjr-2-Jtpslffnn (%) (2.9-4.9) % Tznzg-6-Sldsmncxu (0.50-1.00) g/dL Vukoc-8-Jvrvaghbt (%) (7.1-11.8) % Beta Globulins (%) (8.4-13.1) % Beta Gamma Globulin (0.60-1.20) g/dL Gamma Globulins (0.60-1.60) g/dL Gamma Globulins (%) (11.1-18.8) % M-Anthony M-Anthony % PEP Comment Triglycerides (<150) mg/dL Total Cholesterol (<200) mg/dL LDL Cholesterol, Calc (<100) mg/dL HDL Cholesterol (>40) mg/dL 25-OH Vitamin D Total (30-100) ng/mL 14 L TSH (0.55-4.78) uIU/mL Free T4 (0.89-1.76) ng/mL PTH Intact (19-88) pg/mL 227 H Urine Color (Yellow) Urine Clarity (Clear) Urine pH (5-8) Ur Specific [place] (1.005-1.025) Urine Protein (Neg-Trace) mg/dL Urine Ketones (Negative) mg/dL Urine Blood (Negative) Urine Nitrite (Negative) Urine Bilirubin (Negative) Urine Urobilinogen (Up to 0.2) mg/dL Ur Leukocyte Esterase (Negative) Urine RBC (0-2) HPF Urine WBC (0-5) HPF Ur Epithelial Cells (Negative) HPF Urine Crystals (Negative) HPF Urine Bacteria (Negative) HPF Urine Mucus (Negative) Ur Culture Indicated? Ur Random Creatinine mg/dL U Random Total Protein (1.0-14.0) mg/dL U [place] Prot/Creat Ratio mg/mg Cr U Total Protein mg/dL (See Note) mg/dL 313 Urine Glucose (Negative) mg/dL Urine Albumin (PEP) mg/dL 152 Urine Albumin (%) (N/A) % 48.5 Urine Globulin EP mg/dL 161 Urine Globulin (N/A) % 51.5 U PEP M-Anthony % 11 U PEP M-Anthony % % 3.5 Fluid Source Fluid Color Fluid Clarity Fluid WBC (0) uL Fld Polynuclear WBCs % % Fluid Mononuclear Cell % Serum Immunofixation Urine Immunofixation (See Note) Urine GENARO Comments See Comment Free [place] LC, Quant (0.33-1.94) mg/dL Free [place] LC, Quant (0.57-2.63) mg/dL Free [place]/Lambda Ratio (0.26-1.65) COVID-19 Source SARS-CoV-2 (PCR) (Negative) Hep Bs Antigen (Negative) Hep Bs Antibody (See Note) Hep Bs Antibody, Quant (See Note) mIU/mL Hep B Core Total Ab (Negative) Hepatitis C Antibody (Negative) Influenza Type A (PCR) (Negative) Influenza Type B (PCR) (Negative) RSV (PCR) (Negative) AFB Smear AFB Culture Final Res Add-On Test Request DONE ABO/Rh Antibody Screen Crossmatch Range/Units 05/11/25 05/11/25 05/12/25 06:10 09:16 05:30 WBC (4.4-10.8) 10^3/uL 6.33 RBC (3.93-5.22) 10^6/uL 2.28 L Hgb (11.2-15.7) g/dL 7.0 L* 7.8 L Hct (36.0-46.0) % 21.0 L 23.4 L MCV (80-95) fL 92 MCH (27.0-33.0) pg 30.7 MCHC (32.0-36.0) % 33.3 RDW (11.7-14.6) % 13.2 Plt Count (130-400) 10^3/uL 182 MPV (8.0-11.0) fL 10.7 Immature Gran % % Neutrophils % % Lymphocytes % % Monocytes % % Eosinophils % % Basophils % % Nucleated RBC % (0.0-0.3) % Absolute Neutrophils (1.2-6.7) 10^3/uL Absolute Lymphocytes (1.2-3.4) 10^3/uL Absolute Monocytes (0.1-0.8) 10^3/uL Absolute Eosinophils (0.0-0.7) 10^3/uL Absolute Basophils (0.0-0.2) 10^3/uL PT (9.1-11.1) sec INR (0.9-1.1) APTT (20.6-30.2) sec VBG pH (7.31-7.41) VBG pCO2 (41-51) mmHg VBG pO2 mmHg VBG HCO3 (23-28) mmol/L VBG Total CO2 (24-29) mmol/L VBG O2 Saturation % VBG Base Excess (-2-3) mmol/L VBG Lactate (<or=2.0) mmol/L Sodium (136-145) mmol/L 144 144 Potassium (3.5-5.1) mmol/L 3.6 3.9 Chloride (98-107) mmol/L 113 H 111 H Carbon Dioxide (20.0-31.0) mmol/L 17.7 L 21.0 Anion Gap (3-11) mmol/L 13.3 H 12 H BUN (9-23) mg/dL 65 H 76 H Creatinine (0.55-1.02) mg/dL 5.1 H* 5.1 H* Est GFR (CKD-EPI 2020) (mL/min/1.73m2) 8.14 8.03 Glucose (74-106) mg/dL 75 89 Calcium (8.3-10.6) mg/dL 8.2 L 7.9 L Phosphorus (2.4-5.1) mg/dL Magnesium (1.6-2.6) mg/dL Iron (50-170) ug/dL TIBC (250-425) ug/dL Transferrin % Sat (15-50) % Total Bilirubin (0.2-1.2) mg/dL AST (<34) U/L ALT (10-49) U/L Alkaline Phosphatase (46-116) U/L Troponin I (<35) ng/L NT-Pro-B Natriuret Pep (<300) pg/mL Total Protein (5.7-8.2) g/dL Total Protein (PEP) (6.3-8.2) g/dL 5.3 L Albumin (3.4-5.0) g/dL Albumin % (PEP) (55.8-66.1) % 35.0 L Albumin (PEP) (3.6-5.2) g/dL 1.9 L Hfeic-4-Avpaqtzmf (0.15-0.40) g/dL 0.50 H Tsedt-4-Exgwgrwau (%) (2.9-4.9) % 8.7 H Xcbjh-0-Mloarsuxm (0.50-1.00) g/dL 1.10 H Zdwud-5-Wzykghmve (%) (7.1-11.8) % 20.3 H Beta Globulins (%) (8.4-13.1) % 15.1 H Beta Gamma Globulin (0.60-1.20) g/dL 0.80 Gamma Globulins (0.60-1.60) g/dL 1.10 Gamma Globulins (%) (11.1-18.8) % 20.9 H M-Anthony Not Applicable M-Anthony % Not Applicable PEP Comment (See Note) Triglycerides (<150) mg/dL 131 Total Cholesterol (<200) mg/dL 102 LDL Cholesterol, Calc (<100) mg/dL 36.9 HDL Cholesterol (>40) mg/dL 39 L 25-OH Vitamin D Total (30-100) ng/mL TSH (0.55-4.78) uIU/mL Free T4 (0.89-1.76) ng/mL PTH Intact (19-88) pg/mL Urine Color (Yellow) Urine Clarity (Clear) Urine pH (5-8) Ur Specific [place] (1.005-1.025) Urine Protein (Neg-Trace) mg/dL Urine Ketones (Negative) mg/dL Urine Blood (Negative) Urine Nitrite (Negative) Urine Bilirubin (Negative) Urine Urobilinogen (Up to 0.2) mg/dL Ur Leukocyte Esterase (Negative) Urine RBC (0-2) HPF Urine WBC (0-5) HPF Ur Epithelial Cells (Negative) HPF Urine Crystals (Negative) HPF Urine Bacteria (Negative) HPF Urine Mucus (Negative) Ur Culture Indicated? Ur Random Creatinine mg/dL U Random Total Protein (1.0-14.0) mg/dL U [place] Prot/Creat Ratio mg/mg Cr U Total Protein mg/dL (See Note) mg/dL Urine Glucose (Negative) mg/dL Urine Albumin (PEP) mg/dL Urine Albumin (%) (N/A) % Urine Globulin EP mg/dL Urine Globulin (N/A) % U PEP M-Anthony % U PEP M-Anthony % % Fluid Source Fluid Color Fluid Clarity Fluid WBC (0) uL Fld Polynuclear WBCs % % Fluid Mononuclear Cell % Serum Immunofixation (See Note) Urine Immunofixation Urine GENARO Comments Free [place] LC, Quant (0.33-1.94) mg/dL 16.96 H Free [place] LC, Quant (0.57-2.63) mg/dL 15.14 H Free [place]/Lambda Ratio (0.26-1.65) 1.12 COVID-19 Source SARS-CoV-2 (PCR) (Negative) Hep Bs Antigen (Negative) Negative Hep Bs Antibody (See Note) Positive Hep Bs Antibody, Quant (See Note) mIU/mL 34.8 Hep B Core Total Ab (Negative) Positive A Hepatitis C Antibody (Negative) Negative Influenza Type A (PCR) (Negative) Influenza Type B (PCR) (Negative) RSV (PCR) (Negative) AFB Smear AFB Culture Final Res Add-On Test Request ABO/Rh B Positive Antibody Screen NEGATIVE Crossmatch See Detail Range/Units 05/12/25 05/13/25 05/13/25 22:00 07:50 08:00 WBC (4.4-10.8) 10^3/uL 6.98 RBC (3.93-5.22) 10^6/uL 2.89 L Hgb (11.2-15.7) g/dL 8.7 L Hct (36.0-46.0) % 26.2 L MCV (80-95) fL 91 MCH (27.0-33.0) pg 30.1 MCHC (32.0-36.0) % 33.2 RDW (11.7-14.6) % 14.6 Plt Count (130-400) 10^3/uL 250 MPV (8.0-11.0) fL 10.3 Immature Gran % % Neutrophils % % Lymphocytes % % Monocytes % % Eosinophils % % Basophils % % Nucleated RBC % (0.0-0.3) % Absolute Neutrophils (1.2-6.7) 10^3/uL Absolute Lymphocytes (1.2-3.4) 10^3/uL Absolute Monocytes (0.1-0.8) 10^3/uL Absolute Eosinophils (0.0-0.7) 10^3/uL Absolute Basophils (0.0-0.2) 10^3/uL PT (9.1-11.1) sec INR (0.9-1.1) APTT (20.6-30.2) sec VBG pH (7.31-7.41) VBG pCO2 (41-51) mmHg VBG pO2 mmHg VBG HCO3 (23-28) mmol/L VBG Total CO2 (24-29) mmol/L VBG O2 Saturation % VBG Base Excess (-2-3) mmol/L VBG Lactate (<or=2.0) mmol/L Sodium (136-145) mmol/L 145 Potassium (3.5-5.1) mmol/L 4.2 Chloride (98-107) mmol/L 112 H Carbon Dioxide (20.0-31.0) mmol/L 21.1 Anion Gap (3-11) mmol/L 11.9 H BUN (9-23) mg/dL 75 H Creatinine (0.55-1.02) mg/dL 5.2 H* Est GFR (CKD-EPI 2020) (mL/min/1.73m2) 7.98 Glucose (74-106) mg/dL 88 Calcium (8.3-10.6) mg/dL 8.0 L Phosphorus (2.4-5.1) mg/dL Magnesium (1.6-2.6) mg/dL Iron (50-170) ug/dL TIBC (250-425) ug/dL Transferrin % Sat (15-50) % Total Bilirubin (0.2-1.2) mg/dL AST (<34) U/L ALT (10-49) U/L Alkaline Phosphatase (46-116) U/L Troponin I (<35) ng/L NT-Pro-B Natriuret Pep (<300) pg/mL Total Protein (5.7-8.2) g/dL Total Protein (PEP) (6.3-8.2) g/dL Albumin (3.4-5.0) g/dL Albumin % (PEP) (55.8-66.1) % Albumin (PEP) (3.6-5.2) g/dL Gtatu-5-Oqnecybpk (0.15-0.40) g/dL Mvlht-2-Dmxhlkxwt (%) (2.9-4.9) % Hjmpz-7-Jbesjnfgm (0.50-1.00) g/dL Cnwut-8-Qflgmmgdq (%) (7.1-11.8) % Beta Globulins (%) (8.4-13.1) % Beta Gamma Globulin (0.60-1.20) g/dL Gamma Globulins (0.60-1.60) g/dL Gamma Globulins (%) (11.1-18.8) % M-Anthony M-Anthony % PEP Comment Triglycerides (<150) mg/dL Total Cholesterol (<200) mg/dL LDL Cholesterol, Calc (<100) mg/dL HDL Cholesterol (>40) mg/dL 25-OH Vitamin D Total (30-100) ng/mL TSH (0.55-4.78) uIU/mL Free T4 (0.89-1.76) ng/mL PTH Intact (19-88) pg/mL Urine Color (Yellow) Urine Clarity (Clear) Urine pH (5-8) Ur Specific [place] (1.005-1.025) Urine Protein (Neg-Trace) mg/dL Urine Ketones (Negative) mg/dL Urine Blood (Negative) Urine Nitrite (Negative) Urine Bilirubin (Negative) Urine Urobilinogen (Up to 0.2) mg/dL Ur Leukocyte Esterase (Negative) Urine RBC (0-2) HPF Urine WBC (0-5) HPF Ur Epithelial Cells (Negative) HPF Urine Crystals (Negative) HPF Urine Bacteria (Negative) HPF Urine Mucus (Negative) Ur Culture Indicated? Ur Random Creatinine mg/dL U Random Total Protein (1.0-14.0) mg/dL U [place] Prot/Creat Ratio mg/mg Cr U Total Protein mg/dL (See Note) mg/dL Urine Glucose (Negative) mg/dL Urine Albumin (PEP) mg/dL Urine Albumin (%) (N/A) % Urine Globulin EP mg/dL Urine Globulin (N/A) % U PEP M-Anthony % U PEP M-Anthony % % Fluid Source Pleural Fluid Color Yellow Fluid Clarity Fluid WBC (0) uL 645 Fld Polynuclear WBCs % % 9 Fluid Mononuclear Cell % 91 Serum Immunofixation Urine Immunofixation Urine GENARO Comments Free [place] LC, Quant (0.33-1.94) mg/dL Free [place] LC, Quant (0.57-2.63) mg/dL Free [place]/Lambda Ratio (0.26-1.65) COVID-19 Source SARS-CoV-2 (PCR) (Negative) Hep Bs Antigen (Negative) Hep Bs Antibody (See Note) Hep Bs Antibody, Quant (See Note) mIU/mL Hep B Core Total Ab (Negative) Hepatitis C Antibody (Negative) Influenza Type A (PCR) (Negative) Influenza Type B (PCR) (Negative) RSV (PCR) (Negative) AFB Smear Cancelled AFB Culture Final Res Cancelled Add-On Test Request ABO/Rh Antibody Screen Crossmatch Imaging Chest x-ray: report reviewed and image reviewed
[2025-05-14] MEDS: Normal Saline Flush 10 ML SYR IVP ×2 (07:43→20:21)
[2025-05-14] MEDS: Carvedilol 25 MG TAB 12.5 MG PO ×2 (07:44→20:17)
[2025-05-14] MEDS: Torsemide 20 MG TAB 60 MG PO (07:44)
[2025-05-14] MEDS: Calcium Carbonate *TUMS* 500 MG CHEW PO ×3 (07:44→17:42)
[2025-05-14] MEDS: Losartan 50 MG TAB 150 MG PO (07:45)
[2025-05-14] MEDS: Calcitriol 0.25 MCG CAP PO (07:45)
[2025-05-14] MEDS: Atorvastatin 40 MG TAB PO (07:45)
[2025-05-14] MEDS: amLODIPine 10 MG TAB PO (07:45)
[2025-05-14 07:52] VITALS: BP 161/73; PULSE 57; RESP 14; TEMP 36.9; O2SAT 98
[2025-05-14 08:48] LABS: Anion Gap 12.3 mmol/L (3-11); BUN 73 mg/dL (9-23); CO2 20.7 mmol/L (20.0-31.0); Calcium 7.8 mg/dL (8.3-10.6); Chloride 110 mmol/L (98-107); Glucose 84 mg/dL (74-106); Potassium 4.1 mmol/L (3.5-5.1); Sodium 143 mmol/L (136-145)
[2025-05-14] MEDS: Timolol 0.5% 5 ML BTL OP ×2 (10:07→20:19)
[2025-05-14] MEDS: Dorzolamide 2% 10 ML BTL OP ×2 (10:08→20:18)
[2025-05-14] MEDS: Enoxaparin 30 MG/0.3 ML SYR SC (10:08)
[2025-05-14] MEDS: Spironolactone 25 MG TAB PO (10:08)
[2025-05-14 11:21] LABS: Phospholipase A2 Recep, ELISA <2 RU/mL
[2025-05-14 12:23] VITALS: BP 141/66; RESP 14; TEMP 36.9; O2SAT 97
--- NOTE | 2025-05-14 13:39 | W.PM.PROGNOT ---
Date of Service Date of service: 05/14/25 Time of Service: 13:39 Assessment and Plan Assessment and plan (1) Cardiorenal syndrome with renal failure: Status: Acute Assessment and plan: -thgought to be due to HFpEF as EF was normal on TTE -previously been seen at [facility] for CKD stage 3, baseline creatinine 1.7 -previous provider dDiscussed with [facility] 05/08, combination of HTN with acute Cr elevation to the 5's and acidosis with response to diuresis -No anatomical abnormality or hydronephrosis on CT -continue to have good UOP and normalized ABG -Discontinued antiobiotics on 05/08. -Discontinued ibuprofen 05/09 -Given Ca low, starting calcium carbonate as phosphate binder. PTH pending, vitamin D low, supplement. -Nephrotic level proteinuria with prot/Cr 16.6 -previous provider discussed Dr. Daniels from nephrology on 05/10, agreed with current management, recommended sending Hep B/C panel, SPEP/UPEP, mebrenous nephropathy panel. -Transitioned to oral torsemide 05/12 60mg just once daily -Perez out and floor status 05/12, but we still need accurate urine output. D/w nursing; weight is up but her edema has continued to improve. -plan d/c and follow up at nephrology (2) New onset of congestive heart failure: Status: Acute Assessment and plan: -as noted above, likely HFpEF -Changed atenolol to carvedilol, dose at 12.5mg BID with pulses in 50s-60s -GFR too low for SGLT2i. (3) Acute on chronic anemia: Status: Acute Assessment and plan: -05/07 hemoglobin 6.9, repeat hemoglobin 7.7 s/p 1 unit RBC. normocytic -Anemia worsening since February 2025 -Likely secondary to renal disease -Iron low 05/09, given IV repletion. Aranesp 40mg 05/10. -Trend still down to 7.0 05/11, given second unit RBC, 7.8 05/12. -Improved 05/13 to 8.7, which is reassuring. (4) Type 2 diabetes mellitus: Status: Chronic Assessment and plan: -Recent A1c 5.3% c/w remission, though anemia may make this less reliable. -FS glucose have been mostly good. continue ISS if needed. (5) Nephrotic syndrome: Status: Acute Assessment and plan: -As above, protein in nephrotic range, albumin low but not severe. -Labs per Nephrology 05/10 to evaluate. -Some abnormal gammopathy labs, plan to f/u renal. -Lipids not high (6) Atrial fibrillation and flutter: Status: Acute Assessment and plan: -Has been in Afib before. -Converted back 05/10. -Consider anticoagulation prior to discharge if anemia stable. (7) Essential hypertension: Status: Chronic Assessment and plan: -BPs remain high on amlodipine, losartan, and carvedilol at full doses. -Started spironolactone, monitor K/Cr closely (8) Pulmonary infiltrates: Status: Acute Assessment and plan: -BL upper lobe infiltrates on CT, were present in March. A/w effusions. -Unclear diagnosis. She isn't coughing or having symptoms of TB reactivation, but she is at risk coming from [place]. -VQ scan performed afternoon of hospital day 2, negative for PE -She did have some hypoxia secondary to fluid overload that has resovled. -D/w pulmonology, consult for evaluation 05/12; Back on ceftriaxone and azithro 05/12 and plan to rule out acitve TB with AFP x 3 before discharge -Pleaural fluid also sampled 05/13, appears transudative, send for analysis Subjective Subjective Interval history since last seen: Patient states that she is doing well today and she understands the plan to remain hospitalized until TB results are finalized. Exam Narrative Exam Narrative: Well-appearing older female sitting up in the chair no acute distress, ANO x 4, heart regular rhythm, lungs good auscultation bilaterally, abdomen soft, nontender, nondistended Objective Last Vital Signs Temp 98.4 F 05/14/25 12:23 Pulse 57 L 05/14/25 07:52 Resp 14 05/14/25 12:23 BP 141/66 H 05/14/25 12:23 Pulse Ox 97 05/14/25 12:23 Laboratory Results - last 24 hr 05/14/25 06:50 Sodium 143 Potassium 4.1 Chloride 110 H Carbon Dioxide 20.7 Anion Gap 12.3 H BUN 73 H Creatinine 5.4 H* Est GFR (CKD-EPI 2020) 7.65 Glucose 84 Calcium 7.8 L Time Spent with Patient Time Spent with Patient: >50 minutes Time was spent: preparing to see the patient(eg.review tests), obtaining and/or reviewing separately otained hiistory, ordering medications,tests, procedures, referring, communicating with other health customer care associate, indepentently interpreting results, counseling the patient and care coordination
[2025-05-14 15:01] VITALS: BP 152/70; PULSE 62; RESP 17; TEMP 36; O2SAT 95
--- NOTE | 2025-05-14 15:33 | PTTR_ITS ---
PT Notes Visit Reasons: PAF, CHF Exacerbation, Pneumonia Physical Therapy Inpatient Treatment Note Date:05/14/2025 Precautions: Fall. Airborne precautions in place for presumptive TB, AFB results pending. Activity as tolerated. Primary language is Cantonese but is able to speak and understand [place]an. Subjective: Butler great today. Agreeable to trying out the cane for walking. Objective: General Observation: Resting in bed, just woke up. Mental Status: Alert and oriented as to person, place, time, and purpose. Able to pay attention, focus, and respond appropriately. Able to understand and speak [place]. Pain: None reported Vital Signs: Closely monitored by nursing staff Bed Mobility/Transfers: Minimal cueing provided for use of B hands as needed for support, movement sequence, AD management, and posture to reduce fall risk and minimize pain report. Supine to sit stand by assist with HOB flat Sit to stand Physical Therapy Inpatient Treatment Note Date:05/13/2025 Precautions: Fall. Airborne precautions in place for presumptive TB, AFB result pending. Activity as tolerated. Primary language is Cantonese but able to speak and understand [place]. Subjective: Did not have a good night's sleep but was willing to work with PT for this session. Happy with how much she was able to do without undue fatigue compared to how she did the previous days. Objective: General Observation: Resting in bed, just woke up. Mental Status: Alert and oriented as to person, place, time, and purpose. Able to pay attention, focus, and respond appropriately. Able to understand and speak [place]. Pain: None reported Vital Signs: Bed Mobility/Transfers: Minimal cueing provided for use of B hands as needed for support, movement sequence, AD management, and posture to reduce fall risk and minimize pain report. Sit to stand independent with SPC Stand to sit independent with SPC Bed to toilet seat supervision with SPC Toilet seat to bed supervision with SPC Gait: 60 feet inside room with SPC with supervision. 60 feet inside room without AD with stand by assist. No SOB. Complained of mild headache but no chest pain nor lightheadedness. Butler better when SPC height was decreased to minimize strain on the R shoulder. Balance: Static Sitting: Good Dynamic Sitting: Good Static Standing: Fair Dynamic Standing: Fair THERA EX: Guided patient with safe and correct performance of seated level exercises as follows-- Standing bilateral heel raises x 10 Standing hip extension x 10while holding onto window counter Assessment: Mildred continues to demonstrate improved ability, increased independence, and tolerance of today's activities with no shortness of breath nor increased report of fatigue. Oxygen saturation stayed above 90% on room air throughout. She will require PT service to facilitate return to independent ambulation using the single-point cane. Plan of Care/Treatment Plan: 1-2x/day, 7 days/week x 1 week. Plan of care has been reviewed with the [employer] providing the service under Physical Therapy direction. Initiate Physical Therapy intervention for pain management as needed, strengthening, bed mobility, transfers, gait, stairs, balance training, and use of assistive device. DISCHARGE RECOMMENDATIONS: HH PT TREATMENT CODE/TIME: 02907 x 23 minutes for 2 units (15:04-15:28).
--- NOTE | 2025-05-14 16:59 | CMPROGNOTE_ITS ---
Date of service: 05/14/25 Time of Service: 16:59 Care Management Progress Note Progress Note Text Progress Note Text: Mildred was sitting up in a chair when CM met with her. She was easily engaged and informed CM that she is feeling better. Her Hgb is 8.7 today and her Creatinine is 5.4. She is being followed by Pulmonology and the providers are [place] [facility]. Mildred will likely remain hospitalized until her TB smears (AFB) come back. Discharge Potential Discharge Needs: PCP F/U Appt Anticipated Barriers to Discharge: Medical Status (awaiting TB test results) Patient/Family Education Needs: Review discharge instructions, discuss Ask Me Three Transportation: Private vehicle Plan: Anticipate Mildred will be discharged home with new home health services for PT, when medically cleared. She will follow up with her PCP and plan of care and transport via private vehicle with family. CM will continue to address discharge planning concerns. Social Determinants of Health Screening Will the Patient Participate in the Screening?: Unable to obtain Do you worry about having a steady place to live?: choose not to answer In the past 12 months, have you had to go without electric, gas, oil or water in your home?: no Has lack of transportation kept you from medical appointments or from doing things needed for daily living?: no Has anyone in your life made you feel unsafe or unsupported?: no How hard is it for you to pay for the very basics like food, housing, medical care, and heating? Would you say it is:: Not hard at all If for any reason you need help with day-to-day activities such as bathing, preparing meals, shopping, managing finances, etc., do you get the help you need?: I could use a little more help How often do you feel lonely or isolated from those around you?: Never Do you speak a language other than Kyrgyz at home?: Yes Does the patient want assistance with any of the above?: Yes Health Related Social Needs Health related social needs: problems with daily activities (Z73.9) and education (Z55.6) Health related social needs details: sob on exertion and need more health teach ings
[2025-05-14 20:12] VITALS: BP 164/67; PULSE 57; RESP 18; TEMP 36.9; O2SAT 97
[2025-05-14] MEDS: cefTRIAXone 2 GM/50 ML BAG IVPB (20:19)
[2025-05-14] MEDS: AZITHROMYCIN 500 MG in Normal Saline 250 ML 83.302 MG IVPB (22:28)
[2025-05-14] MEDS: Acetaminophen 325 MG TAB 650 MG PO (22:29)
[2025-05-15 08:19] VITALS: BP 167/69; PULSE 62; RESP 16; TEMP 36.9; O2SAT 97
[2025-05-15] MEDS: Calcium Carbonate *TUMS* 500 MG CHEW PO ×2 (08:24→12:46)
[2025-05-15] MEDS: Carvedilol 25 MG TAB 12.5 MG PO (08:24)
[2025-05-15] MEDS: amLODIPine 10 MG TAB PO (08:25)
[2025-05-15] MEDS: Atorvastatin 40 MG TAB PO (08:25)
[2025-05-15] MEDS: Spironolactone 25 MG TAB PO (08:25)
[2025-05-15] MEDS: Torsemide 20 MG TAB 60 MG PO (08:25)
[2025-05-15] MEDS: Calcitriol 0.25 MCG CAP PO (08:25)
[2025-05-15] MEDS: Enoxaparin 30 MG/0.3 ML SYR SC (08:25)
[2025-05-15] MEDS: Normal Saline Flush 10 ML SYR IVP (08:26)
[2025-05-15] MEDS: Timolol 0.5% 5 ML BTL OP (08:32)
[2025-05-15] MEDS: Losartan 50 MG TAB 150 MG PO (08:38)
[2025-05-15 09:34] LABS: Protein,Total, BF 1.3 g/dL
[2025-05-15 09:37] LABS: Lactate Dehydrogenase (LD), BF 85 U/L
--- NOTE | 2025-05-15 10:05 | PDOC.CMPRO ---
Date of service: 05/15/25 Time of Service: 10:05 Care Management Progress Note Discharge Potential Discharge Needs: PCP F/U Appt Anticipated Barriers to Discharge: Medical Status (awaiting TB test results) Patient/Family Education Needs: Review discharge instructions, discuss Ask Me Three Transportation: Private vehicle Plan: Anticipate Mildred will be discharged home with new home health services for PT, when medically cleared. She will follow up with her PCP and plan of care and transport via private vehicle with family. CM will continue to address discharge planning concerns. Social Determinants of Health Screening Will the Patient Participate in the Screening?: Unable to obtain Do you worry about having a steady place to live?: choose not to answer In the past 12 months, have you had to go without electric, gas, oil or water in your home?: no Has lack of transportation kept you from medical appointments or from doing things needed for daily living?: no Has anyone in your life made you feel unsafe or unsupported?: no How hard is it for you to pay for the very basics like food, housing, medical care, and heating? Would you say it is:: Not hard at all If for any reason you need help with day-to-day activities such as bathing, preparing meals, shopping, managing finances, etc., do you get the help you need?: I could use a little more help How often do you feel lonely or isolated from those around you?: Never Do you speak a language other than Togolese at home?: Yes Does the patient want assistance with any of the above?: Yes Health Related Social Needs Health related social needs: problems with daily activities (Z73.9) and education (Z55.6) Health related social needs details: sob on exertion and need more health teachings
--- NOTE | 2025-05-15 10:18 | PGE_ITS ---
Date of Service Date of service: 05/15/25 Time of Service: 10:18 Assessment and Plan Assessment and plan (1) Cardiorenal syndrome with renal failure: Status: Acute Assessment and plan: -thgought to be due to HFpEF as EF was normal on TTE -previously been seen at [facility] nephrology for CKD stage 3, baseline creatinine 1.7 -previous provider dDiscussed with [facility] nephrology 05/08, combination of HTN with acute Cr elevation to the 5's and acidosis with response to diuresis -No anatomical abnormality or hydronephrosis on CT -continue to have good UOP and normalized ABG -Discontinued antiobiotics on 05/08. -Discontinued ibuprofen 05/09 -Given Ca low, starting calcium carbonate as phosphate binder. PTH pending, vitamin D low, supplement. -Nephrotic level proteinuria with prot/Cr 16.6 -previous provider discussed Dr. Daniels from nephrology on 05/10, agreed with current management, recommended sending Hep B/C panel, SPEP/UPEP, mebrenous nephropathy panel. -Transitioned to oral torsemide 05/12 60mg just once daily -Perez out and floor status 05/12, UOP appears to have improved, not net negative over last 2 days -plan d/c and follow up at nephrology (2) New onset of congestive heart failure: Status: Acute Assessment and plan: -as noted above, likely HFpEF -Changed atenolol to carvedilol, dose at 12.5mg BID with pulses in 50s-60s -GFR too low for SGLT2i. (3) Acute on chronic anemia: Status: Acute Assessment and plan: -05/07 hemoglobin 6.9, repeat hemoglobin 7.7 s/p 1 unit RBC. normocytic -Anemia worsening since February 2025 -Likely secondary to renal disease -Iron low 05/09, given IV repletion. Aranesp 40mg 05/10. -Trend still down to 7.0 05/11, given second unit RBC, 7.8 05/12. -Improved 05/13 to 8.7, which is reassuring. (4) Type 2 diabetes mellitus: Status: Chronic Assessment and plan: -Recent A1c 5.3% c/w remission, though anemia may make this less reliable. -FS glucose have been mostly good. continue ISS if needed. (5) Nephrotic syndrome: Status: Acute Assessment and plan: -As above, protein in nephrotic range, albumin low but not severe. -Labs per Nephrology 05/10 to evaluate. -Some abnormal gammopathy labs, plan to f/u renal. -Lipids not high (6) Atrial fibrillation and flutter: Status: Acute Assessment and plan: -Has been in Afib before. -Converted back 05/10. -Consider anticoagulation prior to discharge if anemia stable. (7) Essential hypertension: Status: Chronic Assessment and plan: -BPs remain high on amlodipine, losartan, and carvedilol at full doses. -Started spironolactone, monitor K/Cr closely (8) Pulmonary infiltrates: Status: Acute Assessment and plan: -BL upper lobe infiltrates on CT, were present in March. A/w effusions. -Unclear diagnosis. She isn't coughing or having symptoms of TB reactivation, but she is at risk coming from [place]. -VQ scan performed afternoon of hospital day 2, negative for PE -She did have some hypoxia secondary to fluid overload that has resovled. -D/w pulmonology, consult for evaluation 05/12; Back on ceftriaxone and azithro 05/12 and plan to rule out active TB with AFP x 3 before discharge -Pleaural fluid also sampled 05/13, appears transudative, results without acute/concerning findings Subjective Subjective Interval history since last seen: Patient again states that she is doing well and understands that we are awaiting final results regarding possible TB before she will be discharged. Exam Narrative Exam Narrative: Well-appearing older female sitting up in the chair no acute distress, ANO x 4, heart regular rhythm, lungs good auscultation bilaterally, abdomen soft, nontender, nondistended Objective Last Vital Signs Temp 98.4 F 05/15/25 08:19 Pulse 62 05/15/25 08:19 Resp 16 05/15/25 08:19 BP 167/69 H 05/15/25 08:19 Pulse Ox 97 05/15/25 08:19 Laboratory Results - last 24 hr 05/11/25 06:10 Phospholip A2 Rec BARRY <2 Time Spent with Patient Time Spent with Patient: >50 minutes Time was spent: preparing to see the patient(eg.review tests), obtaining and/or reviewing separately otained hiistory, ordering medications,tests, procedures, referring, communicating with other health director of patient care, indepentently interpreting results, counseling the patient and care coordination
--- NOTE | 2025-05-15 10:24 | PT.INTREAT ---
PT Notes Visit Reasons: PAF, CHF Exacerbation, Pneumonia Physical Therapy Inpatient Treatment Note Date:05/15/2025 Precautions: Fall. Airborne precautions in place for presumptive TB, AFB results still pending as of 05/15/2025 per charge Nurse Mildred. Activity as tolerated. Primary language is Cantonese but is able to speak and understand Palauan. Subjective: Hopeful that she could go home soon. Happy that family has been checking in to see her. Objective: General Observation: Seated on bedside recliner. IV access to R UE. Mental Status: Alert and oriented as to person, place, time, and purpose. Able to pay attention, focus, and respond appropriately. Able to understand and speak Palauan. Pain: None reported Vital Signs: Closely monitored by nursing staff Bed Mobility/Transfers: Minimal cueing provided for use of B hands as needed for support, movement sequence, AD management, and posture to reduce fall risk and minimize pain report. Sit to stand independent with SPC Stand to sit independent with SPC Bed to toilet seat independent with SPC Toilet seat to bed independent with SPC Gait: 60 feet inside room with no AD with supervision. 60 feet with SPC modified independent. No SOB. SaO2 at 94% on RA after walking. Denied headache, chest pain, and lightheadedness throughout session. Reciprocal swing through heel-toe gait pattern. Balance: Static Sitting: Good Dynamic Sitting: Good Static Standing: Fair Dynamic Standing: Fair THERA EX: Guided patient with safe and correct performance of seated level resistance exercises as follows-- B shoulder horizontal abduction x 10 against green TB Unilateral REECE combo/D2 flexion x 10 against green TB DBE x 5 Resisted seated clam shell x 10 against green TB Resisted seated marches x 10 against green TB DBE x 5 Resisted seated B hip abduction with knee extended x 10 with green TB Assessment: Good tolerance of today's session. Mildred continues to demonstrate improved ability, increased independence, and tolerance of today's activities with no shortness of breath nor increased report of fatigue. Oxygen saturation stayed above 90% on room air throughout. She will require PT service to facilitate return to independent ambulation using the single-point cane. Plan of Care/Treatment Plan: 1-2x/day, 7 days/week x 1 week. Plan of care has been reviewed with the ENTRY LEVEL MACHINE OPERATOR providing the service under Physical Therapy direction. Initiate Physical Therapy intervention for pain management as needed, strengthening, bed mobility, transfers, gait, stairs, balance training, and use of assistive device. DISCHARGE RECOMMENDATIONS: PT TREATMENT CODE/TIME: 05098 x 20 minutes for 1 unit, 27097 x 10 minutes for 1 unit (09:50-10:20).
[2025-05-15 11:58] VITALS: BP 141/61; PULSE 54; RESP 16; TEMP 36.8; O2SAT 98
--- NOTE | 2025-05-15 12:30 | PHA.REVIEW2 ---
Pharmacy Admission Review Admission Clinical Review Admission Pharmacy Review: Pulmonary infiltrates (Acute) Hypokalemia (Acute) Nephrotic syndrome (Acute) Anasarca associated with disorder of kidney (Acute) Chronic dyspnea (Acute) Acute on chronic anemia (Acute) New onset of congestive heart failure (Acute) Cardiorenal syndrome with renal failure (Acute) Pneumonia (Acute) Atrial fibrillation and flutter (Acute) Pleural effusion (Acute) Acute kidney injury (Acute) Iodinated Contrast Media (Iodinated Contrast- Oral and IV Dye) Allergy (Intermediate, Verified 05/07/25 17:32) RASH shellfish derived Allergy (Intermediate, Verified 05/07/25 17:32) HIVES-RETIRED hydrochlorothiazide Allergy (Unknown, Verified 05/07/25 17:32) Hives pantoprazole Allergy (Unknown, Verified 05/07/25 17:32) Hives diltiazem Adverse Reaction (Intermediate, Verified 05/07/25 17:32) ITCHY RASH verapamil Adverse Reaction (Mild, Verified 05/07/25 17:32) ITCHY RASH capsule Allergy (Severe, Uncoded 05/07/25 17:32) rash all over body Resuscitation Status Full Code Height 5 ft 2 in Weight 80.104 kg Pharmacy Admission Review Renal Dosing Renal Dosing: BUN 73 mg/dL (9-23) H 05/14/25 06:50 Creatinine 5.4 mg/dL (0.55-1.02) H* 05/14/25 06:50 Medications needing adjustments: Reviewed (CrCl 7.87 mL/min) List of meds needing interventions: Current medications are okay Anticoagulation Anticoagulation: Hgb 8.7 g/dL (11.2-15.7) L 05/13/25 08:00 Hct 26.2 % (36.0-46.0) L 05/13/25 08:00 Plt Count 250 10^3/uL (130-400) 05/13/25 08:00 INR 1.0 (0.9-1.1) 05/07/25 15:20 Creatinine 5.4 mg/dL (0.55-1.02) H* 05/14/25 06:50 DVT Prophylaxis: Reviewed Medications: Enoxaparin (30mg daily - CrCl < 30) Relevant Labs Relevant Labs: Sodium 143 mmol/L (136-145) 05/14/25 06:50 Potassium 4.1 mmol/L (3.5-5.1) 05/14/25 06:50 Chloride 110 mmol/L (98-107) H 05/14/25 06:50 Phosphorus 6.1 mg/dL (2.4-5.1) H 05/10/25 05:20 Magnesium 1.8 mg/dL (1.6-2.6) 05/10/25 05:20 Electrolytes, C-Reactive P, ESR: Reviewed (No new labs for today) DM Control DM Control: Glucose 84 mg/dL (74-106) 05/14/25 06:50 Finger Stick Blood Glucose 103 Finger Stick Blood Glucose 103 Finger Stick Blood Glucose 103 Finger Stick Blood Glucose 114 Finger Stick Blood Glucose 82 Finger Stick Blood Glucose 82 Finger Stick Blood Glucose 82 DM Control: Reviewed Insulin Dosing, Diabetic Medication: Has order for SS insulin Cardiac Review Cardiac Review: Troponin I 17 ng/L (<35) 05/07/25 18:45 NT-Pro-B Natriuret Pep 34620 pg/mL (<300) H 05/07/25 15:20 Blood Pressure 141/61 1158 Blood Pressure 167/69 0819 BP, HR, EF%: Reviewed (HR 54) List meds needing interventions: Has orders for amlodipine 10mg daily, carvedilol 12.5mg BID, losartan 150mg daily, spironolactone 25mg daily and torsemide 60mg daily QTc Review QTc: Reviewed (531 from 05/10/25) List meds needing interventions: Current medications are okay IV to PO Switch IV Medications: Reviewed (azithromycin and ceftriaxone) Home Meds Home Med List reviewed: Reviewed Relevent Home Meds Not ordered & why?: atenolol (has order for carvedilol), Flonase (PRN), furosemide (has order for torsemide), ibuprofen (PRN), multivitamin and vitamin B Current Meds Current Medication Order Review: Reviewed Pharmacy Antibiotic Review Relevant Labs: WBC 6.98 10^3/uL (4.4-10.8) 05/13/25 08:00 Temperature 36.8 C Temperature 36.9 C Microbiology 05/13/25 07:50 Anaerobic Culture - Preliminary Pleural - Right 05/13/25 07:50 Body Fluid Culture - Preliminary Pleural - Right Gram Stain - Final 05/10/25 16:00 Sputum Culture - Final Sputum Normal Danae Gram Stain - Final Pharmacy Antibiotic Activity: C/S review and Reviewed, no change Comments: Patient is on azithromycin and ceftriaxone, day 4, for pneumonia. Cultures showing no growth. Per provider waiting on negative TB results before discharging.
[2025-05-15] MEDS: Lidocaine 5% Patch 1 PATCH TP (12:46)
--- NOTE | 2025-05-15 15:37 | CMDISCH_ITS ---
Date of service: 05/15/25 Time of Service: 15:37 LACE Index Scoring Tool Questions: Length of Stay (in days): 7 - 13 Was the patient admitted via the E.D.?: Yes Comorbidities: Diabetes w/o Complication and Liver or Renal Disease E.D. Visits: 1 Answers: Total Score: 14 Risk of Readmission: High Risk Care Management Discharge Plan Reason for Hospitalization: pneumonia r/o tuberculosis, heart failure and DENISE on CKD Discharge Plan: Mildred is discharging home today with no new HH services. She declined the offer of HH PT. Mildred will f/u with pulmonology on 05/26, and with her PCP. Mildred will transport home with family and will continue per her plan of care. Patient/Family Education Needs: review of discharge instructions, activity, limitations, and discuss Ask me 3. SDOH Health Related Social Needs: Health related social needs daily activities education Health related social needs details sob on exertion an d need more health teachings Health related social needs details: sob on exertion and need more health teachings
--- NOTE | 2025-05-15 15:43 | DSE_ITS ---
Date of service: 05/15/25 Time of Service: 15:43 DS: Diagnosis Discharge Diagnosis (1) Cardiorenal syndrome with renal failure: Status: Acute (2) New onset of congestive heart failure: Status: Acute (3) Acute on chronic anemia: Status: Acute (4) Type 2 diabetes mellitus: Status: Chronic (5) Nephrotic syndrome: Status: Acute (6) Atrial fibrillation and flutter: Status: Acute (7) Essential hypertension: Status: Chronic (8) Pulmonary infiltrates: Status: Acute Discharge Plan Disposition Patient Disposition: Home Condition: Improving Discharge Details Reason For Visit: PAF, CHF Exacerbation, Pneumonia Admit Date/Time: 05/07/25 20:04 Admit Provider: Hans Bhandari Attending Provider: Hans Bhandari Primary Care Provider: Trevor Matute [facility] Hospital Course Hospital Course: 84 yo F with history of DM and HTN who presented with progressive peripheral edema and dyspnea. She was found have anasarca and acute on chronic renal failure with creatinine of 5.1 up from around 1.7 baseline, associated with acidosis. Initial impression was CHF with cardiorenal syndrome. She was started on furosemide and did diurese with resolution of her acidosis. Urine proteine/creatinine was in the nephrotic range. Case was reviewed with nephrology, who she has seen in the past for CKD. They recommended labs including light chain/SPEP/UPEP which were slightly abnormal. Hepatitis screens were c/w natural hepatitis B immunity. Membranous panel was also sent. She was transitioned to oral torsemide. She was started on calcium with meals as a phosphate binder as her calcium was slightly low. Vitamin D was also low and replaced. PTH and phosphorus were both high and calcitriol was also added. Her A1c showed her type 2 DM was at remission level of 5.3%, her blood sugars were normal to slightly elevated. She had a significant anemia and required 2 units of PRBC over the first week. Iron levels were low and replaced IV and she was give a dose of aranesp. Her echocardiogram read was delayed, but did show preserved LVEF. Her blood pressure remained high. Atenolol was replaced with carvedilol. Losartan at max dose was continued along with amlodipine. Spironolactone was added at low dose as her potassium remained low. She had bilateral upper lobe infiltrates on CT on admission. She was treated with ceftriaxone and azithromycin. It was noted the infiltrates were present on 04/03/25 CT chest done for chronic dyspnea. The antibiotics were stopped. After discussion with Dr. Gómez 05/12 the antibiotics were resumed and decision was made to rule out TB with serial AFB sputums. Thoracentesis was performed and was confirmed to be transudative. Initial AFB sample was not large enough to run, and after discussion with Dr. Gómez decision was made for patient to provide additional sample, and that she could go home if she wore mask and quarantine given her low suspicion for tuberculosis. She will need expedited follow up with [facility] nephrology on discharge. She should avoid NSAIDs. Home Meds and New Rx's Prescriptions: New carvedilol 25 mg Tablet 12.5 mg PO BID Qty: 90 0RF torsemide 20 mg Tablet 60 mg PO DAILY Qty: 90 0RF spironolactone 25 mg Tablet 25 mg PO DAILY Qty: 90 0RF Continued betamethasone dipropionate 0.05 % cream 1 applic TP BID PRN (Reason: skin irritation) Qty: 15 2RF Rx Instructions: Affected area: ankles diclofenac sodium [Voltaren] 1 % gel 2 - 4 gm TP QID PRN (Reason: pain) Qty: 100 0RF Rx Instructions: 2G for upper extremity joints; 4G for lower extremity joints Women's 50 Plus Multivitamin 400 mcg-500 mg calcium-20 mcg tablet 1 tab PO DAILY atenolol 100 mg tablet 100 mg PO DAILY Qty: 90 3RF losartan 100 mg tablet 150 mg PO DAILY Qty: 135 3RF albuterol sulfate [Ventolin HFA] 90 mcg/actuation HFA aerosol inhaler 2 puff inhalation Q6H PRN (Reason: shortness of breath or wheezing) Qty: 8.5 1RF furosemide 20 mg tablet 20 mg PO BID Qty: 180 3RF dorzolamide-timolol 10 ML drops 1 drp Ophthalmic BID Qty: 1 riboflavin (vitamin B2) [Vitamin B-2] 100 MG tablet 100 mg PO DAILY fluticasone propionate 50 mcg/actuation spray,suspension 1 - 2 spray NS DAILY PRN (Reason: nasal congestion) Qty: 47.4 3RF Rx Instructions: fish oil-dha-epa 1,200-144-216 mg capsule 1 cap PO .QD Qty: 1 Rx Instructions: OTC atorvastatin 40 mg tablet 40 mg PO DAILY Qty: 90 3RF amlodipine 10 mg tablet See Rx Instructions .ROUTE .COMPLEX Qty: 90 3RF Dose Instruction: TAKE ONE TABLET BY MOUTH EVERY DAY Rx Instructions: TAKE ONE TABLET BY MOUTH EVERY DAY Discontinued ibuprofen 600 mg tablet 600 mg PO Q8H PRN (Reason: pain) Qty: 90 0RF Discharge Instructions Stand Alone Forms: Portal Information Activity:: Activity as Tolerated Equipment/Supplies:: No Equipment Needed Diet:: As Tolerated Discharge Orders Discharge Orders: Discharge Order (Routine); Ordered 05/15/25 Ordered By: Panfilo Harmon DS: Summary Time Spent with Patient providing and/or coordinating discharge services: Greater than 30 minutes Status at Discharge Functional status at discharge: independent ambulation Overall status at discharge: patient is back to baseline Mental Status: mental status grossly normal Speech and Movement: speech and movement normal Mood: congruent mood Affect: normal affect Quality:SDOH Health Related Social Needs: Health related social needs daily activities education Health related social needs details sob on exertion an d need more health teachings Health related social needs details: sob on exertion and need more health teachings Exam Narrative Exam Narrative: Well-appearing older female sitting up in the chair no acute distress, ANO x 4, heart regular rhythm, lungs good auscultation bilaterally, abdomen soft, nontender, nondistended Psych Mental Status: mental status grossly normal Speech and Movement: speech and movement normal Mood: congruent mood Affect: normal affect DS: Data Vitals/I&O Vitals and I&O: Vital Signs Temperature 98.2 F 05/15/25 11:58 Temperature Source Temporal Artery Scan 05/15/25 11:58 Pulse 54 L 05/15/25 11:58 Pulse Rhythm Regular 05/07/25 22:16 Pulse 54 L 05/12/25 12:01 Respiratory Rate 16 05/15/25 11:58 Respiratory Effort Labored 05/07/25 22:16 Respiratory Depth Normal 05/08/25 13:33 Respiratory Pattern Tachypnea 05/08/25 13:33 Blood Pressure 141/61 H 05/15/25 11:58 Blood Pressure Mean 87 05/15/25 11:58 Blood Pressure Position Sitting 05/08/25 13:33 Pulse Oximetry 98 05/15/25 11:58 Oxygen Delivery Method Room Air 05/15/25 11:58 Oxygen Flow Rate 0 05/15/25 11:58 Fraction of Inspired Oxygen (FIO2) 05/14/25 20:10 Pain Level 0 05/15/25 08:19 Comment pt asleep 05/15/25 02:37 Intake & Output 05/14/25 05/15/25 05/15/25 17:59 05:59 17:59 Intake Total 600 / 600 580 / 1180 720 / 720 Output Total 1600 / 1600 650 / 2250 1350 / 1350 Balance -1000 / -1000 -70 / -1070 -630 / -630 Weight 165 lb 2.02 oz 176 lb 9.6 oz Intake: IV 330 / 330 Oral 600 / 600 250 / 850 720 / 720 Output: Urine 1600 / 1600 650 / 2250 1350 / 1350 Other: Urine Color Pale Straw Pale Urine Appearance Clear Cloudy Clear Urine Odor None Normal None Stool Size Small Moderate Stool Characteristics Soft Soft Formed Formed Data Completed and Pending Pending Labs at Discharge: 05/07/25 05/07/25 05/07/25 15:20 16:12 16:18 WBC 6.58 RBC 2.42 L Hgb 7.3 L Hct 22.5 L MCV 93 MCH 30.2 MCHC 32.4 RDW 13.6 Plt Count 211 MPV 10.1 Immature Gran % 0.3 Neutrophils % 62.0 Lymphocytes % 24.3 Monocytes % 7.8 Eosinophils % 4.7 Basophils % 0.9 Nucleated RBC % 0.0 Absolute Neutrophils 4.08 Absolute Lymphocytes 1.60 Absolute Monocytes 0.51 Absolute Eosinophils 0.31 Absolute Basophils 0.06 PT 9.9 INR 1.0 APTT 25.9 VBG pH 7.32 VBG pCO2 32 L VBG pO2 69 VBG HCO3 16 L VBG Total CO2 16 L VBG O2 Saturation 95 VBG Base Excess -10 L VBG Lactate Sodium 141 Potassium 4.6 Chloride 113 H Carbon Dioxide 16.0 L Anion Gap 12 H BUN 62 H Creatinine 4.8 H* Est GFR (CKD-EPI 2020) 8.78 Glucose 79 Calcium 8.0 L Phosphorus Magnesium 2.0 Iron TIBC Transferrin % Sat Total Bilirubin 0.20 AST 35 ALT 14 Alkaline Phosphatase 96 Troponin I 15 15 NT-Pro-B Natriuret Pep 67395 H Total Protein 6.8 Total Protein (PEP) Albumin 3.3 L Albumin % (PEP) Albumin (PEP) Njjyc-6-Mpenzyyhp Imanp-0-Vtmdhzyqq (%) Kqpsu-3-Jflilnkkc Qfaue-0-Yutgzvrbt (%) Beta Globulins (%) Beta Gamma Globulin Gamma Globulins Gamma Globulins (%) M-Anthony M-Anthony % PEP Comment Triglycerides Total Cholesterol LDL Cholesterol, Calc HDL Cholesterol 25-OH Vitamin D Total TSH 6.78 H Free T4 0.99 PTH Intact Urine Color Urine Clarity Urine pH Ur Specific [place] Urine Protein Urine Ketones Urine Blood Urine Nitrite Urine Bilirubin Urine Urobilinogen Ur Leukocyte Esterase Urine RBC Urine WBC Ur Epithelial Cells Urine Crystals Urine Bacteria Urine Mucus Ur Culture Indicated? Ur Random Creatinine U Random Total Protein U [place] Prot/Creat Ratio U Total Protein mg/dL Urine Glucose Urine Albumin (PEP) Urine Albumin (%) Urine Globulin EP Urine Globulin U PEP M-Anthony U PEP M-Anthony % Fluid Type Fluid Source Fluid Color Fluid Clarity Fluid WBC Fld Polynuclear WBCs % Fluid Mononuclear Cell Fluid Total Protein Fluid LDH Pleur Adenosine Deamin Serum Immunofixation Urine Immunofixation Urine GENARO Comments Free [place] LC, Quant Free Lambda LC, Quant Free [place]/Lambda Ratio COVID-19 Source SARS-CoV-2 (PCR) Hep Bs Antigen Hep Bs Antibody Hep Bs Antibody, Quant Hep B Core Total Ab Hepatitis C Antibody Influenza Type A (PCR) Influenza Type B (PCR) RSV (PCR) AFB Smear AFB Culture Final Res Phospholip A2 Rec BARRY Path Cons Comment Add-On Test Request ABO/Rh B Positive Antibody Screen NEGATIVE Crossmatch See Detail 05/07/25 05/07/25 05/07/25 17:18 17:28 18:45 WBC RBC Hgb Hct MCV MCH MCHC RDW Plt Count MPV Immature Gran % Neutrophils % Lymphocytes % Monocytes % Eosinophils % Basophils % Nucleated RBC % Absolute Neutrophils Absolute Lymphocytes Absolute Monocytes Absolute Eosinophils Absolute Basophils PT INR APTT VBG pH VBG pCO2 VBG pO2 VBG HCO3 VBG Total CO2 VBG O2 Saturation VBG Base Excess VBG Lactate Sodium Potassium Chloride Carbon Dioxide Anion Gap BUN Creatinine Est GFR (CKD-EPI 2020) Glucose Calcium Phosphorus Magnesium Iron TIBC Transferrin % Sat Total Bilirubin AST ALT Alkaline Phosphatase Troponin I 17 NT-Pro-B Natriuret Pep Total Protein Total Protein (PEP) Albumin Albumin % (PEP) Albumin (PEP) Ssdro-1-Acrquxqkg Ffmqc-6-Gjykxxdpb (%) Bghze-9-Minebqpry Ixekx-5-Xemhkligd (%) Beta Globulins (%) Beta Gamma Globulin Gamma Globulins Gamma Globulins (%) M-Anthony M-Anthony % PEP Comment Triglycerides Total Cholesterol LDL Cholesterol, Calc HDL Cholesterol 25-OH Vitamin D Total TSH Free T4 PTH Intact Urine Color Yellow Urine Clarity Clear Urine pH 6.0 Ur Specific [place] 1.015 Urine Protein >=300 H Urine Ketones Negative Urine Blood Trace-intact H Urine Nitrite Negative Urine Bilirubin Negative Urine Urobilinogen 0.2 Ur Leukocyte Esterase Negative Urine RBC 0-2 Urine WBC Negative Ur Epithelial Cells Rare Urine Crystals Negative Urine Bacteria Negative Urine Mucus Trace Ur Culture Indicated? No Ur Random Creatinine U Random Total Protein U [place] Prot/Creat Ratio U Total Protein mg/dL Urine Glucose Negative Urine Albumin (PEP) Urine Albumin (%) Urine Globulin EP Urine Globulin U PEP M-Anthony U PEP M-Anthony % Fluid Type Fluid Source Fluid Color Fluid Clarity Fluid WBC Fld Polynuclear WBCs % Fluid Mononuclear Cell Fluid Total Protein Fluid LDH Pleur Adenosine Deamin Serum Immunofixation Urine Immunofixation Urine GENARO Comments Free [place] LC, Quant Free Lambda LC, Quant Free [place]/Lambda Ratio COVID-19 Source Nasopharynx SARS-CoV-2 (PCR) Negative Hep Bs Antigen Hep Bs Antibody Hep Bs Antibody, Quant Hep B Core Total Ab Hepatitis C Antibody Influenza Type A (PCR) Negative Influenza Type B (PCR) Negative RSV (PCR) Negative AFB Smear AFB Culture Final Res Phospholip A2 Rec BARRY Path Cons Comment Add-On Test Request ABO/Rh Antibody Screen Crossmatch 05/07/25 05/08/25 05/08/25 23:29 04:45 16:00 WBC 5.66 RBC 2.23 L Hgb 6.9 L* 7.7 L Hct 20.6 L* 23.1 L MCV 92 MCH 30.9 MCHC 33.5 RDW 13.3 Plt Count 210 MPV 10.5 Immature Gran % Neutrophils % Lymphocytes % Monocytes % Eosinophils % Basophils % Nucleated RBC % Absolute Neutrophils Absolute Lymphocytes Absolute Monocytes Absolute Eosinophils Absolute Basophils PT INR APTT VBG pH 7.27 L VBG pCO2 35 L VBG pO2 155 VBG HCO3 16 L VBG Total CO2 16 L VBG O2 Saturation VBG Base Excess -11 L VBG Lactate 0.5 Sodium 143 146 H 144 Potassium 3.8 3.7 3.8 Chloride 113 H 114 H 112 H Carbon Dioxide 16.9 L 15.7 L 17.5 L Anion Gap 13.1 H 16.3 H 14.5 H BUN 63 H 63 H 63 H Creatinine 4.9 H* 5.0 H* 5.1 H* Est GFR (CKD-EPI 2020) 8.53 8.37 8.05 Glucose 106 77 107 H Calcium 8.1 L 8.3 8.2 L Phosphorus 6.5 H Magnesium 2.0 Iron TIBC Transferrin % Sat Total Bilirubin 0.20 AST 22 ALT 13 Alkaline Phosphatase 88 Troponin I NT-Pro-B Natriuret Pep Total Protein 6.0 Total Protein (PEP) Albumin 3.2 L 2.9 L Albumin % (PEP) Albumin (PEP) Nqpvf-3-Wsftwfbkc Podyq-3-Fqddkhhal (%) Jbeul-8-Hncfrterl Ivink-4-Rgxuzjgqg (%) Beta Globulins (%) Beta Gamma Globulin Gamma Globulins Gamma Globulins (%) M-Anthony M-Anthony % PEP Comment Triglycerides Total Cholesterol LDL Cholesterol, Calc HDL Cholesterol 25-OH Vitamin D Total TSH Free T4 PTH Intact Urine Color Urine Clarity Urine pH Ur Specific [place] Urine Protein Urine Ketones Urine Blood Urine Nitrite Urine Bilirubin Urine Urobilinogen Ur Leukocyte Esterase Urine RBC Urine WBC Ur Epithelial Cells Urine Crystals Urine Bacteria Urine Mucus Ur Culture Indicated? Ur Random Creatinine U Random Total Protein U [place] Prot/Creat Ratio U Total Protein mg/dL Urine Glucose Urine Albumin (PEP) Urine Albumin (%) Urine Globulin EP Urine Globulin U PEP M-Anthony U PEP M-Anthony % Fluid Type Fluid Source Fluid Color Fluid Clarity Fluid WBC Fld Polynuclear WBCs % Fluid Mononuclear Cell Fluid Total Protein Fluid LDH Pleur Adenosine Deamin Serum Immunofixation Urine Immunofixation Urine GENARO Comments Free [place] LC, Quant Free Lambda LC, Quant Free [place]/Lambda Ratio COVID-19 Source SARS-CoV-2 (PCR) Hep Bs Antigen Hep Bs Antibody Hep Bs Antibody, Quant Hep B Core Total Ab Hepatitis C Antibody Influenza Type A (PCR) Influenza Type B (PCR) RSV (PCR) AFB Smear AFB Culture Final Res Phospholip A2 Rec BARRY Path Cons Comment Add-On Test Request ABO/Rh Antibody Screen Crossmatch 05/09/25 05/09/25 05/09/25 05:55 09:10 16:00 WBC 7.36 RBC 2.32 L Hgb 7.2 L Hct 21.4 L MCV 92 MCH 31.0 MCHC 33.6 RDW 13.5 Plt Count 220 MPV 10.5 Immature Gran % Neutrophils % Lymphocytes % Monocytes % Eosinophils % Basophils % Nucleated RBC % Absolute Neutrophils Absolute Lymphocytes Absolute Monocytes Absolute Eosinophils Absolute Basophils PT INR APTT VBG pH 7.37 VBG pCO2 31 L VBG pO2 45 VBG HCO3 18 L VBG Total CO2 17 L VBG O2 Saturation 82 VBG Base Excess -8 L VBG Lactate Sodium 144 Potassium 3.6 Chloride 114 H Carbon Dioxide 16.7 L Anion Gap 13.3 H BUN 59 H Creatinine 5.1 H* Est GFR (CKD-EPI 2020) 8.12 Glucose 84 Calcium 8.2 L Phosphorus Magnesium 2.0 Iron 27 L TIBC 189 L Transferrin % Sat 14 L Total Bilirubin 0.30 AST 22 ALT 11 Alkaline Phosphatase 86 Troponin I NT-Pro-B Natriuret Pep Total Protein 6.0 Total Protein (PEP) Albumin 2.8 L Albumin % (PEP) Albumin (PEP) Qtmmi-5-Mkzzvqpgh Misfg-6-Jotwogkxq (%) Koqgh-3-Dxkbgtsag Iarkc-6-Bktcmjsvb (%) Beta Globulins (%) Beta Gamma Globulin Gamma Globulins Gamma Globulins (%) M-Anthony M-Anthony % PEP Comment Triglycerides Total Cholesterol LDL Cholesterol, Calc HDL Cholesterol 25-OH Vitamin D Total TSH Free T4 PTH Intact Urine Color Urine Clarity Urine pH Ur Specific [place] Urine Protein Urine Ketones Urine Blood Urine Nitrite Urine Bilirubin Urine Urobilinogen Ur Leukocyte Esterase Urine RBC Urine WBC Ur Epithelial Cells Urine Crystals Urine Bacteria Urine Mucus Ur Culture Indicated? Ur Random Creatinine 26.70 U Random Total Protein 445.8 H U [place] Prot/Creat Ratio 16.69 U Total Protein mg/dL Urine Glucose Urine Albumin (PEP) Urine Albumin (%) Urine Globulin EP Urine Globulin U PEP M-Anthony U PEP M-Anthony % Fluid Type Fluid Source Fluid Color Fluid Clarity Fluid WBC Fld Polynuclear WBCs % Fluid Mononuclear Cell Fluid Total Protein Fluid LDH Pleur Adenosine Deamin Serum Immunofixation Urine Immunofixation Urine GENARO Comments Free [place] LC, Quant Free Lambda LC, Quant Free [place]/Lambda Ratio COVID-19 Source SARS-CoV-2 (PCR) Hep Bs Antigen Hep Bs Antibody Hep Bs Antibody, Quant Hep B Core Total Ab Hepatitis C Antibody Influenza Type A (PCR) Influenza Type B (PCR) RSV (PCR) AFB Smear AFB Culture Final Res Phospholip A2 Rec BARRY Path Cons Comment Add-On Test Request DONE ABO/Rh Antibody Screen Crossmatch 05/09/25 05/10/25 05/10/25 20:05 05:20 21:33 WBC 7.15 RBC 2.36 L Hgb 7.1 L Hct 21.8 L MCV 92 MCH 30.1 MCHC 32.6 RDW 13.5 Plt Count 217 MPV 10.4 Immature Gran % Neutrophils % Lymphocytes % Monocytes % Eosinophils % Basophils % Nucleated RBC % Absolute Neutrophils Absolute Lymphocytes Absolute Monocytes Absolute Eosinophils Absolute Basophils PT INR APTT VBG pH VBG pCO2 VBG pO2 VBG HCO3 VBG Total CO2 VBG O2 Saturation VBG Base Excess VBG Lactate Sodium 144 145 Potassium 3.7 3.4 L Chloride 113 H 113 H Carbon Dioxide 18.6 L 18.2 L Anion Gap 12.4 H 13.8 H BUN 59 H 57 H Creatinine 4.9 H* 5.0 H* Est GFR (CKD-EPI 2020) 8.47 8.31 Glucose 105 83 Calcium 8.4 8.3 Phosphorus 6.1 H Magnesium 1.9 1.8 Iron TIBC Transferrin % Sat Total Bilirubin 0.40 0.40 AST 24 21 ALT 11 9 L Alkaline Phosphatase 89 84 Troponin I NT-Pro-B Natriuret Pep Total Protein 6.1 5.8 Total Protein (PEP) Albumin 2.9 L 2.8 L Albumin % (PEP) Albumin (PEP) Hybgi-8-Nfxnpmfxa Rmbsq-0-Nuekakjcf (%) Daizr-8-Axmqddkyb Szxrf-3-Lhgdynwrh (%) Beta Globulins (%) Beta Gamma Globulin Gamma Globulins Gamma Globulins (%) M-Anthony M-Anthony % PEP Comment Triglycerides Total Cholesterol LDL Cholesterol, Calc HDL Cholesterol 25-OH Vitamin D Total 14 L TSH Free T4 PTH Intact 227 H Urine Color Urine Clarity Urine pH Ur Specific [place] Urine Protein Urine Ketones Urine Blood Urine Nitrite Urine Bilirubin Urine Urobilinogen Ur Leukocyte Esterase Urine RBC Urine WBC Ur Epithelial Cells Urine Crystals Urine Bacteria Urine Mucus Ur Culture Indicated? Ur Random Creatinine U Random Total Protein U [place] Prot/Creat Ratio U Total Protein mg/dL 313 Urine Glucose Urine Albumin (PEP) 152 Urine Albumin (%) 48.5 Urine Globulin EP 161 Urine Globulin 51.5 U PEP M-Anthony 11 U PEP M-Anthony % 3.5 Fluid Type Fluid Source Fluid Color Fluid Clarity Fluid WBC Fld Polynuclear WBCs % Fluid Mononuclear Cell Fluid Total Protein Fluid LDH Pleur Adenosine Deamin Serum Immunofixation Urine Immunofixation (See Note) Urine GENARO Comments See Comment Free [place] LC, Quant Free [place]ambda LC, Quant Free [place]/Lambda Ratio COVID-19 Source SARS-CoV-2 (PCR) Hep Bs Antigen Hep Bs Antibody Hep Bs Antibody, Quant Hep B Core Total Ab Hepatitis C Antibody Influenza Type A (PCR) Influenza Type B (PCR) RSV (PCR) AFB Smear AFB Culture Final Res Phospholip A2 Rec BARRY Path Cons Comment Add-On Test Request DONE ABO/Rh Antibody Screen Crossmatch 05/11/25 05/11/25 05/12/25 06:10 09:16 05:30 WBC 6.33 RBC 2.28 L Hgb 7.0 L* 7.8 L Hct 21.0 L 23.4 L MCV 92 MCH 30.7 MCHC 33.3 RDW 13.2 Plt Count 182 MPV 10.7 Immature Gran % Neutrophils % Lymphocytes % Monocytes % Eosinophils % Basophils % Nucleated RBC % Absolute Neutrophils Absolute Lymphocytes Absolute Monocytes Absolute Eosinophils Absolute Basophils PT INR APTT VBG pH VBG pCO2 VBG pO2 VBG HCO3 VBG Total CO2 VBG O2 Saturation VBG Base Excess VBG Lactate Sodium 144 144 Potassium 3.6 3.9 Chloride 113 H 111 H Carbon Dioxide 17.7 L 21.0 Anion Gap 13.3 H 12 H BUN 65 H 76 H Creatinine 5.1 H* 5.1 H* Est GFR (CKD-EPI 2020) 8.14 8.03 Glucose 75 89 Calcium 8.2 L 7.9 L Phosphorus Magnesium Iron TIBC Transferrin % Sat Total Bilirubin AST ALT Alkaline Phosphatase Troponin I NT-Pro-B Natriuret Pep Total Protein Total Protein (PEP) 5.3 L Albumin Albumin % (PEP) 35.0 L Albumin (PEP) 1.9 L Abakw-6-Cbkvxxgpn 0.50 H Thtmh-3-Pepooutaw (%) 8.7 H Qpdpd-5-Yjqkscywt 1.10 H Sjkdh-4-Omhoyyhhm (%) 20.3 H Beta Globulins (%) 15.1 H Beta Gamma Globulin 0.80 Gamma Globulins 1.10 Gamma Globulins (%) 20.9 H M-Anthony Not Applicable M-Anthony % Not Applicable PEP Comment (See Note) Triglycerides 131 Total Cholesterol 102 LDL Cholesterol, Calc 36.9 HDL Cholesterol 39 L 25-OH Vitamin D Total TSH Free T4 PTH Intact Urine Color Urine Clarity Urine pH Ur Specific [place] Urine Protein Urine Ketones Urine Blood Urine Nitrite Urine Bilirubin Urine Urobilinogen Ur Leukocyte Esterase Urine RBC Urine WBC Ur Epithelial Cells Urine Crystals Urine Bacteria Urine Mucus Ur Culture Indicated? Ur Random Creatinine U Random Total Protein U [place] Prot/Creat Ratio U Total Protein mg/dL Urine Glucose Urine Albumin (PEP) Urine Albumin (%) Urine Globulin EP Urine Globulin U PEP M-Anthony U PEP M-Anthony % Fluid Type Fluid Source Fluid Color Fluid Clarity Fluid WBC Fld Polynuclear WBCs % Fluid Mononuclear Cell Fluid Total Protein Fluid LDH Pleur Adenosine Deamin Serum Immunofixation (See Note) Urine Immunofixation Urine GENARO Comments Free [place] LC, Quant 16.96 H Free [place] LC, Quant 15.14 H Free [place]/Lambda Ratio 1.12 COVID-19 Source SARS-CoV-2 (PCR) Hep Bs Antigen Negative Hep Bs Antibody Positive Hep Bs Antibody, Quant 34.8 Hep B Core Total Ab Positive A Hepatitis C Antibody Negative Influenza Type A (PCR) Influenza Type B (PCR) RSV (PCR) AFB Smear AFB Culture Final Res Phospholip A2 Rec BARRY <2 Path Cons Comment Add-On Test Request ABO/Rh B Positive Antibody Screen NEGATIVE Crossmatch See Detail 05/12/25 05/12/25 05/13/25 16:00 22:00 07:50 WBC RBC Hgb Hct MCV MCH MCHC RDW Plt Count MPV Immature Gran % Neutrophils % Lymphocytes % Monocytes % Eosinophils % Basophils % Nucleated RBC % Absolute Neutrophils Absolute Lymphocytes Absolute Monocytes Absolute Eosinophils Absolute Basophils PT INR APTT VBG pH VBG pCO2 VBG pO2 VBG HCO3 VBG Total CO2 VBG O2 Saturation VBG Base Excess VBG Lactate Sodium Potassium Chloride Carbon Dioxide Anion Gap BUN Creatinine Est GFR (CKD-EPI 2020) Glucose Calcium Phosphorus Magnesium Iron TIBC Transferrin % Sat Total Bilirubin AST ALT Alkaline Phosphatase Troponin I NT-Pro-B Natriuret Pep Total Protein Total Protein (PEP) Albumin Albumin % (PEP) Albumin (PEP) Lriok-1-Jzbbcvpfq Nkeap-7-Brypzwtpw (%) Hayrt-1-Rapxjigxt Anhhe-2-Efyvckfqf (%) Beta Globulins (%) Beta Gamma Globulin Gamma Globulins Gamma Globulins (%) M-Anthony M-Anthony % PEP Comment Triglycerides Total Cholesterol LDL Cholesterol, Calc HDL Cholesterol 25-OH Vitamin D Total TSH Free T4 PTH Intact Urine Color Urine Clarity Urine pH Ur Specific [place] Urine Protein Urine Ketones Urine Blood Urine Nitrite Urine Bilirubin Urine Urobilinogen Ur Leukocyte Esterase Urine RBC Urine WBC Ur Epithelial Cells Urine Crystals Urine Bacteria Urine Mucus Ur Culture Indicated? Ur Random Creatinine U Random Total Protein U [place] Prot/Creat Ratio U Total Protein mg/dL Urine Glucose Urine Albumin (PEP) Urine Albumin (%) Urine Globulin EP Urine Globulin U PEP M-Anthony U PEP M-Anthony % Fluid Type Pleural Fluid Source Pleural Fluid Color Yellow Fluid Clarity Fluid WBC 645 Fld Polynuclear WBCs % 9 Fluid Mononuclear Cell 91 Fluid Total Protein 1.3 Fluid LDH 85 Pleur Adenosine Deamin Pending Serum Immunofixation Urine Immunofixation Urine GENARO Comments Free [place] LC, Quant Free [place]ambda LC, Quant Free [place]/Lambda Ratio COVID-19 Source SARS-CoV-2 (PCR) Hep Bs Antigen Hep Bs Antibody Hep Bs Antibody, Quant Hep B Core Total Ab Hepatitis C Antibody Influenza Type A (PCR) Influenza Type B (PCR) RSV (PCR) AFB Smear Pending Cancelled Pending AFB Culture Final Res Pending Cancelled Pending Phospholip A2 Rec BARRY Path Cons Comment SEE COMMENT Add-On Test Request ABO/Rh Antibody Screen Crossmatch 05/13/25 05/13/25 05/14/25 08:00 08:30 06:50 WBC 6.98 RBC 2.89 L Hgb 8.7 L Hct 26.2 L MCV 91 MCH 30.1 MCHC 33.2 RDW 14.6 Plt Count 250 MPV 10.3 Immature Gran % Neutrophils % Lymphocytes % Monocytes % Eosinophils % Basophils % Nucleated RBC % Absolute Neutrophils Absolute Lymphocytes Absolute Monocytes Absolute Eosinophils Absolute Basophils PT INR APTT VBG pH VBG pCO2 VBG pO2 VBG HCO3 VBG Total CO2 VBG O2 Saturation VBG Base Excess VBG Lactate Sodium 145 143 Potassium 4.2 4.1 Chloride 112 H 110 H Carbon Dioxide 21.1 20.7 Anion Gap 11.9 H 12.3 H BUN 75 H 73 H Creatinine 5.2 H* 5.4 H* Est GFR (CKD-EPI 2020) 7.98 7.65 Glucose 88 84 Calcium 8.0 L 7.8 L Phosphorus Magnesium Iron TIBC Transferrin % Sat Total Bilirubin AST ALT Alkaline Phosphatase Troponin I NT-Pro-B Natriuret Pep Total Protein Total Protein (PEP) Albumin Albumin % (PEP) Albumin (PEP) Agkgo-7-Ctdrtnbgv Zovdv-3-Mmxcfwrtq (%) Denhq-3-Yjwckoorc Qzalc-9-Bwdgabvyc (%) Beta Globulins (%) Beta Gamma Globulin Gamma Globulins Gamma Globulins (%) M-Anthony M-Anthony % PEP Comment Triglycerides Total Cholesterol LDL Cholesterol, Calc HDL Cholesterol 25-OH Vitamin D Total TSH Free T4 PTH Intact Urine Color Urine Clarity Urine pH Ur Specific [place] Urine Protein Urine Ketones Urine Blood Urine Nitrite Urine Bilirubin Urine Urobilinogen Ur Leukocyte Esterase Urine RBC Urine WBC Ur Epithelial Cells Urine Crystals Urine Bacteria Urine Mucus Ur Culture Indicated? Ur Random Creatinine U Random Total Protein U [place] Prot/Creat Ratio U Total Protein mg/dL Urine Glucose Urine Albumin (PEP) Urine Albumin (%) Urine Globulin EP Urine Globulin U PEP M-Anthony U PEP M-Anthony % Fluid Type Fluid Source Fluid Color Fluid Clarity Fluid WBC Fld Polynuclear WBCs % Fluid Mononuclear Cell Fluid Total Protein Fluid LDH Pleur Adenosine Deamin Serum Immunofixation Urine Immunofixation Urine GENRAO Comments Free [place] LC, Quant Free Lambda LC, Quant Free [place]/Lambda Ratio COVID-19 Source SARS-CoV-2 (PCR) Hep Bs Antigen Hep Bs Antibody Hep Bs Antibody, Quant Hep B Core Total Ab Hepatitis C Antibody Influenza Type A (PCR) Influenza Type B (PCR) RSV (PCR) AFB Smear Cancelled AFB Culture Final Res Cancelled Phospholip A2 Rec BARRY Path Cons Comment Add-On Test Request ABO/Rh Antibody Screen Crossmatch 05/15/25 14:25 WBC RBC Hgb Hct MCV MCH MCHC RDW Plt Count MPV Immature Gran % Neutrophils % Lymphocytes % Monocytes % Eosinophils % Basophils % Nucleated RBC % Absolute Neutrophils Absolute Lymphocytes Absolute Monocytes Absolute Eosinophils Absolute Basophils PT INR APTT VBG pH VBG pCO2 VBG pO2 VBG HCO3 VBG Total CO2 VBG O2 Saturation VBG Base Excess VBG Lactate Sodium Potassium Chloride Carbon Dioxide Anion Gap BUN Creatinine Est GFR (CKD-EPI 2020) Glucose Calcium Phosphorus Magnesium Iron TIBC Transferrin % Sat Total Bilirubin AST ALT Alkaline Phosphatase Troponin I NT-Pro-B Natriuret Pep Total Protein Total Protein (PEP) Albumin Albumin % (PEP) Albumin (PEP) Dktmx-4-Levyyovlq Byovo-5-Rguufdhag (%) Alzvy-6-Qtjmodkyc Rompj-2-Wdzxpdogr (%) Beta Globulins (%) Beta Gamma Globulin Gamma Globulins Gamma Globulins (%) M-Anthony M-Anthony % PEP Comment Triglycerides Total Cholesterol LDL Cholesterol, Calc HDL Cholesterol 25-OH Vitamin D Total TSH Free T4 PTH Intact Urine Color Urine Clarity Urine pH Ur Specific [place] Urine Protein Urine Ketones Urine Blood Urine Nitrite Urine Bilirubin Urine Urobilinogen Ur Leukocyte Esterase Urine RBC Urine WBC Ur Epithelial Cells Urine Crystals Urine Bacteria Urine Mucus Ur Culture Indicated? Ur Random Creatinine U Random Total Protein U [place] Prot/Creat Ratio U Total Protein mg/dL Urine Glucose Urine Albumin (PEP) Urine Albumin (%) Urine Globulin EP Urine Globulin U PEP M-nAthony U PEP M-Anthony % Fluid Type Fluid Source Fluid Color Fluid Clarity Fluid WBC Fld Polynuclear WBCs % Fluid Mononuclear Cell Fluid Total Protein Fluid LDH Pleur Adenosine Deamin Serum Immunofixation Urine Immunofixation Urine GENARO Comments Free [place] LC, Quant Free Lambda LC, Quant Free [place]/Lambda Ratio COVID-19 Source SARS-CoV-2 (PCR) Hep Bs Antigen Hep Bs Antibody Hep Bs Antibody, Quant Hep B Core Total Ab Hepatitis C Antibody Influenza Type A (PCR) Influenza Type B (PCR) RSV (PCR) AFB Smear Pending AFB Culture Final Res Pending Phospholip A2 Rec BARRY Path Cons Comment Add-On Test Request ABO/Rh Antibody Screen Crossmatch Preliminary micro results at discharge 05/13/25 07:50 Pleural - Right Anaerobic Culture - Preliminary 05/13/25 07:50 Pleural - Right Body Fluid Culture - Preliminary PFSH All Active Problems (Updated 05/15/25 @ 15:40 by Panfilo Harmon MD) Pulmonary infiltrates (Acute) Hypokalemia (Acute) Nephrotic syndrome (Acute) Anasarca associated with disorder of kidney (Acute) Chronic dyspnea (Acute) Acute on chronic anemia (Acute) New onset of congestive heart failure (Acute) Cardiorenal syndrome with renal failure (Acute) Pneumonia (Acute) Atrial fibrillation and flutter (Acute) Pleural effusion (Acute) Acute kidney injury (Acute) Pulmonary edema (Acute) Polyarthritis (Acute) Myopic macular degeneration of left eye (Chronic) 11/23/2022 - [place] - 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 - [place] - Toxoplasmosis retinopathy of right eye Diabetic nephropathy (Chronic 04/20/22) Osteoarthritis of hands, bilateral (Chronic) COVID-19 vaccination refused (Acute) Osteopenia (Chronic) 02/16/21 DEXA: femoral neck T-score = -1.3; WHO FRAX: major osteoporotic fx 6.6% & hip fx 1.3% --> Ca & vit D supplementation Proteinuria, unspecified (Acute) Chronic kidney disease, stage 3 unspecified (Chronic) Anisometropia and aniseikonia (Acute) Essential hypertension (Chronic 01/09/13) Immunization not carried out because of patient refusal (Chronic) Thyroid nodule (Chronic 01/29/19) [facility] Anxiety (Chronic) Insomnia (Acute) Dizziness (Acute) Primary open-angle glaucoma, right eye, indeterminate stage (Chronic) Primary open-angle glaucoma, left eye, indeterminate stage (Chronic) Gastroesophageal reflux disease (Chronic) [place]'s esophagus (Acute) Dr Lim: EGD 07/12/09 frq q5y Type 2 diabetes mellitus (Chronic) controlled by diet, does not test BS daily Chronic rhinitis (Acute 02/05/14) Anemia (Acute 07/05/11) chronic Migraine without aura (Chronic 05/10/11) Psoriasis (Chronic) Other and unspecified hyperlipidemia (Chronic 01/09/13) 01/2017 labwork: 10-year ASCVD risk = ~22.7% --> pt declines statins Obstructive sleep apnea (Chronic 12/02/15) [facility] Sleep Medicine cpap. Medical History (Updated 05/15/25 @ 15:40 by Panfilo Harmon MD) Enlarged lymph node in neck (09/09/20) [facility]: benign bx Posterior subcapsular age-related cataract, right eye Nuclear sclerotic cataract of right eye Posterior subcapsular age-related cataract of left eye Complicated bereavement Adenoma of large intestine (01/15/13) tubular adenoma 07/18/[address] Hadley Gout Surgical History History of cataract surgery Nuclear sclerotic cataract of left eye Cortical cataract of left eye H/O lithotripsy History of ear surgery Per pt. daughter pt. had a metal plate put on the side of her head r/t to inner ear issue. Pt. daughter states this was done 40 years ago. egd (07/19/09) and 01/23/08 Colonoscopy - MAC (07/18/17) Family History Mother , kidney disease at age 59. No problems noted. Father , Complications of HTN at age 77. No problems noted. Social History Smoking/Tobacco Use Status: Never Second Hand Exposure: No Smoking risk assessment performed?: Yes Alcohol Intake: never Drug use: Never Substance use type: does not use Adopted: No Caregiver/Support person: No Foster care: No Household members: none Housing: house Number of Children: 4 number of grandchildren: 6 Communication Needs: None and Language Barriers Education Level: middle school Do you need help understanding health information?: Always current occupation: retired Pets and animals: No Sexually active: No Do you think of yourself as: straight/heterosexual Current gender identity: female What is your relationship status?: How often do you talk on the phone with friends or family?: three or more times per week How often do you get together with friends or relatives?: three or more times per week Do you belong to any clubs or organized social groups?: no Panel score (0-1 are the most socially isolated patients): 1 What type of physical activity do you participate in: other Details: ski machine Duration: 15-30 minutes/day Frequency: 5-6 times per week Yesi/Buddhism: Confucianist Special yesi needs: No Seatbelt use: always Helmet use: No (N/A) Drive intox or ride w/intox pile driver: No Additional Social history: pt. daughter salvatore answering for pt. Time Spent with Patient Time Spent with Patient: <45 minutes Time was spent: preparing to see the patient(eg.review tests), obtaining and/or reviewing separately otained hiistory, ordering medications,tests, procedures, referring, communicating with other health floor care technician, indepentently interpreting results, counseling the patient and care coordination
== END 2025-05-15 17:03 | disposition home or self-care (01) | DRG 291 ==
LOC: ER 18:59 → MS 22:07 → ICU 05-08 13:07 → MS 05-12 22:49
PROVIDERS: Family Medicine; Hospitalist; Internal Medicine Pulmonary Disease; Admitting Provider Family Medicine; Emergency Provider Emergency Medicine; PCP Family Medicine; Responsible Provider Family Medicine; Visit Provider Family Medicine
DX: J18.9 Pneumonia, unspecified organism (principal); N17.9 Acute kidney failure, unspecified; N18.30 Chronic kidney disease, stage 3 unspecified; E11.22 Type 2 diabetes mellitus with diabetic chronic kidney disease; G47.33 Obstructive sleep apnea (adult) (pediatric); I13.0 Hypertensive heart and chronic kidney disease with heart failure and stage 1 through stage 4 chronic kidney disease, or unspecified chronic kidney disease; E87.6 Hypokalemia; I50.31 Acute diastolic (congestive) heart failure; I48.92 Unspecified atrial flutter; J91.8 Pleural effusion in other conditions classified elsewhere; N04.9 Nephrotic syndrome with unspecified morphologic changes; E87.20 Acidosis, unspecified; M15.9 Polyosteoarthritis, unspecified; M85.80 Other specified disorders of bone density and structure, unspecified site; E04.1 Nontoxic single thyroid nodule; G43.009 Migraine without aura, not intractable, without status migrainosus; K21.9 Gastro-esophageal reflux disease without esophagitis; L40.9 Psoriasis, unspecified; G47.00 Insomnia, unspecified; D63.1 Anemia in chronic kidney disease; E83.51 Hypocalcemia; R09.02 Hypoxemia; I48.0 Paroxysmal atrial fibrillation
CPT/HCPCS: 36410; 32554; 00123; 36415; 36430; 36592; 51702; 71250; 76604; 80048; 80053; 80061; 80069; 82306; 82805; 83520; 84156; 84166; 84311; 85027; 86335; 86704; 86706; 86803; 86850; 86900; 86901; 86920; 87040; 87116; 87206; 87340; 87637; 93005; 96365; 96367; 96375; 97110; 97162; 97530; 99222; 99231; 99232; 99285; J1650; 71045; 71046; 74176; 78582; 81003; 81015; 82565; 83540; 83550; 83605; 83615; 83735; 83880; 83883; 83970; 84100; 84157; 84165; 84439; 84443; 84484; 85014; 85018; 85025; 85610; 85730; 86320; 87070; 87075; 87205; 88104; 89051; 93010; 93306; 99223; 99233; 99238; J0456; J0696; J0881; J1437; J1815; J1938; J3480; J3490; P9016

== ENCOUNTER → 2025-05-12 13:00 | Outpatient (BNVA) | payer MEDICARE, MEDICAID, SELFPAY | PROVIDERS: PCP Family Medicine; Referring Provider Family Medicine; Visit Provider Internal Medicine Pulmonary Disease ==

== ENCOUNTER → 2025-05-26 10:25 | Outpatient (BNVA) | payer MEDICARE, MEDICAID, SELFPAY | PROVIDERS: PCP Family Medicine; Referring Provider Family Medicine; Visit Provider Physician Assistant Surgical | DX: E11.22 Type 2 diabetes mellitus with diabetic chronic kidney disease (principal); G47.33 Obstructive sleep apnea (adult) (pediatric); J18.9 Pneumonia, unspecified organism; R06.09 Other forms of dyspnea; J90 Pleural effusion, not elsewhere classified | CPT/HCPCS: 99215 ==

== ENCOUNTER 2025-05-26 11:20 | Outpatient (CLI) | payer MEDICARE, MEDICAID, SELFPAY ==
[2025-05-26 12:06] LABS: Abs Immature Grans 0.02 10^3/uL (0.0-0.06); HCT 31.2 % (36.0-46.0); HGB 10.0 g/dL (11.2-15.7); Immature Grans % 0.2 %; MCH 30.9 pg (27.0-33.0); MCHC 32.1 % (32.0-36.0); MCV 96 fL (80-95); MPV 10.3 fL (8.0-11.0); Platelet Count 200 10^3/uL (130-400); RBC 3.24 10^6/uL (3.93-5.22); RDW 15.0 % (11.7-14.6); RDW-SD 53.1 fL; WBC 8.31 10^3/uL (4.4-10.8)
[2025-05-26 14:14] LABS: Anion Gap 12.2 mmol/L (3-11); BUN 72 mg/dL (9-23); CO2 19.8 mmol/L (20.0-31.0); Calcium 8.4 mg/dL (8.3-10.6); Chloride 111 mmol/L (98-107); Glucose 79 mg/dL (74-106); Potassium 5.2 mmol/L (3.5-5.1); Sodium 143 mmol/L (136-145)
== END 2025-05-26 11:21 | disposition home or self-care (01) ==
LOC: LBO 11:20
PROVIDERS: PCP Family Medicine; Visit Provider Physician Assistant Surgical
DX: N18.30 Chronic kidney disease, stage 3 unspecified (principal)
CPT/HCPCS: 36415; 80048; 99215; 85025

== ENCOUNTER 2025-05-28 16:47 | Outpatient (CLI) | payer MEDICARE, MEDICAID, SELFPAY ==
[2025-05-28 17:13] LABS: Anion Gap 11.7 mmol/L (3-11); BUN 80 mg/dL (9-23); CO2 19.3 mmol/L (20.0-31.0); Calcium 8.4 mg/dL (8.3-10.6); Chloride 111 mmol/L (98-107); Glucose 100 mg/dL (74-106); Potassium 5.1 mmol/L (3.5-5.1); Sodium 142 mmol/L (136-145)
== END 2025-05-28 16:48 | disposition home or self-care (01) ==
PROVIDERS: PCP Family Medicine; Visit Provider Internal Medicine Pulmonary Disease
DX: I13.10 Hypertensive heart and chronic kidney disease without heart failure, with stage 1 through stage 4 chronic kidney disease, or unspecified chronic kidney disease (principal)
CPT/HCPCS: 36415; 80048

== ENCOUNTER 2025-06-02 01:41 | Outpatient (CLI) | payer MEDICARE, MEDICAID, SELFPAY ==
[2025-06-02] MEDS: Inhaler, Assist Device 1 EACH MC (16:39)
[2025-06-02] MEDS: Levalbuterol HFA 15 GM INH 4 PUFF IH (16:40)
--- NOTE | 2025-06-03 09:01 | W.PFT ---
Date of service: 06/02/25 Time of Service: 15:34 Pulmonary Function Test Result Indications: Dyspnea Impression 1. Good patient effort was noted. ATS standards for reproducibility were met. 2. Spirometry was not consistent with obstructive lung disease. 3. Following the administration of a bronchodilator there was not a significant response 4. TLC is reduced at 79% predicted, consistent with mild restrictive lung disease 5. DLCO was 62%, consistent with a moderate defect in alveolar gas exchange
== END 2025-06-02 01:42 | disposition home or self-care (01) ==
LOC: RT 01:41
PROVIDERS: PCP Family Medicine; Visit Provider Physician Assistant Surgical
DX: R06.09 Other forms of dyspnea (principal)
CPT/HCPCS: 94060; 94726; 94729

== ENCOUNTER → 2025-06-09 00:20 | Outpatient (CLI) | payer MEDICARE, MEDICAID, SELFPAY ==
--- NOTE | 2025-06-09 08:00 | DI.CT_ITS ---
Exam(s) CT CHEST WO EXAM: CT CHEST WO CLINICAL HISTORY: F/U PNEUMONIA,PULMONARY INFILTRATES,R91.8. TECHNIQUE: Imaging protocol: Axial computed tomography images were obtained and coronal and sagittal reformatted images were created and reviewed. Computer aided detection (CAD) was utilized. CONTRAST MATERIAL: Noncontrast COMPARISON: CT CT CHEST/ABD/PEL WO from 05/07/2025 CR XR CHEST 2V PA LATERAL from 05/08/2025 CR XR PORTABLE CHEST AP from 05/13/2025 FINDINGS: Pulmonary parenchyma: Evaluation is limited by respiratory motion and expiratory changes. There is a large dense area of consolidation in the right lower lobe. There are milder patchy infiltrates noted in both upper lobes. There is mild atelectasis at the left lung base. Interstitial changes: None. Emphysema: None. Tracheobronchial tree: Mild right basilar mucous plugging of distal branches. No bronchiectasis . Pleura: Small bilateral pleural effusions, right greater than left. No pneumothorax. Heart: The heart is severely dilated. The coronary arteries show moderate calcifications. Aorta: Thoracic aorta non-dilated. Mild atherosclerotic changes. Lymph nodes: No enlarged lymph nodes. Bones: Degenerative changes are seen. No evidence of compression fracture. Upper abdomen: Unremarkable. Soft tissues: Unremarkable. IMPRESSION: Dense area of consolidation in the right lower lobe which appears new when compared with the previous chest x-ray of 13 May 2025. There has been improvement in the in the left basilar densities, now mild atelectasis. Mild bilateral upper lobe infiltrates are also present. There are small bilateral pleural effusions, right greater than left. The right pleural effusion appears new since the previous chest x-ray. RADIATION DOSE DELIVERED: Total DLP DATA REPOSITORY: All CT scans at this facility are submitted to the National Radiology Data Registry (NRDR) Dose Index Registry (DIR) with the [employer] (A[employer]). RADIATION OPTIMIZATION: All CT scans at this facility use at least one of these dose optimization techniques: automated exposure control; mA and/or kV adjustment per patient size (includes targeted exams where dose is matched to clinical indication); or iterative reconstruction.
== END ==
LOC: DI 00:20
PROVIDERS: PCP Family Medicine; Visit Provider Physician Assistant Surgical
DX: J98.11 Atelectasis (principal); J90 Pleural effusion, not elsewhere classified
CPT/HCPCS: 71250